=== PATIENT | female | born 1955 | race Caucasian/White ===

== ENCOUNTER 2016-06-16 13:42 | Emergency (ER) | payer OTHER ==
[~2016-06-16] VITALS: Ht 165.1 cm; Wt 63.5 kg
[2016-06-16 13:43] VITALS: BP 201/96; PULSE 94; RESP 17; TEMP 98.7; O2SAT 98
[2016-06-16] MEDS ORDERED: SODIUM CHLOR 0.9% 1000 ML INJ 1,000 ML IV SCH (14:36)
[2016-06-16] MEDS ORDERED: PROB1TAB PO (14:44)
[2016-06-16] MEDS ORDERED: SYMB160A INH (14:44)
[2016-06-16] MEDS ORDERED: LOSA50TA2 PO (14:44)
[2016-06-16] MEDS ORDERED: LIBRAX PO (14:44)
[2016-06-16] MEDS ORDERED: NORC5TAB PO (14:44)
[2016-06-16] MEDS ORDERED: ZANT150T2 PO (14:44)
[2016-06-16] MEDS ORDERED: TRAZ100T4 PO (14:44)
[2016-06-16] MEDS ORDERED: MONT10TA2 PO (14:44)
[2016-06-16] MEDS ORDERED: ZYRT10TA PO (14:44)
[2016-06-16] MEDS ORDERED: CYCL1TAB29 PO (14:44)
[2016-06-16] MEDS ORDERED: ONDANSETRON HCL 4 MG/2 ML VIAL IVP ONE (14:45)
[2016-06-16] MEDS ORDERED: SODIUM CHLORIDE 0.9% FLUSH 10 ML FLUSH IV FLUSH PRN (14:45)
--- NOTE | 2016-06-16 14:53 | PD ---
HPI Chief Complaint: GI Complaint Time Seen by Provider: 13:55 Travel History International Travel<30 days: No Contact w/Intl Traveler<30days: No Traveled to known affect area: No History of Present Illness HPI 7-year-old female presents emergency department for evaluation of nausea and vomiting of clear liquid. Patient states that she thinks she had some pancakes a few days ago which had milk in them and she has a problem with milk ever since she had an injury to her ankle after walking her dog. She states ever since then she's had some problems with milk. 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 She denies any abdominal pain chest pain shortness of breath fevers dysuria vaginal bleeding vaginal discharge diarrhea. She thinks that she is dehydrated. PFSH Past Medical History Diminished Hearing: No Hiatal Hernia: Yes Hypertension: Yes Tetanus Vaccination: Unknown Influenza Vaccination: No ?: Not Menopausal: Yes : 3 Tubal Ligation: Yes Past Surgical History Gynecologic Surgery: Yes (hysterectomy, tubal ligation ) Hysterectomy: Yes Social History Alcohol Use: Yes (rarely) Tobacco Use: No Substance Use: No Allergies-Medications (Allergen,Severity, Reaction): Coded Allergies: Bactrim (Verified Allergy, Severe, RASH, 06/16/16) Sulfa (Verified Allergy, Severe, RASH, 06/16/16) Reported Meds & Prescriptions Reported Meds & Active Scripts Active Phenergan Supp (Promethazine HCl) 25 Mg Supp 25 Mg RECTAL Q6H PRN Reported Symbicort Inh (Budesonide/Formoterol Fumarate) 160-4.5 Mcg/Act Aero 2 Puff INH BID [place] (Hydrocodone-Acetaminophen) 5-325 mg Tab 1 Tab PO Q6H PRN Zyrtec Allergy (Cetirizine HCl) 10 Mg Tab 10 Mg PO DAILY Singulair (Montelukast Sodium) 10 Mg Tab 10 Mg PO HS Trazodone (Trazodone HCl) 100 Mg Tab 100 Mg PO HS Librax (Chlordiazepoxide/Clidinium) 5-2.5 Mg Cap 1 Cap PO BID Flexeril (Cyclobenzaprine HCl) 10 Mg Tab 10 Mg PO TID Zantac (Ranitidine HCl) 150 Mg Tab 150 Mg PO BID Probiotic (Probiotic Product) 1 Tab Tab 1 Tab PO DAILY Losartan-Hydrochlorothiazide 50-12.5 Mg Tab 1 Tab PO DAILY Review of Systems Except as stated in HPI: all other systems reviewed are Neg Physical Exam Narrative GENERAL: Well-developed well-nourished no apparent distress SKIN: Focused skin assessment warm/dry. HEAD: Atraumatic. Normocephalic. EYES: Pupils equal and round. No scleral icterus. No injection or drainage. ENT: No nasal bleeding or discharge. Mucous membranes pink and moist. NECK: Trachea midline. No JVD. CARDIOVASCULAR: Regular rate and rhythm. No murmur appreciated. RESPIRATORY: No accessory muscle use. Clear to auscultation. Breath sounds equal bilaterally. GASTROINTESTINAL: Abdomen soft, non-tender, nondistended. Hepatic and splenic margins not palpable. MUSCULOSKELETAL: No obvious deformities. No clubbing. No cyanosis. No edema. NEUROLOGICAL: Awake and alert. No obvious cranial nerve deficits. Motor grossly within normal limits. Normal speech. PSYCHIATRIC: Appropriate mood and affect; insight and judgment normal. Data Data Last Documented VS Vital Signs Date Time Temp Pulse Resp B/P Pulse Ox O2 Delivery O2 Flow Rate FiO2 06/16/16 18:45 100 06/16/16 18:39 74 18 126/63 06/16/16 16:50 Room Air 06/16/16 13:43 98.7 Orders Complete Blood Count With Diff (06/16/16 14:36) Comprehensive Metabolic Panel (06/16/16 14:36) Lipase (06/16/16 14:36) Urinalysis - C+S If Indicated (06/16/16 14:36) Iv Access Insert/Monitor (06/16/16 14:36) Ecg Monitoring (06/16/16 14:36) Oximetry (06/16/16 14:36) Ondansetron Inj (Zofran Inj) (06/16/16 14:45) Sodium Chlor 0.9% 1000 Ml Inj (Ns 1000 M (06/16/16 14:36) Sodium Chloride 0.9% Flush (Ns Flush) (06/16/16 14:45) Clonidine (Catapres) (06/16/16 16:00) Potassium Chlor 20 Meq Premix (Kcl 20 Me (06/16/16 16:30) Potassium Chloride (Kcl) (06/16/16 16:30) Lorazepam (Ativan) (06/16/16 16:45) Labs Laboratory Tests Test 06/16/16 06/16/16 14:55 15:45 White Blood Count 6.5 TH/MM3 Red Blood Count 4.61 MIL/MM3 Hemoglobin 14.0 GM/DL Hematocrit 41.2 % Mean Corpuscular Volume 89.4 FL Mean Corpuscular Hemoglobin 30.3 PG Mean Corpuscular Hemoglobin 33.9 % Concent Red Cell Distribution Width 13.8 % Platelet Count 200 TH/MM3 Mean Platelet Volume 8.4 FL Neutrophils (%) (Auto) 67.1 % Lymphocytes (%) (Auto) 24.8 % Monocytes (%) (Auto) 7.1 % Eosinophils (%) (Auto) 0.3 % Basophils (%) (Auto) 0.7 % Neutrophils # (Auto) 4.4 TH/MM3 Lymphocytes # (Auto) 1.6 TH/MM3 Monocytes # (Auto) 0.5 TH/MM3 Eosinophils # (Auto) 0.0 TH/MM3 Basophils # (Auto) 0.0 TH/MM3 CBC Comment DIFF FINAL Differential Comment Sodium Level 139 MEQ/L Potassium Level 2.8 MEQ/L Chloride Level 102 MEQ/L Carbon Dioxide Level 27.6 MEQ/L Anion Gap 9 MEQ/L Blood Urea Nitrogen 14 MG/DL Creatinine 0.84 MG/DL Estimat Glomerular Filtration 69 ML/MIN Rate Random Glucose 98 MG/DL Calcium Level 9.8 MG/DL Total Bilirubin 0.6 MG/DL Aspartate Amino Transf 31 U/L (AST/SGOT) Alanine Aminotransferase 27 U/L (ALT/SGPT) Alkaline Phosphatase 67 U/L Total Protein 8.1 GM/DL Albumin 4.4 GM/DL Lipase 132 U/L Urine Color LIGHT-YELLOW Urine Turbidity CLEAR Urine pH 8.0 Urine Specific [place] 1.012 Urine Protein NEG mg/dL Urine Glucose (UA) NEG mg/dL Urine Ketones 10 mg/dL Urine Occult Blood NEG Urine Nitrite NEG Urine Bilirubin NEG Urine Urobilinogen LESS THAN 2.0 MG/DL Urine Leukocyte Esterase NEG Urine RBC LESS THAN 1 /hpf Urine WBC LESS THAN 1 /hpf Urine Hyaline Casts 1 /lpf Urine Mucus FEW /lpf Microscopic Urinalysis Comment CULT NOT INDICATED MDM Medical Decision Making Medical Screen Exam Complete: Yes Emergency Medical Condition: Yes Differential Diagnosis Dehydration, nausea, vomiting, lactose intolerance, electro-light abnormality, acute abdomen highly unlikely. Narrative Course Patient was roomed in the emergency department, she has nausea and vomiting of clear emesis without any abdominal pain. Her abdominal exam is benign. Her labs are reassuring except for potassium at 2.8. She was receiving IV and by mouth replacement. She also asked something for her nerves. She was given Ativan 1 mg by mouth after her ride arrived to take her home. Discussed with her symptomatically management. She was given a prescription for Phenergan suppositories. There is no indication further workup at this time. Patient was grateful and stated she felt much better on her way out of the emergency department. Diagnosis Primary Impression: Nausea & vomiting Qualified Code: R11.2 - Nausea and vomiting, intractability of vomiting not specified, unspecified vomiting type Med/Other Pt SpecificInfo: Prescription(s) given Scripts Promethazine Supp (Phenergan Supp)25 Mg Supp25 Mg RECTAL Q6H PRN (NAUSEA OR VOMITING) #12 SUPP Ref 0 Prov:Juan J Olivo MD 06/16/16 Disposition: 01 DISCHARGE HOME Condition: Stable Juan J Olivo MD Jun 16, 2016 14:53
[2016-06-16 15:08] LABS: AUTOMATED NEUTROPHIL # 4.4 TH/MM3 (1.8-7.7); BASOPHIL % 0.7 % (0.0-2.0); EOSINOPHIL % 0.3 % (0.0-4.0); HEMATOCRIT 41.2 % (35.0-46.0); HEMO FLAGS DIFF FINAL; LYMPH % 24.8 % (9.0-44.0); LYMPHOCYTE # 1.6 TH/MM3 (1.0-4.8); MEAN CELL VOLUME 89.4 FL (80.0-100.0); MEAN CORPUSCULAR HEMOGLOBIN 30.3 PG (27.0-34.0); MEAN CORPUSCULAR HGB CONC 33.9 % (32.0-36.0); MONO % 7.1 % (0.0-8.0); NEUT % 67.1 % (16.0-70.0); PLATELET COUNT 200 TH/MM3 (150-450); RED BLOOD COUNT 4.61 MIL/MM3 (4.00-5.30); RED CELL DISTRIBUTION WIDTH 13.8 % (11.6-17.2); WHITE BLOOD COUNT 6.5 TH/MM3 (4.0-11.0)
[2016-06-16 15:53] LABS: ALKALINE PHOSPHATASE 67 U/L (45-117); ALT (GPT) 27 U/L (10-53); ANION GAP 9 MEQ/L (5-15); AST (GOT) 31 U/L (15-37); BICARBONATE 27.6 MEQ/L (21.0-32.0); BLOOD UREA NITROGEN 14 MG/DL (7-18); CHLORIDE 102 MEQ/L (98-107); GLOMERULAR FILTRATION RATE 69 ML/MIN (>89); SODIUM (NA) 139 MEQ/L (136-145); TOTAL BILIRUBIN ADULT 0.6 MG/DL (0.2-1.0)
[2016-06-16] MEDS ORDERED: cloNIDine HCL 0.1 MG TAB PO ONE (16:00)
[2016-06-16 16:06] LABS: POTASSIUM 2.8 MEQ/L (3.5-5.1)
[2016-06-16 16:15] VITALS: BP 193/88; PULSE 76; RESP 18; O2SAT 99
[2016-06-16 16:25] LABS: BLOOD, URINE NEG (NEG); COMMENT (UR) CULT NOT INDICATED; CULTURE IF INDICATED CULT NOT INDICATED; GLUCOSE,URINE NEG (NEG); HYALINE CAST, URINE 1 /lpf (RARE); KETONE, URINE 10 mg/dL (NEG); MUCUS URINE FEW /lpf (OCC); NITRITE,URINE NEG (NEG); URINE COLOR LIGHT-YELLOW (YELLW/STRAW)
[2016-06-16] MEDS ORDERED: POTASSIUM CHLOR 20 MEQ PREMIX 100 ML IV ONE (16:30)
[2016-06-16] MEDS ORDERED: POTASSIUM CHLORIDE 20 MEQ CONTROLLED RELEASE TAB PO ONE (16:30)
[2016-06-16] MEDS ORDERED: PROM1SUP7 RECTAL (16:33)
[2016-06-16] MEDS ORDERED: LORazepam 1 MG TAB PO ONE (16:45)
[2016-06-16 16:50] VITALS: BP 199/78; PULSE 71; RESP 18; O2SAT 100
[2016-06-16 18:39] VITALS: BP 126/63; PULSE 74; RESP 18; O2SAT 100
== END 2016-06-16 18:45 | disposition home or self-care (01) ==
LOC: NEPD 13:42
DX: R11.2 Nausea with vomiting, unspecified (principal); I10 Essential (primary) hypertension
CPT/HCPCS: 80053; 81001; 83690; 85025; 96361; 96374; 96375; 99284; J2405; J3480; J7030

== ENCOUNTER 2016-10-13 15:40 | Emergency (ER) | payer OTHER ==
[~2016-10-13 15:40] MED LIST: CYCL1TAB29 PO; LIBRAX PO; LOSA50TA2 PO; MONT10TA2 PO; NORC5TAB PO; PROB1TAB PO; PROM1SUP7 RECTAL; SYMB160A INH; TRAZ100T4 PO; ZANT150T2 PO; ZYRT10TA PO
[2016-10-13 15:45] VITALS: BP 121/71; PULSE 82; RESP 24; TEMP 98.4; O2SAT 100
--- NOTE | 2016-10-13 16:26 | PD ---
HPI Chief Complaint: Musculoskeletal Complaint Time Seen by Provider: 16:25 Travel History International Travel<30 days: No Contact w/Intl Traveler<30days: No Traveled to known affect area: No History of Present Illness HPI 61-year-old female presents to the emergency department with complaint of left knee pain after slipping while taking her trash out and over flexing her knee after falling on her butt. She has history of bilateral knee replacements and is concerned about the hardware in her knee. Denies paresthesias, loss of sensation, decreased range of motion, decreased strength of the affected extremity. Has been ambulatory on the affected extremity. Pain is to the medial aspect. Pain with full extension of the knee. Decreased pain with flexion of the knee. Took 800 mg ibuprofen for symptom management, just prior to arrival. Symptoms are mild in severity. Has no other medical complaints. Allergies to Bactrim. No other modifying factors or associated signs and symptoms. PFSH Past Medical History Cardiovascular Problems: Yes (HTN) Diminished Hearing: No Hiatal Hernia: Yes Hypertension: Yes Menopausal: Yes : 3 Tubal Ligation: Yes Past Surgical History Gynecologic Surgery: Yes (hysterectomy, tubal ligation ) Hysterectomy: Yes Social History Alcohol Use: Yes (rarely) Tobacco Use: No Substance Use: No Allergies-Medications (Allergen,Severity, Reaction): Coded Allergies: Sulfa (Sulfonamide Antibiotics) (Verified Allergy, Severe, RASH, 10/13/16) sulfamethoxazole (Verified Allergy, Severe, RASH, 10/13/16) trimethoprim (Verified Allergy, Severe, RASH, 10/13/16) Reported Meds & Prescriptions Reported Meds & Active Scripts Active Ibuprofen 800 Mg Tab 800 Mg PO Q8H PRN Phenergan Supp (Promethazine HCl) 25 Mg Supp 25 Mg RECTAL Q6H PRN Reported Symbicort Inh (Budesonide/Formoterol Fumarate) 160-4.5 Mcg/Act Aero 2 Puff INH BID [place] (Hydrocodone-Acetaminophen) 5-325 mg Tab 1 Tab PO Q6H PRN Zyrtec Allergy (Cetirizine HCl) 10 Mg Tab 10 Mg PO DAILY Singulair (Montelukast Sodium) 10 Mg Tab 10 Mg PO HS Trazodone (Trazodone HCl) 100 Mg Tab 100 Mg PO HS Librax (Chlordiazepoxide/Clidinium) 5-2.5 Mg Cap 1 Cap PO BID Flexeril (Cyclobenzaprine HCl) 10 Mg Tab 10 Mg PO TID Zantac (Ranitidine HCl) 150 Mg Tab 150 Mg PO BID Probiotic (Probiotic Product) 1 Tab Tab 1 Tab PO DAILY Losartan-Hydrochlorothiazide 50-12.5 Mg Tab 1 Tab PO DAILY Review of Systems Except as stated in HPI: all other systems reviewed are Neg Physical Exam Narrative GENERAL: Well-nourished, well-developed female patient, in no acute distress; afebrile, nontoxic-appearing SKIN: Warm and dry. HEAD: Atraumatic. Normocephalic. EYES: Pupils equal and round. No scleral icterus. No injection or drainage. ENT: Mucosa pink and moist. Airway patent. NECK: Trachea midline. CARDIOVASCULAR: Regular rate. RESPIRATORY: No accessory muscle use. GASTROINTESTINAL: Flat. MUSCULOSKELETAL: Left knee is nonedematous, nonerythematous and without ecchymosis; full range of motion of flexion and 90; pain with full extension; joint stable with negative drawer test; tenderness on palpation to the medial aspect; no obvious deformity. Left Lower extremity is supple and non-tense with 2+ pedal pulse and sensory intact and without erythema or edema. Ambulatory in room with a limp to the left lower extremity. NEUROLOGICAL: Awake and alert. Oriented 3. No obvious cranial nerve deficits. Motor grossly within normal limits. Normal speech. PSYCHIATRIC: Appropriate mood and affect; insight and judgment normal. Data Data Last Documented VS Vital Signs Date Time Temp Pulse Resp B/P (MAP) Pulse Ox O2 Delivery O2 Flow Rate FiO2 10/13/16 15:45 98.4 82 24 121/71 (88) 100 Room Air Orders Orders Knee, Complete (4vws) (10/13/16 16:18) Splint Or Brace Apply/Monitor (10/13/16 16:40) Crutches (10/13/16 16:40) MDM Medical Decision Making Medical Screen Exam Complete: Yes Emergency Medical Condition: Yes Medical Record Reviewed: Yes Differential Diagnosis Fall, Knee strain, meniscal tear, fracture Narrative Course 61 year-old female with left knee injury after mechanical fall. She fell backwards onto her butt with her left leg under her causing it to over flex. She has history of bilateral knee replacements and is concerned of the hardware. Patient took 800 mg ibuprofen prior to arrival. Left knee x-ray ordered. 1651: Left knee x-ray with no acute findings. Guillermo bandage and crutches provided for support. Ibuprofen prescribed for home. Instructed patient to follow up with orthopedics as needed. Instructed patient to follow up with primary care provider. Patient verbalizes understanding and agreement with treatment plan. Patient is medically cleared and stable for discharge. Discussed reasons to return to the emergency department. Patient agrees with treatment plan. The patients vital signs are stable and the patient is stable for outpatient follow-up and treatment. Patient discharged home, stable and in no acute distress. Diagnosis Primary Impression: Left knee injury Qualified Codes: S89.92XA - Unspecified injury of left lower leg, initial encounter Referrals: Primary Care Physician Patient Instructions: General Instructions, Knee Sprain (ED) Additional Instructions: Tylenol or ibuprofen as needed and as directed to reduce pain and inflammation Rest, ice, compress, and elevate extremity to decrease pain and inflammation Knee brace for support Crutches for support Avoid aggravating activity; increase activity as tolerated Follow-up with primary care provider Follow-up with orthopedics Return to the emergency department immediately with worsening symptoms Med/Other Pt SpecificInfo: Prescription(s) given Scripts Ibuprofen (Ibuprofen) 800 Mg Tab 800 MG PO Q8H Y for PAIN SCALE 1 TO 10, #30 TAB 0 Refills Prov: Sybil Gaston 10/13/16 Disposition: 01 DISCHARGE HOME Condition: Stable Sybil Gaston Oct 13, 2016 16:25
--- NOTE | 2016-10-13 16:47 | RADRPT ---
EXAM DATE/TIME: 10/13/2016 16:33 [facility] COMPARISON: No previous studies available for comparison. INDICATIONS : Left knee pain and swelling, fell MEDICAL HISTORY : Arthritis. SURGICAL HISTORY : Total knee replacement, left. Total knee replacement, right. ENCOUNTER: Initial ACUITY: 1 day PAIN SCORE: 4/10 LOCATION: Left Knee FINDINGS: There is no fracture or subluxation of the left knee. Total knee arthroplasty present appears intact and normally aligned. No evidence of hardware failure or loosening. Small suprapatellar joint effusio n present. CONCLUSION: Small nonspecific joint effusion. Otherwise normal radiographic appearance of the left knee/arthropla sty. No fracture or subluxation. aJred Murphy MD on October 13, 2016 at 16:45 Board Certified Radiologist. This report was verified electronically.
[2016-10-13] MEDS ORDERED: IBUP800T23 PO (16:49)
== END 2016-10-13 17:49 | disposition home or self-care (01) ==
LOC: NEPK 15:40
DX: S89.92XA Unspecified injury of left lower leg, initial encounter (principal); I10 Essential (primary) hypertension; Z96.653 Presence of artificial knee joint, bilateral; Z86.79 Personal history of other diseases of the circulatory system; Z87.39 Personal history of other diseases of the musculoskeletal system and connective tissue; W01.0XXA Fall on same level from slipping, tripping and stumbling without subsequent striking against object, initial encounter
CPT/HCPCS: 73564; 99283; E0113

== ENCOUNTER 2017-03-11 15:26 | Emergency (ER) | payer OTHER ==
[~2017-03-11] VITALS: Ht 166.4 cm; Wt 68.2 kg
[~2017-03-11 15:26] MED LIST changes: +CYCL10TA PO; -CYCL1TAB29 PO; +IBUP1TAB7 PO
[2017-03-11] MEDS ORDERED: IOHEXOL 350 MG/ML 10 ML VIAL (for RAD DIAG) IVCONTRAST ONE (15:27)
[2017-03-11 15:28] VITALS: BP 169/84; PULSE 84; RESP 17; TEMP 99.7; O2SAT 100
[2017-03-11] MEDS ORDERED: SODIUM CHLOR 0.9% 1000 ML INJ 1,000 ML IV SCH (16:37)
--- NOTE | 2017-03-11 16:37 | PD ---
HPI Chief Complaint: GI Complaint Time Seen by Provider: 16:28 Travel History International Travel<30 days: No Contact w/Intl Traveler<30days: No Traveled to known affect area: No History of Present Illness HPI 62-year-old female presents to the emergency Department with complaint of hypogastric abdominal pain, constipation 3 days and onset of vomiting this morning. Reports low-grade fever with MAXIMUM TEMPERATURE of 99.3. Denies hematemesis. Denies hematuria, urinary frequency. Reports nausea. Denies history of abdominal surgeries. Reports being treated for Escherichia coli in her stool in January. Took 2 Dulcolax on Friday with no relief of symptoms. Took Zofran this morning at 6 AM for nausea and vomiting. Rates pain 08/26. Says "it just hurts." Worse with palpation. No known relieving factors. Primary care provider is Dr. Michael. Allergies to Bactrim. History of hypertension, asthma, hypercholesterolemia. Has no other medical complaints. No other modifying factors or associated signs and symptoms. PFSH Past Medical History Cardiovascular Problems: Yes (HTN) Diminished Hearing: No Hiatal Hernia: Yes Hypertension: Yes Menopausal: Yes : 3 Tubal Ligation: Yes Past Surgical History Gynecologic Surgery: Yes (hysterectomy, tubal ligation ) Hysterectomy: Yes Social History Alcohol Use: Yes (rarely) Tobacco Use: No Substance Use: No Allergies-Medications (Allergen,Severity, Reaction): Coded Allergies: Sulfa (Sulfonamide Antibiotics) (Verified Allergy, Severe, RASH, 10/13/16) sulfamethoxazole (Verified Allergy, Severe, RASH, 10/13/16) trimethoprim (Verified Allergy, Severe, RASH, 10/13/16) Reported Meds & Prescriptions Reported Meds & Active Scripts Active Phenergan Supp (Promethazine HCl) 25 Mg Supp 25 Mg RECTAL Q6H PRN Ibuprofen 800 Mg Tab 800 Mg PO Q8H PRN Phenergan Supp (Promethazine HCl) 25 Mg Supp 25 Mg RECTAL Q6H PRN Reported Symbicort Inh (Budesonide/Formoterol Fumarate) 160-4.5 Mcg/Act Aero 2 Puff INH BID [place] (Hydrocodone-Acetaminophen) 5-325 mg Tab 1 Tab PO Q6H PRN Zyrtec Allergy (Cetirizine HCl) 10 Mg Tab 10 Mg PO DAILY Singulair (Montelukast Sodium) 10 Mg Tab 10 Mg PO HS Trazodone (Trazodone HCl) 100 Mg Tab 100 Mg PO HS Librax (Chlordiazepoxide/Clidinium) 5-2.5 Mg Cap 1 Cap PO BID Flexeril (Cyclobenzaprine HCl) 10 Mg Tab 10 Mg PO TID Zantac (Ranitidine HCl) 150 Mg Tab 150 Mg PO BID Probiotic (Probiotic Product) 1 Tab Tab 1 Tab PO DAILY Losartan-Hydrochlorothiazide 50-12.5 Mg Tab 1 Tab PO DAILY Review of Systems Except as stated in HPI: all other systems reviewed are Neg Physical Exam Narrative GENERAL: Well-nourished, well-developed female patient, in no acute distress; afebrile SKIN: Warm and dry. HEAD: Atraumatic. Normocephalic. EYES: Pupils equal and round. No scleral icterus. No injection or drainage. ENT: Mucosa pink and moist. Airway patent. NECK: Trachea midline. CARDIOVASCULAR: Regular rate and rhythm. No murmur appreciated. RESPIRATORY: No accessory muscle use. Clear to auscultation. Breath sounds equal bilaterally. GASTROINTESTINAL: Abdomen soft, tenderness on palpation to hypogastric region, nondistended. Hepatic and splenic margins not palpable. Bowel sounds are active 4 quadrants. Nonrigid. No rebound tenderness. No guarding. Bladder is nondistended. BACK: No CVA tenderness. MUSCULOSKELETAL: No obvious deformities. No clubbing. No cyanosis. No edema. NEUROLOGICAL: Awake and alert. Oriented 3. No obvious cranial nerve deficits. Motor grossly within normal limits. Normal speech. PSYCHIATRIC: Appropriate mood and affect; insight and judgment normal. Data Data Last Documented VS Vital Signs Date Time Temp Pulse Resp B/P (MAP) Pulse Ox O2 Delivery O2 Flow Rate FiO2 03/11/17 23:21 79 15 99 03/11/17 20:54 Room Air 03/11/17 15:28 99.7 Orders Orders Complete Blood Count With Diff (03/11/17 15:54) Comprehensive Metabolic Panel (03/11/17 15:54) Lipase (03/11/17 15:54) Prothrombin Time / Inr (Pt) (03/11/17 15:54) Act Partial Throm Time (Ptt) (03/11/17 15:54) Urinalysis - C+S If Indicated (03/11/17 15:54) Ct Abd/Pel W Iv Contrast(Rout) (03/11/17 16:37) Ondansetron Inj (Zofran Inj) (03/11/17 16:45) Sodium Chlor 0.9% 1000 Ml Inj (Ns 1000 M (03/11/17 16:37) Sodium Chloride 0.9% Flush (Ns Flush) (03/11/17 16:45) Ketorolac Inj (Toradol Inj) (03/11/17 16:45) Iohexol 350 Inj (Omnipaque 350 Inj) (03/11/17 15:27) Prochlorperazine Inj (Compazine Inj) (03/11/17 19:45) Diphenhydramine Inj (Benadryl Inj) (03/11/17 19:45) Sodium Chlor 0.9% 1000 Ml Inj (Ns 1000 M (03/11/17 19:45) Potassium Chlor 20 Meq Premix (Kcl 20 Me (03/11/17 20:15) Ed Discharge Order (03/11/17 21:07) Labs Laboratory Tests Test 03/11/17 16:30 03/11/17 19:20 White Blood Count 10.7 TH/MM3 Red Blood Count 4.09 MIL/MM3 Hemoglobin 12.7 GM/DL Hematocrit 37.2 % Mean Corpuscular Volume 90.9 FL Mean Corpuscular Hemoglobin 31.2 PG Mean Corpuscular Hemoglobin Concent 34.3 % Red Cell Distribution Width 13.0 % Platelet Count 175 TH/MM3 Mean Platelet Volume 9.1 FL Neutrophils (%) (Auto) 92.6 % Lymphocytes (%) (Auto) 4.6 % Monocytes (%) (Auto) 2.7 % Eosinophils (%) (Auto) 0.0 % Basophils (%) (Auto) 0.1 % Neutrophils # (Auto) 9.9 TH/MM3 Lymphocytes # (Auto) 0.5 TH/MM3 Monocytes # (Auto) 0.3 TH/MM3 Eosinophils # (Auto) 0.0 TH/MM3 Basophils # (Auto) 0.0 TH/MM3 CBC Comment DIFF FINAL Differential Comment Prothrombin Time 10.9 SEC Prothromb Time International Ratio 1.1 RATIO Activated Partial Thromboplast Time 26.5 SEC Blood Urea Nitrogen 21 MG/DL Creatinine 0.95 MG/DL Random Glucose 201 MG/DL Total Protein 7.9 GM/DL Albumin 4.0 GM/DL Calcium Level 9.2 MG/DL Alkaline Phosphatase 68 U/L Aspartate Amino Transf (AST/SGOT) 17 U/L Alanine Aminotransferase (ALT/SGPT) 21 U/L Total Bilirubin 0.5 MG/DL Sodium Level 141 MEQ/L Potassium Level 3.3 MEQ/L Chloride Level 103 MEQ/L Carbon Dioxide Level 28.6 MEQ/L Anion Gap 9 MEQ/L Estimat Glomerular Filtration Rate 60 ML/MIN Lipase 97 U/L Urine Color YELLOW Urine Turbidity CLEAR Urine pH 7.0 Urine Specific [place] GREATER THAN 1.050 Urine Protein 30 mg/dL Urine Glucose (UA) NEG mg/dL Urine Ketones 80 mg/dL Urine Occult Blood NEG Urine Nitrite NEG Urine Bilirubin NEG Urine Urobilinogen LESS THAN 2.0 MG/DL Urine Leukocyte Esterase NEG Urine Squamous Epithelial Cells 3 /hpf Urine Mucus FEW /lpf Microscopic Urinalysis Comment CULT NOT INDICATED MDM Medical Decision Making Medical Screen Exam Complete: Yes Emergency Medical Condition: Yes Medical Record Reviewed: Yes Differential Diagnosis Constipation, UTI, gastroenteritis, Diverticulitis, gastritis, colitis Narrative Course 62-year-old female with abdominal pain, constipation, vomiting, low-grade fever. CBC, CMP, lipase, coags, urinalysis ordered in triage. CT abdomen/ pelvis, Toradol, normal female bolus, Zofran ordered. 1900: Report give to SIMON Carter at change of shift. See her note for final patient disposition. Scripts Promethazine Supp (Phenergan Supp) 25 Mg Supp 25 MG RECTAL Q6H Y for NAUSEA OR VOMITING, #12 SUPP 0 Refills Prov: Lucila Travis 03/11/17 Sybil Gaston Mar 11, 2017 16:37
[2017-03-11] MEDS ORDERED: SODIUM CHLORIDE 0.9% FLUSH 10 ML FLUSH IV FLUSH PRN (16:45)
[2017-03-11] MEDS ORDERED: ONDANSETRON HCL 4 MG/2 ML VIAL IVP ONE (16:45)
[2017-03-11] MEDS ORDERED: KETOROLAC TROMETHAMINE 30 MG/ML (IVP) VIAL IVP ONE (16:45)
[2017-03-11 17:04] LABS: AUTOMATED NEUTROPHIL # 9.9 TH/MM3 (1.8-7.7); BASOPHIL % 0.1 % (0.0-2.0); HEMATOCRIT 37.2 % (35.0-46.0); HEMOGLOBIN 12.7 GM/DL (11.6-15.3); LYMPH % 4.6 % (9.0-44.0); LYMPHOCYTE # 0.5 TH/MM3 (1.0-4.8); MEAN CELL VOLUME 90.9 FL (80.0-100.0); MEAN CORPUSCULAR HEMOGLOBIN 31.2 PG (27.0-34.0); MEAN CORPUSCULAR HGB CONC 34.3 % (32.0-36.0); MEAN PLATELET VOLUME 9.1 FL (7.0-11.0); MONO % 2.7 % (0.0-8.0); MONOCYTE # 0.3 TH/MM3 (0-0.9); NEUT % 92.6 % (16.0-70.0); PLATELET COUNT 175 TH/MM3 (150-450); RED BLOOD COUNT 4.09 MIL/MM3 (4.00-5.30); WHITE BLOOD COUNT 10.7 TH/MM3 (4.0-11.0)
[2017-03-11 17:12] LABS: INTERNATIONAL NORMALIZED RATIO 1.1 RATIO; PROTHROMBIN TIME - PATIENT 10.9 SEC (9.8-11.6)
[2017-03-11 17:19] LABS: AST (GOT) 17 U/L (15-37); BICARBONATE 28.6 MEQ/L (21.0-32.0); BLOOD UREA NITROGEN 21 MG/DL (7-18); CALCIUM 9.2 MG/DL (8.5-10.1); CHLORIDE 103 MEQ/L (98-107); CREATININE 0.95 MG/DL (0.50-1.00); GLOMERULAR FILTRATION RATE 60 ML/MIN (>89); GLUCOSE,RANDOM 201 MG/DL (74-106); LIPASE 97 U/L (73-393); SODIUM (NA) 141 MEQ/L (136-145)
[2017-03-11 17:22] LABS: ALKALINE PHOSPHATASE 68 U/L (45-117); ALT (GPT) 21 U/L (10-53); TOTAL BILIRUBIN ADULT 0.5 MG/DL (0.2-1.0); TOTAL PROTEIN 7.9 GM/DL (6.4-8.2)
--- NOTE | 2017-03-11 19:09 | RADRPT ---
EXAM DATE/TIME: 03/11/2017 18:30 [facility] COMPARISON: No previous studies available for comparison. INDICATIONS : Vomiting constipation for three days IV CONTRAST: 70 cc Omnipaque 350 (iohexol) IV ORAL CONTRAST: No oral contrast ingested. RADIATION DOSE: 6.64 CTDIvol (mGy) MEDICAL HISTORY : Hypertension. Hernia, hiatal. SURGICAL HISTORY : Hysterectomy. Tubal ligation. ENCOUNTER: Initial ACUITY: 1 day PAIN SCALE: 7/10 LOCATION: Abdomen TECHNIQUE: Volumetric scanning of the abdomen and pelvis was performed. Using automated exposure control and ad justment of the mA and/or kV according to patient size, radiation dose was kept as low as reasonably achievable to obtain optimal diagnostic quality images. DICOM format image data is available electro nically for review and comparison. FINDINGS: There is no significant abnormality the lung bases. No acute findings in the liver, spleen, adrenals, kidneys or pancreas. Small left renal cyst. No calcified gallstones. There is colonic diverticulosis, especially sigmoid without evidence for diverticulitis. Appendix is normal. Mild scoliosis. CONCLUSION: 1. No acute findings. Colonic diverticulosis. No obstruction, free fluid or free air. Small hiatal he rnia. Pete Clark MD on March 11, 2017 at 19:03 Board Certified Radiologist. This report was verified electronically.
[2017-03-11 19:10] VITALS: BP 161/88; PULSE 82; RESP 18; O2SAT 98
[2017-03-11] MEDS ORDERED: diphenhydrAMINE HCL 50 MG/ML VIAL IV PUSH ONE (19:45)
[2017-03-11] MEDS ORDERED: PROCHLORPERAZINE INJ 10 MG/2 ML VIAL IV PUSH ONE (19:45)
[2017-03-11] MEDS ORDERED: SODIUM CHLOR 0.9% 1000 ML INJ 1,000 ML IV ONE (19:45)
[2017-03-11] MEDS ORDERED: POTASSIUM CHLOR 20 MEQ PREMIX 100 ML IV ONE (20:15)
[2017-03-11 20:32] LABS: BILIRUBIN, URINE NEG (NEG); BLOOD, URINE NEG (NEG); GLUCOSE,URINE NEG (NEG); KETONE, URINE 80 mg/dL (NEG); MUCUS URINE FEW /lpf (OCC); NITRITE,URINE NEG (NEG); SQUAMOUS EPITHELIAL CELL URINE 3 /hpf (0-5); URINE COLOR YELLOW (YELLW/STRAW); URINE LEUKOCYTE ESTERASE NEG (NEG)
[2017-03-11 20:54] VITALS: BP 124/57; PULSE 90; RESP 16; O2SAT 99
[2017-03-11] MEDS ORDERED: PROM1SUP7 RECTAL (21:06)
--- NOTE | 2017-03-11 21:07 | PD ---
Physical Exam Date Seen by Provider: Mar 11, 2017 Time Seen by Provider: 20:55 Narrative For full history and physical examination please see previous provider's note. Data Data Last Documented VS Vital Signs Date Time Temp Pulse Resp B/P (MAP) Pulse Ox O2 Delivery O2 Flow Rate FiO2 03/11/17 20:54 90 16 124/57 (79) 99 Room Air 03/11/17 15:28 99.7 Orders Orders Complete Blood Count With Diff (03/11/17 15:54) Comprehensive Metabolic Panel (03/11/17 15:54) Lipase (03/11/17 15:54) Prothrombin Time / Inr (Pt) (03/11/17 15:54) Act Partial Throm Time (Ptt) (03/11/17 15:54) Urinalysis - C+S If Indicated (03/11/17 15:54) Ct Abd/Pel W Iv Contrast(Rout) (03/11/17 16:37) Ondansetron Inj (Zofran Inj) (03/11/17 16:45) Sodium Chlor 0.9% 1000 Ml Inj (Ns 1000 M (03/11/17 16:37) Sodium Chloride 0.9% Flush (Ns Flush) (03/11/17 16:45) Ketorolac Inj (Toradol Inj) (03/11/17 16:45) Iohexol 350 Inj (Omnipaque 350 Inj) (03/11/17 15:27) Prochlorperazine Inj (Compazine Inj) (03/11/17 19:45) Diphenhydramine Inj (Benadryl Inj) (03/11/17 19:45) Sodium Chlor 0.9% 1000 Ml Inj (Ns 1000 M (03/11/17 19:45) Potassium Chlor 20 Meq Premix (Kcl 20 Me (03/11/17 20:15) Labs Laboratory Tests Test 03/11/17 16:30 03/11/17 19:20 White Blood Count 10.7 TH/MM3 Red Blood Count 4.09 MIL/MM3 Hemoglobin 12.7 GM/DL Hematocrit 37.2 % Mean Corpuscular Volume 90.9 FL Mean Corpuscular Hemoglobin 31.2 PG Mean Corpuscular Hemoglobin Concent 34.3 % Red Cell Distribution Width 13.0 % Platelet Count 175 TH/MM3 Mean Platelet Volume 9.1 FL Neutrophils (%) (Auto) 92.6 % Lymphocytes (%) (Auto) 4.6 % Monocytes (%) (Auto) 2.7 % Eosinophils (%) (Auto) 0.0 % Basophils (%) (Auto) 0.1 % Neutrophils # (Auto) 9.9 TH/MM3 Lymphocytes # (Auto) 0.5 TH/MM3 Monocytes # (Auto) 0.3 TH/MM3 Eosinophils # (Auto) 0.0 TH/MM3 Basophils # (Auto) 0.0 TH/MM3 CBC Comment DIFF FINAL Differential Comment Prothrombin Time 10.9 SEC Prothromb Time International Ratio 1.1 RATIO Activated Partial Thromboplast Time 26.5 SEC Blood Urea Nitrogen 21 MG/DL Creatinine 0.95 MG/DL Random Glucose 201 MG/DL Total Protein 7.9 GM/DL Albumin 4.0 GM/DL Calcium Level 9.2 MG/DL Alkaline Phosphatase 68 U/L Aspartate Amino Transf (AST/SGOT) 17 U/L Alanine Aminotransferase (ALT/SGPT) 21 U/L Total Bilirubin 0.5 MG/DL Sodium Level 141 MEQ/L Potassium Level 3.3 MEQ/L Chloride Level 103 MEQ/L Carbon Dioxide Level 28.6 MEQ/L Anion Gap 9 MEQ/L Estimat Glomerular Filtration Rate 60 ML/MIN Lipase 97 U/L Urine Color YELLOW Urine Turbidity CLEAR Urine pH 7.0 Urine Specific [place] GREATER THAN 1.050 Urine Protein 30 mg/dL Urine Glucose (UA) NEG mg/dL Urine Ketones 80 mg/dL Urine Occult Blood NEG Urine Nitrite NEG Urine Bilirubin NEG Urine Urobilinogen LESS THAN 2.0 MG/DL Urine Leukocyte Esterase NEG Urine Squamous Epithelial Cells 3 /hpf Urine Mucus FEW /lpf Microscopic Urinalysis Comment CULT NOT INDICATED [facility] Medical Record Reviewed: Yes Supervised Visit with TAMMY: No Interpretation(s) Last Impressions Abdomen/Pelvis CT 03/11/17 1197 Signed Impressions: Service Date/Time: Saturday, March 11, 2017 18:30 - CONCLUSION: 1. No acute findings. Colonic diverticulosis. No obstruction, free fluid or free air. Small hiatal hernia. Pete Clark MD Laboratory Tests Test 03/11/17 16:30 03/11/17 19:20 White Blood Count 10.7 TH/MM3 Red Blood Count 4.09 MIL/MM3 Hemoglobin 12.7 GM/DL Hematocrit 37.2 % Mean Corpuscular Volume 90.9 FL Mean Corpuscular Hemoglobin 31.2 PG Mean Corpuscular Hemoglobin Concent 34.3 % Red Cell Distribution Width 13.0 % Platelet Count 175 TH/MM3 Mean Platelet Volume 9.1 FL Neutrophils (%) (Auto) 92.6 % Lymphocytes (%) (Auto) 4.6 % Monocytes (%) (Auto) 2.7 % Eosinophils (%) (Auto) 0.0 % Basophils (%) (Auto) 0.1 % Neutrophils # (Auto) 9.9 TH/MM3 Lymphocytes # (Auto) 0.5 TH/MM3 Monocytes # (Auto) 0.3 TH/MM3 Eosinophils # (Auto) 0.0 TH/MM3 Basophils # (Auto) 0.0 TH/MM3 CBC Comment DIFF FINAL Differential Comment Prothrombin Time 10.9 SEC Prothromb Time International Ratio 1.1 RATIO Activated Partial Thromboplast Time 26.5 SEC Blood Urea Nitrogen 21 MG/DL Creatinine 0.95 MG/DL Random Glucose 201 MG/DL Total Protein 7.9 GM/DL Albumin 4.0 GM/DL Calcium Level 9.2 MG/DL Alkaline Phosphatase 68 U/L Aspartate Amino Transf (AST/SGOT) 17 U/L Alanine Aminotransferase (ALT/SGPT) 21 U/L Total Bilirubin 0.5 MG/DL Sodium Level 141 MEQ/L Potassium Level 3.3 MEQ/L Chloride Level 103 MEQ/L Carbon Dioxide Level 28.6 MEQ/L Anion Gap 9 MEQ/L Estimat Glomerular Filtration Rate 60 ML/MIN Lipase 97 U/L Urine Color YELLOW Urine Turbidity CLEAR Urine pH 7.0 Urine Specific [place] GREATER THAN 1.050 Urine Protein 30 mg/dL Urine Glucose (UA) NEG mg/dL Urine Ketones 80 mg/dL Urine Occult Blood NEG Urine Nitrite NEG Urine Bilirubin NEG Urine Urobilinogen LESS THAN 2.0 MG/DL Urine Leukocyte Esterase NEG Urine Squamous Epithelial Cells 3 /hpf Urine Mucus FEW /lpf Microscopic Urinalysis Comment CULT NOT INDICATED Vital Signs Date Time Temp Pulse Resp B/P (MAP) Pulse Ox O2 Delivery O2 Flow Rate FiO2 03/11/17 20:54 90 16 124/57 (79) 99 Room Air 03/11/17 19:10 82 18 161/88 (112) 98 Room Air 03/11/17 15:28 99.7 84 17 169/84 (112) 100 Room Air Differential Diagnosis Gastritis versus gastroenteritis versus obstruction versus metabolic abnormality versus other Narrative Course Patient is a 62-year-old female that presented to the emergency department for evaluation of abdominal pain nausea and vomiting. Please see previous provider' s note for full H&P. CBC reviewed, no acute findings identified Chemistry with potassium of 3.3, replacement ordered. UA is not consistent with urinary tract infection. CT scan abdomen and pelvis shows no acute findings. Colonic diverticulosis. No obstruction, free fluid or free air is noted. There is a small hiatal hernia. Patient was given IV fluids, she was given an additional dose of Compazine and Benadryl for nausea. She does report having a GI specialist as well as a primary doctor to follow-up with. Patient was reassured at this time that there were no acute findings. Patient will be discharged home, she is advised to follow-up with the vp strategic planning and primary doctor within the next 1-2 days. She was given strict return precautions. Patient verbalized understanding. Patient is stable for discharge. Diagnosis Primary Impression: Nausea & vomiting Qualified Codes: R11.2 - Nausea with vomiting, unspecified Additional Impression: Abdominal pain Qualified Codes: R10.33 - Periumbilical pain Referrals: It Account Manager 2 days Primary Care Physician 2 days Patient Instructions: Abdominal Pain (ED), Acute Nausea and Vomiting (DC), General Instructions Additional Instruction: Follow-up with her vp strategic planning Follow-up with your primary doctor Maintain a bland, easy to digest diet, increase as tolerated Take medications as directed Return to emergency department immediately for any new or worsening symptoms as discussed Med/Other Pt SpecificInfo: Prescription(s) given Scripts Promethazine Supp (Phenergan Supp) 25 Mg Supp 25 MG RECTAL Q6H Y for NAUSEA OR VOMITING, #12 SUPP 0 Refills Prov: Lucila Travis 03/11/17 Disposition: 01 DISCHARGE HOME Condition: Stable Lucila Travis Mar 11, 2017 21:07
[2017-03-13] MEDS ORDERED: TRAZ1TAB14 PO (15:22)
[2017-03-13] MEDS ORDERED: CETI10 PO (15:22)
[2017-03-13] MEDS ORDERED: CLON1 PO (15:22)
[2017-03-15] MEDS ORDERED: PANT20 PO (10:57)
[2017-03-15] MEDS ORDERED: SUCR1S PO (10:57)
[2017-03-15] MEDS ORDERED: REGL5TAB PO (10:59)
== END 2017-03-11 23:31 | disposition home or self-care (01) ==
LOC: NEPD 15:26
DX: R11.2 Nausea with vomiting, unspecified (principal); R10.33 Periumbilical pain; K59.00 Constipation, unspecified; I10 Essential (primary) hypertension; J45.909 Unspecified asthma, uncomplicated; E78.00 Pure hypercholesterolemia, unspecified
CPT/HCPCS: 74177; 80053; 81001; 83690; 85025; 85610; 85730; 96361; 96374; 96375; 99285; J0780; J1200; J1885; J2405; J3480; J7030; Q9967

== ENCOUNTER 2017-03-21 13:07 | Emergency (ER) | payer OTHER ==
[~2017-03-21] VITALS: Ht 165.1 cm; Wt 66.2 kg
[~2017-03-21 13:07] MED LIST changes: +CETI10 PO; -CYCL10TA PO; -IBUP1TAB7 PO; -NORC5TAB PO; +PANT20 PO; -PROB1TAB PO; -PROM1SUP7 RECTAL; +REGL5TAB PO; +SUCR1S PO; -SYMB160A INH; -TRAZ100T4 PO; +TRAZ1TAB14 PO; -ZYRT10TA PO
[2017-03-21 13:11] VITALS: BP 153/65; PULSE 107; RESP 18; TEMP 98.2; O2SAT 97
--- NOTE | 2017-03-21 13:59 | PD ---
HPI . Abdominal pain Chief Complaint: Abdominal Pain Time Seen by Provider: 13:25 Travel History International Travel<30 days: No Contact w/Intl Traveler<30days: No Traveled to known affect area: No History of Present Illness HPI Patient presents with a chief complaint of abdominal pain. Onset was over a week ago. She has been hospitalized in the interim. EGD showed an esophageal ulcer. She was discharged on Carafate, Pepcid and Protonix. She states that she was told to take MiraLAX for her constipation. She also reports taking milk of magnesia, prune juice and a fleets enema all without relief of her constipation. She denies vomiting but does state that she has a decreased appetite. She states that her symptoms are severe. PFSH Past Medical History Asthma: Yes Cardiovascular Problems: Yes (HTN) Diminished Hearing: No Gastrointestinal Disorders: Yes (CHRONIC NAUSEA VOMITING) Hiatal Hernia: Yes Hypertension: Yes Immunizations Current: Yes Influenza Vaccination: No ?: Not Menopausal: Yes : 3 Tubal Ligation: Yes Past Surgical History Gynecologic Surgery: Yes (hysterectomy, tubal ligation ) Hysterectomy: Yes Social History Alcohol Use: Yes (rarely) Tobacco Use: No Substance Use: Yes ([facility] ) Allergies-Medications (Allergen,Severity, Reaction): Coded Allergies: Sulfa (Sulfonamide Antibiotics) (Verified Allergy, Severe, RASH, 03/21/17) sulfamethoxazole (Verified Allergy, Severe, RASH, 03/21/17) trimethoprim (Verified Allergy, Severe, RASH, 03/21/17) Reported Meds & Prescriptions Reported Meds & Active Scripts Active Reglan (Metoclopramide HCl) 5 Mg Tab 5 Mg PO TIDAC MDD 15 30 Days Protonix (Pantoprazole Sodium) 20 Mg Tab 20 Mg PO DAILY MDD 20mg 30 Days Sucralfate Liq (Sucralfate) 1 Gram/10 Ml Renay 1 Gm PO ACHS MDD 2mg 10 Days Reported Cetirizine (Cetirizine HCl) 10 Mg Tab 10 Mg PO DAILY Trazodone (Trazodone HCl) 150 Mg Tablet 150 Mg PO HS Singulair (Montelukast Sodium) 10 Mg Tab 10 Mg PO HS Librax (Chlordiazepoxide/Clidinium) 5-2.5 Mg Cap 1 Cap PO BID Losartan-Hydrochlorothiazide 50-12.5 Mg Tab 1 Tab PO DAILY Review of Systems Except as stated in HPI: all other systems reviewed are Neg General / Constitutional: No: Fever, Chills Gastrointestinal: Positive: Abdominal Pain, Constipation, Loss of Appetite, No : Nausea, Vomiting, Diarrhea Genitourinary: No: Urgency, Frequency, Dysuria Physical Exam Narrative GENERAL: Awake and alert. SKIN: warm/dry. Normal color and turgor. HEAD: Normocephalic. Atraumatic. EYES: Pupils equal and round. No scleral icterus. No injection or drainage. ENT: No nasal bleeding or discharge. Mucous membranes pink and moist. NECK: Trachea midline. Full range of motion without pain.. CARDIOVASCULAR: Regular rate and rhythm. Heart sounds normal. RESPIRATORY: No accessory muscle use. Clear to auscultation. Breath sounds equal bilaterally. GASTROINTESTINAL: Abdomen soft. Diffusely tender but no guarding no rebound. Bowel sounds present. Nondistended. MUSCULOSKELETAL: No obvious deformities. NEUROLOGICAL: Awake and alert. No obvious cranial nerve deficits. Motor grossly within normal limits. Normal speech. PSYCHIATRIC: Appropriate mood and affect; insight and judgment normal. Data Data Last Documented VS Vital Signs Date Time Temp Pulse Resp B/P (MAP) Pulse Ox O2 Delivery O2 Flow Rate FiO2 03/21/17 13:11 98.2 107 18 153/65 (94) 97 Orders Orders Basic Metabolic Panel (Bmp) (03/21/17 13:54) Complete Blood Count With Diff (03/21/17 13:54) Abdomen, Flat & Upright (03/21/17 ) Iv Access Insert/Monitor (03/21/17 13:54) Sodium Chloride 0.9% Flush (Ns Flush) (03/21/17 14:00) Labs Laboratory Tests Test 03/21/17 14:12 White Blood Count 11.3 TH/MM3 Red Blood Count 4.67 MIL/MM3 Hemoglobin 14.2 GM/DL Hematocrit 42.3 % Mean Corpuscular Volume 90.5 FL Mean Corpuscular Hemoglobin 30.5 PG Mean Corpuscular Hemoglobin Concent 33.7 % Red Cell Distribution Width 12.3 % Platelet Count 235 TH/MM3 Mean Platelet Volume 8.4 FL Neutrophils (%) (Auto) 84.8 % Lymphocytes (%) (Auto) 7.2 % Monocytes (%) (Auto) 5.3 % Eosinophils (%) (Auto) 0.8 % Basophils (%) (Auto) 1.9 % Neutrophils # (Auto) 9.6 TH/MM3 Lymphocytes # (Auto) 0.8 TH/MM3 Monocytes # (Auto) 0.6 TH/MM3 Eosinophils # (Auto) 0.1 TH/MM3 Basophils # (Auto) 0.2 TH/MM3 CBC Comment DIFF FINAL Differential Comment Blood Urea Nitrogen 14 MG/DL Creatinine 0.86 MG/DL Random Glucose 155 MG/DL Calcium Level 9.3 MG/DL Sodium Level 137 MEQ/L Potassium Level 3.0 MEQ/L Chloride Level 99 MEQ/L Carbon Dioxide Level 33.5 MEQ/L Anion Gap 5 MEQ/L Estimat Glomerular Filtration Rate 67 ML/MIN MDM Medical Decision Making Medical Screen Exam Complete: Yes Emergency Medical Condition: Yes Medical Record Reviewed: Yes (please see HPI for pertinent review of records) Differential Diagnosis Differential diagnosis of abdominal pain includes but is not limited to gastritis, pancreatitis, hepatitis, gastroenteritis, constipation, urinary retention, peptic ulcer disease, diverticulitis or appendicitis Narrative Course Patient presents with the chief complaint of abdominal pain and constipation. I have ordered a flat and upright of the abdomen to confirm the diagnosis. I have also ordered a CBC and BMP. CBC & BMP Diagram 03/21/17 14:12 Calcium Level 9.3 Last Impressions Abdomen X-Ray 03/21/17 0000 Signed Impressions: Service Date/Time: Tuesday, March 21, 2017 13:59 - CONCLUSION: Normal bowel gas pattern. Oleg Decker Jr., MD The x-ray was independently reviewed by me. Diagnosis Primary Impression: Chronic abdominal pain Additional Impressions: Hypokalemia Constipation Qualified Codes: K59.00 - Constipation, unspecified Patient Instructions: Constipation (DC), General Instructions, Hypokalemia (DC) Additional Instructions: See your doctor next week to have potassium rechecked. Med/Other Pt SpecificInfo: Prescription(s) given Scripts Peg-Electrolytes (Golytely 236 gm) 4,000 Ml Soln 4000 ML PO ONCE for Bowel Cleanser, #1 CONTAINER 0 Refills Prov: Gemini Mcgee MD 03/21/17 Potassium Chloride ER (Potassium Chloride ER) 20 Meq Tab 20 MEQ PO BID for Electrolyte Replacement, #60 TAB 0 Refills Prov: Gemini Mcgee MD 03/21/17 Disposition: DISCHARGE HOME Condition: Stable Gemini Mcgee MD Mar 21, 2017 13:59
[2017-03-21] MEDS ORDERED: SODIUM CHLORIDE 0.9% FLUSH 10 ML FLUSH IV FLUSH PRN (14:00)
[2017-03-21 14:41] LABS: AUTOMATED NEUTROPHIL # 9.6 TH/MM3 (1.8-7.7); BASOPHIL # 0.2 TH/MM3 (0-0.2); BASOPHIL % 1.9 % (0.0-2.0); EOSINOPHIL # 0.1 TH/MM3 (0-0.4); EOSINOPHIL % 0.8 % (0.0-4.0); HEMATOCRIT 42.3 % (35.0-46.0); HEMOGLOBIN 14.2 GM/DL (11.6-15.3); LYMPH % 7.2 % (9.0-44.0); LYMPHOCYTE # 0.8 TH/MM3 (1.0-4.8); MEAN CELL VOLUME 90.5 FL (80.0-100.0); MEAN CORPUSCULAR HEMOGLOBIN 30.5 PG (27.0-34.0); MEAN CORPUSCULAR HGB CONC 33.7 % (32.0-36.0); MEAN PLATELET VOLUME 8.4 FL (7.0-11.0); MONO % 5.3 % (0.0-8.0); MONOCYTE # 0.6 TH/MM3 (0-0.9); NEUT % 84.8 % (16.0-70.0); PLATELET COUNT 235 TH/MM3 (150-450); RED BLOOD COUNT 4.67 MIL/MM3 (4.00-5.30); RED CELL DISTRIBUTION WIDTH 12.3 % (11.6-17.2); WHITE BLOOD COUNT 11.3 TH/MM3 (4.0-11.0)
--- NOTE | 2017-03-21 14:42 | RADRPT ---
EXAM DATE/TIME: 03/21/2017 13:59 [facility] COMPARISON: No previous studies available for comparison. INDICATIONS : Abdominal pain MEDICAL HISTORY : Hiatal hernia SURGICAL HISTORY : Hysterectomy. ENCOUNTER: Initial ACUITY: 1 week PAIN SCORE: 10/10 LOCATION: lower quadrant abdomen FINDINGS: Supine and upright views of the abdomen were performed. The abdominal bowel gas pattern is normal. No air fluid levels are seen. No abnormal masses, calcifications, or organomegaly is seen. The visu alized lower lungs are clear. No evidence of free intraperitoneal gas. Scoliotic and degenerative sp ine. CONCLUSION: Normal bowel gas pattern. Oleg Decker Jr., MD on March 21, 2017 at 14:39 Board Certified Radiologist. This report was verified electronically.
[2017-03-21 14:45] LABS: BICARBONATE 33.5 MEQ/L (21.0-32.0); CALCIUM 9.3 MG/DL (8.5-10.1)
[2017-03-21 14:49] LABS: CREATININE 0.86 MG/DL (0.50-1.00)
[2017-03-21] MEDS ORDERED: COLY4000S PO (15:13)
[2017-03-21] MEDS ORDERED: POTA-163 PO (15:13)
[2017-03-21 15:58] VITALS: BP 144/76
== END 2017-03-21 16:05 | disposition home or self-care (01) ==
LOC: PHED 13:07
DX: R10.9 Unspecified abdominal pain (principal); G89.29 Other chronic pain; E87.6 Hypokalemia; K59.00 Constipation, unspecified; K22.10 Ulcer of esophagus without bleeding; I10 Essential (primary) hypertension; J45.909 Unspecified asthma, uncomplicated; F12.90 Cannabis use, unspecified, uncomplicated
CPT/HCPCS: 74019; 80048; 85025; 99284

== ENCOUNTER 2017-03-23 17:36 | Inpatient (IN) | payer OTHER ==
[~2017-03-23] VITALS: Ht 166.4 cm; Wt 78.4 kg
[~2017-03-23 17:36] MED LIST changes: +COLY4000S PO; +POTA-163 PO; -ZANT150T2 PO
[2017-03-23 17:40] VITALS: BP 114/59; PULSE 124; RESP 18; TEMP 98.8; O2SAT 96
[2017-03-23] MEDS ORDERED: MORPHINE SULFATE 2 MG/ML INJ IV PUSH ONE (18:00)
[2017-03-23] MEDS ORDERED: SODIUM CHLOR 0.9% 1000 ML INJ 1,000 ML IV ONE (18:00)
[2017-03-23] MEDS ORDERED: ONDANSETRON HCL 4 MG/2 ML VIAL IV PUSH ONE (18:00)
[2017-03-23 18:31] LABS: AUTOMATED NEUTROPHIL # 10.3 TH/MM3 (1.8-7.7); BASOPHIL # 0.5 TH/MM3 (0-0.2); BASOPHIL % 4.4 % (0.0-2.0); EOSINOPHIL % 0.1 % (0.0-4.0); HEMATOCRIT 36.9 % (35.0-46.0); HEMOGLOBIN 12.3 GM/DL (11.6-15.3); LYMPH % 3.6 % (9.0-44.0); LYMPHOCYTE # 0.4 TH/MM3 (1.0-4.8); MEAN CELL VOLUME 89.4 FL (80.0-100.0); MEAN CORPUSCULAR HEMOGLOBIN 29.7 PG (27.0-34.0); MEAN CORPUSCULAR HGB CONC 33.3 % (32.0-36.0); MEAN PLATELET VOLUME 8.7 FL (7.0-11.0); MONO % 3.3 % (0.0-8.0); MONOCYTE # 0.4 TH/MM3 (0-0.9); NEUT % 88.6 % (16.0-70.0); PLATELET COUNT 256 TH/MM3 (150-450); RED BLOOD COUNT 4.13 MIL/MM3 (4.00-5.30); WHITE BLOOD COUNT 11.6 TH/MM3 (4.0-11.0)
--- NOTE | 2017-03-23 18:40 | PD ---
HPI Chief Complaint: GI Complaint Time Seen by Provider: 17:55 Travel History International Travel<30 days: No Contact w/Intl Traveler<30days: No Traveled to known affect area: No History of Present Illness HPI 62yo F with chronic abdominal pain here with c/o diffuse abdominal pain, nausea , vomiting and nonbloody diarrhea. Pt states she also has dysuria. Denies any fever, chest pain, sob, vaginal bleeding or discharge. Pt was just seen in ED for this pain. Pt was also recently admitted 03/13/17-03/15/17 for intractable pain. Pt was seen by GI and had EGD that showed esophageal ulcer. Last CT a/p 03/11/17 showed no acute abnormality. PFSH Past Medical History Asthma: Yes Cardiovascular Problems: Yes (HTN) Diminished Hearing: No Gastrointestinal Disorders: Yes (CHRONIC NAUSEA VOMITING) GERD: Yes Hiatal Hernia: Yes Hypertension: Yes Immunizations Current: Yes Ulcer: Yes Tetanus Vaccination: Unknown Influenza Vaccination: No ?: Not Menopausal: Yes : 3 Tubal Ligation: Yes Past Surgical History Gynecologic Surgery: Yes (hysterectomy, tubal ligation ) Hysterectomy: Yes Tonsillectomy: Yes Social History Alcohol Use: Yes (occas. wine, mix drinks) Tobacco Use: No Substance Use: Yes ( hx of use [facility] ) Allergies-Medications (Allergen,Severity, Reaction): Coded Allergies: Sulfa (Sulfonamide Antibiotics) (Verified Allergy, Severe, RASH, 03/23/17) sulfamethoxazole (Verified Allergy, Severe, RASH, 03/23/17) trimethoprim (Verified Allergy, Severe, RASH, 03/23/17) Reported Meds & Prescriptions Reported Meds & Active Scripts Active Potassium Chloride ER (Potassium Chloride) 20 Meq Tab 20 Meq PO BID Reglan (Metoclopramide HCl) 5 Mg Tab 5 Mg PO TIDAC MDD 15 30 Days Protonix (Pantoprazole Sodium) 20 Mg Tab 20 Mg PO DAILY MDD 20mg 30 Days Sucralfate Liq (Sucralfate) 1 Gram/10 Ml Renay 1 Gm PO ACHS MDD 2mg 10 Days Reported Clonazepam 1 Mg Tab 1 Mg PO DAILY Cetirizine (Cetirizine HCl) 10 Mg Tab 10 Mg PO DAILY Trazodone (Trazodone HCl) 150 Mg Tablet 150 Mg PO HS Singulair (Montelukast Sodium) 10 Mg Tab 10 Mg PO HS Losartan-Hydrochlorothiazide 50-12.5 Mg Tab 1 Tab PO DAILY Review of Systems Except as stated in HPI: all other systems reviewed are Neg Physical Exam Narrative GENERAL: 62yo F in mild distress. SKIN: Focused skin assessment warm/dry. HEAD: Atraumatic. Normocephalic. CARDIOVASCULAR: Regular rate and rhythm. No murmur appreciated. RESPIRATORY: No accessory muscle use. Clear to auscultation. Breath sounds equal bilaterally. GASTROINTESTINAL: Abdomen soft, +TTP suprapubic, +TTP LUQ. No rebound tenderness or guarding. MUSCULOSKELETAL: No obvious deformities. No clubbing. No cyanosis. No edema. NEUROLOGICAL: Awake and alert. No obvious cranial nerve deficits. Motor grossly within normal limits. Normal speech. PSYCHIATRIC: Appropriate mood and affect; insight and judgment normal. Data Data Last Documented VS Vital Signs Date Time Temp Pulse Resp B/P (MAP) Pulse Ox O2 Delivery O2 Flow Rate FiO2 03/23/17 19:01 107 18 124/64 (84) 97 Room Air 03/23/17 17:40 98.8 Orders Orders Complete Blood Count With Diff (03/23/17 18:00) Comprehensive Metabolic Panel (03/23/17 18:00) Lipase (03/23/17 18:00) Urinalysis - C+S If Indicated (03/23/17 18:00) Morphine Inj (Morphine Inj) (03/23/17 18:00) Ondansetron Inj (Zofran Inj) (03/23/17 18:00) Sodium Chlor 0.9% 1000 Ml Inj (Ns 1000 M (03/23/17 18:00) Pantoprazole Inj (Protonix Inj) (03/23/17 19:30) Sodium Chlor 0.9% 1000 Ml Inj (Ns 1000 M (03/23/17 19:21) Famotidine Inj (Pepcid Inj) (03/23/17 19:30) Al-Mag Hy-Si 40-40-4 Mg/Ml Liq (Mag-Al P (03/23/17 19:30) Ns + Kcl 20 Meq Inj (Ns + Kcl 20 Meq Inj (03/23/17 21:15) Potassium Chloride Eff (K-Lyte Cl Eff) (03/23/17 21:15) Admit Order (Ed Use Only) (03/23/17 21:21) Labs Laboratory Tests Test 03/23/17 18:20 03/23/17 20:20 White Blood Count 11.6 TH/MM3 Red Blood Count 4.13 MIL/MM3 Hemoglobin 12.3 GM/DL Hematocrit 36.9 % Mean Corpuscular Volume 89.4 FL Mean Corpuscular Hemoglobin 29.7 PG Mean Corpuscular Hemoglobin Concent 33.3 % Red Cell Distribution Width 12.0 % Platelet Count 256 TH/MM3 Mean Platelet Volume 8.7 FL Neutrophils (%) (Auto) 88.6 % Lymphocytes (%) (Auto) 3.6 % Monocytes (%) (Auto) 3.3 % Eosinophils (%) (Auto) 0.1 % Basophils (%) (Auto) 4.4 % Neutrophils # (Auto) 10.3 TH/MM3 Lymphocytes # (Auto) 0.4 TH/MM3 Monocytes # (Auto) 0.4 TH/MM3 Eosinophils # (Auto) 0.0 TH/MM3 Basophils # (Auto) 0.5 TH/MM3 CBC Comment AUTO DIFF Differential Total Cells Counted 100 Neutrophils % (Manual) 82 % Band Neutrophils % 12 % Lymphocytes % 4 % Monocytes % 2 % Neutrophils # (Manual) 10.9 TH/MM3 Differential Comment FINAL DIFF MANUAL Platelet Estimate NORMAL Platelet Morphology Comment NORMAL Red Cell Morphology Comment NORMAL Blood Urea Nitrogen 26 MG/DL Creatinine 1.50 MG/DL Random Glucose 133 MG/DL Total Protein 6.6 GM/DL Albumin 2.5 GM/DL Calcium Level 8.4 MG/DL Alkaline Phosphatase 98 U/L Aspartate Amino Transf (AST/SGOT) 21 U/L Alanine Aminotransferase (ALT/SGPT) 15 U/L Total Bilirubin 0.8 MG/DL Sodium Level 131 MEQ/L Potassium Level 2.4 MEQ/L Chloride Level 91 MEQ/L Carbon Dioxide Level 31.6 MEQ/L Anion Gap 8 MEQ/L Estimat Glomerular Filtration Rate 35 ML/MIN Lipase 53 U/L Urine Color YELLOW Urine Turbidity SLIGHT Urine pH 6.0 Urine Specific [place] 1.015 Urine Protein 100 mg/dL Urine Glucose (UA) NEG mg/dL Urine Ketones NEG mg/dL Urine Occult Blood MOD Urine Nitrite NEG Urine Bilirubin NEG Urine Leukocyte Esterase NEG Urine RBC 0-3 /hpf Urine Squamous Epithelial Cells 0-5 /hpf Urine Amorphous Sediment MOD Urine Bacteria OCC /hpf Urine Hyaline Casts 10-14 /lpf Urine Fine Granular Casts 6-9 /lpf Urine Mucus FEW /lpf Microscopic Urinalysis Comment CULT NOT INDICATED MDM Medical Decision Making Medical Screen Exam Complete: Yes Emergency Medical Condition: Yes Differential Diagnosis Cystitis vs. chronic abdominal pain vs. gastritis vs. PUD Narrative Course 62yo F here with abdominal pain, vomiting and diarrhea. Labs and UA still pending. Pt given morphine, zofran and IVF NS. Sign out to Dr. Watson to follow up and reevaluate. Diagnosis Primary Impression: Chronic abdominal pain Britney Fung DO Mar 23, 2017 18:40
[2017-03-23 19:00] LABS: BANDS 12 % (0-6); LYMPHOCYTES 4 % (9-44); MONOCYTES 2 % (0-8); NEUTROPHIL # MANUAL DIFF 10.9 TH/MM3 (1.8-7.7); POLYS (SEG NEUTROPHILS) 82 % (16-70)
[2017-03-23 19:01] VITALS: BP 124/64; PULSE 107; RESP 18; O2SAT 97
[2017-03-23] MEDS ORDERED: SODIUM CHLOR 0.9% 1000 ML INJ 1,000 ML IV SCH (19:21)
[2017-03-23] MEDS ORDERED: PANTOPRAZOLE SODIUM 40 MG VIAL IVP ONE (19:30)
[2017-03-23] MEDS ORDERED: FAMOTIDINE 20 MG/2 ML VIAL IV PUSH ONE (19:30)
[2017-03-23] MEDS ORDERED: ALUMINUM/MAGNESIUM/SIMETH 30 ML CUP PO ONE (19:30)
[2017-03-23 20:02] LABS: ALBUMIN 2.5 GM/DL (3.4-5.0); ALKALINE PHOSPHATASE 98 U/L (45-117); ALT (GPT) 15 U/L (10-53); AST (GOT) 21 U/L (15-37); BICARBONATE 31.6 MEQ/L (21.0-32.0); BLOOD UREA NITROGEN 26 MG/DL (7-18); CALCIUM 8.4 MG/DL (8.5-10.1); CHLORIDE 91 MEQ/L (98-107); GLOMERULAR FILTRATION RATE 35 ML/MIN (>89); GLUCOSE,RANDOM 133 MG/DL (74-106); SODIUM (NA) 131 MEQ/L (136-145); TOTAL BILIRUBIN ADULT 0.8 MG/DL (0.2-1.0); TOTAL PROTEIN 6.6 GM/DL (6.4-8.2)
[2017-03-23] MEDS ORDERED: NS + KCL 40 MEQ INJ 1,000 ML IV SCH (20:15)
[2017-03-23 20:35] LABS: BILIRUBIN, URINE NEG (NEG); BLOOD, URINE MOD (NEG); GLUCOSE,URINE NEG (NEG); KETONE, URINE NEG (NEG); NITRITE,URINE NEG (NEG); URINE LEUKOCYTE ESTERASE NEG (NEG)
[2017-03-23 20:45] LABS: MUCUS URINE FEW /lpf (OCC); URINE COLOR YELLOW (YELLW/STRAW)
[2017-03-23 20:46] LABS: SQUAMOUS EPITHELIAL CELL URINE 0-5 /hpf (0-5)
[2017-03-23 20:47] LABS: RBC, URINE 0-3 /hpf (0-3)
[2017-03-23 20:48] LABS: AMORPHOUS SEDIMENT, URINE MOD; BACTERIA, URINE OCC /hpf
--- NOTE | 2017-03-23 20:59 | PD ---
Physical Exam Time Seen by Provider: 20:[address] Fung left this patient with me to review the lab and make a disposition. Data Data Last Documented VS Vital Signs Date Time Temp Pulse Resp B/P (MAP) Pulse Ox O2 Delivery O2 Flow Rate FiO2 03/23/17 19:01 107 18 124/64 (84) 97 Room Air 03/23/17 17:40 98.8 Orders Orders Complete Blood Count With Diff (03/23/17 18:00) Comprehensive Metabolic Panel (03/23/17 18:00) Lipase (03/23/17 18:00) Urinalysis - C+S If Indicated (03/23/17 18:00) Morphine Inj (Morphine Inj) (03/23/17 18:00) Ondansetron Inj (Zofran Inj) (03/23/17 18:00) Sodium Chlor 0.9% 1000 Ml Inj (Ns 1000 M (03/23/17 18:00) Pantoprazole Inj (Protonix Inj) (03/23/17 19:30) Sodium Chlor 0.9% 1000 Ml Inj (Ns 1000 M (03/23/17 19:21) Famotidine Inj (Pepcid Inj) (03/23/17 19:30) Al-Mag Hy-Si 40-40-4 Mg/Ml Liq (Mag-Al P (03/23/17 19:30) Ns + Kcl 40 Meq Inj (Ns + Kcl 40 Meq Inj (03/23/17 20:15) Labs Laboratory Tests Test 03/23/17 18:20 03/23/17 20:20 White Blood Count 11.6 TH/MM3 Red Blood Count 4.13 MIL/MM3 Hemoglobin 12.3 GM/DL Hematocrit 36.9 % Mean Corpuscular Volume 89.4 FL Mean Corpuscular Hemoglobin 29.7 PG Mean Corpuscular Hemoglobin Concent 33.3 % Red Cell Distribution Width 12.0 % Platelet Count 256 TH/MM3 Mean Platelet Volume 8.7 FL Neutrophils (%) (Auto) 88.6 % Lymphocytes (%) (Auto) 3.6 % Monocytes (%) (Auto) 3.3 % Eosinophils (%) (Auto) 0.1 % Basophils (%) (Auto) 4.4 % Neutrophils # (Auto) 10.3 TH/MM3 Lymphocytes # (Auto) 0.4 TH/MM3 Monocytes # (Auto) 0.4 TH/MM3 Eosinophils # (Auto) 0.0 TH/MM3 Basophils # (Auto) 0.5 TH/MM3 CBC Comment AUTO DIFF Differential Total Cells Counted 100 Neutrophils % (Manual) 82 % Band Neutrophils % 12 % Lymphocytes % 4 % Monocytes % 2 % Neutrophils # (Manual) 10.9 TH/MM3 Differential Comment FINAL DIFF MANUAL Platelet Estimate NORMAL Platelet Morphology Comment NORMAL Red Cell Morphology Comment NORMAL Blood Urea Nitrogen 26 MG/DL Creatinine 1.50 MG/DL Random Glucose 133 MG/DL Total Protein 6.6 GM/DL Albumin 2.5 GM/DL Calcium Level 8.4 MG/DL Alkaline Phosphatase 98 U/L Aspartate Amino Transf (AST/SGOT) 21 U/L Alanine Aminotransferase (ALT/SGPT) 15 U/L Total Bilirubin 0.8 MG/DL Sodium Level 131 MEQ/L Potassium Level 2.4 MEQ/L Chloride Level 91 MEQ/L Carbon Dioxide Level 31.6 MEQ/L Anion Gap 8 MEQ/L Estimat Glomerular Filtration Rate 35 ML/MIN Lipase 53 U/L Urine Color YELLOW Urine Turbidity SLIGHT Urine pH 6.0 Urine Specific [place] 1.015 Urine Protein 100 mg/dL Urine Glucose (UA) NEG mg/dL Urine Ketones NEG mg/dL Urine Occult Blood MOD Urine Nitrite NEG Urine Bilirubin NEG Urine Leukocyte Esterase NEG Urine RBC 0-3 /hpf Urine Squamous Epithelial Cells 0-5 /hpf Urine Amorphous Sediment MOD Urine Bacteria OCC /hpf Urine Hyaline Casts 10-14 /lpf Urine Fine Granular Casts 6-9 /lpf Urine Mucus FEW /lpf Microscopic Urinalysis Comment CULT NOT INDICATED MDM Medical Record Reviewed: Yes Supervised Visit with TAMMY: No Interpretation(s) The CBC shows a white count of 11,600 with 87% neutrophils but is otherwise unremarkable. The complete metabolic profile shows a sodium of 131, potassium 2.4, BUN 26, creatinine 1.5 with GFR 35 and albumin 2.5. The lipase is normal. The urinalysis shows 100 protein, moderate occult blood with occasional bacteria and 10-14 Hylan cast but is otherwise unremarkable and culture is not indicated. Differential Diagnosis Dehydration, gastritis, recurrent abdominal pain etiology undetermined, drug seeking behavior, electrolyte disorder, renal insufficiency, noncompliance to medications Narrative Course The patient has dehydration on physical exam. She also has an elevated BUN. She does have a hypokalemia. She states she had constipation and she was given GoLYTELY. She was also given potassium pills which he could not take any of them, she just put them in her mouth and spit them out. She states she simply could not take the pills because they were "too big". Diagnosis Primary Impression: Chronic abdominal pain Austen Watson MD Mar 23, 2017 20:59
[2017-03-23] MEDS ORDERED: NS + KCL 20 MEQ INJ 1,000 ML IV SCH (21:15)
[2017-03-23] MEDS ORDERED: POTASSIUM CHLORIDE 25 MEQ EFFERVESCENT TAB PO ONE (21:15)
[2017-03-23] MEDS ORDERED: D5-1/2 NS + KCL 20 MEQ INJ 1,000 ML IV SCH (21:27)
[2017-03-23] MEDS ORDERED: ACETAMINOPHEN/HYDROcodone 325 MG/5 MG TAB PO PRN (21:30)
[2017-03-23] MEDS ORDERED: ACETAMINOPHEN 325 MG TAB PO PRN (21:30)
[2017-03-23] MEDS: NS + KCL 20 MEQ INJ 1,000 ML IV SCH (21:45)
[2017-03-23] MEDS ORDERED: METH750T PO (22:12)
[2017-03-23] MEDS ORDERED: CLON1TAB PO (22:12)
[2017-03-23] MEDS ORDERED: DICY20TA10 PO (22:12)
[2017-03-23] MEDS: POTASSIUM CHLOR 20 MEQ PREMIX 100 ML IV SCH (22:44)
[2017-03-23] MEDS: traZODone HCL 50 MG TAB PO SCH (23:02)
[2017-03-23 23:06] VITALS: BP 104/61; PULSE 109; RESP 16; O2SAT 98
[2017-03-24] VITALS: BP 101/57; PULSE 110; RESP 18; TEMP 98.2; O2SAT 99
[2017-03-24] MEDS ORDERED: ONDANSETRON HCL 4 MG/2 ML VIAL IV PUSH PRN
[2017-03-24] MEDS: TEMAZEPAM 15 MG CAP PO PRN ×2 (00:13→21:53)
[2017-03-24] MEDS: ACETAMINOPHEN/HYDROcodone 325 MG/10 MG TAB PO PRN ×4 (00:13→21:53)
[2017-03-24] MEDS: POTASSIUM CHLOR 20 MEQ PREMIX 100 ML IV SCH ×5 (00:14→19:11)
[2017-03-24] MEDS: NS + KCL 20 MEQ INJ 1,000 ML IV SCH ×3 (02:39→21:51)
[2017-03-24 06:14] LABS: AUTOMATED NEUTROPHIL # 8.7 TH/MM3 (1.8-7.7); BASOPHIL # 0.1 TH/MM3 (0-0.2); BASOPHIL % 0.7 % (0.0-2.0); EOSINOPHIL % 0.1 % (0.0-4.0); HEMATOCRIT 34.2 % (35.0-46.0); HEMOGLOBIN 11.6 GM/DL (11.6-15.3); LYMPH % 5.8 % (9.0-44.0); LYMPHOCYTE # 0.6 TH/MM3 (1.0-4.8); MEAN CELL VOLUME 89.5 FL (80.0-100.0); MEAN CORPUSCULAR HEMOGLOBIN 30.4 PG (27.0-34.0); MEAN PLATELET VOLUME 9.4 FL (7.0-11.0); MONO % 2.5 % (0.0-8.0); MONOCYTE # 0.2 TH/MM3 (0-0.9); NEUT % 90.9 % (16.0-70.0); PLATELET COUNT 198 TH/MM3 (150-450); RED BLOOD COUNT 3.82 MIL/MM3 (4.00-5.30); RED CELL DISTRIBUTION WIDTH 12.4 % (11.6-17.2); WHITE BLOOD COUNT 9.6 TH/MM3 (4.0-11.0)
[2017-03-24 06:38] LABS: BICARBONATE 26.6 MEQ/L (21.0-32.0); CALCIUM 8.3 MG/DL (8.5-10.1); CREATININE 1.1 MG/DL (0.50-1.00)
[2017-03-24 08:00] VITALS: BP 115/62; PULSE 106; RESP 18; TEMP 98.3; O2SAT 96
[2017-03-24] MEDS ORDERED: POTASSIUM CHLORIDE 20 MEQ CONTROLLED RELEASE TAB PO ONE (08:00)
[2017-03-24] MEDS ORDERED: chlordiazePOXIDE/CLIDINIUM 5 MG/2.5 MG CAP PO SCH (09:00)
[2017-03-24] MEDS: SUCRALFATE 1 GM/10 ML CUP PO SCH ×4 (09:06→21:55)
[2017-03-24] MEDS: CETIRIZINE HCL 10 MG TAB PO SCH (09:07)
[2017-03-24] MEDS: PANTOPRAZOLE SOD 40 MG DELAYED RELEASE TAB PO SCH (09:07)
[2017-03-24] MEDS: FAMOTIDINE 20 MG TAB PO SCH ×2 (09:07→21:55)
--- NOTE | 2017-03-24 10:11 | MB ---
cc: MARK WISE M.D. DATE OF CONSULTATION 03/24/2017 DATE OF 1955 REASON FOR CONSULTATION Abdominal pain. Thank you for the consultation. HISTORY OF PRESENT ILLNESS This is a 62-year-old lady who complained of abdominal pain on and off for the last few months. The patient stated that she had nausea and vomiting and some diarrhea. The patient was in the hospital ER a few days ago where she was complaining of constipation and she was given a gallon of GoLYTELY which made her have the diarrhea. The patient stated that she had significant abdominal pain in the lower abdomen and she was complaining of urine retention where she had a small amount of urine which was very smelly and very dark. The patient had an upper endoscopy a few weeks ago which showed an esophageal ulcer and she had a colonoscopy last year. She just had a catheter with a large amount of urine coming out and she started having relief from her pain. PAST MEDICAL HISTORY 1. Hypertension. 2. Asthma. 3. Chronic nausea and vomiting. 4. History of hiatal hernia. 5. Tubal ligation. 6. Hysterectomy. 7. Tonsillectomy. SOCIAL HISTORY Negative for tobacco. She used marijuana in the past. She drinks alcohol on and off. ALLERGIES 1. BACTRIM. 2. SULFA. MEDICATIONS Reviewed in the chart. REVIEW OF SYSTEMS All 12-point negative except as in the HPI. The patient is currently feeling better since the catheter was inserted. PHYSICAL EXAMINATION GENERAL: Alert, oriented, in no acute distress. VITAL SIGNS: Stable. HEENT: Pupils are reactive to light. NECK: Supple. CHEST: Clear to auscultation and percussion. CARDIAC: Regular rate and rhythm. No murmur or gallop. ABDOMEN: Soft. Mild diffuse tenderness mostly in the lower abdomen. Positive bowel sounds. Obese. EXTREMITIES: No edema, clubbing or cyanosis at this time. NEUROLOGIC: Neurologically intact. No focal abnormality but the patient is upset about her condition. PSYCHOLOGICAL: Psychologically appropriate. LABORATORY White count 9.6, hemoglobin 11.6, platelets 198. Liver function tests normal. Lipase 53. Creatinine was 1.5 yesterday, today 1.1; BUN 21. ASSESSMENT AND PLAN A 62-year-old lady with abdominal pain, known history of esophageal ulcer that has been treated, last colonoscopy about a year ago. She was having constipation and is having now loose bowels after she got the GoLYTELY from the ER. Most likely her symptom is related to bladder retention. Her symptom is improved since she had the treatment with the catheter. We will continue PPI. We will see how she is doing as far as the abdominal pain. She might need a urologist to evaluate why she had the retention. MD PATY Munroe/BRYAN /9:50 AM /10:00 AM
[2017-03-24 11:53] VITALS: BP 103/58; PULSE 118; RESP 18; TEMP 98.3; O2SAT 99
[2017-03-24] MEDS: clonazePAM 1 MG TAB PO SCH (14:10)
--- NOTE | 2017-03-24 15:32 | MH ---
cc: ROLY MAYER M.D. DATE OF ADMISSION: 03/23/2017 ADMISSION DIAGNOSIS Intractable abdominal pain, nausea, vomiting. HISTORY OF PRESENT ILLNESS Ms. Silva is a 62-year-old female with multiple admissions over the last month for nausea, vomiting and abdominal pain. She states that her problem started approximately a year ago while she was in [place]. At that time she tells me she was diagnosed with bacterial overgrowth and was treated twice with antibiotics with some improvement of her symptoms. She then retired and moved to [place] and was doing relatively well until she had an exacerbation after a trip to [place]. She says that she has seen the GI doctors and actually had an endoscopy which did show an ulcer and she was placed on Carafate and Protonix. However, she states that another issue that she has also had is rather significant constipation that has not improved. She initially was told to try MiraLax last week, however, this did not work. She finally came to the emergency room and was recommended that she try GoLYTELY. She did state that she started taking the GoLYTELY and actually since she has taken the GoLYTELY she has had consistent and persistent diarrhea that has not slowed down. She says that she still has her abdominal pain as well. It is primarily in the lower abdomen, even though she does say that she also has some midepigastric pain, but the pain that seems to distress her currently is the lower abdominal pain. She says her nausea and vomiting is rather significant and she has not been able to eat for the last several days. She is very thirsty and her mouth feels very dry. PAST MEDICAL HISTORY Past medical history is significant for: 1. Anxiety. 2. Asthma. 3. Hypertension. PAST SURGICAL HISTORY Surgical history includes: 1. Hysterectomy and tubal ligation. 2. Knee replacement. 3. She does say that she did have a colonoscopy last year when this was initially being evaluated. MEDICATION Medications when she came to the emergency room included: 1. Potassium chloride 20 mEq twice a day which she said that she was not able to take. 2. Reglan. 3. Protonix. 4. Carafate. 5. Trazodone. 6. Singulair. 7. Losartan/hydrochlorothiazide. ALLERGIES She is allergic to SULFA ANTIBIOTICS. HABITS She does not smoke cigarettes. She does occasionally smoke marijuana. She does not consume alcohol. SOCIAL HISTORY She is . She is semi-retired from the restaurant business and has located to [facility] last summer. REVIEW OF SYSTEMS She denies fevers, chills, cough, chest pain or palpitations. As stated she has the mid epigastric abdominal pain but more prominently the lower abdominal pain. She does state that she is having some issues with decreased urination as well, more difficulty urinating. No generalized weakness. She does feel that her anxiety is much worse. Apparently, her Librax was stopped and she was to be started on clonazepam. FAMILY HISTORY Father had bladder cancer and colon cancer. There is a family history of heart disease. PHYSICAL EXAMINATION VITAL SIGNS: Temperature is 98.3, pulse is 118, respirations 18, blood pressure is 103/58, pulse ox is 99%. GENERAL: This is a middle-aged female. She is very, very anxious when I talk to her and restless. HEENT: She is normocephalic, atraumatic. EOM is intact. She has a very dry oral mucosa. NECK: Her neck is supple. LUNGS: Lungs are clear. HEART: Her heart is tachycardic. ABDOMEN: Abdomen has diminished bowel sounds. She is tender in the left lower quadrant along the lower abdomen and suprapubic area, less tender in the mid epigastric area. EXTREMITIES: Show no clubbing, cyanosis or edema. She is moving all extremities well. LABORATORY DATA Lab work showed when she came in, a white count of 11.6, hemoglobin of 12.3, hematocrit as 36.9. Sodium was 131, potassium was 2.4, BUN was 26 with a creatinine 1.5, random glucose was 133. Albumin and lipase was 2.5 and 53. Her UA showed 100 protein, moderate occult blood, occasional bacteria. Culture is not being run. ASSESSMENT/PLAN 62-year-old female with history of chronic abdominal pain, presenting to the emergency room with persistent abdominal pain, nausea and vomiting and now diarrhea since taking the GoLYTELY on Friday. She is also very hypokalemic. At this time we have admitted her to replace her potassium. She apparently was discharged on potassium pills but she was unable to keep them down or take them. We replaced them IV. She is able to take the ___ potassium, will continue that. Maintain her on Protonix and Carafate. Actually her stool smelled fairly strong when I was in the room and I am actually going to run a C. Difficile. GI has already seen her and at this point they did feel that maybe part of her problem was some urinary retention that she had this morning. Will continue to hydrate her and see how her voiding pattern continues. I did discuss getting a CT scan on her again, but she would rather avoid that since she said she has recently had one. I will reassess her later on during the day and depending on how she does will readdress maybe a CT scan. For her hypertension, I am actually going to hold her antihypertensive as her blood pressure is running a little bit low and she is tachycardic. She looks like she is dehydrated, so we will continue to replace IV fluids. In terms of anxiety, she is very anxious. Resume her clonazepam. Further recommendations as the case develops. MD ISRAEL Nobles/JOSE ANTONIO /1:52 PM /2:06 PM
[2017-03-24 15:46] LABS: BICARBONATE 25.6 MEQ/L (21.0-32.0)
[2017-03-24 15:49] LABS: CREATININE 0.76 MG/DL (0.50-1.00)
[2017-03-24 16:00] VITALS: BP 106/65; PULSE 115; RESP 18; TEMP 100.5; O2SAT 97
[2017-03-24 20:00] VITALS: BP 128/72; PULSE 121; RESP 18; TEMP 101.5; O2SAT 97
[2017-03-24] MEDS: traZODone HCL 50 MG TAB PO SCH (21:54)
[2017-03-24] MEDS: MONTELUKAST SODIUM 10 MG TAB PO SCH (21:55)
[2017-03-25] VITALS: BP 106/62; PULSE 110; RESP 18; TEMP 99.2; O2SAT 95
[2017-03-25 06:39] LABS: AUTOMATED NEUTROPHIL # 9.4 TH/MM3 (1.8-7.7); BASOPHIL % 0.1 % (0.0-2.0); EOSINOPHIL % 0.3 % (0.0-4.0); HEMATOCRIT 30.5 % (35.0-46.0); HEMOGLOBIN 9.8 GM/DL (11.6-15.3); LYMPH % 2.8 % (9.0-44.0); LYMPHOCYTE # 0.3 TH/MM3 (1.0-4.8); MEAN CELL VOLUME 89.2 FL (80.0-100.0); MEAN CORPUSCULAR HEMOGLOBIN 28.5 PG (27.0-34.0); MEAN CORPUSCULAR HGB CONC 31.9 % (32.0-36.0); MEAN PLATELET VOLUME 8.4 FL (7.0-11.0); MONO % 4.5 % (0.0-8.0); MONOCYTE # 0.5 TH/MM3 (0-0.9); NEUT % 92.3 % (16.0-70.0); PLATELET COUNT 220 TH/MM3 (150-450); RED BLOOD COUNT 3.43 MIL/MM3 (4.00-5.30); RED CELL DISTRIBUTION WIDTH 12.9 % (11.6-17.2); WHITE BLOOD COUNT 10.2 TH/MM3 (4.0-11.0)
[2017-03-25] MEDS: ACETAMINOPHEN/HYDROcodone 325 MG/10 MG TAB PO PRN ×2 (06:42→12:22)
[2017-03-25] MEDS: NS + KCL 20 MEQ INJ 1,000 ML IV SCH ×2 (06:43→21:20)
[2017-03-25 06:58] LABS: CALCIUM 7.8 MG/DL (8.5-10.1)
[2017-03-25 06:59] LABS: BICARBONATE 27.4 MEQ/L (21.0-32.0)
[2017-03-25 07:02] LABS: CREATININE 0.68 MG/DL (0.50-1.00)
[2017-03-25 07:26] LABS: BANDS 12 % (0-6); LYMPHOCYTES 3 % (9-44); MONOCYTES 5 % (0-8); NEUTROPHIL # MANUAL DIFF 9.4 TH/MM3 (1.8-7.7); POLYS (SEG NEUTROPHILS) 80 % (16-70)
[2017-03-25 07:27] LABS: DOHLE BODIES PRESENT (NONE SEEN); ROULEAUX PRESENT (NORMAL); TOXIC GRANULATION 1+ (NORMAL)
[2017-03-25 08:00] VITALS: BP 110/66; PULSE 111; RESP 20; TEMP 99.4; O2SAT 96
[2017-03-25] MEDS: clonazePAM 1 MG TAB PO SCH (08:25)
[2017-03-25] MEDS: SUCRALFATE 1 GM/10 ML CUP PO SCH ×4 (08:25→21:00)
[2017-03-25] MEDS: PANTOPRAZOLE SOD 40 MG DELAYED RELEASE TAB PO SCH (08:26)
[2017-03-25] MEDS: CETIRIZINE HCL 10 MG TAB PO SCH (08:26)
[2017-03-25] MEDS: FAMOTIDINE 20 MG TAB PO SCH (08:26)
--- NOTE | 2017-03-25 11:28 | HHI.PR ---
Subjective Remarks Diarrhea improved small "squirts" now.Lower abdominal pain is less. Midepigastric pain when she sits up. Less anxious on clonazepam. Had been on multiple antidepressants in the past. Were stopped 2 years ago. Was doing well until last year when she started with stomach issues.Tolerated full liquid but thinks yogurt upset her stomach a little. Urinating well now w/o a problem. Objective Vitals Vital Signs Date Time Temp Pulse Resp B/P (MAP) Pulse Ox O2 Delivery O2 Flow Rate FiO2 03/25/17 08:00 99.4 111 20 110/66 (81) 96 03/25/17 00:00 99.2 110 18 106/62 (77) 95 03/24/17 20:00 101.5 121 18 128/72 (90) 97 03/24/17 16:00 100.5 115 18 106/65 (79) 97 03/24/17 11:53 98.3 118 18 103/58 (73) 99 Result Diagram: 03/25/17 0527 03/25/17 0527 Objective Remarks Sleeping, arousable cta no rales or ronchi heart slightly tachy abd slightly distended, good bowel sounds, decreased tenderness to palpation lower abdomen/suprapubic area and midepigastrium no c/c/e A/P Problem List: (1) Hypokalemia ICD Codes: E87.6 - Hypokalemia Status: Acute Plan: potassium improving with replacement, suspect due to diarrhea and diuretic (2) Hypertension ICD Codes: I10 - Essential (primary) hypertension Status: Chronic Plan: blood pressure controlled , cont to hold medications (3) Esophageal ulcer ICD Codes: K22.10 - Ulcer of esophagus without bleeding Status: Acute Plan: on protonix and carafate and pepcid h/h has dropped will hemmcoult stools check iron studies (4) Nausea & vomiting ICD Codes: R11.2 - Nausea with vomiting, unspecified Status: Acute Plan: no further nausea or vomiting , full liquid diet (5) Chronic abdominal pain ICD Codes: R10.9 - Unspecified abdominal pain; G89.29 - Other chronic pain Status: Chronic Plan: appears somewhat improved today but has had low grade temp last pm, after discussion with her have decided to order ct scan (6) Anxiety ICD Codes: F41.9 - Anxiety disorder, unspecified Plan: doing better today after resuming clonazepam, she will f/u with her pcp regarding use of other medications Problem Qualifiers (1) Hypertension: Qualified Codes: I10 - Essential (primary) hypertension Tracy Tanner MD Mar 25, 2017 11:28
[2017-03-25 12:00] VITALS: BP 162/73; PULSE 123; RESP 20; TEMP 97.8; O2SAT 96
[2017-03-25] MEDS ORDERED: GLYCOPYRROLATE 1 MG/5 ML SYRINGE IV PUSH ONE (12:00)
[2017-03-25] MEDS ORDERED: ESMOLOL HCL 100 MG/10 ML VIAL IV ONE (12:00)
[2017-03-25] MEDS ORDERED: PHENYLEPH/NS 1000 MCG/10 ML SYR IV ONE (12:00)
[2017-03-25] MEDS ORDERED: PHENYLEPHRINE HCL 10 MG/ML VIAL IV ONE (12:00)
[2017-03-25] MEDS ORDERED: DEXAMETHASONE SOD PHOS 4 MG/ML VIAL IV ONE (12:00)
[2017-03-25] MEDS ORDERED: LIDOCAINE HCL 1% PF 5 ML SYRINGE OTHER ONE (12:00)
[2017-03-25] MEDS ORDERED: LACTATED RINGER'S 1000 ML INJ 1,000 ML IV ONE (12:00)
[2017-03-25] MEDS ORDERED: ROCURONIUM INJ 50 MG/5 ML SYRINGE IV PUSH ONE (12:00)
[2017-03-25] MEDS ORDERED: NEOSTIGMINE 5 MG/5 ML SYRINGE IV PUSH ONE (12:00)
[2017-03-25] MEDS ORDERED: ONDANSETRON HCL 4 MG/2 ML VIAL IV ONE (12:00)
[2017-03-25] MEDS ORDERED: SUCCINYLCHOLINE CHLORIDE 200 MG/10 ML VIAL IV ONE (12:00)
[2017-03-25] MEDS ORDERED: NORMOSOL R INJ 1,000 ML IV ONE (12:00)
[2017-03-25] MEDS ORDERED: PROPOFOL 200 MG/20 ML AMP IV ONE (12:00)
[2017-03-25] MEDS ORDERED: CIPROFLOXACIN 400 MG PREMIX 200 ML IV SCH (12:00)
[2017-03-25] MEDS: POTASSIUM CHLORIDE 20 MEQ CONTROLLED RELEASE TAB PO SCH ×2 (12:17→21:00)
[2017-03-25] MEDS ORDERED: DIATRIZOATE MEGLUM/DIATRIZOATE SOD 9 ML CUP PO ONE (12:45)
[2017-03-25] MEDS ORDERED: metroNIDAZOLE 500 MG INJ 100 ML IV SCH ×2 (13:00→21:00)
[2017-03-25 13:40] LABS: % SATURATION IRON PROFILE 6.9 % (20-50); IRON (FE) 11 MCG/DL (50-170); TOTAL IRON BINDING CAPACITY 160 MCG/DL (250-450)
[2017-03-25] MEDS ORDERED: POTASSIUM CHLORIDE INJ 20 MEQ in SODIUM CHLOR 0.9% 1000 ML INJ 1,000 ML IV SCH (15:00)
[2017-03-25 15:08] LABS: BILIRUBIN, URINE NEG (NEG); BLOOD, URINE SMALL (NEG); GLUCOSE,URINE NEG (NEG); KETONE, URINE NEG (NEG); NITRITE,URINE NEG (NEG); PH, URINE 5.5 (5.0-8.5); URINE LEUKOCYTE ESTERASE NEG (NEG)
[2017-03-25 15:17] LABS: URINE COLOR YELLOW (YELLW/STRAW)
[2017-03-25 15:18] LABS: AMORPHOUS SEDIMENT, URINE FEW; MUCUS URINE MOD /lpf (OCC); RBC, URINE 0-3 /hpf (0-3); SQUAMOUS EPITHELIAL CELL URINE 0-5 /hpf (0-5); WBC, URINE 0-2 /hpf (0-5)
[2017-03-25 16:00] VITALS: BP 109/61; PULSE 115; RESP 20; TEMP 100.8; O2SAT 98
--- NOTE | 2017-03-25 16:15 | RADRPT ---
EXAM DATE/TIME: 03/25/2017 15:00 [facility] COMPARISON: ABDOMEN FLAT & UPRIGHT, March 21, 2017, 13:59. CT ABDOMEN & PELVIS W CONTRAST, March 11, 2017, 18:30. INDICATIONS : Abdominal distention. ORAL CONTRAST: Prescribed oral contrast ingested. RADIATION DOSE: 17.88 CTDIvol (mGy) MEDICAL HISTORY : Hypertension. Gastroesophageal reflux disease. Chronic obstructive pulmonary disease. Hiatal hernia. Ulcer. SURGICAL HISTORY : Hysterectomy. Total knee replacement, left. Total knee replacement, right. ENCOUNTER: Initial ACUITY: 3 days PAIN SCALE: 4/10 LOCATION: abdomen TECHNIQUE: Volumetric scanning of the abdomen and pelvis was performed. Using automated exposure control and ad justment of the mA and/or kV according to patient size, radiation dose was kept as low as reasonably achievable to obtain optimal diagnostic quality images. DICOM format image data is available electro nically for review and comparison. FINDINGS: There is evidence of extensive free intraperitoneal and retroperitoneal air. There is also air surrou nding the distal esophagus within the mediastinum. The findings are suggestive of perforated viscus u ntil proven otherwise. Possibilities include perforated diverticulitis seems most likely. Inflammator y changes and fluid surround the rectosigmoid colon which would likely represent the site of perforat ion. Air surrounding the distal esophagus raises the possibility of distal esophageal rupture althoug h this seems less likely with large amount of air within the abdomen and pelvis but should be ruled o ut if the patient has recent history of forceful vomiting. The findings were called immediately to e patient's nurse at 4:05 PM on 03/25/17. Degenerative changes and scoliosis of the thoracolumbar spine are noted. CONCLUSION: 1. Extensive free intraperitoneal and retroperitoneal air. There is also air surrounding the distal e sophagus within the mediastinum. The findings are suggestive of perforated viscus until proven otherw ise. Possibilities include perforated diverticulitis seems most likely. Inflammatory changes and flui d surround the rectosigmoid colon which would likely represent the site of perforation. Air surroundi ng the distal esophagus raises the possibility of distal esophageal rupture although this seems less likely with large amount of air within the abdomen and pelvis but should be ruled out if the patient has recent history of forceful vomiting. The findings were called immediately to the patient's nurse at 4: 2. 05 PM on 03/25/17. 3. Degenerative changes and scoliosis of the thoracolumbar spine are noted. Juan J Morgan MD on March 25, 2017 at 16:00 Board Certified Radiologist. This report was verified electronically.
[2017-03-25] MEDS: METRONIDAZOLE 500 MG/100 ML ISONTONIC SOLN IV SCH (17:00)
[2017-03-25] MEDS: MORPHINE SULFATE 2 MG/ML INJ IV PUSH PRN (17:37)
[2017-03-25 17:57] LABS: INTERNATIONAL NORMALIZED RATIO 1.2 RATIO; PROTHROMBIN TIME - PATIENT 12.4 SEC (9.8-11.6)
[2017-03-25] MEDS ORDERED: PIPERACIL-TAZO 4.5 GM PREMIX 100 ML IV SCH ×2 (18:00→20:00)
[2017-03-25] MEDS ORDERED: CIPROFLOXACIN/DEXT 400 MG/200 ML IV SCH (18:00)
[2017-03-25 18:13] LABS: BICARBONATE 27.1 MEQ/L (21.0-32.0); CALCIUM 8.3 MG/DL (8.5-10.1)
[2017-03-25 18:17] LABS: CREATININE 0.7 MG/DL (0.50-1.00)
[2017-03-25] MEDS ORDERED: ACETAMINOPHEN 1000 MG/100 ML 100 ML IV ONE (18:41)
--- NOTE | 2017-03-25 19:29 | HHI.GIFU ---
Subjective Remarks Patient was examined, she was laying in bed she stated that her abdomen is more distended she states that she feels little better, no MB Objective Vitals I&O Vital Signs Date Time Temp Pulse Resp B/P (MAP) Pulse Ox O2 Delivery O2 Flow Rate FiO2 03/25/17 16:00 100.8 115 20 109/61 (77) 98 03/25/17 12:00 97.8 123 20 162/73 (102) 96 03/25/17 08:00 99.4 111 20 110/66 (81) 96 03/25/17 00:00 99.2 110 18 106/62 (77) 95 03/24/17 20:00 101.5 121 18 128/72 (90) 97 I/O 03/24/17 03/24/17 03/24/17 03/25/17 03/25/17 03/25/17 07:00 15:00 23:00 07:00 15:00 23:00 Intake Total 1747.5 ml 200 ml 200 ml 1602 ml 960 ml 2620 ml Output Total 750 ml 200 ml Balance 1747.5 ml -550 ml 200 ml 1402 ml 960 ml 2620 ml Intake Oral 0 ml 960 ml 520 ml IV Total 1747.5 ml 200 ml 200 ml 1602 ml 2100 ml Output Urine Total 750 ml 200 ml Bladder Scan Volume Amount 687 ml # Voids 2 1 4 3 # Bowel Movements 4 1 6 Laboratory Laboratory Tests Test 03/25/17 05:27 03/25/17 14:30 03/25/17 17:25 03/25/17 17:50 White Blood Count 10.2 Red Blood Count 3.43 Hemoglobin 9.8 Hematocrit 30.5 Mean Corpuscular Volume 89.2 Mean Corpuscular Hemoglobin 28.5 Mean Corpuscular Hemoglobin Concent 31.9 Red Cell Distribution Width 12.9 Platelet Count 220 Mean Platelet Volume 8.4 Neutrophils (%) (Auto) 92.3 Lymphocytes (%) (Auto) 2.8 Monocytes (%) (Auto) 4.5 Eosinophils (%) (Auto) 0.3 Basophils (%) (Auto) 0.1 Neutrophils # (Auto) 9.4 Lymphocytes # (Auto) 0.3 Monocytes # (Auto) 0.5 Eosinophils # (Auto) 0.0 Basophils # (Auto) 0.0 CBC Comment AUTO DIFF Differential Total Cells Counted 100 Neutrophils % (Manual) 80 Band Neutrophils % 12 Lymphocytes % 3 Monocytes % 5 Neutrophils # (Manual) 9.4 Differential Comment FINAL DIFF MANUAL Toxic Granulation 1+ Dohle Bodies PRESENT Platelet Estimate NORMAL Platelet Morphology Comment NORMAL Rouleau PRESENT Blood Urea Nitrogen 9 7 Creatinine 0.68 0.70 Random Glucose 94 91 Calcium Level 7.8 8.3 Sodium Level 139 133 Potassium Level 3.3 3.3 Chloride Level 105 100 Carbon Dioxide Level 27.4 27.1 Anion Gap 7 6 Estimat Glomerular Filtration Rate 88 85 Iron Level 11 Total Iron Binding Capacity 160 Percent Iron Saturation 6.9 Urine Color YELLOW Urine Turbidity CLEAR Urine pH 5.[address] 1.012 Urine Protein TRACE Urine Glucose (UA) NEG Urine Ketones NEG Urine Occult Blood SMALL Urine Nitrite NEG Urine Bilirubin NEG Urine Leukocyte Esterase NEG Urine RBC 0-3 Urine WBC 0-2 Urine Squamous Epithelial Cells 0-5 Urine Amorphous Sediment FEW Urine Mucus MOD Microscopic Urinalysis Comment CULT NOT INDICATED Prothrombin Time 12.4 Prothromb Time International Ratio 1.2 Activated Partial Thromboplast Time 32.3 Physical Exam HEENT: Pupils round and reactive to light; normocephalic; atraumatic; no jaundice. Throat is clear. NECK: Neck is supple, no JVD, no lymphadenopathy. CHEST: Chest is clear to auscultation and percussion. CARDIAC: Regular rate and rhythm with no murmur gallop or rubs. ABDOMEN: Soft, Mildly distended, Mild diffuse tenderness; no hepatosplenomegaly ; bowel sounds are present but Reduced EXTREMITIES: No clubbing, cyanosis, or edema. SKIN: Normal; no rash; no jaundice. SACK REPAIRER: No focal deficits; alert and oriented times three. Assessment and Plan Plan Patient have some abdominal pain and mild distention, she also has low-grade temperature, white count and the upper normal she also dropped her hemoglobin I discussed the case with Dr. Franco Plan to do CT scan for evaluation all any intra-abdominal issues such as bleeding or diverticulitis Douglas Crisostomo MD Mar 25, 2017 19:29
[2017-03-25] MEDS ORDERED: MIDAZOLAM HCL 2 MG/2 ML VIAL ONE (19:40)
[2017-03-25] MEDS ORDERED: Post-op Orders (for Pharmacy) XX ONE (21:00)
[2017-03-25] MEDS: MONTELUKAST SODIUM 10 MG TAB PO SCH (21:00)
[2017-03-25] MEDS ORDERED: BENZOCAINE 6 MG/MENTHOL 10 MG LOZENGE BUCCAL PRN (21:00)
[2017-03-25] MEDS ORDERED: ACETAMINOPHEN/HYDROcodone 325 MG/5 MG TAB PO PRN ×2 (21:00)
[2017-03-25] MEDS ORDERED: NALOXONE HCL 0.4 MG/ML AMP IV PUSH PRN (21:00)
[2017-03-25] MEDS ORDERED: ENALAPRILAT 1.25 MG/ML VIAL IV PUSH PRN (21:00)
[2017-03-25] MEDS: traZODone HCL 50 MG TAB PO SCH (21:00)
[2017-03-25] MEDS ORDERED: POTASSIUM CHLOR 20 MEQ PREMIX 100 ML IV PRN (21:00)
[2017-03-25] MEDS ORDERED: POTASSIUM CHLOR 40 MEQ PREMIX 100 ML IV PRN (21:00)
[2017-03-25] MEDS: METOCLOPRAMIDE HCL 10 MG/2 ML VIAL IVS SCH (21:00)
[2017-03-25] MEDS ORDERED: ENALAPRILAT 2.5 MG/2 ML VIAL IV PUSH PRN (21:00)
[2017-03-25] MEDS ORDERED: D5-NS + KCL 20 MEQ INJ 1,000 ML IV SCH (21:00)
[2017-03-25] MEDS ORDERED: D5-NS + KCL 20 MEQ INJ 1,000 ML ONE (21:08)
[2017-03-25] MEDS ORDERED: DO NOT ADM ANY ANTICOAGULANT DRUGS PRN (21:30)
[2017-03-25 22:00] VITALS: BP 103/64; PULSE 102; PULSE 107; RESP 15; TEMP 97.3; O2SAT 98
[2017-03-25] MEDS: PCA - TOTAL MG MORPHINE DELIVERED PER SHIFT SCH (22:00)
[2017-03-25 23:35] VITALS: PULSE 103
[2017-03-26] VITALS (16 sets, daily range): BP systolic 96–103; BP diastolic 59–70; PULSE 85–104; RESP 16–18; TEMP 97–98; O2SAT 95–99
[2017-03-26] MEDS: METRONIDAZOLE 500 MG/100 ML ISONTONIC SOLN IV SCH ×3 (00:14→15:27)
[2017-03-26] MEDS: KETOROLAC TROMETHAMINE 30 MG/ML (IVP) VIAL IVP PRN ×2 (00:20→15:29)
[2017-03-26] MEDS: ONDANSETRON HCL 4 MG/2 ML VIAL IV PUSH PRN (00:40)
[2017-03-26] MEDS: NS + KCL 20 MEQ INJ 1,000 ML IV SCH ×2 (04:05→11:30)
[2017-03-26 04:53] LABS: HEMATOCRIT 28.9 % (35.0-46.0); MEAN CELL VOLUME 88.4 FL (80.0-100.0); MEAN CORPUSCULAR HEMOGLOBIN 30.6 PG (27.0-34.0); MEAN CORPUSCULAR HGB CONC 34.6 % (32.0-36.0); MEAN PLATELET VOLUME 8.3 FL (7.0-11.0); PLATELET COUNT 178 TH/MM3 (150-450); RED BLOOD COUNT 3.27 MIL/MM3 (4.00-5.30); RED CELL DISTRIBUTION WIDTH 13.7 % (11.6-17.2); WHITE BLOOD COUNT 5.1 TH/MM3 (4.0-11.0)
[2017-03-26 05:15] LABS: BICARBONATE 26.5 MEQ/L (21.0-32.0); CREATININE 0.7 MG/DL (0.50-1.00)
[2017-03-26 05:32] LABS: CALCIUM-PROTEIN CORRECTED 8.4 MG/DL (8.5-10.1); TOTAL PROTEIN 4.5 GM/DL (6.4-8.2)
[2017-03-26] MEDS: PCA - TOTAL MG MORPHINE DELIVERED PER SHIFT SCH ×3 (06:00→22:00)
[2017-03-26] MEDS: SUCRALFATE 1 GM/10 ML CUP PO SCH ×5 (07:18→20:03)
[2017-03-26 08:19] LABS: BANDS 27 % (0-6); LYMPHOCYTES 1 % (9-44); METAMYELOCYTES 2 % (0-1); MONOCYTES 1 % (0-8); POLYS (SEG NEUTROPHILS) 69 % (16-70)
[2017-03-26 08:20] LABS: DOHLE BODIES PRESENT (NONE SEEN); TOXIC VACUOLATION PRESENT (NONE SEEN)
[2017-03-26 08:21] LABS: OVALOCYTES 1+ (NORMAL)
[2017-03-26] MEDS: LOSARTAN 50 MG TAB PO SCH (09:00)
[2017-03-26] MEDS: POTASSIUM CHLORIDE 20 MEQ CONTROLLED RELEASE TAB PO SCH ×2 (09:00→20:01)
[2017-03-26] MEDS: METOCLOPRAMIDE HCL 10 MG/2 ML VIAL IVS SCH ×2 (09:00→20:01)
[2017-03-26] MEDS: PANTOPRAZOLE SOD 40 MG DELAYED RELEASE TAB PO SCH (09:00)
[2017-03-26] MEDS ORDERED: NON-FORMULARY DRUG (Losartan-Hydrochlorothiazide 1 TAB) PO SCH (09:00)
[2017-03-26] MEDS ORDERED: HYDROCHLOROTHIAZIDE 12.5 MG CAP PO SCH (09:00)
[2017-03-26] MEDS: PANTOPRAZOLE SODIUM 40 MG VIAL IVP SCH (09:08)
[2017-03-26] MEDS: clonazePAM 1 MG TAB PO SCH (09:10)
[2017-03-26] MEDS: CETIRIZINE HCL 10 MG TAB PO SCH (10:41)
--- NOTE | 2017-03-26 11:58 | HHI.PR ---
Subjective Remarks C/R Surg POD #1 afebrile, VSS UO good TIO serous Objective - Vital Signs Date Time Temp Pulse Resp B/P (MAP) Pulse Ox O2 Delivery O2 Flow Rate FiO2 03/26/17 08:00 98.0 100 16 99/70 (80) 95 03/25/17 22:15 Nasal Cannula 2 Result Diagram: 03/26/17 0434 03/26/17 0434 Objective Remarks PE alert Abd - soft, wound dry, stoma pink A/P Assessment and Plan Imp: stable post-op OOB decr IVF tx to floor Magen Cárdenas MD Mar 26, 2017 11:58
--- NOTE | 2017-03-26 14:18 | PD.WCN.NOT ---
Wound Consult Description: Consult for NEW OSTOMY TEACHING of new stoma per Dr Cárdenas Communicated with: Patient Recommendation: Begin hydrating slowly. Transfer to bedside chair for all meals and begin ambulating when ordered by physician. Assess stoma every 4 hours and PRN for red moist color and output. Empty pouch as needed. Additional Information: Patient seen on [facility] for ostomy assessment and teaching. Full note to follow Ostomy Type: Colostomy Surgeon: Magen Cárdenas MD Date of Surgery: Mar 25, 2017 Complete: Education materials (Left at bedside ) Educated patient on: Stoma function and color Wafer and pouches available through [employer] Output beginning 24-48 hours after surgery and beginning food/drink intake How often to empty the pouch How often to change the wafer Peristomal skin care [employer] kit to be sent with her verbal consent Additional information Stoma is located on the left side mid abdomen. Colostomy is red, moist, round, moderately protruding, lumen noted in center and not functioning at this time. Mucus is noted on stoma. 2 piece appliance is intact and noted without leaks with minimal sanguinous drainage noted in pouch that was not emptied at this time. Nehal Nguyen [facility] Mar 26, 2017 14:18
[2017-03-26] MEDS: MORPHINE SULFATE 2 MG/ML INJ IV PUSH PRN (15:29)
[2017-03-26] MEDS: MORPHINE SULFATE 30 MG/30 ML PCA IV SCH (15:36)
[2017-03-26] MEDS: MONTELUKAST SODIUM 10 MG TAB PO SCH (20:01)
[2017-03-26] MEDS: traZODone HCL 50 MG TAB PO SCH (20:01)
[2017-03-27] VITALS: BP 94/57; PULSE 90; RESP 14; TEMP 97; O2SAT 95
[2017-03-27] MEDS: METRONIDAZOLE 500 MG/100 ML ISONTONIC SOLN IV SCH ×3 (00:29→17:41)
[2017-03-27] MEDS: NS + KCL 20 MEQ INJ 1,000 ML IV SCH ×2 (00:30→14:53)
[2017-03-27] MEDS: TEMAZEPAM 15 MG CAP PO PRN ×2 (00:35→19:59)
[2017-03-27 04:00] VITALS: BP 122/79; PULSE 95; RESP 16; TEMP 98.5; O2SAT 94
[2017-03-27] MEDS: KETOROLAC TROMETHAMINE 30 MG/ML (IVP) VIAL IVP PRN ×3 (04:24→19:48)
[2017-03-27] MEDS: PCA - TOTAL MG MORPHINE DELIVERED PER SHIFT SCH ×3 (04:42→22:00)
[2017-03-27 05:52] LABS: BICARBONATE 24.5 MEQ/L (21.0-32.0); CALCIUM 7.4 MG/DL (8.5-10.1); CREATININE 0.62 MG/DL (0.50-1.00)
[2017-03-27 06:05] LABS: CALCIUM-PROTEIN CORRECTED 8.8 MG/DL (8.5-10.1); TOTAL PROTEIN 4.7 GM/DL (6.4-8.2)
--- NOTE | 2017-03-27 07:53 | HHI.PR ---
Subjective Remarks C/R Surg POD #2 afebrile, VSS UO good TOI serous Objective - Vital Signs Date Time Temp Pulse Resp B/P (MAP) Pulse Ox O2 Delivery O2 Flow Rate FiO2 03/27/17 04:42 16 03/27/17 04:00 98.5 95 122/79 (93) 94 03/25/17 22:15 Nasal Cannula 2 Result Diagram: 03/26/17 0434 03/27/17 0410 Objective Remarks PE alert Abd - soft, wound clean, stoma pink A/P Assessment and Plan Imp: OOB decr IVF tx to floor start PO Magen Cárdenas MD Mar 27, 2017 07:53
--- NOTE | 2017-03-27 07:58 | HHI.FF ---
Face to Face Verification Diagnosis: (1) Diverticulitis Physical Therapy Order: Evaluate and Treat, Improve ambulation, Strength and gait training Home Health Nursing Order: Medical education Signs/symptoms of disease process Wound care and dressing changes Instructions: stoma care I have seen patient Luda Silva on 03/27/17. My clinical findings support the need for the requested home health care services because: Deconditioned w/ increased weakness High risk of falls Infection w/ risk of complications I certify that my clinical findings support that this patient is homebound because: Post-op weakness Unsteady gait/balance Unable to use public transportation Magen Cárdenas MD Mar 27, 2017 07:58
[2017-03-27 08:32] VITALS: BP 113/72; PULSE 105; RESP 16; TEMP 97.8; O2SAT 96
[2017-03-27] MEDS: SUCRALFATE 1 GM/10 ML CUP PO SCH ×4 (08:41→19:50)
[2017-03-27] MEDS: LOSARTAN 50 MG TAB PO SCH (08:41)
[2017-03-27] MEDS: POTASSIUM CHLORIDE 20 MEQ CONTROLLED RELEASE TAB PO SCH ×2 (08:41→19:52)
[2017-03-27] MEDS: METOCLOPRAMIDE HCL 10 MG/2 ML VIAL IVS SCH ×2 (08:42→19:49)
[2017-03-27] MEDS: CETIRIZINE HCL 10 MG TAB PO SCH (08:42)
[2017-03-27] MEDS: PANTOPRAZOLE SODIUM 40 MG VIAL IVP SCH (08:42)
[2017-03-27] MEDS: clonazePAM 1 MG TAB PO SCH (08:42)
[2017-03-27] MEDS: PANTOPRAZOLE SOD 40 MG DELAYED RELEASE TAB PO SCH (08:42)
[2017-03-27] MEDS: FUROSEMIDE 20 MG/2 ML VIAL IV PUSH SCH ×2 (08:46→19:51)
--- NOTE | 2017-03-27 09:08 | MB ---
cc: SERENITY KURTZ M.D., CARMEN DATE OF CONSULTATION 03/25/2017 REASON FOR CONSULTATION Abdominal pain, pneumoperitoneum, probable diverticulitis. HISTORY OF PRESENT ILLNESS Ms. Silva is a 62-year-old female who had been admitted several times in the last month for abdominal pain, nausea and vomiting. She has had symptoms actually dating back almost a year at which time she was diagnosed with bacterial overgrowth and treated with antibiotics. The patient recently came to [place] and continued to have abdominal discomfort and nonspecific GI tract symptoms. She was seen on several occasions having an endoscopy which documented an ulcer of her stomach and she was placed on Carafate and Protonix. She has also complained of a significant amount of constipation and inability to move her bowel. She has been taking MiraLax on a p.r.n. basis to increased stool frequency. She has also noted increasing loose stool with the MiraLax despite cutting back on its dose. The patient was admitted recently for abdominal pain and was discharged home only to return with more lower abdominal pain and discomfort. She has been having nausea and some emesis with decreased oral intake for several days prior to admission. The patient was admitted to a hospital down in [place] and treated empirically with antibiotics and bowel rest. CT scan of the abdomen and pelvis done today shows pneumoperitoneum and areas of possible diverticulitis. PAST MEDICAL HISTORY 1. History of hypertension. 2. Hysterectomy 3. Tubal ligation 4. Status post knee replacement 5. Colonoscopy within the last year. 6. Recent EGD MEDICATIONS See admitting list. ALLERGIES SULFA SOCIAL HISTORY The patient denies present tobacco use. Does have rare alcohol intake. FAMILY HISTORY The patient's father had bladder cancer and possibly colon cancer and a history of heart disease. PERTINENT PHYSICAL This is a very pleasant female in moderate distress. HEENT: Remarkable for very dry, but pink membranes, nonicteric sclera. NECK: Neck was a little stiff without adenopathy. CHEST: Diminished in the bases, clear anteriorly. HEART: The heart had a tachycardia. ABDOMEN: Distended and tender throughout. No particular localization. Some rebound and guarding. No obvious masses. RECTAL: Exam was deferred. EXTREMITIES: Show no cyanosis or clubbing. Minimal 1+ pedal edema. LABORATORY STUDIES CT scan was reviewed showing pneumoperitoneum in the pelvis which tracts up into the left upper quadrant probably through the retroperitoneum. IMPRESSION A 62-year-old female with about a year's worth of a JALEEL track symptoms and progressive abdominal discomfort. Recently found to have pneumoperitoneum, probably from a ruptured diverticulitis. She has been on Carafate and Protonix for a recently diagnosed stomach ulcer. Discussed at great length with the patient and recommended we increase her fluids, start broad-spectrum antibiotics and take her to the operating room as soon as possible for exploratory laparotomy and probable segmental sigmoid resection and colostomy. The possibility of a perforated stomach ulcer was also discussed and if she does have a perforated ulcer, we would need to address that issue at the time of the surgical procedure. The risks, benefits and alternatives were discussed in great detail and the patient accepted the proposed surgery. MD AUSTIN Harris/KULDIP /8:16 AM /8:44 AM
[2017-03-27 12:55] VITALS: BP 110/68; PULSE 99; RESP 16; TEMP 100; O2SAT 96
--- NOTE | 2017-03-27 14:56 | PD.WCN.NOT ---
Wound Consult Description: Consult for NEW OSTOMY TEACHING of new stoma per Dr Cárdenas Communicated with: GILMA Nunn Patient Recommendation: Hydrate. Transfer to chair for meals and begin ambulating when ordered by physician. Assess stoma every 4 hours and PRN for output and flatus. Empty pouch as needed. Additional Information: Patient seen on [facility] for ostomy assessment and teaching. Ostomy Type: Colostomy Surgeon: Magen Cárdenas MD Date of Surgery: Mar 25, 2017 Complete: Starter kit (Consent obtained for kit to be sent to patient home), Education materials (Left at bedside ) Educated patient on: Ambulating Getting up to chair Breathing deeply and using IS Hydrating Assessing pouch for output of stool and flatus and empty as needed Entire appliance can be changed every 5-7 days and PRN for leaks (assess for burning or itching underneath wafer) Additional information Patient seen on [facility] for ostomy assessment and teaching. Patient was sleeping in her bed upon arrival to room. Patient was easily aroused and stated that she needed to eat something (1240 today). Lunch was ordered for patient who is now on full liquids. Ostomy was visualized on the left mid upper abdomen. Colostomy is red, moist, moderately protruding, round, with mucus noted on stoma, lumen in center. Stoma is not functioning at this time. There was minimal sanguinous drainage noted in pouch that was unchanged from yesterdays assessment. Nehal Nguyen [facility] Mar 27, 2017 14:56
[2017-03-27] MEDS: MORPHINE SULFATE 30 MG/30 ML PCA IV SCH (16:22)
[2017-03-27 16:30] VITALS: BP 100/62; PULSE 112; RESP 16; TEMP 98.3; O2SAT 96
[2017-03-27] MEDS: traZODone HCL 50 MG TAB PO SCH (19:50)
[2017-03-27] MEDS: MONTELUKAST SODIUM 10 MG TAB PO SCH (19:50)
[2017-03-27 20:00] VITALS: BP 104/60; PULSE 99; RESP 16; TEMP 98; O2SAT 95
[2017-03-28] VITALS (7 sets, daily range): BP systolic 100–131; BP diastolic 57–72; PULSE 89–112; RESP 16–20; TEMP 98–101.6; O2SAT 94–99
[2017-03-28] MEDS: METRONIDAZOLE 500 MG/100 ML ISONTONIC SOLN IV SCH ×4 (01:21→23:52)
[2017-03-28] MEDS: KETOROLAC TROMETHAMINE 30 MG/ML (IVP) VIAL IVP PRN ×3 (01:25→15:39)
[2017-03-28] MEDS: NS + KCL 20 MEQ INJ 1,000 ML IV SCH ×2 (04:54→20:58)
[2017-03-28] MEDS: PCA - TOTAL MG MORPHINE DELIVERED PER SHIFT SCH ×3 (05:11→20:58)
[2017-03-28] MEDS: PANTOPRAZOLE SODIUM 40 MG VIAL IVP SCH (09:00)
[2017-03-28] MEDS: POTASSIUM CHLORIDE 20 MEQ CONTROLLED RELEASE TAB PO SCH ×2 (09:37→20:57)
[2017-03-28] MEDS: PANTOPRAZOLE SOD 40 MG DELAYED RELEASE TAB PO SCH (09:37)
[2017-03-28] MEDS: FUROSEMIDE 20 MG/2 ML VIAL IV PUSH SCH ×2 (09:38→20:56)
[2017-03-28] MEDS: SUCRALFATE 1 GM/10 ML CUP PO SCH ×4 (09:38→20:56)
[2017-03-28] MEDS: LOSARTAN 50 MG TAB PO SCH (09:38)
[2017-03-28] MEDS: CETIRIZINE HCL 10 MG TAB PO SCH (09:38)
[2017-03-28] MEDS: clonazePAM 1 MG TAB PO SCH (09:38)
[2017-03-28] MEDS: METOCLOPRAMIDE HCL 10 MG/2 ML VIAL IVS SCH (09:40)
[2017-03-28] MEDS: ACETAMINOPHEN 325 MG TAB PO PRN (09:41)
--- NOTE | 2017-03-28 15:54 | PD.WCN.NOT ---
Wound Consult Description: Consult for NEW OSTOMY TEACHING of new stoma per Dr Cárdenas Communicated with: Patient Arline, RN SCOTT Darling Recommendation: Use IS Stay hydrated. Transfer to chair for meals and ambulate. Assess stoma every 4 hours and PRN for output and flatus. Empty pouch as needed. Additional Information: Patient seen on [facility] for ostomy assessment, teaching, and appliance change. Ostomy Type: Colostomy Surgeon: Magen Cárdenas MD Date of Surgery: Mar 25, 2017 Complete: Starter kit (Consent obtained for kit to be sent to patient home), Education materials (Left at bedside ), Rx (written for supplies size 2 1/4") Educated patient on: Changing appliance every 5-7 days and PRN for leaks Emptying pouch every 4 hours and PRN Ambulating and sitting up for meals Using IS and deep breathing exercises Stoma appearance and size 1 1/2" round (with dried blood noted from 8-10 o'clock ) Using size 2 3/4" appliance today and with one more appliance change until dried blood is able to be removed 2 piece wafer and low pressure adaptor in place for comfort with open ended pouch Additional information Patient seen on [facility] with SCOTT Darling at bedside. Wafer was removed from left side abdomen using adhesive removal wipes. Back side of wafer was visualized and noted to be breaking down evenly as expected as evidenced by the discoloration noted. Peristomal skin was noted with dried sanguinous exudate noted from 8-10 o'clock giving it an oval appearance, however the stoma is round , red, moist, moderately protruding, lumen noted in center and functioning with flatus and minimal light brown/greenish liquid effluent (~5-10ml) noted in pouch that was removed and disposed of by telegraphic typewriter repairer. Mucocutaneous junction is noted with circumferential sutures otherwise unremarkable. Peristomal skin was cleansed with a warm water moistened wash cloth. Dried sanguinous exudate was not friable when cleansing with washcloth. Dulce noted to midline incision are unremarkable and have approximated wound margins. Stoma measures 1 1/2" therefore a wafer size 2 3/4" was used with todays appliance change. Patient closed the pouch and telegraphic typewriter repairer attached it to the low pressure adaptor on the wafer to avoid discomfort. Patient was assisted to the side of the bed and pillows were placed behind her for protection against the side rail. Patient began burping and stoma was functioning with flatus immediately after sitting her up on the side of the bed with feet dangling. Her bedside table was placed in front of her and she began using her IS and eating a popsicle stating that she would like to get up and walk today. Patient is to be transferred today to another floor and will be seen Friday03/31/17. Nehal Nguyen [facility] Mar 28, 2017 15:54
[2017-03-28] MEDS: MORPHINE SULFATE 30 MG/30 ML PCA IV SCH (17:49)
--- NOTE | 2017-03-28 18:23 | HHI.PR ---
Subjective Remarks C/R Surg POD #3 Temp 101, now 98, VSS UO good TOI serous selina PO Objective - Vital Signs Date Time Temp Pulse Resp B/P (MAP) Pulse Ox O2 Delivery O2 Flow Rate FiO2 03/28/17 17:49 16 03/28/17 16:20 98.9 105 108/57 (74) 95 03/25/17 22:15 Nasal Cannula 2 Result Diagram: 03/26/17 0434 03/27/17 0410 Objective Remarks PE alert Abd - soft, wound clean, stoma pink A/P Assessment and Plan Imp: OOB decr IVF start PO, adv pulm toilet Magen Cárdenas MD Mar 28, 2017 18:23
[2017-03-28] MEDS ORDERED: RESP: ALBUTEROL 2.5 MG/IPRATROPIUM 0.5 MG NEB (PRN) NEB (18:30)
[2017-03-28] MEDS ORDERED: METOCLOPRAMIDE HCL 10 MG/2 ML VIAL IVS PRN (18:30)
[2017-03-28] MEDS: traZODone HCL 50 MG TAB PO SCH (20:56)
[2017-03-28] MEDS: MONTELUKAST SODIUM 10 MG TAB PO SCH (20:57)
[2017-03-28] MEDS: HEPARIN SODIUM - SQ 10,000 UNITS/ML VIAL SQ SCH (20:58)
[2017-03-28] MEDS: TEMAZEPAM 15 MG CAP PO PRN (21:12)
[2017-03-29] VITALS: BP 118/61; PULSE 109; RESP 17; TEMP 100; O2SAT 97
[2017-03-29] MEDS: ACETAMINOPHEN 325 MG TAB PO PRN (04:31)
[2017-03-29] MEDS: PCA - TOTAL MG MORPHINE DELIVERED PER SHIFT SCH (04:42)
[2017-03-29 04:54] VITALS: BP 120/58; PULSE 98; RESP 16; TEMP 100.9; O2SAT 96
[2017-03-29 08:00] VITALS: BP 132/69; PULSE 114; RESP 19; TEMP 97.4; O2SAT 94
[2017-03-29] MEDS: PANTOPRAZOLE SOD 40 MG DELAYED RELEASE TAB PO SCH (08:04)
[2017-03-29] MEDS: PANTOPRAZOLE SODIUM 40 MG VIAL IVP SCH (08:04)
[2017-03-29] MEDS: CETIRIZINE HCL 10 MG TAB PO SCH (08:04)
[2017-03-29] MEDS: SUCRALFATE 1 GM/10 ML CUP PO SCH ×4 (08:05→21:34)
[2017-03-29] MEDS: clonazePAM 1 MG TAB PO SCH (08:05)
[2017-03-29] MEDS: HEPARIN SODIUM - SQ 10,000 UNITS/ML VIAL SQ SCH ×2 (08:05→21:35)
[2017-03-29] MEDS: FUROSEMIDE 20 MG/2 ML VIAL IV PUSH SCH ×2 (08:05→21:34)
[2017-03-29] MEDS: LOSARTAN 50 MG TAB PO SCH (08:06)
[2017-03-29] MEDS: METRONIDAZOLE 500 MG/100 ML ISONTONIC SOLN IV SCH ×2 (08:06→16:25)
[2017-03-29] MEDS: POTASSIUM CHLORIDE 20 MEQ CONTROLLED RELEASE TAB PO SCH ×2 (08:06→21:00)
[2017-03-29 08:20] LABS: AUTOMATED NEUTROPHIL # 12.5 TH/MM3 (1.8-7.7); BASOPHIL % 0.3 % (0.0-2.0); EOSINOPHIL # 0.1 TH/MM3 (0-0.4); EOSINOPHIL % 0.7 % (0.0-4.0); HEMATOCRIT 24.7 % (35.0-46.0); HEMOGLOBIN 8.5 GM/DL (11.6-15.3); LYMPH % 6.1 % (9.0-44.0); LYMPHOCYTE # 0.9 TH/MM3 (1.0-4.8); MEAN CELL VOLUME 88.9 FL (80.0-100.0); MEAN CORPUSCULAR HEMOGLOBIN 30.4 PG (27.0-34.0); MEAN CORPUSCULAR HGB CONC 34.2 % (32.0-36.0); MEAN PLATELET VOLUME 7.7 FL (7.0-11.0); MONO % 4.7 % (0.0-8.0); MONOCYTE # 0.7 TH/MM3 (0-0.9); NEUT % 88.2 % (16.0-70.0); PLATELET COUNT 263 TH/MM3 (150-450); RED BLOOD COUNT 2.78 MIL/MM3 (4.00-5.30); RED CELL DISTRIBUTION WIDTH 14.4 % (11.6-17.2); WHITE BLOOD COUNT 14.2 TH/MM3 (4.0-11.0)
[2017-03-29 08:47] LABS: BICARBONATE 27.2 MEQ/L (21.0-32.0); CALCIUM 7.5 MG/DL (8.5-10.1); CREATININE 0.74 MG/DL (0.50-1.00)
[2017-03-29 10:12] LABS: BANDS 5 % (0-6); LYMPHOCYTES 6 % (9-44); MONOCYTES 4 % (0-8); MYELOCYTES 2 % (0-0); NEUTROPHIL # MANUAL DIFF 12.5 TH/MM3 (1.8-7.7); POLYS (SEG NEUTROPHILS) 81 % (16-70)
--- NOTE | 2017-03-29 10:51 | HHI.PR ---
Subjective Remarks C/R Surg POD #4 Temp 99, now 98, VSS UO good TOI serous selina PO stoma funct Objective - Vital Signs Date Time Temp Pulse Resp B/P (MAP) Pulse Ox O2 Delivery O2 Flow Rate FiO2 03/29/17 08:00 97.4 114 19 132/69 (90) 94 03/25/17 22:15 Nasal Cannula 2 Result Diagram: 03/29/17 0748 03/29/17 0748 Objective Remarks PE alert Abd - soft, wound clean, stoma pink A/P Assessment and Plan Imp: OOB decr IVF start PO, adv pulm toilet Magen Cárdenas MD Mar 29, 2017 10:51
[2017-03-29 11:43] VITALS: BP 137/73; PULSE 110; RESP 19; TEMP 98; O2SAT 96
[2017-03-29] MEDS: NS + KCL 20 MEQ INJ 1,000 ML IV SCH (13:30)
[2017-03-29 16:00] VITALS: BP 142/88; PULSE 118; RESP 19; TEMP 98.2; O2SAT 96
--- NOTE | 2017-03-29 17:10 | MP ---
cc: SERENITY KURTZ M.D. DATE OF SURGERY: 03/25/2017. PREOPERATIVE DIAGNOSIS: Pneumoperitoneum, probable diverticulitis POSTOPERATIVE DIAGNOSIS: Perforated diverticulitis. OPERATIVE PROCEDURE PERFORMED: Exploratory laparotomy with proctosigmoidectomy, Alvarado pouch and end colostomy. SURGEON: Serenity Kurtz MD. DESCRIPTION OF THE PROCEDURE IN DETAIL: The patient was placed in the supine position. After adequate general anesthesia, her legs were placed in the universal stirrups and supported appropriately. The abdomen and perineum were then prepped with Betadine solution and draped in the usual sterile fashion. The abdomen was opened through a midline incision. Upon entering the abdomen, there did not appear to be obvious pneumoperitoneum but there was a moderate amount of serous ascites. Small bowel was stuck down in the pelvis with inflammatory changes in the rectosigmoid consistent with diverticulitis. The cecum and terminal ileum was stuck down to the pelvis from a previous [employer] MANA[employer] surgery and these loops were tediously removed with sharp dissection. The sigmoid colon was then mobilized medially by dividing along the white line of Toldt. The left ureter was identified and carefully preserved. Dissection then proceeded down to the pelvis freeing up several loops of bowel which were frozen in the pelvis, entering a fairly large cavity full of stool in the anterior pelvis. This appeared to be the site of perforation. After mobilizing the left pelvic sidewall, the bowel was mobilized up into the wound. The right retroperitoneal space was opened and the bowel dissected off the presacral fascia. The pedicle for the superior hemorrhoidal vessels was identified and divided between Kellys obtaining hemostasis with Vicryl ties. Dissection then proceeded down opening up the presacral space with quite a bit of fibrinous exudate and thickening of the rectosigmoid down toward the rectum. A point little softer the mesorectum was divided and the bowel finally divided using a TA 60 stapler and a Berny clamp. Next, the bowel was mobilized off the left colon in preparation for colostomy. At a point above the inflammatory process, the mesorectum was divided taking the marginal artery between Kellys and obtaining hemostasis with Vicryl ties. The bowel was then finally divided using a TA 60 stapler and a Berny clamp. The abdomen was then irrigated copiously with normal saline. Adequate hemostasis was achieved at all sites. A Ezekiel-Carroll drain was placed down into the pelvis and brought up through a stab wound in the right lower quadrant and secured to the skin with a nylon suture. The circular stab wound was created in the left side of the abdomen and the end of the sigmoid colon brought out through the stab wound without tension and with good blood supply. The midline incision was closed anatomically in one layer using #1 PDS suture to reapproximate the midline fascia. The subcutaneous tissue was irrigated copiously and skin closed with a row of surgical clips. It should be noted that prior to closing the retroperitoneum on the left side, the abdomen was opened exposing a long tract of purulent fluid and granulation tissue which appeared to include extension of the inflammatory process up the left gutter toward the left upper quadrant. After adequate debridement, the tissue well appeared to be widely opened and adequately drained. Finally the JALEEL staple line was removed from the end of the sigmoid colon and the colostomy matured in the usual Mishel fashion by placing a row of interrupted chromic catgut sutures around the circumference. At completion, the stoma did appear to be viable and was patent through the fascial level. A sterile colostomy appliance was fitted over the new stoma. The patient tolerated the procedure quite well and was brought to the recovery room in stable condition. Sponge and needle counts were correct at the end of the procedure. MD AUSTIN Harris/FRANCIS /10:53 PM /4:59 PM
[2017-03-29 20:00] VITALS: BP 141/67; PULSE 116; RESP 20; TEMP 101.1; O2SAT 93
[2017-03-29] MEDS: traZODone HCL 50 MG TAB PO SCH (21:34)
[2017-03-29] MEDS: MONTELUKAST SODIUM 10 MG TAB PO SCH (21:35)
[2017-03-29] MEDS: TEMAZEPAM 15 MG CAP PO PRN (21:43)
[2017-03-29] MEDS: ONDANSETRON HCL 4 MG/2 ML VIAL IV PUSH PRN (21:43)
[2017-03-29] MEDS: ACETAMINOPHEN/HYDROcodone 325 MG/10 MG TAB PO PRN (21:44)
[2017-03-30] VITALS (11 sets, daily range): BP systolic 114–156; BP diastolic 59–89; PULSE 95–112; RESP 14–20; TEMP 97.6–100.1; O2SAT 93–98
[2017-03-30] MEDS: METRONIDAZOLE 500 MG/100 ML ISONTONIC SOLN IV SCH ×3 (00:34→16:09)
[2017-03-30] MEDS: ACETAMINOPHEN 325 MG TAB PO PRN ×2 (00:35→18:29)
[2017-03-30] MEDS: LEVOFLOXACIN 500 MG PREMIX INJ 100 ML IV SCH (01:00)
[2017-03-30] MEDS: NS + KCL 20 MEQ INJ 1,000 ML IV SCH (04:10)
[2017-03-30 06:12] LABS: BASOPHIL % 0.2 % (0.0-2.0); EOSINOPHIL # 0.1 TH/MM3 (0-0.4); HEMATOCRIT 24.3 % (35.0-46.0); HEMOGLOBIN 8.3 GM/DL (11.6-15.3); LYMPH % 8.1 % (9.0-44.0); LYMPHOCYTE # 0.8 TH/MM3 (1.0-4.8); MEAN CELL VOLUME 89.9 FL (80.0-100.0); MEAN CORPUSCULAR HEMOGLOBIN 30.9 PG (27.0-34.0); MEAN CORPUSCULAR HGB CONC 34.4 % (32.0-36.0); MEAN PLATELET VOLUME 7.7 FL (7.0-11.0); MONO % 4.7 % (0.0-8.0); MONOCYTE # 0.5 TH/MM3 (0-0.9); PLATELET COUNT 249 TH/MM3 (150-450); RED CELL DISTRIBUTION WIDTH 14.6 % (11.6-17.2); WHITE BLOOD COUNT 10.4 TH/MM3 (4.0-11.0)
[2017-03-30] MEDS: SUCRALFATE 1 GM/10 ML CUP PO SCH ×4 (08:00→20:14)
[2017-03-30 08:06] LABS: BANDS 23 % (0-6); LYMPHOCYTES 4 % (9-44); MONOCYTES 4 % (0-8); MYELOCYTES 1 % (0-0); NEUTROPHIL # MANUAL DIFF 9.4 TH/MM3 (1.8-7.7); POLYS (SEG NEUTROPHILS) 66 % (16-70)
[2017-03-30] MEDS: PANTOPRAZOLE SODIUM 40 MG VIAL IVP SCH (08:06)
[2017-03-30] MEDS: HEPARIN SODIUM - SQ 10,000 UNITS/ML VIAL SQ SCH ×2 (08:06→20:15)
[2017-03-30] MEDS: PANTOPRAZOLE SOD 40 MG DELAYED RELEASE TAB PO SCH (08:07)
[2017-03-30] MEDS: FUROSEMIDE 20 MG/2 ML VIAL IV PUSH SCH ×2 (08:07→20:18)
[2017-03-30] MEDS: CETIRIZINE HCL 10 MG TAB PO SCH (08:07)
[2017-03-30] MEDS: POTASSIUM CHLORIDE 20 MEQ CONTROLLED RELEASE TAB PO SCH ×2 (08:07→20:16)
[2017-03-30] MEDS: LOSARTAN 50 MG TAB PO SCH (08:07)
[2017-03-30] MEDS: clonazePAM 1 MG TAB PO SCH (08:07)
--- NOTE | 2017-03-30 09:41 | RADRPT ---
EXAM DATE/TIME: 03/30/2017 09:27 [facility] COMPARISON: CT ABDOMEN & PELVIS W/O CONTRAST, March 25, 2017, 15:00. INDICATIONS : Fever MEDICAL HISTORY : Hypertension. Gastroesophageal reflux disease. Chronic obstructive pulmonary disease. Hiatal hernia. Ulcer. SURGICAL HISTORY : Hysterectomy. Total knee replacement, left. Total knee replacement, right. ENCOUNTER: Initial ACUITY: 4 - 6 days PAIN SCORE: 0/10 LOCATION: chest FINDINGS: PA lateral views of the chest demonstrate a small to moderate sized left sided pleural effusion. Ther e is atelectasis/consolidation of the left lower lobe. The remainder of the lungs are clear. Heart si ze is normal. Pulmonary vasculature is normal. CONCLUSION: New left-sided pleural effusion with atelectasis/consolidation of the left lower lobe. These findings are increased from the prior exam.. Dhara Harry MD on March 30, 2017 at 9:35 Board Certified Radiologist. This report was verified electronically.
--- NOTE | 2017-03-30 10:12 | RADRPT ---
EXAM DATE/TIME: 03/30/2017 09:34 [facility] COMPARISON: CT ABDOMEN & PELVIS W/O CONTRAST, March 25, 2017, 15:00. INDICATIONS : Post operative fever. ORAL CONTRAST: Prescribed oral contrast ingested. RADIATION DOSE: 15.10 CTDIvol (mGy) MEDICAL HISTORY : Hernia, hiatal. SURGICAL HISTORY : Hysterectomy. Tubal ligation.laparotomy ENCOUNTER: Initial ACUITY: 1 day PAIN SCALE: 0/10 LOCATION: Bilateral abdomen TECHNIQUE: Volumetric scanning of the abdomen and pelvis was performed. Using automated exposure control and ad justment of the mA and/or kV according to patient size, radiation dose was kept as low as reasonably achievable to obtain optimal diagnostic quality images. DICOM format image data is available electro nically for review and comparison. FINDINGS: LOWER LUNGS: There is increasing left lower lobe atelectasis and pleural fluid small right-sided pleural fluid. Sm all pericardial effusion which is slightly increased as compared to the prior exam. LIVER: Homogeneous density without lesion. There is no dilation of the biliary tree. No calcified gallston es. SPLEEN: Normal size without lesion. PANCREAS: Within normal limits. KIDNEYS: Normal in size and shape. There is no mass, stone, or hydronephrosis. ADRENAL GLANDS: Within normal limits. VASCULAR: There is no aortic aneurysm. BOWEL/MESENTERY: The patient is status post resection of an area of sigmoid diverticulitis. There is oral contrast miguel ntified within the cecum, transverse and proximal descending colon extending out to the ostomy site. There is a loop of abnormally thickened small bowel identified in the left upper quadrant. There is a ir tracking within the mesentery along the left upper quadrant and adjacent to the esophagus. Air als o seen within the left pararenal space. These findings were present on the prior exam and this may re present residual air from prior bowel perforation. ABDOMINAL WALL: Ostomy involving the left abdominal wall. Diffuse anasarca is present within the soft tissues. RETROPERITONEUM: There is a drain identified within the retroperitoneum with a small fluid collection identified both medial and lateral to the rectum. This fluid collection is slightly decreased in size as compared to the prior exam. BLADDER: No wall thickening or mass. REPRODUCTIVE: Surgically absent. INGUINAL: There is no lymphadenopathy or hernia. MUSCULOSKELETAL: Degenerative changes. CONCLUSION: Status post colostomy with residual small fluid collections identified within the perirectal space. A drain is present within this region. There is persistent air tracking along the mesentery of the lef t abdomen and left upper quadrant which may be residual from the prior area secondary to bowel perfor ation. There is a single segment of concerning small bowel loop within the left upper quadrant which appears to demonstrate wall thickening. Enlarging left-sided pleural effusion and mildly enlarged per icardial effusion which are likely reactive.. Dhara Harry MD on March 30, 2017 at 9:58 Board Certified Radiologist. This report was verified electronically.
--- NOTE | 2017-03-30 10:17 | HHI.PR ---
Subjective Remarks C/R Surg POD #4 Temp 101, now 98, VSS UO good TOI serous selina PO stoma funct Objective - Vital Signs Date Time Temp Pulse Resp B/P (MAP) Pulse Ox O2 Delivery O2 Flow Rate FiO2 03/30/17 08:00 98.7 106 18 156/77 (103) 97 Result Diagram: 03/30/17 0440 03/29/17 0748 Objective Remarks PE alert Abd - soft, wound clean, stoma pink A/P Assessment and Plan Imp: OOB decr IVF start PO, adv pulm toilet CT still shows air in LUQ - no drainable collection - change ab's Magen Cárdenas MD Mar 30, 2017 10:17
[2017-03-30] MEDS ORDERED: SODIUM CHLOR 0.9% 250 ML INJ 250 ML IV ONE (10:30)
[2017-03-30] MEDS: CEFEPIME INJ 1,000 MG in SODIUM CHLORIDE 0.9% INJ 100 ML IV SCH ×2 (11:00→17:29)
[2017-03-30] MEDS: traZODone HCL 50 MG TAB PO SCH (20:15)
[2017-03-30] MEDS: MONTELUKAST SODIUM 10 MG TAB PO SCH (20:15)
[2017-03-30] MEDS: ACETAMINOPHEN/HYDROcodone 325 MG/10 MG TAB PO PRN (20:17)
[2017-03-30] MEDS: TEMAZEPAM 15 MG CAP PO PRN (20:17)
[2017-03-31] VITALS: BP 125/72; PULSE 97; RESP 18; TEMP 98.5; O2SAT 96
[2017-03-31] MEDS: METRONIDAZOLE 500 MG/100 ML ISONTONIC SOLN IV SCH ×3 (00:28→17:50)
[2017-03-31] MEDS: NS + KCL 20 MEQ INJ 1,000 ML IV SCH ×2 (00:28→16:20)
[2017-03-31] MEDS: LEVOFLOXACIN 500 MG PREMIX INJ 100 ML IV SCH (00:29)
[2017-03-31] MEDS: CEFEPIME INJ 1,000 MG in SODIUM CHLORIDE 0.9% INJ 100 ML IV SCH ×3 (01:45→18:45)
[2017-03-31] MEDS: ACETAMINOPHEN/HYDROcodone 325 MG/10 MG TAB PO PRN ×3 (05:18→17:50)
[2017-03-31 08:00] VITALS: BP 140/78; PULSE 80; RESP 17; TEMP 97.6; O2SAT 97
[2017-03-31] MEDS: PANTOPRAZOLE SODIUM 40 MG VIAL IVP SCH (09:00)
[2017-03-31] MEDS: SUCRALFATE 1 GM/10 ML CUP PO SCH ×4 (09:21→20:48)
[2017-03-31] MEDS: FUROSEMIDE 20 MG/2 ML VIAL IV PUSH SCH ×2 (09:22→20:47)
[2017-03-31] MEDS: HEPARIN SODIUM - SQ 10,000 UNITS/ML VIAL SQ SCH ×2 (09:24→20:47)
[2017-03-31] MEDS: POTASSIUM CHLORIDE 20 MEQ CONTROLLED RELEASE TAB PO SCH ×2 (09:24→20:48)
[2017-03-31] MEDS: PANTOPRAZOLE SOD 40 MG DELAYED RELEASE TAB PO SCH (09:24)
[2017-03-31] MEDS: CETIRIZINE HCL 10 MG TAB PO SCH (09:24)
[2017-03-31] MEDS: LOSARTAN 50 MG TAB PO SCH (09:24)
[2017-03-31] MEDS: clonazePAM 1 MG TAB PO SCH (09:25)
[2017-03-31 12:00] VITALS: BP 154/77; PULSE 96; RESP 19; TEMP 98.6; O2SAT 98
--- NOTE | 2017-03-31 13:29 | PD.WCN.NOT ---
Wound Consult Description: Consult for NEW OSTOMY TEACHING of new stoma per Dr Cárdenas Communicated with: ROSALINO Lee, RN Patient Recommendation: Use IS. Stay hydrated. Transfer to chair for meals and ambulate. Assess stoma every 4 hours and PRN for output and flatus. Empty pouch as needed. Change wafer every 5 days and PRN before leaks occur. Additional Information: Patient seen on [address] [place] [address] for ostomy assessment and teaching. Ostomy Type: Colostomy Surgeon: Magen Cárdenas MD Date of Surgery: Mar 25, 2017 Complete: Starter kit (Consent obtained for kit to be sent to patient home), Education materials (Left at bedside ), Rx (written for supplies size 2 1/4") Educated patient on: The need to walk daily and get up in the chair for meals and to use the IS. Assessing stoma for red/pink color and output. Changing the appliance tomorrow or as needed and before discharge. Additional information Patient was sleeping upon entering room for ostomy assessment. Patient states that she received a blood transfusion yesterday and that she feels weak, cold, and tired with quite a few blankets noted on top of her. Patient states that she emptied her pouch this morning with the RN. Ostomy appliance is noted to the left side abdomen and is intact without leaks. Pouch is 1/4 full of soft brown effluent and air that was released at the top of the pouch by opening appliance, gently pressing on pouch, and closing the appliance at the flange. Stoma is red, moderately protruding, moist, round, functioning with soft brown effluent. Ice cup obtained for patient to pour her clear soda into as requested. Patient states that her appetite is fair. It was recommended that she try to eat to help her gain some strength. Nehal Nguyen [facility] Mar 31, 2017 13:29
[2017-03-31 13:31] LABS: AUTOMATED NEUTROPHIL # 8.4 TH/MM3 (1.8-7.7); BASOPHIL % 0.2 % (0.0-2.0); EOSINOPHIL % 0.5 % (0.0-4.0); HEMATOCRIT 27.9 % (35.0-46.0); HEMOGLOBIN 9.7 GM/DL (11.6-15.3); LYMPH % 5.3 % (9.0-44.0); LYMPHOCYTE # 0.5 TH/MM3 (1.0-4.8); MEAN CELL VOLUME 88.1 FL (80.0-100.0); MEAN CORPUSCULAR HEMOGLOBIN 30.5 PG (27.0-34.0); MEAN CORPUSCULAR HGB CONC 34.7 % (32.0-36.0); MEAN PLATELET VOLUME 7.8 FL (7.0-11.0); MONOCYTE # 0.5 TH/MM3 (0-0.9); PLATELET COUNT 243 TH/MM3 (150-450); RED BLOOD COUNT 3.17 MIL/MM3 (4.00-5.30); WHITE BLOOD COUNT 9.5 TH/MM3 (4.0-11.0)
[2017-03-31 16:00] VITALS: BP 140/81; PULSE 94; RESP 20; TEMP 98.1; O2SAT 96
[2017-03-31 20:00] VITALS: BP 120/73; PULSE 104; RESP 17; TEMP 99.1; O2SAT 97
[2017-03-31] MEDS: traZODone HCL 50 MG TAB PO SCH (20:48)
[2017-03-31] MEDS: MONTELUKAST SODIUM 10 MG TAB PO SCH (20:48)
[2017-03-31] MEDS: TEMAZEPAM 15 MG CAP PO PRN (20:52)
--- NOTE | 2017-03-31 22:59 | HHI.PR ---
Subjective Remarks C/R Surg POD #5 Temp down, now 98, VSS UO good TOI serous selina PO stoma funct Objective - Vital Signs Date Time Temp Pulse Resp B/P (MAP) Pulse Ox O2 Delivery O2 Flow Rate FiO2 03/31/17 16:00 98.1 94 20 140/81 (100) 96 Result Diagram: 03/31/17 1257 03/29/17 0748 Objective Remarks PE alert Abd - soft, wound clean, stoma pink, TOI min A/P Assessment and Plan Imp: OOB start PO, adv pulm toilet CT still shows air in LUQ - change ab's Magen Cárdenas MD Mar 31, 2017 22:59
[2017-04-01] VITALS: BP 141/78; PULSE 107; RESP 17; TEMP 98.9; O2SAT 97
[2017-04-01] MEDS: NS + KCL 20 MEQ INJ 1,000 ML IV SCH (01:57)
[2017-04-01] MEDS: ONDANSETRON HCL 4 MG/2 ML VIAL IV PUSH PRN ×2 (01:57→22:04)
[2017-04-01] MEDS: ACETAMINOPHEN/HYDROcodone 325 MG/10 MG TAB PO PRN ×4 (01:57→21:27)
[2017-04-01] MEDS: METRONIDAZOLE 500 MG/100 ML ISONTONIC SOLN IV SCH ×3 (01:58→16:46)
[2017-04-01] MEDS: CEFEPIME INJ 1,000 MG in SODIUM CHLORIDE 0.9% INJ 100 ML IV SCH ×3 (03:23→18:21)
[2017-04-01 08:00] VITALS: BP 137/76; PULSE 99; RESP 15; TEMP 98.5; O2SAT 95
[2017-04-01] MEDS: SUCRALFATE 1 GM/10 ML CUP PO SCH ×4 (08:19→21:00)
[2017-04-01] MEDS: PANTOPRAZOLE SODIUM 40 MG VIAL IVP SCH (08:20)
[2017-04-01] MEDS: HEPARIN SODIUM - SQ 10,000 UNITS/ML VIAL SQ SCH ×2 (08:20→21:26)
[2017-04-01] MEDS: FUROSEMIDE 20 MG/2 ML VIAL IV PUSH SCH ×2 (08:20→21:26)
[2017-04-01] MEDS: clonazePAM 1 MG TAB PO SCH (09:05)
[2017-04-01] MEDS: POTASSIUM CHLORIDE 20 MEQ CONTROLLED RELEASE TAB PO SCH ×2 (09:05→21:21)
[2017-04-01] MEDS: LOSARTAN 50 MG TAB PO SCH (09:05)
[2017-04-01] MEDS: PANTOPRAZOLE SOD 40 MG DELAYED RELEASE TAB PO SCH (09:05)
[2017-04-01] MEDS: CETIRIZINE HCL 10 MG TAB PO SCH (09:05)
[2017-04-01 12:00] VITALS: BP 139/85; PULSE 95; RESP 17; TEMP 97.9; O2SAT 97
[2017-04-01 16:00] VITALS: BP 138/76; PULSE 92; RESP 17; TEMP 98; O2SAT 96
[2017-04-01 20:00] VITALS: BP 122/68; PULSE 102; RESP 16; TEMP 98.8; O2SAT 95
[2017-04-01] MEDS: traZODone HCL 50 MG TAB PO SCH (21:21)
[2017-04-01] MEDS: MONTELUKAST SODIUM 10 MG TAB PO SCH (21:21)
[2017-04-01] MEDS: TEMAZEPAM 15 MG CAP PO PRN (21:35)
[2017-04-02] VITALS: BP 129/79; PULSE 101; RESP 16; TEMP 98.7; O2SAT 97
[2017-04-02] MEDS: METRONIDAZOLE 500 MG/100 ML ISONTONIC SOLN IV SCH ×2 (01:38→07:51)
[2017-04-02] MEDS: CEFEPIME INJ 1,000 MG in SODIUM CHLORIDE 0.9% INJ 100 ML IV SCH ×2 (03:38→10:23)
[2017-04-02] MEDS: ACETAMINOPHEN/HYDROcodone 325 MG/10 MG TAB PO PRN ×3 (03:41→12:15)
[2017-04-02] MEDS: POTASSIUM CHLORIDE 20 MEQ CONTROLLED RELEASE TAB PO SCH (07:46)
[2017-04-02] MEDS: SUCRALFATE 1 GM/10 ML CUP PO SCH ×2 (07:46→10:23)
[2017-04-02] MEDS: clonazePAM 1 MG TAB PO SCH (07:47)
[2017-04-02] MEDS: FUROSEMIDE 20 MG/2 ML VIAL IV PUSH SCH (07:47)
[2017-04-02] MEDS: PANTOPRAZOLE SOD 40 MG DELAYED RELEASE TAB PO SCH (07:47)
[2017-04-02] MEDS: CETIRIZINE HCL 10 MG TAB PO SCH (07:48)
[2017-04-02] MEDS: HEPARIN SODIUM - SQ 10,000 UNITS/ML VIAL SQ SCH (07:48)
[2017-04-02] MEDS: LOSARTAN 50 MG TAB PO SCH (07:48)
[2017-04-02] MEDS: ONDANSETRON HCL 4 MG/2 ML VIAL IV PUSH PRN (07:59)
[2017-04-02 08:00] VITALS: BP 154/81; PULSE 93; RESP 17; TEMP 98.7; O2SAT 95
[2017-04-02] MEDS: PANTOPRAZOLE SODIUM 40 MG VIAL IVP SCH (08:00)
[2017-04-02] MEDS ORDERED: LEVA500T33 PO (10:37)
[2017-04-02] MEDS ORDERED: PERC5TAB12 PO (10:38)
[2017-04-02] MEDS ORDERED: METR250 PO (10:38)
[2017-04-02] MEDS ORDERED: NS + KCL 20 MEQ INJ 1,000 ML IV SCH (11:30)
--- NOTE | 2017-04-03 07:21 | PD.WCN.NOT ---
Wound Consult Description: Consult for NEW OSTOMY TEACHING of new stoma per Dr Cárdenas Communicated with: Patient Patient friend who was giving her a ride home on 04/02/17 Recommendation: Assess stoma every 4 hours and PRN for output and flatus. Empty pouch as needed. Change wafer every 5 days and PRN before leaks occur. Additional Information: *Late entry* Patient seen in her room on 04/02/17 getting ready to go home. Patient friend at bedside was shown how to empty pouch and "burp" pouch. Patient is going home with 4 appliances and HHC visits as well as a [employer] kit that was delivered on 04/02/17. Patient seems overwhelmed and states that she cannot believe that the ambulance/hospital lost all of her meds that were supposed to be locked up. Patient states that she arrived to [facility] where she surrendered them to the nurses who counted them and placed them in lock up. When she was transferred from [place] to [place] they were taken out of lock up and given to paramedics and that was the last time she saw them. Patient is very anxious and states that she is upset but what can she do. Patient was accompanied by screenplay writer and transport from her room on [address] via wheelchair to downstairs where her friend met us with her vehicle where she was assisted into a [facility] safely. Ostomy Type: Colostomy Surgeon: Magen Cárdenas MD Date of Surgery: Mar 25, 2017 Complete: Starter kit (Consent obtained for kit to be sent to patient home), Education materials (Left at bedside ), Rx (written for supplies size 2 1/4"), Other (4 supplies given to patient to go home with at discharge) Educated patient on: Emptying pouch often to avoid spontaneous lifting and leaking Taking her time to complete the entire appliance change Chewing food well Assessing the color of stoma Measuring stoma for correct appliance size Skin care Nehal Nguyen [facility] Apr 03, 2017 07:21
== END 2017-04-02 14:37 | disposition home health service (06) | DRG 330 ==
LOC: PHED 17:36 → PHEDA 21:28 → PH3B 23:48 → OBSVTOIN 03-25 17:50 → HPAC 03-25 18:29 → HCPC 03-25 22:24 → HCIN 03-26 11:55 → N07A 03-28 16:05
PROVIDERS: ADMIT Legal Medicine; ATTEND Colon & Rectal Surgery
PROC: 0DBP0ZZ Excision of Rectum, Open Approach (ICD-10-PCS; 2017-03-25)
PROC: 0D1N0Z4 Bypass Sigmoid Colon to Cutaneous, Open Approach (ICD-10-PCS; 2017-03-25)
PROC: 0DBN0ZZ Excision of Sigmoid Colon, Open Approach (ICD-10-PCS; principal; 2017-03-25 18:57)
PROC: 30233N1 Transfusion of Nonautologous Red Blood Cells into Peripheral Vein, Percutaneous Approach (ICD-10-PCS; 2017-03-30)
DX: K57.20 Diverticulitis of large intestine with perforation and abscess without bleeding (principal); K22.10 Ulcer of esophagus without bleeding; K66.8 Other specified disorders of peritoneum; I10 Essential (primary) hypertension; J45.909 Unspecified asthma, uncomplicated; F41.9 Anxiety disorder, unspecified; E87.6 Hypokalemia; G89.29 Other chronic pain; R33.9 Retention of urine, unspecified; R50.9 Fever, unspecified; E86.0 Dehydration; Z88.2 Allergy status to sulfonamides
CPT/HCPCS: 36430; 71046; 74176; 76937; 80048; 80053; 81001; 83540; 83550; 83690; 83735; 84155; 85007; 85025; 85027; 85610; 85730; 86850; 86900; 86901; 86920; 87493; 88307; 94150; 96361; 96365; 96366; 96374; 96375; C9113; G0378; J0131; J0330; J0690; J0692; J1100; J1644; J1885; J1940; J1956; J2250; J2270; J2370; J2405; J2543; J2710; J2765; J3010; J3480; J7030; J7050; J7120; P9016; Q9963

== ENCOUNTER 2017-04-09 22:18 | Emergency (ER) | payer OTHER ==
[~2017-04-09] VITALS: Ht 165.1 cm; Wt 65.0 kg
[~2017-04-09 22:18] MED LIST changes: +CLON1TAB PO; -COLY4000S PO; +LEVA500T33 PO; -LIBRAX PO; +METR250 PO; +PERC5TAB12 PO
[2017-04-09 22:21] VITALS: BP 108/56; PULSE 119; RESP 20; TEMP 98.5; O2SAT 98
[2017-04-10 01:15] LABS: AUTOMATED NEUTROPHIL # 5.6 TH/MM3 (1.8-7.7); BASOPHIL # 0.1 TH/MM3 (0-0.2); BASOPHIL % 0.8 % (0.0-2.0); EOSINOPHIL # 0.1 TH/MM3 (0-0.4); HEMATOCRIT 29.8 % (35.0-46.0); HEMOGLOBIN 9.9 GM/DL (11.6-15.3); LYMPH % 17.7 % (9.0-44.0); LYMPHOCYTE # 1.4 TH/MM3 (1.0-4.8); MEAN CELL VOLUME 87.5 FL (80.0-100.0); MEAN CORPUSCULAR HEMOGLOBIN 29.2 PG (27.0-34.0); MEAN CORPUSCULAR HGB CONC 33.4 % (32.0-36.0); MEAN PLATELET VOLUME 6.9 FL (7.0-11.0); MONOCYTE # 0.7 TH/MM3 (0-0.9); NEUT % 71.5 % (16.0-70.0); PLATELET COUNT 424 TH/MM3 (150-450); RED BLOOD COUNT 3.41 MIL/MM3 (4.00-5.30); RED CELL DISTRIBUTION WIDTH 14.5 % (11.6-17.2); WHITE BLOOD COUNT 7.8 TH/MM3 (4.0-11.0)
[2017-04-10 01:29] LABS: ALBUMIN 1.9 GM/DL (3.4-5.0); ALKALINE PHOSPHATASE 76 U/L (45-117); ALT (GPT) 11 U/L (10-53); AST (GOT) 29 U/L (15-37); BICARBONATE 29.6 MEQ/L (21.0-32.0); BLOOD UREA NITROGEN 11 MG/DL (7-18); CALCIUM 8.2 MG/DL (8.5-10.1); CHLORIDE 101 MEQ/L (98-107); CREATININE 0.58 MG/DL (0.50-1.00); GLOMERULAR FILTRATION RATE 106 ML/MIN (>89); GLUCOSE,RANDOM 122 MG/DL (74-106); SODIUM (NA) 137 MEQ/L (136-145); TOTAL BILIRUBIN ADULT 0.2 MG/DL (0.2-1.0); TOTAL PROTEIN 6.5 GM/DL (6.4-8.2)
--- NOTE | 2017-04-10 01:43 | RADRPT ---
EXAM DATE/TIME: 04/10/2017 01:24 [facility] COMPARISON: No previous studies available for comparison. INDICATIONS : Post op abdominal surgery with concern of stoma turning colors. MEDICAL HISTORY : Hypertension. Gastroesophageal reflux disease. Diverticulitis. COPD SURGICAL HISTORY : Colon resection. Colostomy. Hysterectomy. Bilateral knee arthroplasty ENCOUNTER: Initial ACUITY: 2 weeks PAIN SCORE: 0/10 LOCATION: Bilateral Abdomen FINDINGS: A single erect view of the abdomen demonstrates the lower lungs to be clear. No evidence of free int raperitoneal gas. The visualized bowel loops are unremarkable. There is an ostomy projected over the left lower quadrant. There is a mild scoliosis involving the thoracic and lumbar spine with diffuse degenerative disc change. CONCLUSION: Unremarkable bowel gas pattern with ostomy noted in the left lower quadrant. Rusty Diego MD on April 10, 2017 at 1:40 Board Certified Radiologist. This report was verified electronically.
--- NOTE | 2017-04-10 01:57 | PD ---
HPI Chief Complaint: GI Complaint Time Seen by Provider: 00:01 Travel History International Travel<30 days: No Contact w/Intl Traveler<30days: No Traveled to known affect area: No History of Present Illness HPI Patient is a 62-year-old female who 2 weeks ago had a colectomy partial colectomy for a perforated diverticulitis that led to peritonitis she was in the hospital for a week of antibiotics after the surgery by Dr. Sanchez and then she went home on by mouth antibiotics. Now she today she has had a discoloration to the stoma of her colostomy from 12 to 9:00 on the stoma there is a dark discoloration. She reports that may be a to reaction to the glue that the nurse visiting put too much on and it was very difficult to get all was possibly pulled part of a flesh of her stoma off. There is no decrease in the amount of bowel contents stool in the bag and she is reporting no pain no distention patient is in the ER without pain. PFSH Past Medical History Arthritis: Yes Asthma: Yes Anxiety: Yes Depression: No Cancer: No Cardiovascular Problems: Yes (HTN) High Cholesterol: Yes COPD: Yes Diminished Hearing: No Endocrine: No Gastrointestinal Disorders: Yes (CHRONIC NAUSEA VOMITING) GERD: Yes Genitourinary: Yes Hiatal Hernia: Yes Hypertension: Yes Immune Disorder: No Implanted Vascular Access Dvce: Yes Musculoskeletal: Yes Neurologic: No Psychiatric: Yes Reproductive: No Respiratory: Yes Immunizations Current: Yes Ulcer: Yes Tetanus Vaccination: < 5 Years Influenza Vaccination: No Menopausal: Yes : 3 Tubal Ligation: Yes Past Surgical History Abdominal Surgery: Yes (PERFORATION) Arteriovenous Shunt: No Cardiac Surgery: No Endocrine Surgery: No Eye Surgery: No Genitourinary Surgery: No Gynecologic Surgery: Yes (hysterectomy, tubal ligation ) Hysterectomy: Yes Insulin Pump: No Joint Replacement: Yes (BILAT. KNEE REPLACEMENTS.) Thoracic Surgery: No Tonsillectomy: Yes Other Surgery: Yes Social History Alcohol Use: Yes (occas. wine, mix drinks) Tobacco Use: No Substance Use: Yes ( hx of use [facility] ) Allergies-Medications (Allergen,Severity, Reaction): Coded Allergies: Sulfa (Sulfonamide Antibiotics) (Verified Allergy, Severe, RASH, 04/09/17) sulfamethoxazole (Verified Allergy, Severe, RASH, 04/09/17) trimethoprim (Verified Allergy, Severe, RASH, 04/09/17) Reported Meds & Prescriptions Reported Meds & Active Scripts Active Potassium Chloride ER (Potassium Chloride) 20 Meq Tab 20 Meq PO BID Reglan (Metoclopramide HCl) 5 Mg Tab 5 Mg PO TIDAC MDD 15 30 Days Protonix (Pantoprazole Sodium) 20 Mg Tab 20 Mg PO DAILY MDD 20mg 30 Days Sucralfate Liq (Sucralfate) 1 Gram/10 Ml Renay 1 Gm PO ACHS MDD 2mg 10 Days Reported Percocet (Oxycodone-Acetaminophen) 5-325 mg Tab 1-2 Tab PO Q6H PRN Clonazepam 1 Mg Tab 1 Mg PO DAILY Cetirizine (Cetirizine HCl) 10 Mg Tab 10 Mg PO DAILY Trazodone (Trazodone HCl) 150 Mg Tablet 150 Mg PO HS Singulair (Montelukast Sodium) 10 Mg Tab 10 Mg PO HS Losartan-Hydrochlorothiazide 50-12.5 Mg Tab 1 Tab PO DAILY Review of Systems Except as stated in HPI: all other systems reviewed are Neg (stoma discoloration) Gastrointestinal: Positive: Other (DISCOLORATION OF HER COLON STOMA OF COLOSTOMY) Physical Exam Narrative GENERAL: No apparent distress SKIN: Warm and dry. HEAD: Atraumatic. Normocephalic. EYES: Pupils equal and round. No scleral icterus. No injection or drainage. ENT: No nasal bleeding or discharge. Mucous membranes pink and moist. NECK: Trachea midline. No JVD. CARDIOVASCULAR: Regular rate and rhythm. RESPIRATORY: No accessory muscle use. Clear to auscultation. Breath sounds equal bilaterally. GASTROINTESTINAL: Abdomen patient has a stoma in her colon just left of the periumbilical area fresh incision healing and there is soft's form stool in her ostomy bag there is a discoloration blackish colored to the stoma on the right aspect from from 8:00 to 11:00 on the stoma edges. The rest of the stoma is very pink and normal: Appearance there is no smell of purulence and there is no significant pain Hepatic and splenic margins not palpable. MUSCULOSKELETAL: Extremities without clubbing, cyanosis, or edema. No obvious deformities. NEUROLOGICAL: Awake and alert. No obvious cranial nerve deficits. Motor grossly within normal limits. Five out of 5 muscle strength in the arms and legs. Normal speech. PSYCHIATRIC: Appropriate mood and affect; insight and judgment normal. Data Data Last Documented VS Vital Signs Date Time Temp Pulse Resp B/P (MAP) Pulse Ox O2 Delivery O2 Flow Rate FiO2 04/10/17 09:36 04/10/17 07:51 104 18 95 Room Air 04/09/17 22:21 98.5 Orders Orders Lactic Acid (04/10/17 00:49) Complete Blood Count With Diff (04/10/17 00:49) Comprehensive Metabolic Panel (04/10/17 00:49) Abdomen, Upright Only (04/10/17 ) Ed Discharge Order (04/10/17 09:08) Labs Laboratory Tests Test 04/10/17 00:57 04/10/17 00:58 White Blood Count 7.8 TH/MM3 Red Blood Count 3.41 MIL/MM3 Hemoglobin 9.9 GM/DL Hematocrit 29.8 % Mean Corpuscular Volume 87.5 FL Mean Corpuscular Hemoglobin 29.2 PG Mean Corpuscular Hemoglobin Concent 33.4 % Red Cell Distribution Width 14.5 % Platelet Count 424 TH/MM3 Mean Platelet Volume 6.9 FL Neutrophils (%) (Auto) 71.5 % Lymphocytes (%) (Auto) 17.7 % Monocytes (%) (Auto) 9.0 % Eosinophils (%) (Auto) 1.0 % Basophils (%) (Auto) 0.8 % Neutrophils # (Auto) 5.6 TH/MM3 Lymphocytes # (Auto) 1.4 TH/MM3 Monocytes # (Auto) 0.7 TH/MM3 Eosinophils # (Auto) 0.1 TH/MM3 Basophils # (Auto) 0.1 TH/MM3 CBC Comment DIFF FINAL Differential Comment Blood Urea Nitrogen 11 MG/DL Creatinine 0.58 MG/DL Random Glucose 122 MG/DL Total Protein 6.5 GM/DL Albumin 1.9 GM/DL Calcium Level 8.2 MG/DL Alkaline Phosphatase 76 U/L Aspartate Amino Transf (AST/SGOT) 29 U/L Alanine Aminotransferase (ALT/SGPT) 11 U/L Total Bilirubin 0.2 MG/DL Sodium Level 137 MEQ/L Potassium Level 3.7 MEQ/L Chloride Level 101 MEQ/L Carbon Dioxide Level 29.6 MEQ/L Anion Gap 6 MEQ/L Estimat Glomerular Filtration Rate 106 ML/MIN Lactic Acid Level 0.8 mmol/L MDM Medical Decision Making Medical Screen Exam Complete: Yes Emergency Medical Condition: Yes Differential Diagnosis Differential diagnosis includes ischemic: to bowel vs infacrt vs reaction to topical glue Narrative Course I spoke to Dr sanchez and He is going to come bedside to evaluate the blackened area of pts fresh Stoma , I spoke with him at 6 AM , pt sleeping comfortably all night no signs of distress no abdo pain and no fever no vomit. Awaiting colorectal consult Diagnosis Primary Impression: Colostomy care Additional Impressions: Colostomy, evaluate Complication of colostomy Disposition: 01 DISCHARGE HOME Condition: Good Keith Georges MD Apr 10, 2017 01:57
[2017-04-10 06:00] VITALS: BP 109/65; PULSE 108; RESP 20; O2SAT 96
[2017-04-10 07:51] VITALS: BP 110/76; PULSE 104; RESP 18; O2SAT 95
--- NOTE | 2017-04-10 08:55 | PD ---
Physical Exam Date Seen by Provider: Apr 10, 2017 Time Seen by Provider: 08:53 Narrative 62-year-old female came to the emergency room to get her stoma checked which was done by Dr. Cárdenas after partial colectomy. She was seen by the previous ER physician. The sign out was to follow-up on Dr. Aldrich adviskatarina once he comes to see the patient. Patient is waiting to see Dr. Cárdenas. Dr. Cárdenas was here and has examined the patient and let me know that the stoma looks good as per him. Patient could be discharged home. Please refer to his dictation as well. Data Data Last Documented VS Vital Signs Date Time Temp Pulse Resp B/P (MAP) Pulse Ox O2 Delivery O2 Flow Rate FiO2 04/10/17 07:51 104 18 110/76 (87) 95 Room Air 04/09/17 22:21 98.5 Orders Orders Lactic Acid (04/10/17 00:49) Complete Blood Count With Diff (04/10/17 00:49) Comprehensive Metabolic Panel (04/10/17 00:49) Abdomen, Upright Only (04/10/17 ) Labs Laboratory Tests Test 04/10/17 00:57 04/10/17 00:58 White Blood Count 7.8 TH/MM3 Red Blood Count 3.41 MIL/MM3 Hemoglobin 9.9 GM/DL Hematocrit 29.8 % Mean Corpuscular Volume 87.5 FL Mean Corpuscular Hemoglobin 29.2 PG Mean Corpuscular Hemoglobin Concent 33.4 % Red Cell Distribution Width 14.5 % Platelet Count 424 TH/MM3 Mean Platelet Volume 6.9 FL Neutrophils (%) (Auto) 71.5 % Lymphocytes (%) (Auto) 17.7 % Monocytes (%) (Auto) 9.0 % Eosinophils (%) (Auto) 1.0 % Basophils (%) (Auto) 0.8 % Neutrophils # (Auto) 5.6 TH/MM3 Lymphocytes # (Auto) 1.4 TH/MM3 Monocytes # (Auto) 0.7 TH/MM3 Eosinophils # (Auto) 0.1 TH/MM3 Basophils # (Auto) 0.1 TH/MM3 CBC Comment DIFF FINAL Differential Comment Blood Urea Nitrogen 11 MG/DL Creatinine 0.58 MG/DL Random Glucose 122 MG/DL Total Protein 6.5 GM/DL Albumin 1.9 GM/DL Calcium Level 8.2 MG/DL Alkaline Phosphatase 76 U/L Aspartate Amino Transf (AST/SGOT) 29 U/L Alanine Aminotransferase (ALT/SGPT) 11 U/L Total Bilirubin 0.2 MG/DL Sodium Level 137 MEQ/L Potassium Level 3.7 MEQ/L Chloride Level 101 MEQ/L Carbon Dioxide Level 29.6 MEQ/L Anion Gap 6 MEQ/L Estimat Glomerular Filtration Rate 106 ML/MIN Lactic Acid Level 0.8 mmol/L MDM Supervised Visit with TAMMY: No Physician Communication Physician Communication Dr. Cárdenas Diagnosis Primary Impression: Colostomy complication, unspecified Referrals: Magen Cárdenas MD Additional Instruction: Please follow-up with Dr. Cárdenas as per the appointment and instructions by him. Return to the ER if condition worsens or any other new concerns. Disposition: 01 DISCHARGE HOME Condition: Stable Sheela Bey MD Apr 10, 2017 08:55
== END 2017-04-10 09:37 | disposition home or self-care (01) ==
LOC: NEPE 22:18
DX: T85.9XXA Unspecified complication of internal prosthetic device, implant and graft, initial encounter (principal); Z93.3 Colostomy status; F41.9 Anxiety disorder, unspecified; I10 Essential (primary) hypertension; E78.00 Pure hypercholesterolemia, unspecified; J44.9 Chronic obstructive pulmonary disease, unspecified; K21.9 Gastro-esophageal reflux disease without esophagitis
CPT/HCPCS: 74018; 80053; 83605; 85025; 99284

== ENCOUNTER 2017-05-18 23:11 | Inpatient (IN) | payer OTHER ==
[~2017-05-18] VITALS: Ht 165.1 cm; Wt 60.2 kg
[~2017-05-18 23:11] MED LIST changes: -LEVA500T33 PO; -METR250 PO
[2017-05-18] MEDS ORDERED: IOHEXOL 350 MG/ML 10 ML VIAL (for RAD DIAG) IVCONTRAST ONE (23:12)
[2017-05-18 23:43] VITALS: BP 118/74; PULSE 134; RESP 20; TEMP 99.7; O2SAT 97
[2017-05-19] VITALS (24 sets, daily range): BP systolic 76–122; BP diastolic 52–89; PULSE 67–133; RESP 18–22; TEMP 98.6–103.3; O2SAT 88–100
[2017-05-19 00:43] LABS: AUTOMATED NEUTROPHIL # 20.9 TH/MM3 (1.8-7.7); BASOPHIL # 0.1 TH/MM3 (0-0.2); BASOPHIL % 0.3 % (0.0-2.0); HEMATOCRIT 28.4 % (35.0-46.0); HEMOGLOBIN 9.5 GM/DL (11.6-15.3); LYMPH % 3.9 % (9.0-44.0); LYMPHOCYTE # 0.9 TH/MM3 (1.0-4.8); MEAN CELL VOLUME 81.3 FL (80.0-100.0); MEAN CORPUSCULAR HEMOGLOBIN 27.1 PG (27.0-34.0); MEAN CORPUSCULAR HGB CONC 33.4 % (32.0-36.0); MEAN PLATELET VOLUME 6.7 FL (7.0-11.0); MONOCYTE # 1.1 TH/MM3 (0-0.9); NEUT % 90.8 % (16.0-70.0); PLATELET COUNT 477 TH/MM3 (150-450); RED BLOOD COUNT 3.49 MIL/MM3 (4.00-5.30); RED CELL DISTRIBUTION WIDTH 15.1 % (11.6-17.2)
[2017-05-19 01:06] LABS: INTERNATIONAL NORMALIZED RATIO 1.3 RATIO; PROTHROMBIN TIME - PATIENT 13.4 SEC (9.8-11.6)
[2017-05-19 01:10] LABS: ALBUMIN 2.4 GM/DL (3.4-5.0); ALT (GPT) 19 U/L (10-53); AST (GOT) 16 U/L (15-37); BICARBONATE 25.9 MEQ/L (21.0-32.0); BLOOD UREA NITROGEN 9 MG/DL (7-18); CALCIUM 9.2 MG/DL (8.5-10.1); CHLORIDE 94 MEQ/L (98-107); CREATININE 0.96 MG/DL (0.50-1.00); GLOMERULAR FILTRATION RATE 59 ML/MIN (>89); GLUCOSE,RANDOM 163 MG/DL (74-106); MAGNESIUM 1.6 MG/DL (1.5-2.5); SODIUM (NA) 131 MEQ/L (136-145)
--- NOTE | 2017-05-19 01:12 | PD ---
HPI Chief Complaint: Cold / Flu Symptoms Time Seen by Provider: 00:05 Travel History International Travel<30 days: No Contact w/Intl Traveler<30days: No Traveled to known affect area: No History of Present Illness HPI The patient is a 62 year old female who presents to the [facility] emergency department with a history of cough and congestion that began 2 days ago. She reports that it has been associated with decreased appetite and nausea. She reports that she has not taken her medications for the last 2 days because of it. The patient reports that cough has been blood-tinged. She reports that she has had posttussive emesis 3 times since onset. She reports that she has had a fever with a T-max of 99.9. She reports that prior to having the bloody tinged mucus, her mucus was yellow to brown in color. The patient reports that her recent history is significant for having a partial colectomy with colostomy placement due to perforated intestine. She denies having any blood in her stool. She denies having any prior history of respiratory problems, however she reports that she has been on pro-air and Symbicort. She denies any prior history of smoking. She denies having any chest pain or chest pressure. She reports that she has shortness of breath related to the frequent coughing. On review of systems otherwise, the patient denies having any neck pain, abdominal pain, urinary symptoms, or neurologic symptoms. [facility] Past Medical History Narrative Medical The patient's past medical history is significant for arthritis, asthma, hyperlipidemia, hypertension, chronic nausea vomiting, diverticulitis. Arthritis: Yes Asthma: Yes Anxiety: Yes Depression: No Cancer: No Cardiovascular Problems: Yes (HTN) High Cholesterol: Yes COPD: Yes Diminished Hearing: No Endocrine: No Gastrointestinal Disorders: Yes (CHRONIC NAUSEA VOMITING) GERD: Yes Genitourinary: Yes Hiatal Hernia: Yes Hypertension: Yes Immune Disorder: No Implanted Vascular Access Dvce: Yes Musculoskeletal: Yes Neurologic: No Psychiatric: Yes Reproductive: No Respiratory: Yes Immunizations Current: Yes Ulcer: Yes Tetanus Vaccination: Unknown Influenza Vaccination: No Menopausal: Yes : 3 Tubal Ligation: Yes Past Surgical History Narrative Surgical The patient's past surgical history is significant for colon resection with colostomy placement in 03/2017, tonsillectomy, bilateral knee replacements, hysterectomy, BTL. Abdominal Surgery: Yes (PERFORATION) Arteriovenous Shunt: No Cardiac Surgery: No Endocrine Surgery: No Eye Surgery: No Genitourinary Surgery: No Gynecologic Surgery: Yes (hysterectomy, tubal ligation ) Hysterectomy: Yes Insulin Pump: No Joint Replacement: Yes (BILAT. KNEE REPLACEMENTS.) Thoracic Surgery: No Tonsillectomy: Yes Other Surgery: Yes Social History Alcohol Use: Yes (occas. wine, mix drinks) Tobacco Use: No Substance Use: Yes ( hx of use [facility] ) Allergies-Medications (Allergen,Severity, Reaction): Coded Allergies: Sulfa (Sulfonamide Antibiotics) (Verified Allergy, Severe, RASH, 05/18/17) sulfamethoxazole (Verified Allergy, Severe, RASH, 05/18/17) trimethoprim (Verified Allergy, Severe, RASH, 05/18/17) Reported Meds & Prescriptions Reported Meds & Active Scripts Active Potassium Chloride ER (Potassium Chloride) 20 Meq Tab 20 Meq PO BID Reglan (Metoclopramide HCl) 5 Mg Tab 5 Mg PO TIDAC MDD 15 30 Days Protonix (Pantoprazole Sodium) 20 Mg Tab 20 Mg PO DAILY MDD 20mg 30 Days Sucralfate Liq (Sucralfate) 1 Gram/10 Ml Renay 1 Gm PO ACHS MDD 2mg 10 Days Reported Percocet (Oxycodone-Acetaminophen) 5-325 mg Tab 1-2 Tab PO Q6H PRN Clonazepam 1 Mg Tab 1 Mg PO DAILY Cetirizine (Cetirizine HCl) 10 Mg Tab 10 Mg PO DAILY Trazodone (Trazodone HCl) 150 Mg Tablet 150 Mg PO HS Singulair (Montelukast Sodium) 10 Mg Tab 10 Mg PO HS Losartan-Hydrochlorothiazide 50-12.5 Mg Tab 1 Tab PO DAILY Review of Systems Except as stated in HPI: all other systems reviewed are Neg General / Constitutional: No: Fever Eyes: No: Visual changes HENT: Positive: Congestion, No: Headaches Cardiovascular: Positive: Dyspnea on exertion, No: Chest Pain or Discomfort Respiratory: Positive: Cough, Shortness of Breath Gastrointestinal: Positive: Nausea, Vomiting, Loss of Appetite, No: Abdominal Pain Genitourinary: No: Dysuria Musculoskeletal: No: Pain Skin: No Rash Neurologic: Positive: Weakness (Generalized weakness), No: Focal Abnormalities , Change in Mentation, Slurred Speech, Sensory Disturbance Psychiatric: No: Depression Endocrine: No: Polydipsia Hematologic/Lymphatic: No: Easy Bruising Physical Exam Narrative General: The patient is a well-developed well-nourished female who is uncomfortable appearing on arrival, frequently coughing. Head and Neck exam: Head is normocephalic atraumatic. Eyes: EOMI, pupils are equal round and reactive to light. Nose: Midline septum with pink mucous membranes Mouth: Dentition unremarkable. Moist mucus membranes. Posterior oropharynx is not erythematous. No tonsillar hypertrophy. Uvula midline. Airway patent. Neck: No palpable lymphadenopathy. No nuchal rigidity. No thyromegaly. Cardiovascular: Sinus tachycardia in the 130 without murmurs, gallops, or rubs. No pulse deficit to the extremities on simultaneous auscultation and palpation of her radial artery. Lungs: The patient had decreased breath sounds in the left lower lung base, no rhonchi , no crackles. No accessory muscle use noted. No wheezing. Abdomen: Soft, without tenderness to palpation in all 4 quadrants of the abdomen. No guarding, rebound, or rigidity. Normal bowel sounds are audible. No tenderness on palpation of McBurney's point. The patient has a colostomy bag in place that appears to be in good repair with brown stool noted in it. Extremities: No clubbing, cyanosis, or edema. 2+ pulses in all 4 extremities. No calf tenderness on palpation. Back: No spinous process tenderness to palpation. No costovertebral angle tenderness to palpation. Neurologic Exam: Grossly nonfocal. Skin Exam: No rash noted. Intact skin that is warm and dry. Data Data Last Documented VS Vital Signs Date Time Temp Pulse Resp B/P (MAP) Pulse Ox O2 Delivery O2 Flow Rate FiO2 05/19/17 00:26 133 19 116/89 (98) 97 Room Air 05/18/17 23:43 99.7 Orders Orders Electrocardiogram (05/19/17 00:05) Complete Blood Count With Diff (05/19/17 00:05) Comprehensive Metabolic Panel (05/19/17 00:05) Creatine Kinase (Cpk) (05/19/17 00:05) Ckmb (Isoenzyme) Profile (05/19/17 00:05) Troponin I (05/19/17 00:05) B-Type Natriuretic Peptide (05/19/17 00:05) Prothrombin Time / Inr (Pt) (05/19/17 00:05) Act Partial Throm Time (Ptt) (05/19/17 00:05) Magnesium (Mg) (05/19/17 00:05) Influenzae A/B Antigen (05/19/17 00:05) Chest, Single Ap (05/19/17 00:05) Iv Access Insert/Monitor (05/19/17 00:05) Ecg Monitoring (05/19/17 00:05) Oximetry (05/19/17 00:05) Type And Screen (05/19/17 00:05) Ct Thorax/ Chest W Iv Contrast (05/19/17 01:46) Iohexol 350 Inj (Omnipaque 350 Inj) (05/18/17 23:12) Ceftriaxone Inj (Rocephin Inj) (05/19/17 03:00) Azithromycin Inj (Zithromax Inj) (05/19/17 03:00) Vancomycin Inj (Vancomycin Inj) (05/19/17 03:00) Blood Culture (05/19/17 03:03) Lactic Acid Sepsis Protocol (05/19/17 03:03) Sodium Chlor 0.9% 1000 Ml Inj (Ns 1000 M (05/19/17 03:15) Heparin Inj (Heparin Inj) (05/19/17 03:15) Heparin-D5w 25,000 U/250 Ml (Heparin-D5w (05/19/17 03:15) Act Partial Throm Time (Ptt) (05/19/17 03:03) Prothrombin Time / Inr (Pt) (05/19/17 03:03) Cbc No Diff, Includes Plts (05/19/17 03:03) Cbc No Diff, Includes Plts (05/22/17 06:00) Act Partial Throm Time (Ptt) (05/19/17 10:03) Occult Blood (Hemoccult) Stool (05/19/17 03:03) Admit Order (Ed Use Only) (05/19/17 03:40) Ondansetron Inj (Zofran Inj) (05/19/17 03:45) Labs Laboratory Tests Test 05/19/17 00:35 05/19/17 03:03 05/19/17 03:25 White Blood Count 23.0 TH/MM3 18.3 TH/MM3 Red Blood Count 3.49 MIL/MM3 3.09 MIL/MM3 Hemoglobin 9.5 GM/DL 8.3 GM/DL Hematocrit 28.4 % 24.9 % Mean Corpuscular Volume 81.3 FL 80.5 FL Mean Corpuscular Hemoglobin 27.1 PG 26.8 PG Mean Corpuscular Hemoglobin Concent 33.4 % 33.3 % Red Cell Distribution Width 15.1 % 15.1 % Platelet Count 477 TH/MM3 397 TH/MM3 Mean Platelet Volume 6.7 FL 6.8 FL Neutrophils (%) (Auto) 90.8 % Lymphocytes (%) (Auto) 3.9 % Monocytes (%) (Auto) 5.0 % Eosinophils (%) (Auto) 0.0 % Basophils (%) (Auto) 0.3 % Neutrophils # (Auto) 20.9 TH/MM3 Lymphocytes # (Auto) 0.9 TH/MM3 Monocytes # (Auto) 1.1 TH/MM3 Eosinophils # (Auto) 0.0 TH/MM3 Basophils # (Auto) 0.1 TH/MM3 CBC Comment DIFF FINAL Differential Comment Prothrombin Time 13.4 SEC Prothromb Time International Ratio 1.3 RATIO Activated Partial Thromboplast Time 35.1 SEC Blood Urea Nitrogen 9 MG/DL Creatinine 0.96 MG/DL Random Glucose 163 MG/DL Total Protein 8.4 GM/DL Albumin 2.4 GM/DL Calcium Level 9.2 MG/DL Magnesium Level 1.6 MG/DL Alkaline Phosphatase 107 U/L Aspartate Amino Transf (AST/SGOT) 16 U/L Alanine Aminotransferase (ALT/SGPT) 19 U/L Total Bilirubin 0.7 MG/DL Sodium Level 131 MEQ/L Potassium Level 4.1 MEQ/L Chloride Level 94 MEQ/L Carbon Dioxide Level 25.9 MEQ/L Anion Gap 11 MEQ/L Estimat Glomerular Filtration Rate 59 ML/MIN Total Creatine Kinase 25 U/L Troponin I LESS THAN 0.02 NG/ML B-Type Natriuretic Peptide 45 PG/ML MDM Medical Decision Making Medical Screen Exam Complete: Yes Emergency Medical Condition: Yes Medical Record Reviewed: Yes Interpretation(s) Last Impressions Chest CT 05/19/17 0146 Signed Impressions: Service Date/Time: Friday, May 19, 2017 02:13 - CONCLUSION: Pulmonary embolism. Posterior left lung base empyema and adjacent cavitary pneumonia. Incompletely seen inflammatory changes and air in the left retroperitoneum. Jared Mosqueda MD Chest X-Ray 05/19/17 0005 Signed Impressions: Service Date/Time: Friday, May 19, 2017 01:05 - CONCLUSION: Abnormal chest appearance Jared Mosqueda MD Differential Diagnosis Bronchitis, versus pneumonia, versus pulmonary embolism, versus lung mass, versus congestive heart failure Narrative Course During the course of the patient's emergency department visit, the patient's history, examination, and differential diagnosis were reviewed with the patient. The patient was placed on a hall monitor with oximetry and frequent blood pressure monitoring. The patient had IV access obtained and blood work sent for analysis. The patient had an EKG done on arrival that shows a sinus tachycardia rate of 130, QRS duration is 84 ms, QTC [address] segment elevation. The patient was initially provided Rocephin 1 g IV, Zithromax 500 IV, vancomycin 1 g IV after a cavitary pneumonia was noted. Blood cultures 2 were sent, lactic acid was sent for analysis. The patient was started on 1 L IV fluid bolus. The patient's laboratory studies were reviewed and remarkable for a white count of 23, hemoglobin 9.5, platelets 477 with 90.8 neutrophils, CMP is remarkable for sodium of 131, chloride 94, glucose 163, CPK 25, troponin I less than 0.02, albumin 2.4, BNP 45, lactic acid 1.6. PT 13.4, PTT 35.1 Radiology studies were reviewed and remarkable for chest x-ray shows an abnormal chest appearance recommended further evaluation with CT scan of the chest. CT scan of the chest reveals a pulmonary embolism, posterior left lung base empyema and adjacent cavitary pneumonia. Incompletely seen inflammatory change and air in the left retroperitoneum. The patient was started on heparin per PE protocol. The patient's results were discussed with the patient, including the plan of care. I explained that further testing and/ or monitoring is indicated based on the patient's history, examination, and/ or laboratory findings. Therefore, I recommended admission for additional evaluation. The patient expressed understanding and was agreeable with this plan. The patient was admitted to the hospital in guarded condition and sent to a bed under the care of the [facility]. Physician Communication Physician Communication The patient's case including history, pertinent physical examination findings, and laboratory studies were discussed with Dr. Flores. It was agreed that the patient would be admitted to the [facility] service. Diagnosis Primary Impression: Cavitary pneumonia Additional Impression: Pulmonary embolism Qualified Codes: I26.99 - Other pulmonary embolism without acute cor pulmonale Admitting Information Admitting Physician Requests: Admit Dasia Jade MD May 19, 2017 01:12
[2017-05-19 01:15] LABS: ALKALINE PHOSPHATASE 107 U/L (45-117); TOTAL BILIRUBIN ADULT 0.7 MG/DL (0.2-1.0); TOTAL PROTEIN 8.4 GM/DL (6.4-8.2); TROPONIN I LESS THAN 0.02 NG/ML (0.02-0.05)
--- NOTE | 2017-05-19 01:24 | RADRPT ---
EXAM DATE/TIME: 05/19/2017 01:05 [facility] COMPARISON: CT ABDOMEN & PELVIS W/O CONTRAST, March 30, 2017, 9:34. INDICATIONS : Hemoptysis. MEDICAL HISTORY : Hypertension. Gastroesophageal reflux disease. Diverticulitis. COPD SURGICAL HISTORY : Colon resection. Colostomy. Hysterectomy. Bilateral knee arthroplasty ENCOUNTER: Initial ACUITY: 1 day PAIN SCORE: 0/10 LOCATION: Bilateral chest FINDINGS: There is a rounded retrocardiac double density which may be mass or infiltrate. Further evaluation CT chest suggested. Right lung is grossly clear. CONCLUSION: Abnormal chest appearance Jared Mosqueda MD on May 19, 2017 at 1:19 Board Certified Radiologist. This report was verified electronically.
--- NOTE | 2017-05-19 02:37 | RADRPT ---
EXAM DATE/TIME: 05/19/2017 02:13 [place] COMPARISON: CT ABDOMEN & PELVIS W/O CONTRAST, March 25, 2017, 15:00. CT ABDOMEN & PELVIS W CONTRAST, March 11, 2017, 18:30. CT ABDOMEN & PELVIS W/O CONTRAST, March 30, 2017, 9:34. INDICATIONS : Abnormal chest x-ray. IV CONTRAST: 70 cc Omnipaque 350 (iohexol) IV RADIATION DOSE: 5.18 CTDIvol (mGy) MEDICAL HISTORY : Chronic obstructive pulmonary disease. Hypertension. Gastroesophageal reflux disease.Hiatal hernia. SURGICAL HISTORY : Hysterectomy. ENCOUNTER: Initial ACUITY: 1 day PAIN SCALE: 0/10 LOCATION: chest TECHNIQUE: Volumetric scanning of the chest was performed. Using automated exposure control and adjustment of t he mA and/or kV according to patient size, radiation dose was kept as low as reasonably achievable to obtain optimal diagnostic quality images. DICOM format image data is available electronically for review and comparison. Follow-up recommendations for detected pulmonary nodules are based at a minimum on nodule size and pa tient risk factors according to Fleischner Society Guidelines. FINDINGS: LUNGS: There is a partially cavitary pleural-parenchymal process at the posterior left lung base which appea rs to reflect empyema and adjacent infiltrate/cavitary pneumonia. The remainder of the left lung is c lear. Right lung is clear. PLEURA: Mild posterior pleural thickening on the left in addition to the above described finding. MEDIASTINUM: Fairly extensive pulmonary embolism present within left lung main and segmental vessels. Small perica rdial effusion AXILLAE: Within normal limits. No lymphadenopathy. SKELETAL: Within normal limits for patient age. MISCELLANEOUS: Incompletely seen indurated changes in the left retroperitoneum and air are present adjacent to the p ancreatic body and left adrenal gland.. CONCLUSION: Pulmonary embolism. Posterior left lung base empyema and adjacent cavitary pneumonia. Incompletely seen inflammatory changes and air in the left retroperitoneum. Jared Mosqueda MD on May 19, 2017 at 2:26 Board Certified Radiologist. This report was verified electronically.
[2017-05-19] MEDS ORDERED: VANCOMYCIN INJ 1,000 MG in SODIUM CHLOR 0.9% 250 ML INJ 250 ML IV ONE ×2 (03:00→15:00)
[2017-05-19] MEDS ORDERED: cefTRIAXone INJ 1,000 MG in SODIUM CHLORIDE 0.9% INJ 100 ML IV ONE (03:00)
[2017-05-19] MEDS ORDERED: AZITHROMYCIN INJ 500 MG in SODIUM CHLOR 0.9% 250 ML INJ 250 ML IV ONE (03:00)
[2017-05-19] MEDS ORDERED: HEPARIN SODIUM - IV 10,000 UNITS/10 ML VIAL IV ONE (03:15)
[2017-05-19] MEDS ORDERED: SODIUM CHLOR 0.9% 1000 ML INJ 1,000 ML IV ONE (03:15)
[2017-05-19] MEDS ORDERED: ONDANSETRON HCL 4 MG/2 ML VIAL ONE (03:43)
[2017-05-19] MEDS ORDERED: SODIUM CHLORIDE 0.9% FLUSH 10 ML FLUSH IV FLUSH PRN (03:45)
[2017-05-19] MEDS ORDERED: ENALAPRILAT 1.25 MG/ML VIAL IV PRN (03:45)
[2017-05-19] MEDS ORDERED: ONDANSETRON HCL 4 MG/2 ML VIAL IV PUSH ONE (03:45)
[2017-05-19] MEDS ORDERED: Vancomycin Consult Pharmacy 1 EA OTHER SCH ×2 (03:45→11:45)
[2017-05-19] MEDS ORDERED: RESP: ALBUTEROL 2.5 MG/IPRATROPIUM 0.5 MG NEB (PRN) INH (03:45)
[2017-05-19] MEDS ORDERED: cloNIDine HCL 0.2 MG TAB PO PRN (03:45)
[2017-05-19 03:51] LABS: HEMATOCRIT 24.9 % (35.0-46.0); HEMOGLOBIN 8.3 GM/DL (11.6-15.3); MEAN CELL VOLUME 80.5 FL (80.0-100.0); MEAN CORPUSCULAR HEMOGLOBIN 26.8 PG (27.0-34.0); MEAN CORPUSCULAR HGB CONC 33.3 % (32.0-36.0); MEAN PLATELET VOLUME 6.8 FL (7.0-11.0); PLATELET COUNT 397 TH/MM3 (150-450); RED BLOOD COUNT 3.09 MIL/MM3 (4.00-5.30); RED CELL DISTRIBUTION WIDTH 15.1 % (11.6-17.2); WHITE BLOOD COUNT 18.3 TH/MM3 (4.0-11.0)
[2017-05-19 03:59] LABS: INTERNATIONAL NORMALIZED RATIO 1.4 RATIO
[2017-05-19] MEDS ORDERED: LORazepam 2 MG/ML VIAL IV PUSH PRN ×4 (04:00)
[2017-05-19] MEDS ORDERED: LORazepam 1 MG TAB PO PRN (04:00)
[2017-05-19] MEDS ORDERED: NS + KCL 20 MEQ INJ 1,000 ML IV SCH (04:00)
[2017-05-19] MEDS ORDERED: FLUMAZENIL 0.5 MG/5 ML VIAL IV PUSH PRN (04:00)
[2017-05-19] MEDS ORDERED: LORazepam 2 MG TAB PO PRN (04:00)
[2017-05-19] MEDS: RESP: ALBUTEROL 2.5 MG/IPRATROPIUM 0.5 MG NEB (SCH) INH ×5 (04:02→21:28)
[2017-05-19] MEDS: HEPARIN-D5W 25,000 U/250 ML 250 ML IV PRN (04:02)
[2017-05-19] MEDS: ACETAMINOPHEN 325 MG TAB PO PRN ×2 (04:38→18:20)
[2017-05-19] MEDS ORDERED: guaiFENesin/CODEINE SYRUP 200 MG/20 MG/10 ML CUP PO PRN (05:00)
[2017-05-19] MEDS: PIPERACIL-TAZO 3.375 GM PREMIX 50 ML IV SCH ×4 (05:17→22:34)
[2017-05-19] MEDS ORDERED: VANCOMYCIN 500 MG/NS 100 ML IV ONE ×2 (06:00)
--- NOTE | 2017-05-19 07:53 | HHI.HP ---
HPI Service [facility] Hospitalists Primary Care Physician Michelle Michael MD Admission Diagnosis PE, Cavitary Pneumonia Chief Complaint: cough/sob Travel History International Travel<30 Days: No Contact w/Intl Traveler <30 Da: No Traveled to Known Affected Are: No History of Present Illness Pt is 62 yo female who underwent partial colectomy/ostomy in March 25 due to diverticulitis/perforation. Pt presents to ED last night after coughing and sob x 2 days. Says she coughs so much that had some emesis. describes some "dark" blood in her mucous after cough...no bright red blood. seen in ED and after CT chest found to have left cavitary pna and likely empyema..in addition to extensive pulmonary embolism on the left. Pt now on zosyn and heparin. Feels slightly better. Review of Systems Other cough Past Family Social History Past Medical History htn anxiety esophageal ulcer. 03/06 on egd perforated diverticulitis/partial colectomy/ostomy 04/06 bilateral TKA's complete hysterectomy chronic anemia since 04/06 around time of partial colectomy. Reported Medications Potassium Chloride ER (Potassium Chloride) 20 Meq Tab 20 Meq PO BID Reglan (Metoclopramide HCl) 5 Mg Tab 5 Mg PO TIDAC MDD 15 30 Days Protonix (Pantoprazole Sodium) 20 Mg Tab 20 Mg PO DAILY MDD 20mg 30 Days Sucralfate Liq (Sucralfate) 1 Gram/10 Ml Renay 1 Gm PO ACHS MDD 2mg 10 Days Percocet (Oxycodone-Acetaminophen) 5-325 mg Tab 1-2 Tab PO Q6H PRN Clonazepam 1 Mg Tab 1 Mg PO DAILY Cetirizine (Cetirizine HCl) 10 Mg Tab 10 Mg PO DAILY Trazodone (Trazodone HCl) 150 Mg Tablet 150 Mg PO HS Singulair (Montelukast Sodium) 10 Mg Tab 10 Mg PO HS Losartan-Hydrochlorothiazide 50-12.5 Mg Tab 1 Tab PO DAILY Allergies: Coded Allergies: Sulfa (Sulfonamide Antibiotics) (Verified Allergy, Severe, RASH, 05/18/17) sulfamethoxazole (Verified Allergy, Severe, RASH, 05/18/17) trimethoprim (Verified Allergy, Severe, RASH, 05/18/17) Family History father. bladder/colon ca Social History occ etoh/tob Physical Exam Vital Signs lying in bed looks miserable heart reg lung good air entry betsy abd s/nt. ostomy ext no edema Vital Signs Date Time Temp Pulse Resp B/P (MAP) Pulse Ox O2 Delivery O2 Flow Rate FiO2 05/19/17 06:24 100.0 106 22 80/52 (61) 94 05/19/17 06:17 05/19/17 04:16 103.3 124 19 122/78 (93) 100 Room Air 05/19/17 04:05 100 05/19/17 00:26 133 19 116/89 (98) 97 Room Air 05/19/17 00:24 135 15 98 Room Air 05/18/17 23:43 99.7 134 20 118/74 (89) 97 Laboratory Laboratory Tests Test 05/19/17 00:35 05/19/17 03:25 White Blood Count 23.0 18.3 Red Blood Count 3.49 3.09 Hemoglobin 9.5 8.3 Hematocrit 28.4 24.9 Mean Corpuscular Volume 81.3 80.5 Mean Corpuscular Hemoglobin 27.1 26.8 Mean Corpuscular Hemoglobin Concent 33.4 33.3 Red Cell Distribution Width 15.1 15.1 Platelet Count 477 397 Mean Platelet Volume 6.7 6.8 Neutrophils (%) (Auto) 90.8 Lymphocytes (%) (Auto) 3.9 Monocytes (%) (Auto) 5.0 Eosinophils (%) (Auto) 0.0 Basophils (%) (Auto) 0.3 Neutrophils # (Auto) 20.9 Lymphocytes # (Auto) 0.9 Monocytes # (Auto) 1.1 Eosinophils # (Auto) 0.0 Basophils # (Auto) 0.1 CBC Comment DIFF FINAL Differential Comment Prothrombin Time 13.4 14.0 Prothromb Time International Ratio 1.3 1.4 Activated Partial Thromboplast Time 35.1 35.0 Blood Urea Nitrogen 9 Creatinine 0.96 Random Glucose 163 Total Protein 8.4 Albumin 2.4 Calcium Level 9.2 Magnesium Level 1.6 Alkaline Phosphatase 107 Aspartate Amino Transf (AST/SGOT) 16 Alanine Aminotransferase (ALT/SGPT) 19 Total Bilirubin 0.7 Sodium Level 131 Potassium Level 4.1 Chloride Level 94 Carbon Dioxide Level 25.9 Anion Gap 11 Estimat Glomerular Filtration Rate 59 Total Creatine Kinase 25 Troponin I LESS THAN 0.02 B-Type Natriuretic Peptide 45 Lactic Acid Level 1.6 Date/Time Source Procedure Growth Status 05/19/17 03:25 Blood Peripheral Aerobic Blood Culture Pending Received 05/19/17 03:25 Blood Peripheral Anaerobic Blood Culture Pending Received 05/19/17 00:35 Nasal Aspirate Influenza Types A,B Antigen (GARCÍA) - Final NEGATIVE FOR FLU A AND B ANTIGEN.... Complete Result Diagram: 05/19/17 0325 05/19/17 0035 Caprini VTE Risk Assessment Caprini VTE Risk Assessment: Mod/High Risk (score >= 2) Caprini Risk Assessment Model Point Value = 1 Point Value = 2 Point Value = 3 Point Value = 5 Age 41-60 Minor surgery BMI > 25 kg/m2 Swollen legs Varicose veins or History of unexplained or recurrent spontaneous Oral contraceptives or hormone replacement Sepsis (< 1 month) Serious lung disease, including pneumonia (< 1 month) Abnormal pulmonary function Acute myocardial infarction Congestive heart failure (< 1 month) History of inflammatory bowel disease Medical patient at bed rest Age 61-74 Arthroscopic surgery Major open surgery (> 45 min) Laparoscopic surgery (> 45 min) Malignancy Confined to bed (> 72 hours) Immobilizing plaster cast Central venous access Age >= 75 History of VTE Family history of VTE Factor V Leiden Prothrombin [id number] Lupus anticoagulant Anticardiolipin antibodies Elevated serum homocysteine Heparin-induced thrombocytopenia Other congenital or acquired thrombophilia Stroke (< 1 month) Elective arthroplasty Hip, pelvis, or leg fracture Acute spinal cord injury (< 1 month) Prophylaxis Regimen Total Risk Factor Score Risk Level Prophylaxis Regimen 0-1 Low Early ambulation 2 Moderate Order ONE of the following: *Sequential Compression Device (SCD) *Heparin 5000 units SQ BID 3-4 Higher Order ONE of the following medications: *Heparin 5000 units SQ TID *Enoxaparin/Lovenox 40 mg SQ daily (WT < 150 kg, CrCl > 30 mL/min) *Enoxaparin/Lovenox 30 mg SQ daily (WT < 150 kg, CrCl > 10-29 mL/min) *Enoxaparin/Lovenox 30 mg SQ BID (WT < 150 kg, CrCl > 30 mL/min) AND/OR *Sequential Compression Device (SCD) 5 or more Highest Order ONE of the following medications: *Heparin 5000 units SQ TID (Preferred with Epidurals) *Enoxaparin/Lovenox 40 mg SQ daily (WT < 150 kg, CrCl > 30 mL/min) *Enoxaparin/Lovenox 30 mg SQ daily (WT < 150 kg, CrCl > 10-29 mL/min) *Enoxaparin/Lovenox 30 mg SQ BID (WT < 150 kg, CrCl > 30 mL/min) AND *Sequential Compression Device (SCD) Assessment and Plan Problem List: (1) Cavitary pneumonia ICD Codes: J18.9 - Pneumonia, unspecified organism; J98.4 - Other disorders of lung Status: Acute Plan: admitted in . Had perforated diverticulitis underwent proctosigmoid resection on 03/25. stool filled cavity noted. ostomy. 03/25 CT abd/pelvis..1. Extensive free intraperitoneal and retroperitoneal air. There is also air surrounding the distal esophagus within the mediastinum. The findings are suggestive of perforated viscus until proven otherwise. Possibilities include perforated diverticulitis seems most likely. Inflammatory changes and fluid surround the rectosigmoid colon which would likely represent the site of perforation. Air surrounding the distal esophagus raises the possibility of distal esophageal rupture although this seems less likely with large amount of air within the abdomen and pelvis but should be ruled out if the patient has recent history of forceful vomiting. 03/30 CT a/p Status post colostomy with residual small fluid collections identified within the perirectal space. A drain is present within this region. There is persistent air tracking along the mesentery of the left abdomen and left upper quadrant which may be residual from the prior area secondary to bowel perforation. There is a single segment of concerning small bowel loop within the left upper quadrant which appears to demonstrate wall thickening. Enlarging left-sided pleural effusion and mildly enlarged pericardial effusion which are likely reactive.. 05/18 CT chest : Incompletely seen indurated changes in the left retroperitoneum and air are present adjacent to the pancreatic body and left adrenal gland.. Pulmonary embolism. Posterior left lung base empyema and adjacent cavitary pneumonia. Incompletely seen inflammatory changes and air in the left retroperitoneum Pt with left cavitary pneumonia/possible empyema and left pulmonary embolism.... ?related to intra abdomen process. cont heparin gtt cont abx with zosyn . f/u blood cx pulmonary consulted to assess for possible thoracentesis..?CT or CTS consultation consult Inf disease. continue ivf. monitor low bp. ADDENDUM: spoke with dr Bo. concern for fistulous tract coming into left chest from retroperitoneal inflammatory process. We agreed to consult CRS Dr Cárdenas and CTS to assess and we can decide on ?left chest tube tomorrow I will move her to ICU for monitoring as she has some lower bp with tachy and concerns of sepsis CONCLUSION: 1. Inflammatory stranding in the retroperitoneum appears to originate in the deep pelvis adjacent to the ring of juan antonio at the previously surgerized rectosigmoid junction and tracks cephalad into the left pararenal space, posterior to the left paracolic gutter and just posterior to the gastric cardia. 2. I believe the inflammatory changes in the retroperitoneum are now contiguous with the left pleural space and the patient has now developed a small empyema with an associated cavitary pneumonic process. 3. Stable small pericardial effusion. 4. Findings a colonic surgery the right surgical juan antonio at the rectosigmoid junction. Colostomy in the left periumbilical distribution. (2) Pulmonary embolism ICD Codes: I26.99 - Other pulmonary embolism without acute cor pulmonale Status: Acute (3) Colostomy status ICD Codes: Z93.3 - Colostomy status Status: Chronic Physician Certification 2 Midnight Certification Type: Admission for Inpatient Services Order for Inpatient Services 5The services are ordered in accordance with Medicare regulations or non- Medicare payer requirements, as applicable. In the case of services not specified as inpatient-only, they are appropriately provided as inpatient services in accordance with the 2-midnight benchmark. Estimated LOS (days): 5 5 days is the estimated time the patient will need to remain in the hospital, assuming treatment plan goals are met and no additional complications. Post-Hospital Plan: Home Problem Qualifiers (1) Pulmonary embolism: Qualified Codes: I26.99 - Other pulmonary embolism without acute cor pulmonale Jonathan Redding MD May 19, 2017 07:53
[2017-05-19] MEDS ORDERED: TUBERCULIN, PPD 5 UNITS/0.1 ML SYRINGE I-DERMAL ONE (08:00)
[2017-05-19] MEDS ORDERED: CANDIDA ALBICANS 0.1 ML SYRINGE I-DERMAL ONE (08:00)
--- NOTE | 2017-05-19 08:24 | EKG ---
Date Performed: 05/19/2017 Time Performed: 01:38:44 PTAGE: 62 years EKG: SINUS TACHYCARDIA MODERATE ST DEPRESSION ABNORMAL ECG PREVIOUS TRACING : 03/14/2017 00.09 Compared to previous tracing, rate faster, ST changes now present DOCTOR: Josselyn Jennings Interpretating Date/Time 05/19/2017 08:22:48
[2017-05-19] MEDS ORDERED: DIATRIZOATE MEGLUM/DIATRIZOATE SOD 9 ML CUP PO ONE (09:00)
[2017-05-19] MEDS: ONDANSETRON HCL 4 MG/2 ML VIAL IV PUSH PRN ×2 (10:16→20:26)
[2017-05-19] MEDS: clonazePAM 1 MG TAB PO SCH (10:16)
[2017-05-19] MEDS: CETIRIZINE HCL 10 MG TAB PO SCH (10:16)
[2017-05-19] MEDS: SODIUM CHLORIDE 0.9% FLUSH 10 ML FLUSH IV FLUSH SCH ×2 (10:17→20:26)
--- NOTE | 2017-05-19 11:05 | PD.ID.CON ---
History of Present Illness Service ID Consult Requested By Reason for Consult Evaluation and Mment of Cavitatory pneumonia. Primary Care Physician Michelle Michael MD Diagnoses: History of Present Illness is a 62 y/o CF with PMHx of Diverticulitis and perforated colon who is s.p diverting colostomy by in Mar 2017. Patient reports that since she was discharged she really has not felt a 100%. She continues to have generalized weakness. She denies any pneumonia like symptoms on discharge. She reports approx 2-3 days [employer] she started having cough with expectoration, shortness of breath, and last night she had a temp of 103 F. Due to this reason she presented to the hospital. She denies any flu like symptoms or exposure to persons with TB. With this background she was admitted to the hospital. She underwent a CT chest and was found to a PE and cavitary pneumonia. She is started on empiric antibiotics. Flu antigen is negative. Blood cultures and sputum cultures are pending at present time. ID consulted for evaluation and Mment of Cavitary pneumonia. Review of Systems ROS Limitations: Poor Historian Past Family Social History Allergies: Coded Allergies: Sulfa (Sulfonamide Antibiotics) (Verified Allergy, Severe, RASH, 05/18/17) sulfamethoxazole (Verified Allergy, Severe, RASH, 05/18/17) trimethoprim (Verified Allergy, Severe, RASH, 05/18/17) Past Medical History Anxiety Asthma Recurrent abdominal pain Hiatal hernia Hypertension Questionable irritable bowel syndrome Past Surgical History EGD and colonoscopy done February 2016 revealed mild gastritis Hysterectomy Tubal ligation Bilateral knee replacement Reported Medications Reported Meds & Active Scripts Active Potassium Chloride ER (Potassium Chloride) 20 Meq Tab 20 Meq PO BID Reglan (Metoclopramide HCl) 5 Mg Tab 5 Mg PO TIDAC MDD 15 30 Days Protonix (Pantoprazole Sodium) 20 Mg Tab 20 Mg PO DAILY MDD 20mg 30 Days Sucralfate Liq (Sucralfate) 1 Gram/10 Ml Renay 1 Gm PO ACHS MDD 2mg 10 Days Reported Percocet (Oxycodone-Acetaminophen) 5-325 mg Tab 1-2 Tab PO Q6H PRN Clonazepam 1 Mg Tab 1 Mg PO DAILY Cetirizine (Cetirizine HCl) 10 Mg Tab 10 Mg PO DAILY Trazodone (Trazodone HCl) 150 Mg Tablet 150 Mg PO HS Singulair (Montelukast Sodium) 10 Mg Tab 10 Mg PO HS Losartan-Hydrochlorothiazide 50-12.5 Mg Tab 1 Tab PO DAILY Active Ordered Medications Current Medications Medications (Trade) Dose Ordered Sig/Alyssa Route Start Time Stop Time Status Last Admin Heparin Sodium/ Dextrose 250 ml @ 10 mls/hr TITRATE PRN IV 05/19/17 03:15 05/19/17 04:02 (NS Flush) 2 ml UNSCH PRN IV FLUSH 05/19/17 03:45 (NS Flush) 2 ml BID IV FLUSH 05/19/17 09:00 05/19/17 10:17 Pharmacy Profile Note 0 ml @ 0 mls/hr UNSCH OTHER 05/19/17 03:45 (Skin Test Result) 1 Q24H OTHER 05/20/17 08:00 05/23/17 07:59 (Tylenol) 650 mg Q4H PRN PO 05/19/17 03:45 05/19/17 04:38 (Zofran Inj) 4 mg Q6H PRN IV PUSH 05/19/17 03:45 05/19/17 10:16 (Duoneb Neb) 1 ampule Q6HR NEB INH 05/19/17 04:00 05/19/17 04:02 (Duoneb Neb) 1 ampule Q4HR NEB PRN INH 05/19/17 03:45 (Robitussin Ac 200-20 Mg/10 ml Liq) 10 ml Q4H PRN PO 05/19/17 05:00 Piperacillin Sod/ Tazobactam Sod 50 ml @ 100 mls/hr Q6H IV 05/19/17 05:00 05/19/17 05:17 (Catapres) 0.2 mg Q6H PRN PO 05/19/17 03:45 (Vasotec Inj) 1.25 mg Q6H PRN IV 05/19/17 03:45 Potassium Chloride/Sodium Chloride 1,000 ml @ 85 mls/hr [id number] IV 05/19/17 04:00 05/19/17 04:38 (Romazicon Inj) 0.2 mg Q1M PRN IV PUSH 05/19/17 04:00 (Ativan Inj) 1 mg Q4H PRN IV PUSH 05/19/17 08:30 (ZyrTEC) 10 mg DAILY PO 05/19/17 09:00 05/19/17 10:16 (KlonoPIN) 1 mg DAILY PO 05/19/17 09:00 05/19/17 10:16 (Singulair) 10 mg HS PO 05/19/17 21:00 Vancomycin HCl 1000 mg/Sodium Chloride 250 ml @ 250 mls/hr Q24H IV 05/20/17 16:00 Miscellaneous Information SPECIFIC LAB TO BE NATALI... ONCE ONCE .XX 05/22/17 15:45 05/22/17 15:46 Family History Father at age 62 of colon cancer. Reportedly had bladder cancer prior. Mother had some form of heart disease and hypertension Mother was "borderline diabetic". Social History Patient is a . She lives in a [employer] apartment near some friends locally. Spent most of her life in [place] working in the [employer] business. Denies tobacco use. Occasionally smokes marijuana but not on a regular basis. Denies regular alcohol use. Denies illicit drug use. Has 3 adult children but none live in this area. Lives alone in an apartment. 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 Physical Exam Vital Signs Vital Signs Date Time Temp Pulse Resp B/P (MAP) Pulse Ox O2 Delivery O2 Flow Rate FiO2 05/19/17 09:20 94 Nasal Cannula 2.00 05/19/17 09:19 88 05/19/17 07:00 99.2 67 18 96/64 (75) 96 05/19/17 06:24 100.0 106 22 80/52 (61) 94 05/19/17 06:17 05/19/17 04:16 103.3 124 19 122/78 (93) 100 Room Air 05/19/17 04:05 100 05/19/17 00:26 133 19 116/89 (98) 97 Room Air 05/19/17 00:24 135 15 98 Room Air 05/18/17 23:43 99.7 134 20 118/74 (89) 97 Physical Exam GENERAL: Thin built, fairly well-developed patient, in no apparent distress. SKIN: No rashes, ecchymoses or lesions. Cool and dry. HEAD: Atraumatic. Normocephalic. No temporal or scalp tenderness. EYES: Pupils equal round and reactive. Extraocular motions intact. No scleral icterus. No injection or drainage. ENT: Nose without bleeding, purulent drainage or septal hematoma. Throat without erythema, tonsillar hypertrophy or exudate. Uvula midline. Airway patent. NECK: Trachea midline. Supple, nontender, no meningeal signs. CARDIOVASCULAR: HS audible. RESPIRATORY: Left basilar crackles. Decreased AE left base > right. GASTROINTESTINAL: Abdomen soft, non-tender, nondistended. Colostomy bag with no e/o infection. Surgical site ok/ MUSCULOSKELETAL: Extremities without clubbing, cyanosis, or edema. NEUROLOGICAL: Awake and alert. Non focal exam Psych cooperative IV line sites with no e.o infection. Laboratory Laboratory Tests Test 05/19/17 00:35 05/19/17 03:25 White Blood Count 23.0 18.3 Red Blood Count 3.49 3.09 Hemoglobin 9.5 8.3 Hematocrit 28.4 24.9 Mean Corpuscular Volume 81.3 80.5 Mean Corpuscular Hemoglobin 27.1 26.8 Mean Corpuscular Hemoglobin Concent 33.4 33.3 Red Cell Distribution Width 15.1 15.1 Platelet Count 477 397 Mean Platelet Volume 6.7 6.8 Neutrophils (%) (Auto) 90.8 Lymphocytes (%) (Auto) 3.9 Monocytes (%) (Auto) 5.0 Eosinophils (%) (Auto) 0.0 Basophils (%) (Auto) 0.3 Neutrophils # (Auto) 20.9 Lymphocytes # (Auto) 0.9 Monocytes # (Auto) 1.1 Eosinophils # (Auto) 0.0 Basophils # (Auto) 0.1 CBC Comment DIFF FINAL Differential Comment Prothrombin Time 13.4 14.0 Prothromb Time International Ratio 1.3 1.4 Activated Partial Thromboplast Time 35.1 35.0 Blood Urea Nitrogen 9 Creatinine 0.96 Random Glucose 163 Total Protein 8.4 Albumin 2.4 Calcium Level 9.2 Magnesium Level 1.6 Alkaline Phosphatase 107 Aspartate Amino Transf (AST/SGOT) 16 Alanine Aminotransferase (ALT/SGPT) 19 Total Bilirubin 0.7 Sodium Level 131 Potassium Level 4.1 Chloride Level 94 Carbon Dioxide Level 25.9 Anion Gap 11 Estimat Glomerular Filtration Rate 59 Total Creatine Kinase 25 Troponin I LESS THAN 0.02 B-Type Natriuretic Peptide 45 Lactic Acid Level 1.6 Date/Time Source Procedure Growth Status 05/19/17 03:25 Blood Peripheral Aerobic Blood Culture Pending Received 05/19/17 03:25 Blood Peripheral Anaerobic Blood Culture Pending Received 05/19/17 09:44 Sputum Expectorated Sputum Gram Stain Pending Received 05/19/17 09:44 Sputum Expectorated Sputum Sputum Culture Pending Received Result Diagram: 05/19/17 0325 05/19/17 0035 Imaging Last Impressions Chest CT 05/19/17 0146 Signed Impressions: Service Date/Time: Friday, May 19, 2017 02:13 - CONCLUSION: Pulmonary embolism. Posterior left lung base empyema and adjacent cavitary pneumonia. Incompletely seen inflammatory changes and air in the left retroperitoneum. Jared Mosqueda MD Chest X-Ray 05/19/17 0005 Signed Impressions: Service Date/Time: Friday, May 19, 2017 01:05 - CONCLUSION: Abnormal chest appearance Jared Mosqueda MD Assessment and Plan Assessment and Plan Possible Sepsis present on admission (fever, leucocytosis, source: pneumonia) Pneumonia: CAP vs flu vs possible HCAP Possible the Empyema and intra abd process are related. ? thru a diaphragmatic defect. PE. Diverting colostomy Recent history of diverticulitis with perforation Recs Continue Zosyn IV Start vanco pharmacy consult (target 15-20) for possible post flu MRSA pneumonia. Start Azithro oral. Addendum at 8 pm add Tamiflu. Check Resp panel for Influenza PCR. Follow cultures Follow clinically. depending on cultures will likely need CTS consult Dw briefly. Julisa Tejeda MD May 19, 2017 11:05
--- NOTE | 2017-05-19 16:49 | RADRPT ---
EXAM DATE/TIME: 05/19/2017 15:21 [place] COMPARISON: CHEST SINGLE AP, May 19, 2017, 1:05. CT ABDOMEN & PELVIS W/O CONTRAST, March 30, 2017, 9:34. INDICATIONS : Evaluate for inflammatory process ORAL CONTRAST: Prescribed oral contrast ingested. RADIATION DOSE: 6.64 CTDIvol (mGy) MEDICAL HISTORY : Hypertension. Chronic obstructive pulmonary disease. Hernia, hiatal. SURGICAL HISTORY : Hysterectomy. ENCOUNTER: Initial ACUITY: 1 day PAIN SCALE: 0/10 LOCATION: Abdomen TECHNIQUE: Volumetric scanning of the abdomen and pelvis was performed. Using automated exposure control and ad justment of the mA and/or kV according to patient size, radiation dose was kept as low as reasonably achievable to obtain optimal diagnostic quality images. DICOM format image data is available electro nically for review and comparison. FINDINGS: LOWER LUNGS: Airspace process in the left base with possible associated loculated effusion/empyema. Small pericard ial effusion. LIVER: Homogeneous density without lesion. There is no dilation of the biliary tree. No calcified gallston es. SPLEEN: Normal size without lesion. PANCREAS: Within normal limits. KIDNEYS: Normal in size and shape. There is no mass, stone, or hydronephrosis. ADRENAL GLANDS: Within normal limits. VASCULAR: There is no aortic aneurysm. BOWEL/MESENTERY: Diverting colostomy in the left periumbilical distribution. Meno at the rectosigmoid junction darci acteristic of a previous partial colectomy. Inflammatory changes track out of the pelvis and obliquel y in the retroperitoneal space toward the anterior pararenal space of the left upper abdominal quadra nt. Inflammatory changes also tracks posterior to the gastric cardia, posterior to the left paracolic gutter and may actually be contiguous with the complex collection at the left lung base. Previously seen inflammatory changes in the posterior pararenal space show interval improvement, however. ABDOMINAL WALL: Within normal limits. RETROPERITONEUM: Inflammatory stranding and air in the left retroperitoneum as detailed above. BLADDER: No wall thickening or mass. REPRODUCTIVE: Patient appears to be status post hysterectomy. INGUINAL: There is no lymphadenopathy or hernia. MUSCULOSKELETAL: Within normal limits for patient age. Dextroscoliosis of the lumbar spine with associated degenerativ e changes. CONCLUSION: 1. Inflammatory stranding in the retroperitoneum appears to originate in the deep pelvis adjacent to the ring of juan antonio at the previously surgerized rectosigmoid junction and tracks cephalad into the l eft pararenal space, posterior to the left paracolic gutter and just posterior to the gastric cardia. 2. I believe the inflammatory changes in the retroperitoneum are now contiguous with the left pleural space and the patient has now developed a small empyema with an associated cavitary pneumonic proces s. 3. Stable small pericardial effusion. 4. Findings a colonic surgery the right surgical juan antonio at the rectosigmoid junction. Colostomy in t he left periumbilical distribution. Glen Bo MD on May 19, 2017 at 16:28 Board Certified Radiologist. This report was verified electronically.
[2017-05-19] MEDS: SODIUM CHLOR 0.9% 1000 ML INJ 1,000 ML IV SCH (18:00)
--- NOTE | 2017-05-19 18:19 | MB ---
cc: Misti Chappell MD DATE: 05/19/2017 REASON FOR CONSULTATION: Lung abscess. HISTORY OF PRESENT ILLNESS: Ms. Silva is a 62-year-old female who has history of perforated diverticulum for which she had surgery and a diverting colostomy in 03/2017. The patient is admitted with a severe cough and evidence of a cavitary lesion of the left lower lung. She did undergo a CT angiogram with evidence of pulmonary embolism, as well as a cavitary lesion of the left lower lung with air under the diaphragm. The patient does have a fever and chills. No hemoptysis; however, she states that she coughs up brownish material. The patient is presently on anticoagulant therapy as well as antibiotic therapy for infection. PAST MEDICAL HISTORY: Bronchial asthma, surgery as outlined above, hiatal hernia, hypertension, question irritable bowel syndrome, status post bowel resection and a diverting colostomy for diverticular disease. MEDICATIONS: Include potassium, Reglan, Protonix, anticoagulant therapy. At home she uses Clonazepam, cetirizine, trazodone, singulair, losartan, hydrochlorothiazide. ALLERGIES: SULFA DRUGS. FAMILY HISTORY: Noncontributory. REVIEW OF SYSTEMS: A 12-point review of systems as per HPI and past history, otherwise negative. PHYSICAL EXAMINATION: GENERAL: The patient is alert. VITAL SIGNS: Temperature 99, pulse 100, respirations 20, blood pressure 120/70, O2 saturation 97% on room air. HEENT: Unremarkable. Eyes without icterus. NECK: Without adenopathy or thyroid enlargement. CHEST: Decreased breath sounds left base with few scattered rhonchi. CARDIAC: PMI distant. S1, S2 audible. No murmur, no rub. ABDOMEN: Obese, lax, colostomy bag in place. EXTREMITIES: No clubbing, cyanosis or edema. LABORATORY DATA: White count 18,000. Admission white count was 23,000. Hemoglobin 8.3. Hematocrit 24. Platelets 397,000. Sodium 131, potassium 4.1, BUN 9, creatinine 0.9. IMAGING STUDIES: A CT scan of the chest as outlined above. IMPRESSION: 1. Acute pulmonary embolism. 2. Cavitary mass, left lower lung; question surrounding empyema. 3. Intraperitoneal air and fluid collection; question infection. PLAN: The patient has been started on anticoagulant therapy. Oxygen therapy is not required at this point. We will give oxygen as needed. Bronchodilator therapy to be continued. Infectious disease is seeing the patient and antibiotic therapy has been instituted. I believe surgical consultation would be appropriate as well to assess the source of the air under the diaphragm and the possibility of intra-abdominal infection. We will follow the patient's course along with you and depending on progress, proceed further. I do thank you for asking me to partake in Ms. Silva's care. Misti Chappell MD [facility] , 05:40 PM , 06:18 PM
[2017-05-19] MEDS: LORazepam 2 MG/ML VIAL IV PUSH PRN (20:26)
[2017-05-19] MEDS: MONTELUKAST SODIUM 10 MG TAB PO SCH (20:26)
[2017-05-19] MEDS ORDERED: CHLORHEXIDINE GLUCONATE 2 % 1 PACK (2 CLOTHS)(extra cloths) TOPICAL PRN (20:30)
[2017-05-19] MEDS: OSELTAMIVIR PHOSPHATE 75 MG CAP PO SCH (20:31)
[2017-05-19] MEDS: traZODone HCL 50 MG TAB PO PRN (20:52)
[2017-05-20] VITALS (20 sets, daily range): BP systolic 88–118; BP diastolic 52–72; PULSE 88–180; RESP 16–29; TEMP 97.8–99.9; O2SAT 94–100
[2017-05-20] MEDS: HEPARIN-D5W 25,000 U/250 ML 250 ML IV PRN (03:00)
[2017-05-20] MEDS: RESP: ALBUTEROL 2.5 MG/IPRATROPIUM 0.5 MG NEB (SCH) INH ×4 (03:27→21:48)
[2017-05-20] MEDS: SODIUM CHLOR 0.9% 1000 ML INJ 1,000 ML IV SCH (04:00)
[2017-05-20] MEDS: CHLORHEXIDINE GLUCONATE 2 % 1 PACK (2 CLOTHS)(taper/protocol) TOPICAL SCH (04:00)
[2017-05-20] MEDS: ONDANSETRON HCL 4 MG/2 ML VIAL IV PUSH PRN ×2 (04:54→20:49)
[2017-05-20] MEDS: LORazepam 2 MG/ML VIAL IV PUSH PRN ×2 (04:55→20:50)
[2017-05-20] MEDS: PIPERACIL-TAZO 3.375 GM PREMIX 50 ML IV SCH ×4 (04:55→23:00)
[2017-05-20 05:23] LABS: BICARBONATE 21.8 MEQ/L (21.0-32.0); CALCIUM 8.2 MG/DL (8.5-10.1); CREATININE 0.62 MG/DL (0.50-1.00)
[2017-05-20] MEDS ORDERED: POTASSIUM CHLORIDE 20 MEQ CONTROLLED RELEASE TAB PO ONE (08:00)
[2017-05-20] MEDS ORDERED: SKIN TEST RESULT OTHER SCH (08:00)
[2017-05-20 08:05] LABS: AUTOMATED NEUTROPHIL # 11.3 TH/MM3 (1.8-7.7); BASOPHIL % 0.2 % (0.0-2.0); LYMPH % 6.2 % (9.0-44.0); LYMPHOCYTE # 0.8 TH/MM3 (1.0-4.8); MEAN CELL VOLUME 81.6 FL (80.0-100.0); MEAN CORPUSCULAR HEMOGLOBIN 27.2 PG (27.0-34.0); MEAN CORPUSCULAR HGB CONC 33.3 % (32.0-36.0); MEAN PLATELET VOLUME 6.8 FL (7.0-11.0); MONO % 3.2 % (0.0-8.0); MONOCYTE # 0.4 TH/MM3 (0-0.9); NEUT % 90.4 % (16.0-70.0); PLATELET COUNT 298 TH/MM3 (150-450); RED BLOOD COUNT 2.54 MIL/MM3 (4.00-5.30); WHITE BLOOD COUNT 12.5 TH/MM3 (4.0-11.0)
[2017-05-20 08:08] LABS: HEMATOCRIT 20.7 % (35.0-46.0); HEMOGLOBIN 6.9 GM/DL (11.6-15.3)
--- NOTE | 2017-05-20 08:32 | HHI.PR ---
Subjective Remarks less coughing. no new complaints no abdomen pain. no rectal bleeding overnight. Objective Vitals heart reg lung course bs betsy abd s/nt/bs ext no edema Vital Signs Date Time Temp Pulse Resp B/P (MAP) Pulse Ox O2 Delivery O2 Flow Rate FiO2 05/20/17 07:00 95 Nasal Cannula 2.00 05/20/17 06:04 97 Nasal Cannula 2.00 05/20/17 06:00 109 05/20/17 04:00 97.8 113 22 118/57 (77) 100 05/20/17 04:00 113 05/20/17 02:00 106 05/20/17 00:00 98.0 88 24 88/52 (64) 98 05/20/17 00:00 88 05/19/17 22:00 101 05/19/17 21:28 93 Nasal Cannula 2.00 05/19/17 21:17 98 05/19/17 18:30 126 05/19/17 18:00 132 05/19/17 17:30 128 05/19/17 17:00 114 05/19/17 16:00 118 05/19/17 15:30 101.7 118 20 111/68 (82) 97 05/19/17 15:00 106 05/19/17 14:00 108 05/19/17 13:00 112 05/19/17 12:00 98.6 113 20 89/76 (80) 97 05/19/17 11:00 114 05/19/17 10:00 118 05/19/17 09:20 94 Nasal Cannula 2.00 05/19/17 09:19 88 05/19/17 09:00 102 Result Diagram: 05/20/17 0753 05/20/17 0430 A/P Problem List: (1) Cavitary pneumonia ICD Codes: J18.9 - Pneumonia, unspecified organism; J98.4 - Other disorders of lung Status: Acute Plan: admitted in . Had perforated diverticulitis underwent proctosigmoid resection on 03/25. stool filled cavity noted. ostomy. 03/25 CT abd/pelvis..1. Extensive free intraperitoneal and retroperitoneal air. There is also air surrounding the distal esophagus within the mediastinum. The findings are suggestive of perforated viscus until proven otherwise. Possibilities include perforated diverticulitis seems most likely. Inflammatory changes and fluid surround the rectosigmoid colon which would likely represent the site of perforation. Air surrounding the distal esophagus raises the possibility of distal esophageal rupture although this seems less likely with large amount of air within the abdomen and pelvis but should be ruled out if the patient has recent history of forceful vomiting. 03/30 CT a/p Status post colostomy with residual small fluid collections identified within the perirectal space. A drain is present within this region. There is persistent air tracking along the mesentery of the left abdomen and left upper quadrant which may be residual from the prior area secondary to bowel perforation. There is a single segment of concerning small bowel loop within the left upper quadrant which appears to demonstrate wall thickening. Enlarging left-sided pleural effusion and mildly enlarged pericardial effusion which are likely reactive.. 05/18 CT chest : Incompletely seen indurated changes in the left retroperitoneum and air are present adjacent to the pancreatic body and left adrenal gland.. Pulmonary embolism. Posterior left lung base empyema and adjacent cavitary pneumonia. Incompletely seen inflammatory changes and air in the left retroperitoneum 05/19 CT abdomen/pelvis: 1. Inflammatory stranding in the retroperitoneum appears to originate in the deep pelvis adjacent to the ring of juan antonio at the previously surgerized rectosigmoid junction and tracks cephalad into the left pararenal space, posterior to the left paracolic gutter and just posterior to the gastric cardia. 2. I believe the inflammatory changes in the retroperitoneum are now contiguous with the left pleural space and the patient has now developed a small empyema with an associated cavitary pneumonic process. 3. Stable small pericardial effusion. 4. Findings a colonic surgery the right surgical juan antonio at the rectosigmoid junction. Colostomy in the left periumbilical distribution. IMP: -Left cavitary pneumonia/empyema. concern for fistula connection tracking up from inflammatory stranding in the retroperitoneum which appears to originate in the deep pelvis adjacent to the ring of juan antonio at the previously surgerized rectosigmoid junction. Patient appeared septic on arrival. 2. left pulmonary embolism 3. acute and chronic anemia 4. hypokalemia cont heparin gtt and monitor for signs of bleeding will give 2 units of blood today cont ivf cont abx with zosyn/vanco..ID following . f/u blood cx discussed with Dr Bo and he will consider left chest tube today...spoke with Dr Cárdenas who agrees with tube drainage approach. CTS also consulted for opinion. Pt being monitored in ICU as she is critically ill and has potential for acute deterioration (2) Pulmonary embolism ICD Codes: I26.99 - Other pulmonary embolism without acute cor pulmonale Status: Acute (3) Anemia ICD Codes: D64.9 - Anemia, unspecified Status: Acute (4) Anxiety ICD Codes: F41.9 - Anxiety disorder, unspecified Status: Chronic (5) Hypokalemia ICD Codes: E87.6 - Hypokalemia Status: Acute (6) Colostomy status ICD Codes: Z93.3 - Colostomy status Status: Chronic Problem Qualifiers (1) Pulmonary embolism: Qualified Codes: I26.99 - Other pulmonary embolism without acute cor pulmonale Jonathan Redding MD May 20, 2017 08:32
[2017-05-20] MEDS: PANTOPRAZOLE SOD 40 MG DELAYED RELEASE TAB PO SCH (08:42)
[2017-05-20] MEDS: AZITHROMYCIN 250 MG TAB PO SCH (08:42)
[2017-05-20] MEDS: clonazePAM 1 MG TAB PO SCH (08:42)
[2017-05-20] MEDS: CETIRIZINE HCL 10 MG TAB PO SCH (08:42)
[2017-05-20] MEDS: SODIUM CHLORIDE 0.9% FLUSH 10 ML FLUSH IV FLUSH SCH ×2 (08:43→20:50)
[2017-05-20] MEDS: OSELTAMIVIR PHOSPHATE 75 MG CAP PO SCH ×2 (08:43→20:50)
--- NOTE | 2017-05-20 08:47 | MB ---
cc: Magen Cárdenas MD DATE: 05/19/2017 REASON FOR CONSULTATION: Fever, left upper quadrant abscess, possible pneumonia. HISTORY OF PRESENT ILLNESS: Ms. Silva is a 62-year-old female, status post perforated diverticulitis back in March. At that time, she did have a significant amount of retroperitoneal air extending up into the left upper quadrant. At the time of surgery, the retroperitoneum was unroofed and the diverticular segment removed, giving her colostomy and Alvarado pouch. The patient did fairly well, having some fevers postoperatively treated with broad spectrum antibiotics. She has been recovering fairly well for the last 6 weeks, presenting to the emergency room last night with increasing cough and shortness of breath for about 2 days. She has been having some dark emesis, possibly blood and quite a bit of mucus. She also reports a fever up to 103, but no shaking, chills or rigors. The patient was seen in the emergency room and was found to have a complex fluid collection in the left upper quadrant, possibly under and above the diaphragm, involving the left lower lobe. She was also found to have pulmonary embolism. The patient was started on IV heparin and broad spectrum antibiotics and does feel slightly more comfortable today. Please see admitting history and physical for more complete past medical and surgical history. PERTINENT PHYSICAL EXAMINATION: GENERAL: A very pleasant female in no acute distress. HEENT: Remarkable for slightly pale, dry membranes. Nonicteric sclerae. NECK: Supple, without gross adenopathy. CHEST: Diminished in the bases, crackles in the left base. CARDIOVASCULAR: Heart had slight tachycardia. ABDOMEN: Really flat and soft. Incision has healed well. Colostomy was pink and producing soft stool. No tympany or tenderness. No rebound or guarding. No masses noted. EXTREMITIES: Show no cyanosis or clubbing and 1+ pedal edema. LABORATORY STUDIES: White count was down to 18.3, hemoglobin fell to 8.3. Electrolytes pretty normal, with an albumin of 2.4, BUN of 9, creatinine of 0.9, normal liver function tests. Lactic acid of 1.6. IMAGING: CAT scan was reviewed, showing a complex mass in the left upper quadrant with some fluid, air. Residual air in the retroperitoneum actually looks improved over previous studies. ASSESSMENT AND PLAN: Complex left upper quadrant mass and/or abscess. Reviewed with radiology pulmonary embolism, however, she has been treated with intravenous heparin. The patient appears comfortable. Respiratory treatments have been ordered. Suggested interventional radiology can drain this fluid collection, would be the easiest and most simple way to proceed at least initially to decrease her fever and possibly get some resolution of the infectious process. It does not appear to have any connection to an enteric lumen for implying a true fistulous origin. If percutaneous drainage is not possible, then we would have to think about more extensive laparotomy or thoracotomy to potentially drain the process. Magen Cárdenas MD [facility] , 11:20 PM , 12:41 AM
--- NOTE | 2017-05-20 09:00 | HHI.PR ---
Subjective Remarks ALERT SITTING IN BED NO DISTRESS SURGERY NOTE APPRETIATED Objective Vital Signs Date Time Temp Pulse Resp B/P (MAP) Pulse Ox O2 Delivery O2 Flow Rate FiO2 05/20/17 07:00 95 Nasal Cannula 2.00 05/20/17 06:04 97 Nasal Cannula 2.00 05/20/17 06:00 109 05/20/17 04:00 97.8 113 22 118/57 (77) 100 05/20/17 04:00 113 05/20/17 02:00 106 05/20/17 00:00 98.0 88 24 88/52 (64) 98 05/20/17 00:00 88 05/19/17 22:00 101 05/19/17 21:28 93 Nasal Cannula 2.00 05/19/17 21:17 98 05/19/17 18:30 126 05/19/17 18:00 132 05/19/17 17:30 128 05/19/17 17:00 114 05/19/17 16:00 118 05/19/17 15:30 101.7 118 20 111/68 (82) 97 05/19/17 15:00 106 05/19/17 14:00 108 05/19/17 13:00 112 05/19/17 12:00 98.6 113 20 89/76 (80) 97 05/19/17 11:00 114 05/19/17 10:00 118 05/19/17 09:20 94 Nasal Cannula 2.00 05/19/17 09:19 88 05/19/17 09:00 102 I/O 05/19/17 05/19/17 05/19/17 05/20/17 05/20/17 05/20/17 07:00 15:00 23:00 07:00 15:00 23:00 Intake Total 2221 ml 1900 ml Output Total 1100 ml 150 ml Balance 1121 ml 1750 ml Intake Oral 960 ml 800 ml IV Total 1261 ml 1100 ml Output Urine Total 1100 ml Stool Total 150 ml # Voids 3 # Bowel Movements 2 Result Diagram: 05/20/17 0753 05/20/17 0430 Medications and IVs GENERAL: SKIN: Warm and dry. HEAD: Atraumatic. Normocephalic. EYES: Pupils equal and round. No scleral icterus. No injection or drainage. ENT: No nasal bleeding or discharge. Mucous membranes pink and moist. NECK: Trachea midline. No JVD. CARDIOVASCULAR: Regular rate and rhythm. RESPIRATORY: No accessory muscle use. RHOONCHI LEFT BASE GASTROINTESTINAL: Abdomen soft, non-tender, nondistended. Hepatic and splenic margins not palpable. MUSCULOSKELETAL: Extremities without clubbing, cyanosis, or edema. No obvious deformities. NEUROLOGICAL: Awake and alert. No obvious cranial nerve deficits. Motor grossly within normal limits. Five out of 5 muscle strength in the arms and legs. Normal speech. PSYCHIATRIC: Appropriate mood and affect; insight and judgment normal. Assessment and Plan Assessment and Plan PE PNA ? EMPYEMA PLAN ANTICOAGULATION ANTIBIOTIC THERAPY IR TO DRAIN FLUID Misti Chappell MD May 20, 2017 09:00
--- NOTE | 2017-05-20 10:42 | HHI.IDPN ---
Subjective Subjective Remarks is a 62 y/o CF with PMHx of Diverticulitis and perforated colon who is s.p diverting colostomy by in Mar 2017. Patient reports that since she was discharged she really has not felt a 100%. She continues to have generalized weakness. She denies any pneumonia like symptoms on discharge. She reports approx 2-3 days [employer] she started having cough with expectoration, shortness of breath, and last night she had a temp of 103 F. Due to this reason she presented to the hospital. She denies any flu like symptoms or exposure to persons with TB. With this background she was admitted to the hospital. She underwent a CT chest and was found to a PE and cavitary pneumonia. She is started on empiric antibiotics. Flu antigen is negative. Blood cultures and sputum cultures are pending at present time. ID consulted for evaluation and Mment of Cavitary pneumonia. Overnight events reviewed Fevers 101 F overnight. No rash No diarrhea Less cough Low H/H recd 1 PRBC Transferred to C. PE and empyema on CT. CTS consulted IR guided CT chest tube planned per RN. CRS also consulted. Antibiotics Zosyn IV Vanco IV Tamiflu oral. Azithro oral. Lines Line sites with no e.o infection Past Medical History Past Medical History Anxiety Asthma Recurrent abdominal pain Hiatal hernia Hypertension Questionable irritable bowel syndrome Past Surgical History EGD and colonoscopy done February 2016 revealed mild gastritis Hysterectomy Tubal ligation Bilateral knee replacement Allergies: Coded Allergies: Sulfa (Sulfonamide Antibiotics) (Verified Allergy, Severe, RASH, 05/18/17) sulfamethoxazole (Verified Allergy, Severe, RASH, 05/18/17) trimethoprim (Verified Allergy, Severe, RASH, 05/18/17) Objective . Vital Signs Date Time Temp Pulse Resp B/P (MAP) Pulse Ox O2 Delivery O2 Flow Rate FiO2 05/20/17 10:15 99.6 113 27 110/61 96 05/20/17 10:00 114 05/20/17 09:47 99.5 113 16 108/66 94 05/20/17 09:33 94 21 05/20/17 08:00 99.7 114 29 108/66 (80) 95 05/20/17 08:00 114 05/20/17 07:00 95 Nasal Cannula 2.00 05/20/17 06:04 97 Nasal Cannula 2.00 4/3/18 06:00 109 05/20/17 04:00 97.8 113 22 118/57 (77) 100 05/20/17 04:00 113 05/20/17 02:00 106 05/20/17 00:00 98.0 88 24 88/52 (64) 98 05/20/17 00:00 88 05/19/17 22:00 101 05/19/17 21:28 93 Nasal Cannula 2.00 05/19/17 21:17 98 05/19/17 18:30 126 05/19/17 18:00 132 05/19/17 17:30 128 05/19/17 17:00 114 05/19/17 16:00 118 05/19/17 15:30 101.7 118 20 111/68 (82) 97 05/19/17 15:00 106 05/19/17 14:00 108 05/19/17 13:00 112 05/19/17 12:00 98.6 113 20 89/76 (80) 97 05/19/17 11:00 114 05/20/17 05/20/17 05/21/17 15:00 23:00 07:00 Intake Total 250 ml Balance 250 ml Blood Product IV Normal Saline Flush 250 ml . Laboratory Tests Test 05/19/17 00:35 05/19/17 03:25 05/20/17 07:53 White Blood Count 23.0 TH/MM3 18.3 TH/MM3 12.5 TH/MM3 Red Blood Count 3.49 MIL/MM3 3.09 MIL/MM3 2.54 MIL/MM3 Hemoglobin 9.5 GM/DL 8.3 GM/DL 6.9 GM/DL Hematocrit 28.4 % 24.9 % 20.7 % Mean Corpuscular Volume 81.3 FL 80.5 FL 81.6 FL Mean Corpuscular Hemoglobin 27.1 PG 26.8 PG 27.2 PG Mean Corpuscular Hemoglobin Concent 33.4 % 33.3 % 33.3 % Red Cell Distribution Width 15.1 % 15.1 % 15.0 % Platelet Count 477 TH/MM3 397 TH/MM3 298 TH/MM3 Mean Platelet Volume 6.7 FL 6.8 FL 6.8 FL Neutrophils (%) (Auto) 90.8 % 90.4 % Lymphocytes (%) (Auto) 3.9 % 6.2 % Monocytes (%) (Auto) 5.0 % 3.2 % Eosinophils (%) (Auto) 0.0 % 0.0 % Basophils (%) (Auto) 0.3 % 0.2 % Neutrophils # (Auto) 20.9 TH/MM3 11.3 TH/MM3 Lymphocytes # (Auto) 0.9 TH/MM3 0.8 TH/MM3 Monocytes # (Auto) 1.1 TH/MM3 0.4 TH/MM3 Eosinophils # (Auto) 0.0 TH/MM3 0.0 TH/MM3 Basophils # (Auto) 0.1 TH/MM3 0.0 TH/MM3 CBC Comment DIFF FINAL DIFF FINAL Differential Comment Laboratory Tests Test 05/19/17 00:35 05/19/17 03:25 05/20/17 04:30 Blood Urea Nitrogen 9 MG/DL 5 MG/DL Creatinine 0.96 MG/DL 0.62 MG/DL Random Glucose 163 MG/DL 105 MG/DL Total Protein 8.4 GM/DL Albumin 2.4 GM/DL Calcium Level 9.2 MG/DL 8.2 MG/DL Magnesium Level 1.6 MG/DL Alkaline Phosphatase 107 U/L Aspartate Amino Transf (AST/SGOT) 16 U/L Alanine Aminotransferase (ALT/SGPT) 19 U/L Total Bilirubin 0.7 MG/DL Sodium Level 131 MEQ/L 137 MEQ/L Potassium Level 4.1 MEQ/L 3.3 MEQ/L Chloride Level 94 MEQ/L 106 MEQ/L Carbon Dioxide Level 25.9 MEQ/L 21.8 MEQ/L Anion Gap 11 MEQ/L 9 MEQ/L Estimat Glomerular Filtration Rate 59 ML/MIN 98 ML/MIN Total Creatine Kinase 25 U/L Troponin I LESS THAN 0.02 NG/ML B-Type Natriuretic Peptide 45 PG/ML Lactic Acid Level 1.6 mmol/L Microbiology Date/Time Source Procedure Growth Status 05/19/17 03:25 Blood Peripheral Aerobic Blood Culture Pending Received 05/19/17 03:25 Blood Peripheral Anaerobic Blood Culture Pending Received 05/19/17 03:20 Blood Peripheral Aerobic Blood Culture Pending Received 05/19/17 03:20 Blood Peripheral Anaerobic Blood Culture Pending Received 05/19/17 09:44 Sputum Expectorated Sputum Gram Stain - Final Resulted 05/19/17 09:44 Sputum Expectorated Sputum Sputum Culture Pending Resulted 05/19/17 00:35 Nasal Aspirate Influenza Types A,B Antigen (GARCÍA) - Final NEGATIVE FOR FLU A AND B ANTIGEN.... Complete Imaging Last Impressions Chest CT 05/19/17 0146 Signed Impressions: Service Date/Time: Friday, May 19, 2017 02:13 - CONCLUSION: Pulmonary embolism. Posterior left lung base empyema and adjacent cavitary pneumonia. Incompletely seen inflammatory changes and air in the left retroperitoneum. Jared Mosqueda MD Chest X-Ray 05/19/17 0005 Signed Impressions: Service Date/Time: Friday, May 19, 2017 01:05 - CONCLUSION: Abnormal chest appearance Jared Mosqueda MD Abdomen/Pelvis CT 05/19/17 0000 Signed Impressions: Service Date/Time: Friday, May 19, 2017 15:21 - CONCLUSION: 1. Inflammatory stranding in the retroperitoneum appears to originate in the deep pelvis adjacent to the ring of juan antonio at the previously surgerized rectosigmoid junction and tracks cephalad into the left pararenal space, posterior to the left paracolic gutter and just posterior to the gastric cardia. 2. I believe the inflammatory changes in the retroperitoneum are now contiguous with the left pleural space and the patient has now developed a small empyema with an associated cavitary pneumonic process. 3. Stable small pericardial effusion. 4. Findings a colonic surgery the right surgical juan antonio at the rectosigmoid junction. Colostomy in the left periumbilical distribution. Glen Bo MD Physical Exam GENERAL: Thin built, fairly well-developed patient, in no apparent distress. SKIN: No rashes, ecchymoses or lesions. Cool and dry. HEAD: Atraumatic. Normocephalic. No temporal or scalp tenderness. EYES: Pupils equal round and reactive. Extraocular motions intact. No scleral icterus. No injection or drainage. ENT: Nose without bleeding, purulent drainage or septal hematoma. Throat without erythema, tonsillar hypertrophy or exudate. Uvula midline. Airway patent. NECK: Trachea midline. Supple, nontender, no meningeal signs. CARDIOVASCULAR: HS audible. RESPIRATORY: Left basilar crackles. Decreased AE left base > right. GASTROINTESTINAL: Abdomen soft, non-tender, nondistended. Colostomy bag with no e/o infection. Surgical site ok/ MUSCULOSKELETAL: Extremities without clubbing, cyanosis, or edema. NEUROLOGICAL: Awake and alert. Non focal exam Psych cooperative IV line sites with no e.o infection. Assessment & Plan Remarks Possible Sepsis present on admission (fever, leucocytosis, source: pneumonia) Pneumonia: CAP vs flu vs possible HCAP Possible the Empyema and intra abd process are related. ? thru a diaphragmatic defect. PE. Diverting colostomy Recent history of diverticulitis with perforation Recs Continue Zosyn IV Continue IV Vanco pharmacy consult (target 15-20) for possible post flu MRSA pneumonia. Continue Azithro oral. Continue Tamiflu. samira RN to obtain Resp panel for Influenza PCR. Pleural fluid studies and cultures entered by . RN to notify IR. Follow cultures Follow clinically. samira RN Samira Patient Julisa Tejeda MD May 20, 2017 10:42
[2017-05-20] MEDS: VANCOMYCIN 1,000 MG/NS 250 ML IV SCH ×2 (11:50)
[2017-05-20] MEDS ORDERED: MIDAZOLAM HCL 5 MG/5 ML VIAL ONE (14:37)
[2017-05-20] MEDS ORDERED: fentaNYL CITRATE 250 MCG/5 ML AMP ONE (14:37)
--- NOTE | 2017-05-20 16:44 | PD.RAD ---
Post CT Procedure Prog Note Pre Procedure Diagnosis: (1) Cavitary pneumonia (2) Pulmonary embolism Post Procedure Diagnosis: (1) Empyema Procedure Date: May 20, 2017 Supervising Radiologist: Khurram Campuzano Anesthesia: Conscious Sedation Plan of Activity Patient to Unit: ROPU Patient Condition: Good See PACS Report for procedural detail/treatment Khurram Campuzano MD May 20, 2017 16:44
--- NOTE | 2017-05-20 16:46 | MB ---
cc: Dhara Gonzalez DATE: 05/20/2017 HISTORY OF PRESENT ILLNESS: A 62-year-old female with history of diverticulitis, perforated colon, status post diverting colostomy by Dr. Cárdenas in 03/2017 continued to have general weakness. She reported having a cough with some fever and shortness of breath about 2-3 days prior to admission. She was admitted and had a CT chest, which showed positive for pulmonary emboli, posterior left lung base empyema, and adjacent cavitary pneumonia. They also did an abdominal and pelvic CT, which showed some inflammatory stranding and air in the left retroperitoneum. The patient states that her colostomy has been functioning well. We were consulted to secondary to possible empyema; however, she is currently scheduled to go to interventional radiology for thoracentesis and/or placement of a pigtail catheter for drainage. Fluid studies will be sent at that time. PAST MEDICAL HISTORY: Anxiety, asthma, recurrent abdominal pain, hiatal hernia, hypertension, and diverticulitis. PAST SURGICAL HISTORY: Include EGD, colonoscopy, hysterectomy, tubal ligation, and bilateral knee replacement. She also had a diverting colostomy in 03/2017. ALLERGIES: SULFA AND TRIMETHOPRIM. HOME MEDICATIONS: 1. Zyrtec 2. Losartan. 3. Percocet. 4. Clonazepam. 5. Trazodone. 6. Potassium. 7. Singulair. 8. Carafate. 9. Protonix. 10. Reglan. FAMILY HISTORY: Father at 62 of colon cancer, had cancer prior to that. Mother had some form of heart disease and hypertension. SOCIAL HISTORY: The patient is a . Lives in an apartment. No tobacco. Occasional marijuana. Rare alcohol. Has 3 children. Lives alone in an apartment. 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 REVIEW OF SYSTEMS: As above in the HPI, other 12 systems unremarkable. PHYSICAL EXAMINATION: VITAL SIGNS: Blood pressure 110/60, heart rate of 105, temperature max 99.2. GENERAL: This is a well-developed female, thin, in no apparent distress. HEENT: Head is normocephalic, atraumatic. Pupils equal and reactive. Oral mucosa pink, moist. NECK: Supple. No JVD. HEART: Sounds S1, S2; slightly tachycardic. LUNGS: She has got some crackles in the left bases, more diminished in the left versus the right. No audible wheezing at present. ABDOMEN: Soft, nontender. She has a colostomy bag and the stoma is pink, draining liquid brownish drainage. EXTREMITIES: No cyanosis, clubbing, or edema. LABORATORY DATA: Shows hemoglobin 6.9 and 20. She is currently receiving packed RBCs. White cell count of 12, down from 23,000. Platelet count of 298. Sodium 137, potassium 3.3, BUN of 5, creatinine 0.62, lactic acid 1.6. INR 1.4. MRSA nondetected. Microbiology: Sputum shows gram-negative rods. Blood cultures: No growth in 24 hours. Negative influenza A and B. Stool Hemoccult pending. RADIOLOGICAL EXAMS: As above. ASSESSMENT AND PLAN: Again, this is a 62-year-old female with recent diverticulitis, requiring a diverting colostomy by Dr. Cárdenas in 03/2017, admitted with sepsis on admission, community-acquired versus possible healthcare-acquired pneumonia, questionable empyema and related to intra-abdominal process via the diaphragm affect and recent colostomy. Antibiotics as per Infectious Disease. She is to undergo drainage of the pleural fluid and cultures and studies pending at this time. No surgical intervention unless warranted. We will await the cultures and studies. SIMON Navarro MD JRT/WALI , 04:22 PM , 04:44 PM
--- NOTE | 2017-05-20 17:05 | RADRPT ---
EXAM DATE/TIME: 05/20/2017 16:14 [facility] COMPARISON: No previous studies available for comparison. INDICATIONS : 62-year-old female with history of suspected dissecting perforated diverticulitis to the left subdiap hragmatic region with interval development of cavitary pneumonia and small subpulmonic empyema. CT gu ided drainage of the empyema has been requested. SEDATION TIME: 20 minutes MEDICATION(S): 1.) 1.5 mg midazolam (Versed) IV 2.) 75 mcg fentanyl (Sublimaze) IV DEVICE(S): 1.) 10 Fr Skater FLUID: Total volume of 30 cc of cloudy, yellow fluid was removed. Fluid was sent for laboratory ordered studies. MEDICAL HISTORY : Hypertension. Chronic obstructive pulmonary disease. Hernia, hiatal. SURGICAL HISTORY : Hysterectomy. ENCOUNTER: Initial ACUITY: 1 day PAIN SCORE: 3/10 LOCATION: Left chest PROCEDURE: 1.) Conscious sedation with continuous EKG and oximetry monitoring. 2.) EKG and oximetry remained stable throughout the procedure. PROCEDURE : 1. CT guided chest tube placement. 2. Conscious sedation with continuous EKG and oximetry monitoring. The risks, benefits and alternatives to the procedure were explained and verbal and written consent w as obtained. Using automated exposure control and adjustment of the mA and/or kV according to patient size, radiation dose was kept as low as reasonably achievable to obtain optimal diagnostic quality i mages. The site was prepped in sterile fashion. Full sterile technique was used, including cap, ma sk, sterile gloves and gown and a large sterile sheet. Hand hygiene and 2% chlorhexidine and/or beta dine/alcohol prep was utilized per protocol for cutaneous antisepsis. The skin and subcutaneous tiss ues were infiltrated with local anesthetic solution. DICOM format image data is available electronic ally for review and comparison. Using CT guidance the prescribed site was localized. Drainage was performed using the prescribed cat heter The patient tolerated the procedure well and there were no complications. Conscious sedation was per formed with the prescribed dosages and duration as above in the presence of an independent trained ra diology nurse to assist in the monitoring of the patient. EKG and oximetry remained stable throughou t the procedure. The patient tolerated the procedure well and there were no complications. The patient was sent to pos t anesthesia recovery in stable condition. CONCLUSION: 1. Uncomplicated CT-guided placement of 10 Luxembourgish drainage catheter into small left-sided subpulmonic empyema. Approximately 30 cc of purulent fluid was removed immediately following catheter placement and large sample submitted for laboratory analysis per request. Khurram Campuzano MD on May 20, 2017 at 17:01 Board Certified Radiologist. This report was verified electronically.
[2017-05-20 19:36] LABS: GLUCOSE,PLEURAL FLUID 4 MG/DL
[2017-05-20 19:46] LABS: TOTAL PROTEIN,PLEURAL FLUID 4.3 GM/DL
[2017-05-20] MEDS: ACETAMINOPHEN/HYDROcodone 325 MG/7.5 MG TAB PO PRN (20:50)
[2017-05-20] MEDS: traZODone HCL 50 MG TAB PO PRN (20:50)
[2017-05-20] MEDS: MONTELUKAST SODIUM 10 MG TAB PO SCH (20:50)
--- NOTE | 2017-05-20 21:22 | HHI.PR ---
Subjective Remarks C/R Surg temp down, VSS abscess drained selina PO Objective - Vital Signs Date Time Temp Pulse Resp B/P (MAP) Pulse Ox O2 Delivery O2 Flow Rate FiO2 05/20/17 20:24 95 Nasal Cannula 2.00 05/20/17 18:00 109 05/20/17 18:00 25 104/64 (77) 05/20/17 16:58 99.5 05/20/17 09:33 21 Result Diagram: 05/20/17 0753 05/20/17 0430 Objective Remarks PE alert Abd - soft, flat, drain serous A/P Assessment and Plan Imp: tx PRBC OOB check cultures Magen Cárdenas MD May 20, 2017 21:22
[2017-05-20 21:59] LABS: PLEURAL FLUID LYMPHS 0 %; PLEURAL FLUID POLYS (SEGS) 100 %; PLEURAL FLUID RBC 74844 /MM3 (0-0); PLEURAL FLUID WBC 74785 /MM3 (0-10)
[2017-05-21] VITALS (50 sets, daily range): BP systolic 84–128; BP diastolic 51–86; PULSE 76–123; RESP 15–53; TEMP 98.7–99; O2SAT 91–100
[2017-05-21] MEDS: VANCOMYCIN 1,000 MG/NS 250 ML IV SCH ×6 (01:00→23:55)
[2017-05-21] MEDS: SODIUM CHLOR 0.9% 1000 ML INJ 1,000 ML IV SCH (01:41)
[2017-05-21] MEDS: CHLORHEXIDINE GLUCONATE 2 % 1 PACK (2 CLOTHS)(taper/protocol) TOPICAL SCH (04:00)
[2017-05-21] MEDS: RESP: ALBUTEROL 2.5 MG/IPRATROPIUM 0.5 MG NEB (SCH) INH ×4 (04:05→21:45)
[2017-05-21] MEDS: PIPERACIL-TAZO 3.375 GM PREMIX 50 ML IV SCH ×4 (05:00→22:13)
[2017-05-21] MEDS: HEPARIN-D5W 25,000 U/250 ML 250 ML IV PRN (05:28)
--- NOTE | 2017-05-21 05:49 | RADRPT ---
EXAM DATE/TIME: 05/21/2017 02:57 [facility] COMPARISON: CT ASSISTED ABSCESS DRAIN, May 20, 2017, 16:14. CHEST SINGLE AP, May 19, 2017, 1:05. INDICATIONS : Short of breath. MEDICAL HISTORY : Hypertension. Gastroesophageal reflux disease. Diverticulitis. COPD SURGICAL HISTORY : Colon resection. Colostomy. Hysterectomy. Bilateral knee arthroplasty ENCOUNTER: Subsequent ACUITY: 3 days PAIN SCORE: 0/10 LOCATION: Bilateral chest FINDINGS: Pigtail thoracostomy tube overlies the left lung base. Left lung base infiltrate persists. Cardiac co ntours are stable accounting for differences in technique and projection. CONCLUSION: Pigtail thoracostomy tube in place. No pneumothorax Jared Mosqueda MD on May 21, 2017 at 5:45 Board Certified Radiologist. This report was verified electronically.
[2017-05-21 05:55] LABS: HEMATOCRIT 25.4 % (35.0-46.0); HEMOGLOBIN 8.6 GM/DL (11.6-15.3)
[2017-05-21] MEDS: PANTOPRAZOLE SOD 40 MG DELAYED RELEASE TAB PO SCH (07:41)
[2017-05-21] MEDS: AZITHROMYCIN 250 MG TAB PO SCH (07:41)
[2017-05-21] MEDS: ACETAMINOPHEN/HYDROcodone 325 MG/7.5 MG TAB PO PRN ×3 (07:41→22:16)
[2017-05-21] MEDS: clonazePAM 1 MG TAB PO SCH (07:41)
[2017-05-21] MEDS: OSELTAMIVIR PHOSPHATE 75 MG CAP PO SCH (07:42)
[2017-05-21] MEDS: CETIRIZINE HCL 10 MG TAB PO SCH (07:43)
--- NOTE | 2017-05-21 08:27 | HHI.PR ---
Subjective Remarks breathing better after chest tube. no bleeding overnight. Objective Vitals heart reg lung clear anteriorly left chest tube abd s/nt/bs ext no edema Vital Signs Date Time Temp Pulse Resp B/P (MAP) Pulse Ox O2 Delivery O2 Flow Rate FiO2 05/21/17 08:08 99 Nasal Cannula 2.00 05/21/17 06:00 89 05/21/17 04:00 79 05/21/17 04:00 98.8 79 20 84/56 (65) 98 05/21/17 03:52 97 Nasal Cannula 2.00 05/21/17 02:00 76 05/21/17 00:36 98 Nasal Cannula 2.00 05/21/17 00:00 98.7 91 19 95/57 (70) 94 05/21/17 00:00 91 05/20/17 22:00 100 05/20/17 20:24 95 Nasal Cannula 2.00 05/20/17 20:00 98.8 108 22 109/70 (83) 98 05/20/17 20:00 108 05/20/17 19:00 97 Nasal Cannula 2.00 05/20/17 18:00 109 05/20/17 18:00 109 25 104/64 (77) 94 05/20/17 17:28 180 17 104/64 (77) 96 05/20/17 16:58 99.5 102 23 101/65 (77) 98 05/20/17 16:43 99.9 106 25 113/72 (86) 100 05/20/17 12:51 99.2 102 18 95/55 96 05/20/17 12:35 99.1 105 24 95/55 96 05/20/17 12:00 99.6 109 26 95/55 (68) 96 05/20/17 12:00 109 05/20/17 10:15 99.6 113 27 110/61 96 05/20/17 10:00 114 05/20/17 09:47 99.5 113 16 108/66 94 05/20/17 09:33 94 21 Result Diagram: 05/21/17 0500 05/20/17 0430 A/P Problem List: (1) Cavitary pneumonia ICD Codes: J18.9 - Pneumonia, unspecified organism; J98.4 - Other disorders of lung Status: Acute Plan: admitted in . Had perforated diverticulitis underwent proctosigmoid resection on 03/25. stool filled cavity noted. ostomy. 03/25 CT abd/pelvis..1. Extensive free intraperitoneal and retroperitoneal air. There is also air surrounding the distal esophagus within the mediastinum. The findings are suggestive of perforated viscus until proven otherwise. Possibilities include perforated diverticulitis seems most likely. Inflammatory changes and fluid surround the rectosigmoid colon which would likely represent the site of perforation. Air surrounding the distal esophagus raises the possibility of distal esophageal rupture although this seems less likely with large amount of air within the abdomen and pelvis but should be ruled out if the patient has recent history of forceful vomiting. 03/30 CT a/p Status post colostomy with residual small fluid collections identified within the perirectal space. A drain is present within this region. There is persistent air tracking along the mesentery of the left abdomen and left upper quadrant which may be residual from the prior area secondary to bowel perforation. There is a single segment of concerning small bowel loop within the left upper quadrant which appears to demonstrate wall thickening. Enlarging left-sided pleural effusion and mildly enlarged pericardial effusion which are likely reactive.. 05/18 CT chest : Incompletely seen indurated changes in the left retroperitoneum and air are present adjacent to the pancreatic body and left adrenal gland.. Pulmonary embolism. Posterior left lung base empyema and adjacent cavitary pneumonia. Incompletely seen inflammatory changes and air in the left retroperitoneum 05/19 CT abdomen/pelvis: 1. Inflammatory stranding in the retroperitoneum appears to originate in the deep pelvis adjacent to the ring of juan antonio at the previously surgerized rectosigmoid junction and tracks cephalad into the left pararenal space, posterior to the left paracolic gutter and just posterior to the gastric cardia. 2. I believe the inflammatory changes in the retroperitoneum are now contiguous with the left pleural space and the patient has now developed a small empyema with an associated cavitary pneumonic process. 3. Stable small pericardial effusion. 4. Findings a colonic surgery the right surgical juan antonio at the rectosigmoid junction. Colostomy in the left periumbilical distribution. IMP: -Left cavitary pneumonia/empyema. concern for fistula connection tracking up from inflammatory stranding in the retroperitoneum which appears to originate in the deep pelvis adjacent to the ring of juan antonio at the previously surgerized rectosigmoid junction. Patient appeared septic on arrival. ....05/20: Uncomplicated CT-guided placement of 10 Maltese drainage catheter into small left-sided subpulmonic empyema. Approximately 30 cc of purulent fluid was removed immediately following catheter placement and large sample submitted for laboratory analysis ....4/2 sputum culture e.coli 2. left pulmonary embolism 3. acute and chronic anemia. heme positive stool. no active bleeding noted s/p 2 units blood 05/20 4. hypokalemia cont heparin gtt and monitor for signs of bleeding prbc as needed cont ivf repeat bmp pending. cont abx with zosyn/vanco/azithro/tamiflu per ID..ID following . f/u blood cx Pt being monitored in ICU as she is critically ill and has potential for acute deterioration PT consult (2) Pulmonary embolism ICD Codes: I26.99 - Other pulmonary embolism without acute cor pulmonale Status: Acute (3) Anemia ICD Codes: D64.9 - Anemia, unspecified Status: Acute (4) Anxiety ICD Codes: F41.9 - Anxiety disorder, unspecified Status: Chronic (5) Hypokalemia ICD Codes: E87.6 - Hypokalemia Status: Acute (6) Colostomy status ICD Codes: Z93.3 - Colostomy status Status: Chronic Problem Qualifiers (1) Pulmonary embolism: Qualified Codes: I26.99 - Other pulmonary embolism without acute cor pulmonale Jonathan Redding MD May 21, 2017 08:27
[2017-05-21] MEDS: SODIUM CHLORIDE 0.9% FLUSH 10 ML FLUSH IV FLUSH SCH ×2 (09:00→21:27)
[2017-05-21] MEDS: LORazepam 2 MG/ML VIAL IV PUSH PRN ×3 (09:47→22:13)
--- NOTE | 2017-05-21 11:14 | HHI.IDPN ---
Subjective Subjective Remarks is a 62 y/o CF with PMHx of Diverticulitis and perforated colon who is s.p diverting colostomy by in Mar 2017. Patient reports that since she was discharged she really has not felt a 100%. She continues to have generalized weakness. She denies any pneumonia like symptoms on discharge. She reports approx 2-3 days [employer] she started having cough with expectoration, shortness of breath, and last night she had a temp of 103 F. Due to this reason she presented to the hospital. She denies any flu like symptoms or exposure to persons with TB. With this background she was admitted to the hospital. She underwent a CT chest and was found to a PE and cavitary pneumonia. She is started on empiric antibiotics. Flu antigen is negative. Blood cultures and sputum cultures are pending at present time. ID consulted for evaluation and Mment of Cavitary pneumonia. Overnight events reviewed Low grade fevers. No rash No diarrhea Less cough PE and empyema on CT. CTS following. CRS following. Antibiotics Zosyn IV Vanco IV Tamiflu oral. Azithro oral. Lines Line sites with no e.o infection Past Medical History Past Medical History Anxiety Asthma Recurrent abdominal pain Hiatal hernia Hypertension Questionable irritable bowel syndrome Past Surgical History EGD and colonoscopy done February 2016 revealed mild gastritis Hysterectomy Tubal ligation Bilateral knee replacement Allergies: Coded Allergies: Sulfa (Sulfonamide Antibiotics) (Verified Allergy, Severe, RASH, 05/18/17) sulfamethoxazole (Verified Allergy, Severe, RASH, 05/18/17) trimethoprim (Verified Allergy, Severe, RASH, 05/18/17) Objective . Vital Signs Date Time Temp Pulse Resp B/P (MAP) Pulse Ox O2 Delivery O2 Flow Rate FiO2 05/21/17 08:08 99 Nasal Cannula 2.00 05/21/17 08:00 98.8 78 20 122/86 (98) 98 05/21/17 08:00 108 05/21/17 07:00 97 Nasal Cannula 2.00 05/21/17 06:00 89 05/21/17 04:00 79 05/21/17 04:00 98.8 79 20 84/56 (65) 98 05/21/17 03:52 97 Nasal Cannula 2.00 05/21/17 02:00 76 05/21/17 00:36 98 Nasal Cannula 2.00 05/21/17 00:00 98.7 91 19 95/57 (70) 94 05/21/17 00:00 91 05/20/17 22:00 100 05/20/17 20:24 95 Nasal Cannula 2.00 05/20/17 20:00 98.8 108 22 109/70 (83) 98 05/20/17 20:00 108 05/20/17 19:00 97 Nasal Cannula 2.00 05/20/17 18:00 109 05/20/17 18:00 109 25 104/64 (77) 94 05/20/17 17:28 180 17 104/64 (77) 96 05/20/17 16:58 99.5 102 23 101/65 (77) 98 05/20/17 16:43 99.9 106 25 113/72 (86) 100 05/20/17 12:51 99.2 102 18 95/55 96 05/20/17 12:35 99.1 105 24 95/55 96 05/20/17 12:00 99.6 109 26 95/55 (68) 96 05/20/17 12:00 109 . Laboratory Tests Test 05/20/17 07:53 05/21/17 05:00 White Blood Count 12.5 TH/MM3 Red Blood Count 2.54 MIL/MM3 Hemoglobin 6.9 GM/DL 8.6 GM/DL Hematocrit 20.7 % 25.4 % Mean Corpuscular Volume 81.6 FL Mean Corpuscular Hemoglobin 27.2 PG Mean Corpuscular Hemoglobin Concent 33.3 % Red Cell Distribution Width 15.0 % Platelet Count 298 TH/MM3 Mean Platelet Volume 6.8 FL Neutrophils (%) (Auto) 90.4 % Lymphocytes (%) (Auto) 6.2 % Monocytes (%) (Auto) 3.2 % Eosinophils (%) (Auto) 0.0 % Basophils (%) (Auto) 0.2 % Neutrophils # (Auto) 11.3 TH/MM3 Lymphocytes # (Auto) 0.8 TH/MM3 Monocytes # (Auto) 0.4 TH/MM3 Eosinophils # (Auto) 0.0 TH/MM3 Basophils # (Auto) 0.0 TH/MM3 CBC Comment DIFF FINAL Differential Comment Laboratory Tests Test 05/20/17 04:30 05/21/17 10:20 Blood Urea Nitrogen 5 MG/DL Creatinine 0.62 MG/DL Random Glucose 105 MG/DL Calcium Level 8.2 MG/DL Sodium Level 137 MEQ/L Potassium Level 3.3 MEQ/L Chloride Level 106 MEQ/L Carbon Dioxide Level 21.8 MEQ/L Anion Gap 9 MEQ/L Estimat Glomerular Filtration Rate 98 ML/MIN Microbiology Date/Time Source Procedure Growth Status 05/19/17 03:25 Blood Peripheral Aerobic Blood Culture - Preliminary NO GROWTH IN 2 DAYS Resulted 05/19/17 03:25 Blood Peripheral Anaerobic Blood Culture - Preliminary NO GROWTH IN 2 DAYS Resulted 05/19/17 03:20 Blood Peripheral Aerobic Blood Culture - Preliminary NO GROWTH IN 2 DAYS Resulted 05/19/17 03:20 Blood Peripheral Anaerobic Blood Culture - Preliminary NO GROWTH IN 2 DAYS Resulted 05/20/17 16:50 Fluid Pleural Fluid Fungal Smear - Final NO FUNGAL ELEMENTS SEEN. Resulted 05/20/17 16:50 Fluid Pleural Fluid Fungal Culture Pending Resulted 05/20/17 16:50 Fluid Pleural Fluid Acid Fast Stain Pending Received 05/20/17 16:50 Fluid Pleural Fluid Mycobacterial Culture Pending Received 05/20/17 16:50 Fluid Pleural Fluid Gram Stain - Final Resulted 05/20/17 16:50 Fluid Pleural Fluid Body Fluid Culture Pending Resulted 05/20/17 11:14 Stool Stool Stool Occult Blood (GARCÍA) - Final HEMOCCULT POSITIVE Complete 05/19/17 09:44 Sputum Expectorated Sputum Gram Stain - Final Complete 05/19/17 09:44 Sputum Culture - Final Escherichia Coli Complete 05/19/17 00:35 Nasal Aspirate Influenza Types A,B Antigen (GARCÍA) - Final NEGATIVE FOR FLU A AND B ANTIGEN.... Complete Imaging Last Impressions Chest CT 05/19/17 0146 Signed Impressions: Service Date/Time: Friday, May 19, 2017 02:13 - CONCLUSION: Pulmonary embolism. Posterior left lung base empyema and adjacent cavitary pneumonia. Incompletely seen inflammatory changes and air in the left retroperitoneum. Jared Mosqueda MD Chest X-Ray 05/19/17 0005 Signed Impressions: Service Date/Time: Friday, May 19, 2017 01:05 - CONCLUSION: Abnormal chest appearance Jared Mosqueda MD Abdomen/Pelvis CT 05/19/17 0000 Signed Impressions: Service Date/Time: Friday, May 19, 2017 15:21 - CONCLUSION: 1. Inflammatory stranding in the retroperitoneum appears to originate in the deep pelvis adjacent to the ring of juan antonio at the previously surgerized rectosigmoid junction and tracks cephalad into the left pararenal space, posterior to the left paracolic gutter and just posterior to the gastric cardia. 2. I believe the inflammatory changes in the retroperitoneum are now contiguous with the left pleural space and the patient has now developed a small empyema with an associated cavitary pneumonic process. 3. Stable small pericardial effusion. 4. Findings a colonic surgery the right surgical juan antonio at the rectosigmoid junction. Colostomy in the left periumbilical distribution. Glen Bo MD Physical Exam GENERAL: Thin built, fairly well-developed patient, in no apparent distress. SKIN: No rashes, ecchymoses or lesions. Cool and dry. HEAD: Atraumatic. Normocephalic. No temporal or scalp tenderness. EYES: Pupils equal round and reactive. Extraocular motions intact. No scleral icterus. No injection or drainage. ENT: Nose without bleeding, purulent drainage or septal hematoma. Throat without erythema, tonsillar hypertrophy or exudate. Uvula midline. Airway patent. NECK: Trachea midline. Supple, nontender, no meningeal signs. CARDIOVASCULAR: HS audible. RESPIRATORY: Left basilar crackles. Decreased AE left base > right. Left side CT in place with serous to yellow brown discharge. GASTROINTESTINAL: Abdomen soft, non-tender, nondistended. Colostomy bag with no e/o infection. Surgical site ok/ MUSCULOSKELETAL: Extremities without clubbing, cyanosis, or edema. NEUROLOGICAL: Awake and alert. Non focal exam Psych cooperative IV line sites with no e.o infection. Assessment & Plan Remarks Possible Sepsis present on admission (fever, leucocytosis, source: pneumonia) Pneumonia: E.coli LUQ and retroperitoneal Peritonitis per imaging per samira Tellez Radiology Possible the Empyema and intra abd process are related. ? thru a diaphragmatic defect. E.coli Peritonitis as well as GPR ID pending. PE. Diverting colostomy Recent history of diverticulitis with perforation Recs Continue Zosyn IV Continue IV Vanco pharmacy consult (target 15-20) DC Azithro DC Tamiflu. Follow cultures Follow clinically. samira hogan CTS and . Left Message for to see if any Fluoroscopic studies to determine phrenic nerve palsy or size of diaphragmatic defect to help us quantify the extent of defect and problem. Given her PE she is currently deemed not good candidate for anaesthesia per other MDs. Patient made aware at present the plan is to treat medically based on cultures, determine the size and extent of diaphragmatic defect to help formulate a source control plan. Addendum 5:55 pm: Dw earlier today. He does not think based on imaging any major diaphgramatic defect or phrenic nerve palsy. Does however say there is ongoing inflammation in the LUQ concerning for peritonitis. Julisa Tejeda MD May 21, 2017 11:14
[2017-05-21 11:15] LABS: BICARBONATE 24.3 MEQ/L (21.0-32.0); CREATININE 0.72 MG/DL (0.50-1.00)
--- NOTE | 2017-05-21 12:47 | PD.CAR.PN ---
CVT Progress Note Subjective/Hospital Course: s/p percutaneous drainage of subpulmonic collection. The fluid appears to be adequately drained. No surgical intervention needed at this time. Objective: Vital Signs Date Time Temp Pulse Resp B/P (MAP) Pulse Ox O2 Delivery O2 Flow Rate FiO2 05/21/17 12:00 103 05/21/17 10:00 108 05/21/17 08:08 99 Nasal Cannula 2.00 05/21/17 08:00 98.8 78 20 122/86 (98) 98 05/21/17 08:00 108 05/21/17 07:00 97 Nasal Cannula 2.00 05/21/17 06:00 89 05/21/17 04:00 79 05/21/17 04:00 98.8 79 20 84/56 (65) 98 05/21/17 03:52 97 Nasal Cannula 2.00 05/21/17 02:00 76 05/21/17 00:36 98 Nasal Cannula 2.00 05/21/17 00:00 98.7 91 19 95/57 (70) 94 05/21/17 00:00 91 05/20/17 22:00 100 05/20/17 20:24 95 Nasal Cannula 2.00 05/20/17 20:00 98.8 108 22 109/70 (83) 98 05/20/17 20:00 108 05/20/17 19:00 97 Nasal Cannula 2.00 05/20/17 18:00 109 05/20/17 18:00 109 25 104/64 (77) 94 05/20/17 17:28 180 17 104/64 (77) 96 05/20/17 16:58 99.5 102 23 101/65 (77) 98 05/20/17 16:43 99.9 106 25 113/72 (86) 100 05/20/17 12:51 99.2 102 18 95/55 96 Labs: Laboratory Tests Test 05/21/17 03:12 05/21/17 05:00 05/21/17 10:20 Activated Partial Thromboplast Time 46.4 SEC (24.3-30.1) 39.0 SEC (24.3-30.1) Hemoglobin 8.6 GM/DL (11.6-15.3) Hematocrit 25.4 % (35.0-46.0) Blood Urea Nitrogen 5 MG/DL (7-18) Creatinine 0.72 MG/DL (0.50-1.00) Random Glucose 151 MG/DL (74-106) Calcium Level 8.0 MG/DL (8.5-10.1) Sodium Level 140 MEQ/L (136-145) Potassium Level 2.6 MEQ/L (3.5-5.1) Chloride Level 107 MEQ/L (98-107) Carbon Dioxide Level 24.3 MEQ/L (21.0-32.0) Anion Gap 9 MEQ/L (5-15) Estimat Glomerular Filtration Rate 82 ML/MIN (>89) Result Diagram: 05/21/17 0500 05/21/17 1020 Chuck Ballesteros MD May 21, 2017 12:47
[2017-05-21] MEDS: POTASSIUM CHLORIDE 20 MEQ CONTROLLED RELEASE TAB PO SCH ×3 (13:30→21:27)
[2017-05-21] MEDS: ONDANSETRON HCL 4 MG/2 ML VIAL IV PUSH PRN ×2 (16:24→22:13)
[2017-05-21] MEDS: MONTELUKAST SODIUM 10 MG TAB PO SCH (21:27)
[2017-05-21] MEDS: traZODone HCL 50 MG TAB PO PRN (22:16)
--- NOTE | 2017-05-21 22:29 | HHI.PR ---
Subjective Remarks C/R Surg temp down, VSS abscess drained - little output selina PO, better appetite Objective - Vital Signs Date Time Temp Pulse Resp B/P (MAP) Pulse Ox O2 Delivery O2 Flow Rate FiO2 05/21/17 22:00 116 05/21/17 21:47 99 05/21/17 20:26 Nasal Cannula 2.00 05/21/17 20:00 98.7 22 111/66 (81) 05/20/17 09:33 21 Result Diagram: 05/21/17 0500 05/21/17 1020 Objective Remarks PE alert Abd - soft, flat, stoma functioning A/P Assessment and Plan Imp: OOB check cultures - E. coli cont PT Magen Cárdenas MD May 21, 2017 22:29
[2017-05-22] VITALS (14 sets, daily range): BP systolic 89–113; BP diastolic 55–85; PULSE 97–110; RESP 14–26; TEMP 98.4–98.9; O2SAT 90–98
[2017-05-22] MEDS: CHLORHEXIDINE GLUCONATE 2 % 1 PACK (2 CLOTHS)(taper/protocol) TOPICAL SCH (00:49)
[2017-05-22] MEDS: HEPARIN-D5W 25,000 U/250 ML 250 ML IV PRN ×2 (01:38→21:44)
[2017-05-22] MEDS: RESP: ALBUTEROL 2.5 MG/IPRATROPIUM 0.5 MG NEB (SCH) INH ×4 (03:30→20:08)
[2017-05-22 04:56] LABS: HEMATOCRIT 27.3 % (35.0-46.0); HEMOGLOBIN 9.2 GM/DL (11.6-15.3); MEAN CELL VOLUME 83.5 FL (80.0-100.0); MEAN CORPUSCULAR HEMOGLOBIN 28.2 PG (27.0-34.0); MEAN CORPUSCULAR HGB CONC 33.8 % (32.0-36.0); MEAN PLATELET VOLUME 7.1 FL (7.0-11.0); PLATELET COUNT 331 TH/MM3 (150-450); RED BLOOD COUNT 3.27 MIL/MM3 (4.00-5.30); RED CELL DISTRIBUTION WIDTH 15.3 % (11.6-17.2); WHITE BLOOD COUNT 9.5 TH/MM3 (4.0-11.0)
[2017-05-22 05:21] LABS: BICARBONATE 26.4 MEQ/L (21.0-32.0); CALCIUM 8.4 MG/DL (8.5-10.1); CREATININE 0.53 MG/DL (0.50-1.00)
[2017-05-22] MEDS: PIPERACIL-TAZO 3.375 GM PREMIX 50 ML IV SCH ×4 (06:15→21:19)
[2017-05-22] MEDS: ACETAMINOPHEN/HYDROcodone 325 MG/7.5 MG TAB PO PRN ×2 (06:19→15:47)
[2017-05-22] MEDS: CETIRIZINE HCL 10 MG TAB PO SCH (08:10)
[2017-05-22] MEDS: clonazePAM 1 MG TAB PO SCH (08:10)
[2017-05-22] MEDS: SODIUM CHLORIDE 0.9% FLUSH 10 ML FLUSH IV FLUSH SCH ×2 (08:10→21:18)
[2017-05-22] MEDS: PANTOPRAZOLE SOD 40 MG DELAYED RELEASE TAB PO SCH (08:10)
[2017-05-22] MEDS: LORazepam 2 MG/ML VIAL IV PUSH PRN ×2 (08:25→21:18)
--- NOTE | 2017-05-22 10:01 | HHI.PR ---
Subjective Remarks doing better. Objective Vitals heart reg lung left chest tube abd s/nt ext no edema Vital Signs Date Time Temp Pulse Resp B/P (MAP) Pulse Ox O2 Delivery O2 Flow Rate FiO2 05/22/17 08:21 96 21 05/22/17 08:00 98.8 106 26 99/63 (75) 95 05/22/17 08:00 106 05/22/17 07:00 96 05/22/17 06:00 108 05/22/17 04:00 105 05/22/17 04:00 98.9 105 25 89/55 (66) 90 05/22/17 03:31 95 05/22/17 02:00 97 05/22/17 00:39 97 Nasal Cannula 2.00 05/22/17 00:00 98.8 99 21 90/55 (67) 90 05/22/17 00:00 99 05/21/17 22:00 116 05/21/17 21:47 99 05/21/17 20:26 98 Nasal Cannula 2.00 05/21/17 20:00 101 05/21/17 20:00 98.7 101 22 111/66 (81) 98 05/21/17 19:00 98 Nasal Cannula 2.00 05/21/17 18:01 108 05/21/17 17:58 108 05/21/17 17:45 102 26 05/21/17 17:30 101 26 05/21/17 17:15 104 28 05/21/17 17:00 107 30 90/52 (65) 05/21/17 16:45 111 25 05/21/17 16:30 110 21 05/21/17 16:15 112 23 05/21/17 16:00 118 23 105/65 (78) 05/21/17 16:00 108 05/21/17 16:00 99.0 109 20 105/65 (78) 98 05/21/17 15:45 113 25 98 05/21/17 15:30 112 15 98 05/21/17 15:15 107 18 100 05/21/17 15:00 107 20 117/70 (86) 96 05/21/17 14:45 104 16 97 05/21/17 14:30 104 20 97 05/21/17 14:15 104 31 96 05/21/17 14:00 108 05/21/17 14:00 104 17 123/63 (83) 100 05/21/17 13:45 101 21 99 05/21/17 13:37 100 16 106/69 (81) 100 05/21/17 13:30 99 17 99 05/21/17 13:15 102 30 96 05/21/17 13:00 100 21 103/61 (75) 97 05/21/17 12:45 100 53 97 05/21/17 12:00 103 05/21/17 12:00 108 05/21/17 12:00 98.8 78 20 128/86 (100) 98 05/21/17 11:45 102 37 96 05/21/17 11:30 105 23 98 05/21/17 11:15 98 22 96 05/21/17 11:10 95 18 92/51 (65) 96 05/21/17 11:00 98 22 87/51 (63) 93 05/21/17 10:45 99 25 91 05/21/17 10:30 100 24 93 05/21/17 10:15 102 20 93 05/21/17 10:00 108 31 96/59 (71) 92 05/21/17 10:00 108 05/22/17 05/22/17 05/23/17 15:00 23:00 07:00 Intake Total 50 ml Balance 50 ml IV Total 50 ml Result Diagram: 05/22/17 0430 05/22/17 0430 A/P Problem List: (1) Cavitary pneumonia ICD Codes: J18.9 - Pneumonia, unspecified organism; J98.4 - Other disorders of lung Status: Acute Plan: admitted in . Had perforated diverticulitis underwent proctosigmoid resection on 03/25. stool filled cavity noted. ostomy. 03/25 CT abd/pelvis..1. Extensive free intraperitoneal and retroperitoneal air. There is also air surrounding the distal esophagus within the mediastinum. The findings are suggestive of perforated viscus until proven otherwise. Possibilities include perforated diverticulitis seems most likely. Inflammatory changes and fluid surround the rectosigmoid colon which would likely represent the site of perforation. Air surrounding the distal esophagus raises the possibility of distal esophageal rupture although this seems less likely with large amount of air within the abdomen and pelvis but should be ruled out if the patient has recent history of forceful vomiting. 03/30 CT a/p Status post colostomy with residual small fluid collections identified within the perirectal space. A drain is present within this region. There is persistent air tracking along the mesentery of the left abdomen and left upper quadrant which may be residual from the prior area secondary to bowel perforation. There is a single segment of concerning small bowel loop within the left upper quadrant which appears to demonstrate wall thickening. Enlarging left-sided pleural effusion and mildly enlarged pericardial effusion which are likely reactive.. 4/ CT chest : Incompletely seen indurated changes in the left retroperitoneum and air are present adjacent to the pancreatic body and left adrenal gland.. Pulmonary embolism. Posterior left lung base empyema and adjacent cavitary pneumonia. Incompletely seen inflammatory changes and air in the left retroperitoneum 05/19 CT abdomen/pelvis: 1. Inflammatory stranding in the retroperitoneum appears to originate in the deep pelvis adjacent to the ring of juan antonio at the previously surgerized rectosigmoid junction and tracks cephalad into the left pararenal space, posterior to the left paracolic gutter and just posterior to the gastric cardia. 2. I believe the inflammatory changes in the retroperitoneum are now contiguous with the left pleural space and the patient has now developed a small empyema with an associated cavitary pneumonic process. 3. Stable small pericardial effusion. 4. Findings a colonic surgery the right surgical juan antonio at the rectosigmoid junction. Colostomy in the left periumbilical distribution. IMP: -Left cavitary pneumonia/empyema. concern for fistula connection tracking up from inflammatory stranding in the retroperitoneum which appears to originate in the deep pelvis adjacent to the ring of juan antonio at the previously surgerized rectosigmoid junction. Patient appeared septic on arrival. ..../: Uncomplicated CT-guided placement of 10 Chinese drainage catheter into small left-sided subpulmonic empyema. Approximately 30 cc of purulent fluid was removed immediately following catheter placement and large sample submitted for laboratory analysis ....4/2 sputum culture e.coli.. 4/3 cultures from chest tube pleural space ecoli /yeast 2. left pulmonary embolism 3. acute and chronic anemia. heme positive stool. no active bleeding noted s/p 2 units blood 05/20 4. hypokalemia cont heparin gtt and monitor for signs of bleeding prbc as needed cont abx with zosyn/vanco ID..ID following . f/u blood cx Pt being monitored in ICU as she is critically ill and has potential for acute deterioration PT consult (2) Pulmonary embolism ICD Codes: I26.99 - Other pulmonary embolism without acute cor pulmonale Status: Acute (3) Anemia ICD Codes: D64.9 - Anemia, unspecified Status: Acute (4) Anxiety ICD Codes: F41.9 - Anxiety disorder, unspecified Status: Chronic (5) Hypokalemia ICD Codes: E87.6 - Hypokalemia Status: Acute (6) Colostomy status ICD Codes: Z93.3 - Colostomy status Status: Chronic Problem Qualifiers (1) Pulmonary embolism: Qualified Codes: I26.99 - Other pulmonary embolism without acute cor pulmonale Jonathan Redding MD May 22, 2017 10:01
[2017-05-22] MEDS ORDERED: PHARMACY ORDERED LAB ONE (11:45)
--- NOTE | 2017-05-22 12:16 | HHI.IDPN ---
Subjective Subjective Remarks is a 62 y/o CF with PMHx of Diverticulitis and perforated colon who is s.p diverting colostomy by in Mar 2017. Patient reports that since she was discharged she really has not felt a 100%. She continues to have generalized weakness. She denies any pneumonia like symptoms on discharge. She reports approx 2-3 days [employer] she started having cough with expectoration, shortness of breath, and last night she had a temp of 103 F. Due to this reason she presented to the hospital. She denies any flu like symptoms or exposure to persons with TB. With this background she was admitted to the hospital. She underwent a CT chest and was found to a PE and cavitary pneumonia. She is started on empiric antibiotics. Flu antigen is negative. Blood cultures and sputum cultures are pending at present time. ID consulted for evaluation and Mment of Cavitary pneumonia. Overnight events reviewed Being transferred to floor. No fevers. No rash No diarrhea Less cough PE and empyema on CT. CTS following. CRS following. Antibiotics Zosyn IV Vanco IV Lines Line sites with no e.o infection Past Medical History Past Medical History Anxiety Asthma Recurrent abdominal pain Hiatal hernia Hypertension Questionable irritable bowel syndrome Past Surgical History EGD and colonoscopy done February 2016 revealed mild gastritis Hysterectomy Tubal ligation Bilateral knee replacement Allergies: Coded Allergies: Sulfa (Sulfonamide Antibiotics) (Verified Allergy, Severe, RASH, 05/18/17) sulfamethoxazole (Verified Allergy, Severe, RASH, 05/18/17) trimethoprim (Verified Allergy, Severe, RASH, 05/18/17) Objective . Vital Signs Date Time Temp Pulse Resp B/P (MAP) Pulse Ox O2 Delivery O2 Flow Rate FiO2 05/22/17 08:21 96 21 05/22/17 08:00 98.8 106 26 99/63 (75) 95 05/22/17 08:00 106 05/22/17 07:00 96 05/22/17 06:00 108 05/22/17 04:00 105 05/22/17 04:00 98.9 105 25 89/55 (66) 90 05/22/17 03:31 95 05/22/17 02:00 97 05/22/17 00:39 97 Nasal Cannula 2.00 05/22/17 00:00 98.8 99 21 90/55 (67) 90 05/22/17 00:00 99 05/21/17 22:00 116 05/21/17 21:47 99 05/21/17 20:26 98 Nasal Cannula 2.00 05/21/17 20:00 101 05/21/17 20:00 98.7 101 22 111/66 (81) 98 05/21/17 19:00 98 Nasal Cannula 2.00 05/21/17 18:01 108 05/21/17 17:58 108 05/21/17 17:45 102 26 05/21/17 17:30 101 26 05/21/17 17:15 104 28 05/21/17 17:00 107 30 90/52 (65) 05/21/17 16:45 111 25 05/21/17 16:30 110 21 05/21/17 16:15 112 23 05/21/17 16:00 118 23 105/65 (78) 05/21/17 16:00 108 05/21/17 16:00 99.0 109 20 105/65 (78) 98 05/21/17 15:45 113 25 98 05/21/17 15:30 112 15 98 05/21/17 15:15 107 18 100 05/21/17 15:00 107 20 117/70 (86) 96 05/21/17 14:45 104 16 97 05/21/17 14:30 104 20 97 05/21/17 14:15 104 31 96 05/21/17 14:00 108 05/21/17 14:00 104 17 123/63 (83) 100 05/21/17 13:45 101 21 99 05/21/17 13:37 100 16 106/69 (81) 100 05/21/17 13:30 99 17 99 05/21/17 13:15 102 30 96 05/21/17 13:00 100 21 103/61 (75) 97 05/21/17 12:45 100 53 97 05/22/17 05/22/17 05/23/17 15:00 23:00 07:00 Intake Total 50 ml Balance 50 ml IV Total 50 ml . Laboratory Tests Test 05/21/17 05:00 05/22/17 04:30 Hemoglobin 8.6 GM/DL 9.2 GM/DL Hematocrit 25.4 % 27.3 % White Blood Count 9.5 TH/MM3 Red Blood Count 3.27 MIL/MM3 Mean Corpuscular Volume 83.5 FL Mean Corpuscular Hemoglobin 28.2 PG Mean Corpuscular Hemoglobin Concent 33.8 % Red Cell Distribution Width 15.3 % Platelet Count 331 TH/MM3 Mean Platelet Volume 7.1 FL Laboratory Tests Test 05/21/17 10:20 05/22/17 04:30 Blood Urea Nitrogen 5 MG/DL 4 MG/DL Creatinine 0.72 MG/DL 0.53 MG/DL Random Glucose 151 MG/DL 98 MG/DL Calcium Level 8.0 MG/DL 8.4 MG/DL Sodium Level 140 MEQ/L 140 MEQ/L Potassium Level 2.6 MEQ/L 3.6 MEQ/L Chloride Level 107 MEQ/L 107 MEQ/L Carbon Dioxide Level 24.3 MEQ/L 26.4 MEQ/L Anion Gap 9 MEQ/L 7 MEQ/L Estimat Glomerular Filtration Rate 82 ML/MIN 117 ML/MIN Microbiology Date/Time Source Procedure Growth Status 05/20/17 16:50 Fluid Pleural Fluid Fungal Smear - Final NO FUNGAL ELEMENTS SEEN. Resulted 05/20/17 16:50 Fluid Pleural Fluid Fungal Culture Pending Resulted 05/20/17 16:50 Fluid Pleural Fluid Acid Fast Stain - Final NO ACID FAST BACILLI SEEN Resulted 05/20/17 16:50 Fluid Pleural Fluid Mycobacterial Culture Pending Resulted 05/20/17 16:50 Fluid Pleural Fluid Gram Stain - Final Resulted 05/20/17 16:50 Body Fluid Culture - Preliminary Escherichia Coli Yeast-Id To Follow Resulted 05/20/17 11:14 Stool Stool Stool Occult Blood (GARCÍA) - Final HEMOCCULT POSITIVE Complete Imaging Last Impressions Chest CT 05/19/17 0146 Signed Impressions: Service Date/Time: Friday, May 19, 2017 02:13 - CONCLUSION: Pulmonary embolism. Posterior left lung base empyema and adjacent cavitary pneumonia. Incompletely seen inflammatory changes and air in the left retroperitoneum. Jared Mosqueda MD Chest X-Ray 05/19/17 0005 Signed Impressions: Service Date/Time: Friday, May 19, 2017 01:05 - CONCLUSION: Abnormal chest appearance Jared Mosqueda MD Abdomen/Pelvis CT 05/19/17 0000 Signed Impressions: Service Date/Time: Friday, May 19, 2017 15:21 - CONCLUSION: 1. Inflammatory stranding in the retroperitoneum appears to originate in the deep pelvis adjacent to the ring of juan antonio at the previously surgerized rectosigmoid junction and tracks cephalad into the left pararenal space, posterior to the left paracolic gutter and just posterior to the gastric cardia. 2. I believe the inflammatory changes in the retroperitoneum are now contiguous with the left pleural space and the patient has now developed a small empyema with an associated cavitary pneumonic process. 3. Stable small pericardial effusion. 4. Findings a colonic surgery the right surgical juan antonio at the rectosigmoid junction. Colostomy in the left periumbilical distribution. Glen Bo MD Physical Exam GENERAL: Thin built, fairly well-developed patient, in no apparent distress. SKIN: No rashes, ecchymoses or lesions. Cool and dry. HEAD: Atraumatic. Normocephalic. No temporal or scalp tenderness. EYES: Pupils equal round and reactive. Extraocular motions intact. No scleral icterus. No injection or drainage. ENT: Nose without bleeding, purulent drainage or septal hematoma. Throat without erythema, tonsillar hypertrophy or exudate. Uvula midline. Airway patent. NECK: Trachea midline. Supple, nontender, no meningeal signs. CARDIOVASCULAR: HS audible. RESPIRATORY: Left basilar crackles. Decreased AE left base > right. Left side CT in place with serous to yellow brown discharge. GASTROINTESTINAL: Abdomen soft, non-tender, nondistended. Colostomy bag with no e/o infection. Surgical site ok/ MUSCULOSKELETAL: Extremities without clubbing, cyanosis, or edema. NEUROLOGICAL: Awake and alert. Non focal exam Psych cooperative IV line sites with no e.o infection. Assessment & Plan Remarks Possible Sepsis present on admission (fever, leucocytosis, source: pneumonia) Pneumonia: E.coli LUQ and retroperitoneal Peritonitis per imaging per samira Tellez Radiology Possible the Empyema and intra abd process are related. ? thru a diaphragmatic defect. (E.coli and Yeast infection so far) E.coli Peritonitis as well as GPR ID pending. PE. Diverting colostomy Recent history of diverticulitis with perforation Recs Continue Zosyn IV Start Diflucan pending ID of yeast. DC IV Vanco pharmacy consult (target 15-20) Consider Incentive Spirometry Follow cultures Follow clinically. samira RN dw patient. Julisa Tejeda MD May 22, 2017 12:16
[2017-05-22] MEDS: FLUCONAZOLE 400 MG PREMIX BAG 400 ML IV SCH (15:47)
--- NOTE | 2017-05-22 16:58 | HHI.PR ---
Subjective Remarks ALERT SITTING IN BED NO DISTRESS Objective Vital Signs Date Time Temp Pulse Resp B/P (MAP) Pulse Ox O2 Delivery O2 Flow Rate FiO2 05/22/17 16:02 97 05/22/17 14:00 110 05/22/17 12:00 103 05/22/17 12:00 98.7 103 14 107/62 (77) 98 05/22/17 10:00 106 05/22/17 08:21 96 21 05/22/17 08:00 98.8 106 26 99/63 (75) 95 05/22/17 08:00 106 05/22/17 07:00 96 05/22/17 06:00 108 05/22/17 04:00 105 05/22/17 04:00 98.9 105 25 89/55 (66) 90 05/22/17 03:31 95 05/22/17 02:00 97 05/22/17 00:39 97 Nasal Cannula 2.00 05/22/17 00:00 98.8 99 21 90/55 (67) 90 05/22/17 00:00 99 05/21/17 22:00 116 05/21/17 21:47 99 05/21/17 20:26 98 Nasal Cannula 2.00 05/21/17 20:00 101 05/21/17 20:00 98.7 101 22 111/66 (81) 98 05/21/17 19:00 98 Nasal Cannula 2.00 05/21/17 18:01 108 05/21/17 17:58 108 05/21/17 17:45 102 26 05/21/17 17:30 101 26 05/21/17 17:15 104 28 05/21/17 17:00 107 30 90/52 (65) I/O 05/21/17 05/21/17 05/21/17 05/22/17 05/22/17 05/22/17 07:00 15:00 23:00 07:00 15:00 23:00 Intake Total 1460 ml 300 ml 1870 ml 467.7 ml 390 ml Output Total 20 ml 870 ml 820 ml 875 ml Balance 1440 ml 300 ml 1000 ml -352.3 ml -485 ml Intake Oral 860 ml 820 ml 240 ml IV Total 600 ml 300 ml 1050 ml 467.7 ml 150 ml Output Urine Total 850 ml 800 ml 400 ml Stool Total 450 ml Chest Tube Drainage Total 20 ml 20 ml 20 ml 25 ml # Voids 2 3 3 1 Result Diagram: 05/22/1742905/22/17429 Objective Remarks GENERAL: SKIN: Warm and dry. HEAD: Atraumatic. Normocephalic. EYES: Pupils equal and round. No scleral icterus. No injection or drainage. ENT: No nasal bleeding or discharge. Mucous membranes pink and moist. NECK: Trachea midline. No JVD. CARDIOVASCULAR: Regular rate and rhythm. RESPIRATORY: No accessory muscle use. Clear to auscultation. Breath sounds equal bilaterally. GASTROINTESTINAL: Abdomen soft, non-tender, nondistended. Hepatic and splenic margins not palpable. MUSCULOSKELETAL: Extremities without clubbing, cyanosis, or edema. No obvious deformities. NEUROLOGICAL: Awake and alert. No obvious cranial nerve deficits. Motor grossly within normal limits. Five out of 5 muscle strength in the arms and legs. Normal speech. PSYCHIATRIC: Appropriate mood and affect; insight and judgment normal. Assessment and Plan Assessment and Plan PE PNA ? EMPYEMA PLAN ANTICOAGULATION ANTIBIOTIC THERAPY Misti Chappell MD May 22, 2017 16:58
--- NOTE | 2017-05-22 17:47 | RADRPT ---
EXAM DATE/TIME: 05/22/2017 17:17 [facility] COMPARISON: CHEST EXPIRATION ONLY, May 21, 2017, 2:57. INDICATIONS : Shortness of breath. MEDICAL HISTORY : Hypertension. Gastroesophageal reflux disease. Diverticulitis. COPD SURGICAL HISTORY : Colon resection. Colostomy. Hysterectomy. Bilateral knee arthroplasty. Left side chest tube. ENCOUNTER: Subsequent ACUITY: 4 - 6 days PAIN SCORE: 0/10 LOCATION: Bilateral chest FINDINGS: The heart is normal in size. The right lung is clear. There is a small bore chest tube in place at the left lung base. There is no significant residual eff usion. There are mild atelectatic changes. No pneumothorax is seen. The bony structures are intact. There are postsurgical changes within the right clavicle. CONCLUSION: 1. Small bore chest tube at the left lung base. No significant residual effusion identified. No pneum othorax identified. Lee Salas MD on May 22, 2017 at 17:43 Board Certified Radiologist. This report was verified electronically.
[2017-05-22] MEDS: traZODone HCL 50 MG TAB PO PRN (21:19)
[2017-05-22] MEDS: MONTELUKAST SODIUM 10 MG TAB PO SCH (21:20)
--- NOTE | 2017-05-22 22:22 | HHI.PR ---
Subjective Remarks C/R Surg temp down, VSS abscess drained - little output selina PO, better appetite Objective - Vital Signs Date Time Temp Pulse Resp B/P (MAP) Pulse Ox O2 Delivery O2 Flow Rate FiO2 05/22/17 16:30 98.7 99 18 113/85 (94) 97 05/22/17 08:21 21 05/22/17 00:39 Nasal Cannula 2.00 Result Diagram: 05/22/17 0430 05/22/17 0430 Objective Remarks PE alert Abd - soft, flat, stoma functioning non-tender A/P Assessment and Plan Imp: OOB check cultures - E. coli cont PT tx to floor Magen Cárdenas MD May 22, 2017 22:22
[2017-05-23] VITALS (9 sets, daily range): BP systolic 105–128; BP diastolic 56–92; PULSE 86–119; RESP 16–20; TEMP 97.6–99.4; O2SAT 93–99
[2017-05-23] MEDS: RESP: ALBUTEROL 2.5 MG/IPRATROPIUM 0.5 MG NEB (SCH) INH (02:59)
[2017-05-23] MEDS: CHLORHEXIDINE GLUCONATE 2 % 1 PACK (2 CLOTHS)(taper/protocol) TOPICAL SCH (04:00)
[2017-05-23] MEDS: PIPERACIL-TAZO 3.375 GM PREMIX 50 ML IV SCH ×2 (04:30→10:47)
--- NOTE | 2017-05-23 08:52 | HHI.PR ---
Subjective Remarks ALERT SITTING IN BED NO DISTRESS Objective Vital Signs Date Time Temp Pulse Resp B/P (MAP) Pulse Ox O2 Delivery O2 Flow Rate FiO2 05/23/17 04:00 119 05/23/17 04:00 99.3 114 20 119/70 (86) 96 05/23/17 04:00 Room Air 05/23/17 00:00 110 05/23/17 00:00 98.4 104 18 108/59 (75) 93 05/22/17 20:00 104 05/22/17 20:00 Room Air 05/22/17 20:00 98.4 103 20 111/65 (80) 96 05/22/17 16:30 98.7 99 18 113/85 (94) 97 05/22/17 16:02 97 05/22/17 14:00 110 05/22/17 12:00 103 05/22/17 12:00 98.7 103 14 107/62 (77) 98 05/22/17 10:00 106 I/O 05/22/17 05/22/17 05/22/17 05/23/17 05/23/17 05/23/17 07:00 15:00 23:00 07:00 15:00 23:00 Intake Total 467.7 ml 390 ml 420 ml 290 ml Output Total 820 ml 875 ml 50 ml 1700 ml Balance -352.3 ml -485 ml 370 ml -1410 ml Intake Oral 240 ml 120 ml 240 ml IV Total 467.7 ml 150 ml 300 ml 50 ml Output Urine Total 800 ml 400 ml 50 ml 1700 ml Stool Total 450 ml Chest Tube Drainage Total 20 ml 25 ml 0 ml # Voids 3 1 # Bowel Movements 0 Result Diagram: 05/22/17 0430 05/22/17 0430 Objective Remarks GENERAL: SKIN: Warm and dry. HEAD: Atraumatic. Normocephalic. EYES: Pupils equal and round. No scleral icterus. No injection or drainage. ENT: No nasal bleeding or discharge. Mucous membranes pink and moist. NECK: Trachea midline. No JVD. CARDIOVASCULAR: Regular rate and rhythm. RESPIRATORY: No accessory muscle use. LEFT CHEST TUBE IN PLACE GASTROINTESTINAL: Abdomen soft, non-tender, nondistended. Hepatic and splenic margins not palpable. MUSCULOSKELETAL: Extremities without clubbing, cyanosis, or edema. No obvious deformities. NEUROLOGICAL: Awake and alert. No obvious cranial nerve deficits. Motor grossly within normal limits. Five out of 5 muscle strength in the arms and legs. Normal speech. PSYCHIATRIC: Appropriate mood and affect; insight and judgment normal. Assessment and Plan Assessment and Plan PE PNA ? EMPYEMA PLAN ANTICOAGULATION ANTIBIOTIC THERAPY LEFT CT DRAINAGE Misti Chappell MD May 23, 2017 08:52
[2017-05-23 09:00] LABS: BICARBONATE 28.4 MEQ/L (21.0-32.0); CALCIUM 8.2 MG/DL (8.5-10.1); CREATININE 0.52 MG/DL (0.50-1.00)
[2017-05-23] MEDS: SODIUM CHLORIDE 0.9% FLUSH 10 ML FLUSH IV FLUSH SCH ×2 (09:08→22:29)
[2017-05-23] MEDS: PANTOPRAZOLE SOD 40 MG DELAYED RELEASE TAB PO SCH (09:08)
[2017-05-23] MEDS: CETIRIZINE HCL 10 MG TAB PO SCH (09:08)
[2017-05-23] MEDS: clonazePAM 1 MG TAB PO SCH (09:08)
[2017-05-23] MEDS: ACETAMINOPHEN/HYDROcodone 325 MG/7.5 MG TAB PO PRN ×3 (09:08→22:27)
--- NOTE | 2017-05-23 09:42 | HHI.PR ---
Subjective Remarks pt feels stronger. wants to go home when ready and not snf Objective Vitals heart reg lung left chest tube. course left base bs abd s/nt ext no edema Vital Signs Date Time Temp Pulse Resp B/P (MAP) Pulse Ox O2 Delivery O2 Flow Rate FiO2 05/23/17 08:00 99.4 110 20 128/92 (104) 95 05/23/17 04:00 119 05/23/17 04:00 99.3 114 20 119/70 (86) 96 05/23/17 04:00 Room Air 05/23/17 00:00 110 05/23/17 00:00 98.4 104 18 108/59 (75) 93 05/22/17 20:00 104 05/22/17 20:00 Room Air 05/22/17 20:00 98.4 103 20 111/65 (80) 96 05/22/17 16:30 98.7 99 18 113/85 (94) 97 05/22/17 16:02 97 05/22/17 14:00 110 05/22/17 12:00 103 05/22/17 12:00 98.7 103 14 107/62 (77) 98 05/22/17 10:00 106 Result Diagram: 05/22/17 0430 05/23/17 0646 A/P Problem List: (1) Cavitary pneumonia ICD Codes: J18.9 - Pneumonia, unspecified organism; J98.4 - Other disorders of lung Status: Acute Plan: admitted in . Had perforated diverticulitis underwent proctosigmoid resection on 03/25. stool filled cavity noted. ostomy. 03/25 CT abd/pelvis..1. Extensive free intraperitoneal and retroperitoneal air. There is also air surrounding the distal esophagus within the mediastinum. The findings are suggestive of perforated viscus until proven otherwise. Possibilities include perforated diverticulitis seems most likely. Inflammatory changes and fluid surround the rectosigmoid colon which would likely represent the site of perforation. Air surrounding the distal esophagus raises the possibility of distal esophageal rupture although this seems less likely with large amount of air within the abdomen and pelvis but should be ruled out if the patient has recent history of forceful vomiting. 03/30 CT a/p Status post colostomy with residual small fluid collections identified within the perirectal space. A drain is present within this region. There is persistent air tracking along the mesentery of the left abdomen and left upper quadrant which may be residual from the prior area secondary to bowel perforation. There is a single segment of concerning small bowel loop within the left upper quadrant which appears to demonstrate wall thickening. Enlarging left-sided pleural effusion and mildly enlarged pericardial effusion which are likely reactive.. 4 CT chest : Incompletely seen indurated changes in the left retroperitoneum and air are present adjacent to the pancreatic body and left adrenal gland.. Pulmonary embolism. Posterior left lung base empyema and adjacent cavitary pneumonia. Incompletely seen inflammatory changes and air in the left retroperitoneum 05/19 CT abdomen/pelvis: 1. Inflammatory stranding in the retroperitoneum appears to originate in the deep pelvis adjacent to the ring of juan antonio at the previously surgerized rectosigmoid junction and tracks cephalad into the left pararenal space, posterior to the left paracolic gutter and just posterior to the gastric cardia. 2. I believe the inflammatory changes in the retroperitoneum are now contiguous with the left pleural space and the patient has now developed a small empyema with an associated cavitary pneumonic process. 3. Stable small pericardial effusion. 4. Findings a colonic surgery the right surgical juan antonio at the rectosigmoid junction. Colostomy in the left periumbilical distribution. IMP: -Left cavitary pneumonia/empyema. concern for fistula connection tracking up from inflammatory stranding in the retroperitoneum which appears to originate in the deep pelvis adjacent to the ring of juan antonio at the previously surgerized rectosigmoid junction. Patient appeared septic on arrival. ....05/20: Uncomplicated CT-guided placement of 10 Tamazight drainage catheter into small left-sided subpulmonic empyema. Approximately 30 cc of purulent fluid was removed immediately following catheter placement and large sample submitted for laboratory analysis ....4/2 sputum culture e.coli.. 4/3 cultures from chest tube pleural space ecoli /yeast 2. left pulmonary embolism 3. acute and chronic anemia. heme positive stool. no active bleeding noted s/p 2 units blood / 4. hypokalemia cont heparin gtt and monitor for signs of bleeding. plan to convert to oral anticoagulation before d/c prbc as needed cont abx with zosyn/diflucan ID..ID following . f/u blood cx f/u repeat ct a/p today. check with radiology to pull the chest tube. will plan for d/c home when medically stable. PT consult (2) Pulmonary embolism ICD Codes: I26.99 - Other pulmonary embolism without acute cor pulmonale Status: Acute (3) Anemia ICD Codes: D64.9 - Anemia, unspecified Status: Acute (4) Anxiety ICD Codes: F41.9 - Anxiety disorder, unspecified Status: Chronic (5) Hypokalemia ICD Codes: E87.6 - Hypokalemia Status: Acute (6) Colostomy status ICD Codes: Z93.3 - Colostomy status Status: Chronic Problem Qualifiers (1) Pulmonary embolism: Qualified Codes: I26.99 - Other pulmonary embolism without acute cor pulmonale Jonathan Redding MD May 23, 2017 09:42
[2017-05-23] MEDS: POTASSIUM CHLORIDE 20 MEQ CONTROLLED RELEASE TAB PO SCH ×2 (10:47→12:44)
[2017-05-23] MEDS ORDERED: RESP: ALBUTEROL 2.5 MG/IPRATROPIUM 0.5 MG NEB (PRN) NEB (12:00)
[2017-05-23] MEDS: LORazepam 2 MG/ML VIAL IV PUSH PRN (12:44)
--- NOTE | 2017-05-23 13:25 | RADRPT ---
EXAM DATE/TIME: 05/23/2017 12:45 [facility] COMPARISON: CHEST SINGLE AP, May 22, 2017, 17:17. INDICATIONS : Short of breath MEDICAL HISTORY : Hypertension. Chronic obstructive pulmonary disease. Gastroesophageal reflux disease. pneumothora x SURGICAL HISTORY : Colon resection. Hysterectomy. Colostomy. chest tube ENCOUNTER: Subsequent ACUITY: 4 - 6 days PAIN SCORE: 0/10 LOCATION: Bilateral chest FINDINGS: A few patchy areas of opacity in left midlung similar to prior. Small bore chest catheter lower left chest stable in position. No evidence of pneumothorax. The right lung is clear. The heart is norm al in size. CONCLUSION: 1. No evidence of pneumothorax. Left lower chest catheter in place. 2. Patchy left mid and lower lung infiltrates, stable. Oleg Rosenberg MD on May 23, 2017 at 13:22 Board Certified Radiologist. This report was verified electronically.
[2017-05-23] MEDS: FLUCONAZOLE 400 MG PREMIX BAG 400 ML IV SCH (14:30)
--- NOTE | 2017-05-23 15:23 | HHI.IDPN ---
Subjective Subjective Remarks Patient seen and examined with Dr. Tejeda is a 62 y/o CF with PMHx of Diverticulitis and perforated colon who is s.p diverting colostomy by in Mar 2017. Patient reports that since she was discharged she really has not felt a 100%. She continues to have generalized weakness. She denies any pneumonia like symptoms on discharge. She reports approx 2-3 days [employer] she started having cough with expectoration, shortness of breath, and last night she had a temp of 103 F. Due to this reason she presented to the hospital. She denies any flu like symptoms or exposure to persons with TB. With this background she was admitted to the hospital. She underwent a CT chest and was found to a PE and cavitary pneumonia. She is started on empiric antibiotics. Flu antigen is negative. Blood cultures and sputum cultures are pending at present time. ID consulted for evaluation and management of Cavitary pneumonia. Overnight events reviewed. Notes reviewed. Patient states she is doing okay. States she is waiting for the chest tube to be removed today. Reports occasional cough. No shortness of breath or dyspnea Denies any fevers, chills. Denies any diarrhea, nausea, vomiting. No rash No leukocytosis, latest WBC 9.5 05/19/[address] showed pulmonary embolism. Posterior left lung base empyema and adjacent cavitary pneumonia. 05/23/17 Chest x-ray no evidence of pneumothorax. Left lower chest catheter in place. Patchy left mid and lower lung infiltrates, stable CT surgery following. CR surgery following. Antibiotics Zosyn IV Diflucan Lines Line sites with no e.o infection Past Medical History Anxiety Asthma Recurrent abdominal pain Hiatal hernia Hypertension Questionable irritable bowel syndrome EGD and colonoscopy done February 2016 revealed mild gastritis Hysterectomy Tubal ligation Bilateral knee replacement (Froylan Alcala) Allergies: Coded Allergies: Sulfa (Sulfonamide Antibiotics) (Verified Allergy, Severe, RASH, 05/18/17) sulfamethoxazole (Verified Allergy, Severe, RASH, 05/18/17) trimethoprim (Verified Allergy, Severe, RASH, 05/18/17) Objective . Vital Signs Date Time Temp Pulse Resp B/P (MAP) Pulse Ox O2 Delivery O2 Flow Rate FiO2 05/23/17 14:12 95 05/23/17 12:00 98.0 98 18 106/64 (78) 95 05/23/17 08:00 Room Air 05/23/17 08:00 99.4 110 20 128/92 (104) 95 05/23/17 08:00 118 05/23/17 04:00 119 05/23/17 04:00 99.3 114 20 119/70 (86) 96 05/23/17 04:00 Room Air 05/23/17 00:00 110 05/23/17 00:00 98.4 104 18 108/59 (75) 93 05/22/17 20:00 104 05/22/17 20:00 Room Air 05/22/17 20:00 98.4 103 20 111/65 (80) 96 05/22/17 16:30 98.7 99 18 113/85 (94) 97 05/22/17 16:02 97 . Laboratory Tests Test 05/22/17 04:30 White Blood Count 9.5 TH/MM3 Red Blood Count 3.27 MIL/MM3 Hemoglobin 9.2 GM/DL Hematocrit 27.3 % Mean Corpuscular Volume 83.5 FL Mean Corpuscular Hemoglobin 28.2 PG Mean Corpuscular Hemoglobin Concent 33.8 % Red Cell Distribution Width 15.3 % Platelet Count 331 TH/MM3 Mean Platelet Volume 7.1 FL Laboratory Tests Test 05/22/17 04:30 05/23/17 06:46 Blood Urea Nitrogen 4 MG/DL 3 MG/DL Creatinine 0.53 MG/DL 0.52 MG/DL Random Glucose 98 MG/DL 98 MG/DL Calcium Level 8.4 MG/DL 8.2 MG/DL Sodium Level 140 MEQ/L 138 MEQ/L Potassium Level 3.6 MEQ/L 3.2 MEQ/L Chloride Level 107 MEQ/L 103 MEQ/L Carbon Dioxide Level 26.4 MEQ/L 28.4 MEQ/L Anion Gap 7 MEQ/L 7 MEQ/L Estimat Glomerular Filtration Rate 117 ML/MIN 120 ML/MIN Lipase 52 U/L Microbiology Date/Time Source Procedure Growth Status 05/20/17 16:50 Fluid Pleural Fluid Fungal Smear - Final NO FUNGAL ELEMENTS SEEN. Resulted 05/20/17 16:50 Fluid Pleural Fluid Fungal Culture Pending Resulted 05/20/17 16:50 Fluid Pleural Fluid Acid Fast Stain - Final NO ACID FAST BACILLI SEEN Resulted 05/20/17 16:50 Fluid Pleural Fluid Mycobacterial Culture Pending Resulted 05/20/17 16:50 Fluid Pleural Fluid Gram Stain - Final Complete 05/20/17 16:50 Body Fluid Culture - Final Escherichia Coli Lynda Albicans Complete Imaging Last Impressions Chest CT 05/19/17 0146 Signed Impressions: Service Date/Time: Friday, May 19, 2017 02:13 - CONCLUSION: Pulmonary embolism. Posterior left lung base empyema and adjacent cavitary pneumonia. Incompletely seen inflammatory changes and air in the left retroperitoneum. Jared Mosqueda MD Chest X-Ray 05/19/17 0005 Signed Impressions: Service Date/Time: Friday, May 19, 2017 01:05 - CONCLUSION: Abnormal chest appearance Jared Mosqueda MD Abdomen/Pelvis CT 05/19/17 0000 Signed Impressions: Service Date/Time: Friday, May 19, 2017 15:21 - CONCLUSION: 1. Inflammatory stranding in the retroperitoneum appears to originate in the deep pelvis adjacent to the ring of juan antonio at the previously surgerized rectosigmoid junction and tracks cephalad into the left pararenal space, posterior to the left paracolic gutter and just posterior to the gastric cardia. 2. I believe the inflammatory changes in the retroperitoneum are now contiguous with the left pleural space and the patient has now developed a small empyema with an associated cavitary pneumonic process. 3. Stable small pericardial effusion. 4. Findings a colonic surgery the right surgical juan antonio at the rectosigmoid junction. Colostomy in the left periumbilical distribution. Glen Bo MD Physical Exam GENERAL: Thin built, fairly well-developed patient, in no apparent distress. SKIN: No rashes, ecchymoses or lesions. Warm and dry. HEAD: Atraumatic. Normocephalic. EYES: Pupils equal round and reactive. Extraocular motions intact. No scleral icterus. No injection or drainage. ENT: Nose without bleeding. Throat without erythema. Uvula midline. Airway patent. No oral thrush noted. NECK: Trachea midline. Supple, nontender, no meningeal signs. CHEST: Left lateral flank chest tube pigtail incision in place, scant drain yellow cloudy drainage. CARDIOVASCULAR: HS audible. RESPIRATORY: Diminished bases left greater than the right. GASTROINTESTINAL: Abdomen soft, non-tender, nondistended. Colostomy in place, stoma active. MUSCULOSKELETAL: Extremities without clubbing, cyanosis, or edema. NEUROLOGICAL: Awake and alert. Non focal exam PSYCH: Cooperative. Flat affect. IV line sites with no e.o infection. (Froylan Alcala) Assessment & Plan Remarks Remarks: Possible Sepsis present on admission (fever, leucocytosis, source: pneumonia) Pneumonia: E.coli LUQ and retroperitoneal Peritonitis per imaging per Radiology E.coli Peritonitis as well as GPR ID pending. Possible the Empyema and intra abd process are related. ? thru a diaphragmatic defect. -05/20/17 pleural fluid E. coli, Lynda albicans -E. coli pansensitive, pending Lynda ID -Blood cultures no growth to date -Pleural fluid no acid-fast bacilli seen, no fungal elements seen final fungal smear pending fungal culture, pending mycobacterial culture PE - Diverting colostomy Recent history of diverticulitis with perforation Recommendations Off vancomycin On Zosyn IV On Diflucan pending ID of yeast. Continue incentive Spirometry Pending Left CT removal today, patient will have repeat CXR Colorectal surgery following, appreciate recommendation Repeat CT of the abdomen and pelvis, follow-up results Follow cultures Follow clinically. Further recommendations to follow (Froylan Alcala) Remarks The exam, history, and the medical decision-making described in the above note were completed with the assistance of the mid-level provider. I reviewed and agree with the findings presented. I attest that I had a [id number] encounter with the patient on the same day, and personally performed and documented my assessment and findings in the medical record. Tolerating oral antibiotics. Will be going home per Primary team DC Zosyn IV DC Diflucan IV change to oral. DC regimen if tolerates oral medications over the weekend: 1. Levaquin 750 mg po daily 2. Flagyl 500 mg po q 8hrs 3. Fluconazole 200 mg po daily If patient has intolerance to these medications an alternate regimen would have to be constructed. Recommend a 4 week course of above regimen. Patient will need follow up with CT surgery as outpt needs empyema decortication once resp parameters improve. d/w to have pt follow up with CT surgery and Infectious Disease Dr.Reba Rodriguez. Will sign off please call back if any change in clinical condition or questions (Julisa Tejeda MD) Froylan Alcala [facility] May 23, 2017 15:23 Julisa Tejeda MD May 23, 2017 16:35
--- NOTE | 2017-05-23 15:26 | RADRPT ---
EXAM DATE/TIME: 05/23/2017 00:00 [facility] COMPARISON: No previous studies available for comparison. INDICATIONS : Pleural Effusion-left DEVICE(S): 1.) Vaseline occlusive dressing PROCEDURE : Chest tube removal. Using aseptic technique the previously placed chest tube was easily removed in one piece and Vaseline gauze and sterile dressing was applied. Chest radiograph is to be obtained. CONCLUSION: Uncomplicated left chest tube removal. Oleg Decker Jr., MD on May 23, 2017 at 15:23 Board Certified Radiologist. This report was verified electronically.
[2017-05-23] MEDS ORDERED: DIATRIZOATE MEGLUM/DIATRIZOATE SOD 9 ML CUP PO ONE (15:30)
--- NOTE | 2017-05-23 15:55 | RADRPT ---
EXAM DATE/TIME: 05/23/2017 15:26 [facility] COMPARISON: CHEST SINGLE AP, May 23, 2017, 12:45. INDICATIONS : D/C chest tube. MEDICAL HISTORY : None. SURGICAL HISTORY : None. ENCOUNTER: Initial ACUITY: 1 day PAIN SCORE: 0/10 LOCATION: Bilateral chest FINDINGS: Interval removal of left chest drainage tube. No pneumothorax seen. There is persistent partially c onsolidative infiltrate in the left lower lung without loss of delineation of the left hemidiaphragm. The right lung is clear. The heart is normal in size. CONCLUSION: 1. No evidence of pneumothorax status post removal of left lower chest tube. 2. Persistent partially consolidated left lower lung infiltrate. Oleg Rosenberg MD on May 23, 2017 at 15:52 Board Certified Radiologist. This report was verified electronically.
[2017-05-23] MEDS: LEVOFLOXACIN 750 MG TAB PO SCH (17:17)
[2017-05-23] MEDS: HEPARIN-D5W 25,000 U/250 ML 250 ML IV PRN (17:29)
[2017-05-23] MEDS: ONDANSETRON HCL 4 MG/2 ML VIAL IV PUSH PRN (18:35)
[2017-05-23] MEDS: RESP: ALBUTEROL 2.5 MG/IPRATROPIUM 0.5 MG NEB (SCH) NEB (20:29)
--- NOTE | 2017-05-23 21:31 | RADRPT ---
EXAM DATE/TIME: 05/23/2017 21:01 [facility] COMPARISON: CT ASSISTED ABSCESS DRAIN, May 20, 2017, 16:14. CT ABDOMEN & PELVIS W/O CONTRAST, May 19, 2017, 15:21. INDICATIONS : Abdominal pain. Follow up drainage. ORAL CONTRAST: Prescribed oral contrast ingested. RADIATION DOSE: 6.93 CTDIvol (mGy) MEDICAL HISTORY : Cardiovascular disease. Hernia, hiatal. SURGICAL HISTORY : Hysterectomy. ENCOUNTER: Subsequent ACUITY: 4 - 6 days PAIN SCALE: 5/10 LOCATION: abdomen TECHNIQUE: Volumetric scanning of the abdomen and pelvis was performed. Using automated exposure control and ad justment of the mA and/or kV according to patient size, radiation dose was kept as low as reasonably achievable to obtain optimal diagnostic quality images. DICOM format image data is available electro nically for review and comparison. FINDINGS: Airspace disease persists in the left base, stable in the interval. This is suspicious for developin g empyema. Trace pleural effusion is evident Inflammatory changes in the abdomen have improved . Persistent air and fluid remain deep in the The retroperitoneum. Colostomy is seen in the left midabdomen No new suspicious inflammatory areas are identified Pelvic contents are unremarkable. CONCLUSION: Persistent consolidative changes left base suspicious for developing empyema with nec rotic lung. Trace pleural effusion is evident. Significant improvement in the inflammatory changes in the upper abdomen. Herbert Salas MD FACR on May 23, 2017 at 21:25 Board Certified Radiologist. This report was verified electronically.
[2017-05-23] MEDS: MONTELUKAST SODIUM 10 MG TAB PO SCH (22:28)
[2017-05-23] MEDS: metroNIDAZOLE 500 MG TAB PO SCH (22:29)
[2017-05-23] MEDS: traZODone HCL 50 MG TAB PO PRN (22:31)
[2017-05-24] VITALS (10 sets, daily range): BP systolic 98–120; BP diastolic 56–81; PULSE 88–118; RESP 19–20; TEMP 97.9–99.5; O2SAT 91–96
[2017-05-24] MEDS: CHLORHEXIDINE GLUCONATE 2 % 1 PACK (2 CLOTHS)(taper/protocol) TOPICAL SCH (03:33)
[2017-05-24] MEDS: LORazepam 2 MG/ML VIAL IV PUSH PRN (04:34)
[2017-05-24] MEDS: metroNIDAZOLE 500 MG TAB PO SCH ×3 (04:35→21:01)
[2017-05-24 06:06] LABS: AUTOMATED NEUTROPHIL # 5.8 TH/MM3 (1.8-7.7); BASOPHIL % 0.6 % (0.0-2.0); EOSINOPHIL # 0.1 TH/MM3 (0-0.4); EOSINOPHIL % 0.8 % (0.0-4.0); HEMATOCRIT 25.8 % (35.0-46.0); HEMOGLOBIN 8.6 GM/DL (11.6-15.3); LYMPH % 13.5 % (9.0-44.0); MEAN CELL VOLUME 83.7 FL (80.0-100.0); MEAN CORPUSCULAR HEMOGLOBIN 28.1 PG (27.0-34.0); MEAN CORPUSCULAR HGB CONC 33.5 % (32.0-36.0); MEAN PLATELET VOLUME 6.8 FL (7.0-11.0); MONO % 6.7 % (0.0-8.0); MONOCYTE # 0.5 TH/MM3 (0-0.9); NEUT % 78.4 % (16.0-70.0); PLATELET COUNT 299 TH/MM3 (150-450); RED BLOOD COUNT 3.08 MIL/MM3 (4.00-5.30); RED CELL DISTRIBUTION WIDTH 15.5 % (11.6-17.2); WHITE BLOOD COUNT 7.4 TH/MM3 (4.0-11.0)
[2017-05-24 06:29] LABS: BICARBONATE 27.8 MEQ/L (21.0-32.0); CALCIUM 8.4 MG/DL (8.5-10.1); CREATININE 0.53 MG/DL (0.50-1.00); MAGNESIUM 1.7 MG/DL (1.5-2.5)
[2017-05-24] MEDS: RESP: ALBUTEROL 2.5 MG/IPRATROPIUM 0.5 MG NEB (SCH) NEB ×3 (08:14→20:11)
[2017-05-24] MEDS: clonazePAM 1 MG TAB PO SCH (09:35)
[2017-05-24] MEDS: PANTOPRAZOLE SOD 40 MG DELAYED RELEASE TAB PO SCH (09:35)
[2017-05-24] MEDS: LEVOFLOXACIN 750 MG TAB PO SCH (09:35)
[2017-05-24] MEDS: CETIRIZINE HCL 10 MG TAB PO SCH (09:35)
[2017-05-24] MEDS: SODIUM CHLORIDE 0.9% FLUSH 10 ML FLUSH IV FLUSH SCH ×2 (09:35→21:03)
[2017-05-24] MEDS: FLUCONAZOLE 200 MG TAB PO SCH (09:35)
[2017-05-24] MEDS: ONDANSETRON HCL 4 MG/2 ML VIAL IV PUSH PRN ×2 (09:35→15:38)
[2017-05-24] MEDS ORDERED: APIXABAN 5 MG TABLET PO ONE ×2 (10:15→14:00)
--- NOTE | 2017-05-24 10:22 | HHI.PR ---
Subjective Remarks no new complaints Objective Vitals heart reg lung course bs left base abd s/nt ext no edema Vital Signs Date Time Temp Pulse Resp B/P (MAP) Pulse Ox O2 Delivery O2 Flow Rate FiO2 05/24/17 08:15 93 21 05/24/17 08:00 99.5 118 20 108/78 (88) 92 05/24/17 04:00 99.0 107 19 120/79 (93) 94 05/24/17 04:00 104 05/24/17 00:00 104 05/24/17 00:00 98.7 109 19 110/70 (83) 94 05/23/17 20:33 99 21 05/23/17 20:00 Room Air 05/23/17 20:00 103 05/23/17 20:00 97.6 104 20 116/86 (96) 97 05/23/17 17:00 86 05/23/17 16:00 98.3 89 16 105/56 (72) 97 05/23/17 14:12 95 05/23/17 12:00 98.0 98 18 106/64 (78) 95 05/23/17 12:00 97 Result Diagram: 05/24/17 0530 05/24/17 0530 A/P Problem List: (1) Cavitary pneumonia ICD Codes: J18.9 - Pneumonia, unspecified organism; J98.4 - Other disorders of lung Status: Acute Plan: admitted in February/March. Had perforated diverticulitis underwent proctosigmoid resection on 03/25. stool filled cavity noted. ostomy. 03/25 CT abd/pelvis..1. Extensive free intraperitoneal and retroperitoneal air. There is also air surrounding the distal esophagus within the mediastinum. The findings are suggestive of perforated viscus until proven otherwise. Possibilities include perforated diverticulitis seems most likely. Inflammatory changes and fluid surround the rectosigmoid colon which would likely represent the site of perforation. Air surrounding the distal esophagus raises the possibility of distal esophageal rupture although this seems less likely with large amount of air within the abdomen and pelvis but should be ruled out if the patient has recent history of forceful vomiting. 03/30 CT a/p Status post colostomy with residual small fluid collections identified within the perirectal space. A drain is present within this region. There is persistent air tracking along the mesentery of the left abdomen and left upper quadrant which may be residual from the prior area secondary to bowel perforation. There is a single segment of concerning small bowel loop within the left upper quadrant which appears to demonstrate wall thickening. Enlarging left-sided pleural effusion and mildly enlarged pericardial effusion which are likely reactive.. 4/ CT chest : Incompletely seen indurated changes in the left retroperitoneum and air are present adjacent to the pancreatic body and left adrenal gland.. Pulmonary embolism. Posterior left lung base empyema and adjacent cavitary pneumonia. Incompletely seen inflammatory changes and air in the left retroperitoneum 05/19 CT abdomen/pelvis: 1. Inflammatory stranding in the retroperitoneum appears to originate in the deep pelvis adjacent to the ring of juan antonio at the previously surgerized rectosigmoid junction and tracks cephalad into the left pararenal space, posterior to the left paracolic gutter and just posterior to the gastric cardia. 2. I believe the inflammatory changes in the retroperitoneum are now contiguous with the left pleural space and the patient has now developed a small empyema with an associated cavitary pneumonic process. 3. Stable small pericardial effusion. 4. Findings a colonic surgery the right surgical juan antonio at the rectosigmoid junction. Colostomy in the left periumbilical distribution. IMP: -Left cavitary pneumonia/empyema. concern for fistula connection tracking up from inflammatory stranding in the retroperitoneum which appears to originate in the deep pelvis adjacent to the ring of juan antonio at the previously surgerized rectosigmoid junction. Patient appeared septic on arrival. ....05/20: Uncomplicated CT-guided placement of 10 [place] drainage catheter into small left-sided subpulmonic empyema. Approximately 30 cc of purulent fluid was removed immediately following catheter placement and large sample submitted for laboratory analysis ....4/ sputum culture e.coli.. 4/ cultures from chest tube pleural space ecoli /yeast 2. left pulmonary embolism 3. acute and chronic anemia. heme positive stool. no active bleeding noted s/p 2 units blood 05/20 4. hypokalemia convert heparin to eliquis today and monitor for any sign bleeding. prbc as needed cont abx. discussed with ID. recommending total 4 weeks of levaquin/diflucan and 2 weeks of flagyl. Also they recommend ID f/u outpt and CTS f/u to consider decortication on the left. PT consulted Possible d/c home early next week. (2) Pulmonary embolism ICD Codes: I26.99 - Other pulmonary embolism without acute cor pulmonale Status: Acute (3) Anemia ICD Codes: D64.9 - Anemia, unspecified Status: Acute (4) Anxiety ICD Codes: F41.9 - Anxiety disorder, unspecified Status: Chronic (5) Hypokalemia ICD Codes: E87.6 - Hypokalemia Status: Acute (6) Colostomy status ICD Codes: Z93.3 - Colostomy status Status: Chronic Problem Qualifiers (1) Pulmonary embolism: Qualified Codes: I26.99 - Other pulmonary embolism without acute cor pulmonale Jonathan Redding MD May 24, 2017 10:22
--- NOTE | 2017-05-24 10:47 | HHI.PR ---
Subjective Remarks C/R Surg temp down, VSS Drain dc'd selina PO, better appetite Objective - Vital Signs Date Time Temp Pulse Resp B/P (MAP) Pulse Ox O2 Delivery O2 Flow Rate FiO2 05/24/17 08:15 93 21 05/24/17 08:00 99.5 118 20 108/78 (88) 05/23/17 20:00 Room Air 05/22/17 00:39 2.00 Result Diagram: 05/24/1730 05/24/17 0530 Objective Remarks PE alert Abd - soft, flat, stoma functioning non-tender A/P Assessment and Plan Imp: OOB cont PT DC plans coumadin Magen Cárdenas MD May 24, 2017 10:47
[2017-05-24] MEDS: ACETAMINOPHEN/HYDROcodone 325 MG/7.5 MG TAB PO PRN ×2 (14:14→21:02)
[2017-05-24] MEDS: traZODone HCL 50 MG TAB PO PRN (21:01)
[2017-05-24] MEDS: MONTELUKAST SODIUM 10 MG TAB PO SCH (21:01)
[2017-05-25] VITALS (9 sets, daily range): BP systolic 85–127; BP diastolic 59–87; PULSE 83–109; RESP 16–18; TEMP 98.3–99.9; O2SAT 93–97
[2017-05-25] MEDS: metroNIDAZOLE 500 MG TAB PO SCH ×3 (06:02→21:15)
[2017-05-25] MEDS: APIXABAN 5 MG TABLET PO SCH ×2 (06:02→18:09)
[2017-05-25 06:31] LABS: HEMATOCRIT 25.4 % (35.0-46.0); HEMOGLOBIN 8.5 GM/DL (11.6-15.3); MEAN CELL VOLUME 83.9 FL (80.0-100.0); MEAN CORPUSCULAR HEMOGLOBIN 28.1 PG (27.0-34.0); MEAN CORPUSCULAR HGB CONC 33.5 % (32.0-36.0); MEAN PLATELET VOLUME 6.8 FL (7.0-11.0); PLATELET COUNT 332 TH/MM3 (150-450); RED BLOOD COUNT 3.03 MIL/MM3 (4.00-5.30); RED CELL DISTRIBUTION WIDTH 15.8 % (11.6-17.2)
[2017-05-25] MEDS: RESP: ALBUTEROL 2.5 MG/IPRATROPIUM 0.5 MG NEB (SCH) NEB ×3 (08:10→20:28)
[2017-05-25] MEDS: FLUCONAZOLE 200 MG TAB PO SCH (09:07)
[2017-05-25] MEDS: clonazePAM 1 MG TAB PO SCH (09:07)
[2017-05-25] MEDS: ONDANSETRON HCL 4 MG/2 ML VIAL IV PUSH PRN ×2 (09:07→21:16)
[2017-05-25] MEDS: PANTOPRAZOLE SOD 40 MG DELAYED RELEASE TAB PO SCH (09:07)
[2017-05-25] MEDS: LEVOFLOXACIN 750 MG TAB PO SCH (09:07)
[2017-05-25] MEDS: CETIRIZINE HCL 10 MG TAB PO SCH (09:07)
[2017-05-25] MEDS: SODIUM CHLORIDE 0.9% FLUSH 10 ML FLUSH IV FLUSH SCH ×2 (09:08→21:16)
--- NOTE | 2017-05-25 09:40 | HHI.PR ---
Subjective Remarks was feeling great..now this morning more nauseated and upset stomach. Objective Vitals heart reg lung left base course bs abd s/nt/ostomy ext no edema Vital Signs Date Time Temp Pulse Resp B/P (MAP) Pulse Ox O2 Delivery O2 Flow Rate FiO2 05/25/17 08:10 95 05/25/17 08:00 99.1 100 16 127/87 (100) 94 05/25/17 06:36 99.3 101 18 109/67 (81) 93 05/25/17 04:00 99 05/25/17 00:00 83 05/24/17 23:41 98.5 91 20 101/64 (76) 94 05/24/17 20:22 98.3 97 20 98/56 (70) 96 05/24/17 20:13 95 21 05/24/17 20:00 Room Air 05/24/17 20:00 99 05/24/17 16:00 92 05/24/17 16:00 97.9 88 20 114/81 (92) 95 05/24/17 12:00 99.4 112 20 106/73 (84) 91 05/24/17 12:00 109 Result Diagram: 05/25/17 0546 05/24/17 0530 A/P Problem List: (1) Cavitary pneumonia ICD Codes: J18.9 - Pneumonia, unspecified organism; J98.4 - Other disorders of lung Status: Acute Plan: admitted in February/March. Had perforated diverticulitis underwent proctosigmoid resection on 03/25. stool filled cavity noted. ostomy. 03/25 CT abd/pelvis..1. Extensive free intraperitoneal and retroperitoneal air. There is also air surrounding the distal esophagus within the mediastinum. The findings are suggestive of perforated viscus until proven otherwise. Possibilities include perforated diverticulitis seems most likely. Inflammatory changes and fluid surround the rectosigmoid colon which would likely represent the site of perforation. Air surrounding the distal esophagus raises the possibility of distal esophageal rupture although this seems less likely with large amount of air within the abdomen and pelvis but should be ruled out if the patient has recent history of forceful vomiting. 03/30 CT a/p Status post colostomy with residual small fluid collections identified within the perirectal space. A drain is present within this region. There is persistent air tracking along the mesentery of the left abdomen and left upper quadrant which may be residual from the prior area secondary to bowel perforation. There is a single segment of concerning small bowel loop within the left upper quadrant which appears to demonstrate wall thickening. Enlarging left-sided pleural effusion and mildly enlarged pericardial effusion which are likely reactive.. 05/18 CT chest : Incompletely seen indurated changes in the left retroperitoneum and air are present adjacent to the pancreatic body and left adrenal gland.. Pulmonary embolism. Posterior left lung base empyema and adjacent cavitary pneumonia. Incompletely seen inflammatory changes and air in the left retroperitoneum 05/19 CT abdomen/pelvis: 1. Inflammatory stranding in the retroperitoneum appears to originate in the deep pelvis adjacent to the ring of juan antonio at the previously surgerized rectosigmoid junction and tracks cephalad into the left pararenal space, posterior to the left paracolic gutter and just posterior to the gastric cardia. 2. I believe the inflammatory changes in the retroperitoneum are now contiguous with the left pleural space and the patient has now developed a small empyema with an associated cavitary pneumonic process. 3. Stable small pericardial effusion. 4. Findings a colonic surgery the right surgical juan antonio at the rectosigmoid junction. Colostomy in the left periumbilical distribution. 05/[address] abdomen/pelvis: Airspace disease persists in the left base, stable in the interval. This is suspicious for developing empyema. Trace pleural effusion is evident Inflammatory changes in the abdomen have improved . Persistent air and fluid remain deep in the The retroperitoneum. Colostomy is seen in the left midabdomen No new suspicious inflammatory areas are identified CONCLUSION: Persistent consolidative changes left base suspicious for developing empyema with necrotic lung. Trace pleural effusion is evident. Significant improvement in the inflammatory changes in the upper abdomen. IMP: 1.-Left cavitary pneumonia/empyema. concern for fistula connection tracking up from inflammatory stranding in the retroperitoneum which appears to originate in the deep pelvis adjacent to the ring of juan antonio at the previously surgerized rectosigmoid junction. Patient appeared septic on arrival. ....05/20: Uncomplicated CT-guided placement of 10 [place] drainage catheter into small left-sided subpulmonic empyema. Approximately 30 cc of purulent fluid was removed immediately following catheter placement and large sample submitted for laboratory analysis . Drain removed on 05/23. ....4/2 sputum culture e.coli.. 4/3 cultures from chest tube pleural space ecoli /ben 2. left pulmonary embolism 3. acute and chronic anemia. heme positive stool. no active bleeding noted s/p 2 units blood 05/20 4. hypokalemia converted heparin to eliquis on 05/24. 10mg bid x 7 days then drop to 5mg bid .... monitor for any sign bleeding. prbc as needed cont abx. discussed with ID. recommending total 4 weeks of levaquin/diflucan and 2 weeks of flagyl. Also they recommend ID f/u outpt and CTS f/u to consider decortication on the left. (pt appears more nauseated/upset stomach....could be from the medications..observe) PT consulted Plan for d/c home early next week. (2) Pulmonary embolism ICD Codes: I26.99 - Other pulmonary embolism without acute cor pulmonale Status: Acute (3) Anemia ICD Codes: D64.9 - Anemia, unspecified Status: Acute (4) Anxiety ICD Codes: F41.9 - Anxiety disorder, unspecified Status: Chronic (5) Hypokalemia ICD Codes: E87.6 - Hypokalemia Status: Acute (6) Colostomy status ICD Codes: Z93.3 - Colostomy status Status: Chronic Problem Qualifiers (1) Pulmonary embolism: Qualified Codes: I26.99 - Other pulmonary embolism without acute cor pulmonale Jonathan Redding MD May 25, 2017 09:40
[2017-05-25] MEDS: ACETAMINOPHEN/HYDROcodone 325 MG/7.5 MG TAB PO PRN ×2 (10:04→21:16)
--- NOTE | 2017-05-25 11:52 | HHI.PR ---
Subjective Remarks C/R Surg temp down, VSS selina PO, nauseous after meds Objective - Vital Signs Date Time Temp Pulse Resp B/P (MAP) Pulse Ox O2 Delivery O2 Flow Rate FiO2 05/25/17 08:10 95 05/25/17 08:00 99.1 100 16 127/87 (100) 05/24/17 20:13 21 05/24/17 20:00 Room Air 05/22/17 00:39 2.00 Result Diagram: 05/25/17 0546 05/24/17 0530 Objective Remarks PE alert Abd - soft, flat, stoma functioning non-tender A/P Assessment and Plan Imp: OOB cont PT DC plans Magen Silva MD May 25, 2017 11:52
[2017-05-25] MEDS ORDERED: PILL SPLITTER OTHER PRN (12:00)
[2017-05-25] MEDS ORDERED: BENZONATATE 100 MG CAP PO PRN ×2 (12:30→13:15)
[2017-05-25] MEDS ORDERED: SODIUM CHLORID 0.9% 500 ML INJ 500 ML IV ONE (17:15)
[2017-05-25] MEDS: MONTELUKAST SODIUM 10 MG TAB PO SCH (21:15)
[2017-05-25] MEDS: traZODone HCL 50 MG TAB PO PRN (21:24)
[2017-05-26] VITALS (8 sets, daily range): BP systolic 105–120; BP diastolic 66–74; PULSE 80–105; RESP 17–19; TEMP 98.4–99; O2SAT 93–98
[2017-05-26] MEDS: metroNIDAZOLE 500 MG TAB PO SCH ×3 (06:02→21:38)
[2017-05-26] MEDS: APIXABAN 5 MG TABLET PO SCH ×2 (06:02→18:52)
[2017-05-26] MEDS: ONDANSETRON HCL 4 MG/2 ML VIAL IV PUSH PRN ×3 (06:36→21:39)
[2017-05-26] MEDS: RESP: ALBUTEROL 2.5 MG/IPRATROPIUM 0.5 MG NEB (SCH) NEB ×3 (08:06→20:16)
[2017-05-26] MEDS: FLUCONAZOLE 200 MG TAB PO SCH (08:46)
[2017-05-26] MEDS: CETIRIZINE HCL 10 MG TAB PO SCH (08:46)
[2017-05-26] MEDS: PANTOPRAZOLE SOD 40 MG DELAYED RELEASE TAB PO SCH (08:46)
[2017-05-26] MEDS: SODIUM CHLORIDE 0.9% FLUSH 10 ML FLUSH IV FLUSH SCH ×2 (08:46→21:39)
[2017-05-26] MEDS: clonazePAM 1 MG TAB PO SCH ×2 (08:46→21:38)
[2017-05-26] MEDS: LEVOFLOXACIN 750 MG TAB PO SCH (08:46)
[2017-05-26] MEDS: ACETAMINOPHEN/HYDROcodone 325 MG/7.5 MG TAB PO PRN (13:59)
--- NOTE | 2017-05-26 15:47 | HHI.PR ---
Subjective Remarks Pt tolerating PO intake. Pt denies n/v/d. Pt denies abdominal pain. Pt denies SOB. Pt started crying during my visit. Seems overwhelmed. Objective Vitals Vital Signs Date Time Temp Pulse Resp B/P (MAP) Pulse Ox O2 Delivery O2 Flow Rate FiO2 05/26/17 12:00 99.0 96 18 109/67 (81) 94 05/26/17 08:08 94 21 05/26/17 08:00 98.7 105 18 107/69 (82) 93 05/26/17 07:00 Room Air 05/26/17 04:00 Room Air 05/26/17 04:00 99.0 101 19 120/74 (89) 96 05/26/17 00:00 Room Air 05/26/17 00:00 98.8 80 17 118/67 (84) 95 05/25/17 20:29 94 21 05/25/17 20:00 Room Air 05/25/17 20:00 98.6 109 16 116/65 (82) 95 05/25/17 16:00 98.3 89 18 85/59 (68) 97 Result Diagram: 05/25/17 0546 05/24/17 0530 Imaging Last Impressions Chest X-Ray 05/23/17 1515 Signed Impressions: Service Date/Time: Tuesday, May 23, 2017 15:26 - CONCLUSION: 1. No evidence of pneumothorax status post removal of left lower chest tube. 2. Persistent partially consolidated left lower lung infiltrate. Oleg Rosenberg MD Tunnelled Chest Tube Removal 05/23/17 0000 Signed Impressions: Service Date/Time: Tuesday, May 23, 2017 00:00 - CONCLUSION: Uncomplicated left chest tube removal. Oleg Decker Jr., MD Abdomen/Pelvis CT 05/22/17 0000 Signed Impressions: Service Date/Time: Tuesday, May 23, 2017 21:01 - CONCLUSION: Persistent consolidative changes left base suspicious for developing empyema with necrotic lung. Trace pleural effusion is evident. Significant improvement in the inflammatory changes in the upper abdomen. Herbert Salas MD FACR Abscess Drainage CT 05/20/17 1524 Signed Impressions: Service Date/Time: Saturday, May 20, 2017 16:14 - CONCLUSION: 1. Uncomplicated CT-guided placement of 10 Irish drainage catheter into small left-sided subpulmonic empyema. Approximately 30 cc of purulent fluid was removed immediately following catheter placement and large sample submitted for laboratory analysis per request. Khurram Campuzano MD Chest CT 05/19/17 0146 Signed Impressions: Service Date/Time: Friday, May 19, 2017 02:13 - CONCLUSION: Pulmonary embolism. Posterior left lung base empyema and adjacent cavitary pneumonia. Incompletely seen inflammatory changes and air in the left retroperitoneum. Jared Mosqueda MD Objective Remarks GENERAL: This is a well-nourished, well-developed patient, in no apparent distress. CARDIOVASCULAR: Regular rate and rhythm without murmurs, gallops, or rubs. RESPIRATORY: Clear to auscultation. Breath sounds equal bilaterally. No wheezes , rales, or rhonchi. GASTROINTESTINAL: Abdomen soft, non-tender, nondistended. Normal active bowel sounds, brown stool in ostomy bag. MUSCULOSKELETAL: Extremities without clubbing, cyanosis, or edema. NEURO: Alert & Oriented x4 to person, place, time, situation. Moves all ext x4 A/P Problem List: (1) Cavitary pneumonia ICD Codes: J18.9 - Pneumonia, unspecified organism; J98.4 - Other disorders of lung Status: Acute Plan: - Pt previously admitted in . Had perforated diverticulitis - Pt underwent proctosigmoid resection on 03/25. stool filled cavity noted. ostomy. 03/25 CT abd/pelvis..1. Extensive free intraperitoneal and retroperitoneal air. There is also air surrounding the distal esophagus within the mediastinum. The findings are suggestive of perforated viscus until proven otherwise. Possibilities include perforated diverticulitis seems most likely. Inflammatory changes and fluid surround the rectosigmoid colon which would likely represent the site of perforation. Air surrounding the distal esophagus raises the possibility of distal esophageal rupture although this seems less likely with large amount of air within the abdomen and pelvis but should be ruled out if the patient has recent history of forceful vomiting. 03/30 CT a/p Status post colostomy with residual small fluid collections identified within the perirectal space. A drain is present within this region. There is persistent air tracking along the mesentery of the left abdomen and left upper quadrant which may be residual from the prior area secondary to bowel perforation. There is a single segment of concerning small bowel loop within the left upper quadrant which appears to demonstrate wall thickening. Enlarging left-sided pleural effusion and mildly enlarged pericardial effusion which are likely reactive.. 05/18 CT chest : Incompletely seen indurated changes in the left retroperitoneum and air are present adjacent to the pancreatic body and left adrenal gland.. Pulmonary embolism. Posterior left lung base empyema and adjacent cavitary pneumonia. Incompletely seen inflammatory changes and air in the left retroperitoneum 05/19 CT abdomen/pelvis: 1. Inflammatory stranding in the retroperitoneum appears to originate in the deep pelvis adjacent to the ring of juan antonio at the previously surgerized rectosigmoid junction and tracks cephalad into the left pararenal space, posterior to the left paracolic gutter and just posterior to the gastric cardia. 2. I believe the inflammatory changes in the retroperitoneum are now contiguous with the left pleural space and the patient has now developed a small empyema with an associated cavitary pneumonic process. 3. Stable small pericardial effusion. 4. Findings a colonic surgery the right surgical juan antonio at the rectosigmoid junction. Colostomy in the left periumbilical distribution. 05/[address] abdomen/pelvis: Airspace disease persists in the left base, stable in the interval. This is suspicious for developing empyema. Trace pleural effusion is evident Inflammatory changes in the abdomen have improved . Persistent air and fluid remain deep in the The retroperitoneum. Colostomy is seen in the left midabdomen No new suspicious inflammatory areas are identified CONCLUSION: Persistent consolidative changes left base suspicious for developing empyema with necrotic lung. Trace pleural effusion is evident. Significant improvement in the inflammatory changes in the upper abdomen. Left cavitary pneumonia/empyema - likely d/t fistula connection tracking up from inflammatory stranding in the retroperitoneum which appears to originate in the deep pelvis adjacent to the ring of juan antonio at the previously surgical rectosigmoid junction. - Patient appeared septic on arrival to [place] - on 05/20: Uncomplicated CT-guided placement of 10 Irish drainage catheter into small left-sided subpulmonic empyema. Approximately 30 cc of purulent fluid was removed immediately following catheter placement and large sample submitted for laboratory analysis . Drain removed on 05/23. - 05/19 sputum culture e.coli.. 05/20 cultures from chest tube pleural space ecoli/ ben - Antibiotic recommendations per Infectious Disease - levaquin and diflucan x 4 weed - flagyl x 2 weeks - outpt f/u with ID - outpt f/u with with CTS for likely decortication of the left hemithorax - PT - anticipate discharge to home 05/27/17 - D/t pt's multiple medical problems and limited social support, I would prefer discharge to SNF. - Pt NOT interested in SNF at this time. - DVT prophylaxis - supportive care. (2) Pulmonary embolism ICD Codes: I26.99 - Other pulmonary embolism without acute cor pulmonale Status: Acute Plan: - case complicated by left pulmonary embolism - heparin was converted to eliquis on 05/24/17 - Eliquis 10mg BID x 7d, then decreased to 5mg BID - monitor for any signs of bleeding (3) Anemia ICD Codes: D64.9 - Anemia, unspecified Status: Acute Plan: - see above - Pt was transfused 2 units PRBCs on 05/20/17 - Hg 6.9 (05/20), 8.6 (05/21), 8.5 (05/25) (4) Anxiety ICD Codes: F41.9 - Anxiety disorder, unspecified Status: Chronic Plan: - started lexapro (05/26) - increase klonopin to 1mg BID prn (5) Hypokalemia ICD Codes: E87.6 - Hypokalemia Status: Resolved Plan: - resolved - potassium repeated - K 3.7 (05/24) (6) Colostomy status ICD Codes: Z93.3 - Colostomy status Status: Chronic Plan: - Pt follows with [facility]. - see above. Problem Qualifiers (1) Pulmonary embolism: Qualified Codes: I26.99 - Other pulmonary embolism without acute cor pulmonale (2) Anemia: Qualified Codes: D64.9 - Anemia, unspecified Andrea Flores DO May 26, 2017 15:47
--- NOTE | 2017-05-26 16:34 | HHI.PR ---
Subjective Remarks ALERT SITTING IN BED NO DISTRESS Objective Vital Signs Date Time Temp Pulse Resp B/P (MAP) Pulse Ox O2 Delivery O2 Flow Rate FiO2 05/26/17 16:00 98.4 99 18 105/68 (80) 95 05/26/17 12:00 99.0 96 18 109/67 (81) 94 05/26/17 08:08 94 21 05/26/17 08:00 98.7 105 18 107/69 (82) 93 05/26/17 07:00 Room Air 05/26/17 04:00 Room Air 05/26/17 04:00 99.0 101 19 120/74 (89) 96 05/26/17 00:00 Room Air 05/26/17 00:00 98.8 80 17 118/67 (84) 95 05/25/17 20:29 94 21 05/25/17 20:00 Room Air 05/25/17 20:00 98.6 109 16 116/65 (82) 95 I/O 05/25/17 05/25/17 05/25/17 05/26/17 05/26/17 05/26/17 07:00 15:00 23:00 07:00 15:00 23:00 Intake Total 240 ml 1080 ml 700 ml Balance 240 ml 1080 ml 700 ml Intake Oral 240 ml 480 ml 700 ml IV Total 600 ml # Voids 2 6 4 # Bowel Movements 0 Result Diagram: 05/25/17 0546 05/24/17 0530 Objective Remarks GENERAL: SKIN: Warm and dry. HEAD: Atraumatic. Normocephalic. EYES: Pupils equal and round. No scleral icterus. No injection or drainage. ENT: No nasal bleeding or discharge. Mucous membranes pink and moist. NECK: Trachea midline. No JVD. CARDIOVASCULAR: Regular rate and rhythm. RESPIRATORY: No accessory muscle use. LEFT CHEST TUBE IN PLACE GASTROINTESTINAL: Abdomen soft, non-tender, nondistended. Hepatic and splenic margins not palpable. MUSCULOSKELETAL: Extremities without clubbing, cyanosis, or edema. No obvious deformities. NEUROLOGICAL: Awake and alert. No obvious cranial nerve deficits. Motor grossly within normal limits. Five out of 5 muscle strength in the arms and legs. Normal speech. PSYCHIATRIC: Appropriate mood and affect; insight and judgment normal. Assessment and Plan Assessment and Plan PE PNA ? EMPYEMA PLAN ANTICOAGULATION ANTIBIOTIC THERAPY Misti Chappell MD May 26, 2017 16:34
[2017-05-26] MEDS ORDERED: ESCITALOPRAM OXALATE 10 MG TAB PO SCH (21:00)
[2017-05-26] MEDS: traZODone HCL 50 MG TAB PO PRN (21:38)
[2017-05-26] MEDS: MONTELUKAST SODIUM 10 MG TAB PO SCH (21:38)
[2017-05-27 00:44] VITALS: BP 121/75; PULSE 100; RESP 16; TEMP 99.3; O2SAT 95
[2017-05-27 04:47] VITALS: BP 108/66; PULSE 95; RESP 17; TEMP 99.1; O2SAT 94
[2017-05-27] MEDS: metroNIDAZOLE 500 MG TAB PO SCH ×3 (06:11→18:10)
[2017-05-27] MEDS: APIXABAN 5 MG TABLET PO SCH ×2 (06:12→18:08)
[2017-05-27] MEDS: ONDANSETRON HCL 4 MG/2 ML VIAL IV PUSH PRN (06:12)
[2017-05-27] MEDS: SODIUM CHLORIDE 0.9% FLUSH 10 ML FLUSH IV FLUSH SCH (07:33)
[2017-05-27] MEDS: RESP: ALBUTEROL 2.5 MG/IPRATROPIUM 0.5 MG NEB (SCH) NEB ×2 (07:42→13:41)
[2017-05-27 07:44] VITALS: O2SAT 94
[2017-05-27 08:00] VITALS: BP 103/63; PULSE 94; RESP 20; TEMP 98.4; O2SAT 95
[2017-05-27] MEDS: clonazePAM 1 MG TAB PO SCH (08:10)
[2017-05-27] MEDS: CETIRIZINE HCL 10 MG TAB PO SCH (08:10)
[2017-05-27] MEDS: FLUCONAZOLE 200 MG TAB PO SCH (08:10)
[2017-05-27] MEDS: PANTOPRAZOLE SOD 40 MG DELAYED RELEASE TAB PO SCH (08:10)
[2017-05-27] MEDS: LEVOFLOXACIN 750 MG TAB PO SCH (08:10)
[2017-05-27 12:00] VITALS: BP 115/67; PULSE 89; RESP 20; TEMP 97.9; O2SAT 95
[2017-05-27 16:00] VITALS: BP 100/65; PULSE 104; RESP 20; TEMP 98.8; O2SAT 97
[2017-05-27] MEDS ORDERED: APIX5TAB PO (16:11)
[2017-05-27] MEDS ORDERED: ESCI10TA PO (16:11)
[2017-05-27] MEDS ORDERED: PANT40TA3 PO (16:11)
--- NOTE | 2017-05-27 16:46 | HHI.DS ---
Discharge Summary Admission Date May 19, 2017 at 03:42 Discharge Date: May 27, 2017 Admitting Diagnosis PE, Cavitary Pneumonia (1) Cavitary pneumonia Diagnosis: Principal ICD Codes: J18.9 - Pneumonia, unspecified organism; J98.4 - Other disorders of lung Status: Acute (2) Pulmonary embolism Diagnosis: Principal ICD Codes: I26.99 - Other pulmonary embolism without acute cor pulmonale Status: Acute (3) Anemia Diagnosis: Principal ICD Codes: D64.9 - Anemia, unspecified Status: Acute (4) Anxiety Diagnosis: Secondary ICD Codes: F41.9 - Anxiety disorder, unspecified Status: Chronic (5) Hypokalemia Diagnosis: Secondary ICD Codes: E87.6 - Hypokalemia Status: Resolved (6) Colostomy status Diagnosis: Secondary ICD Codes: Z93.3 - Colostomy status Status: Chronic Consultants Dr. Misti Chappell, Pulmonary Medicine Dr. Serenity Kurtz, CRS Dr. Mitchell Deleon, Infectious Disease Dr. Ale Cardenas, CTS o Brief History Pt is 62 yo female who underwent partial colectomy/ostomy in March 25 due to diverticulitis/perforation. Pt presents to ED last night after coughing and sob x 2 days. Says she coughs so much that had some emesis. describes some "dark" blood in her mucous after cough...no bright red blood. seen in ED and after CT chest found to have left cavitary pna and likely empyema..in addition to extensive pulmonary embolism on the left. Pt now on zosyn and heparin. Feels slightly better. CBC/BMP: 05/25/17 0546 05/24/17 0530 Significant Findings Laboratory Tests Test 05/25/17 05:46 Red Blood Count 3.03 MIL/MM3 (4.00-5.30) Hemoglobin 8.5 GM/DL (11.6-15.3) Hematocrit 25.4 % (35.0-46.0) Mean Platelet Volume 6.8 FL (7.0-11.0) Imaging Last Impressions Chest X-Ray 05/23/17 1515 Signed Impressions: Service Date/Time: Tuesday, May 23, 2017 15:26 - CONCLUSION: 1. No evidence of pneumothorax status post removal of left lower chest tube. 2. Persistent partially consolidated left lower lung infiltrate. Oleg Rosenberg MD Tunnelled Chest Tube Removal 05/23/17 0000 Signed Impressions: Service Date/Time: Tuesday, May 23, 2017 00:00 - CONCLUSION: Uncomplicated left chest tube removal. Oleg Decker Jr., MD Abdomen/Pelvis CT 05/22/17 0000 Signed Impressions: Service Date/Time: Tuesday, May 23, 2017 21:01 - CONCLUSION: Persistent consolidative changes left base suspicious for developing empyema with necrotic lung. Trace pleural effusion is evident. Significant improvement in the inflammatory changes in the upper abdomen. Herbert Salas MD FACR Abscess Drainage CT 05/20/17 1524 Signed Impressions: Service Date/Time: Saturday, May 20, 2017 16:14 - CONCLUSION: 1. Uncomplicated CT-guided placement of 10 Sami drainage catheter into small left-sided subpulmonic empyema. Approximately 30 cc of purulent fluid was removed immediately following catheter placement and large sample submitted for laboratory analysis per request. Khurram Campuzano MD Chest CT 05/19/17 0146 Signed Impressions: Service Date/Time: Friday, May 19, 2017 02:13 - CONCLUSION: Pulmonary embolism. Posterior left lung base empyema and adjacent cavitary pneumonia. Incompletely seen inflammatory changes and air in the left retroperitoneum. Jared Mosqueda MD PE at Discharge GENERAL: This is a well-nourished, well-developed patient, in no apparent distress. CARDIOVASCULAR: Regular rate and rhythm without murmurs, gallops, or rubs. RESPIRATORY: Clear to auscultation. Breath sounds equal bilaterally. No wheezes , rales, or rhonchi. GASTROINTESTINAL: Abdomen soft, non-tender, nondistended. Normal active bowel sounds, brown stool in ostomy bag. MUSCULOSKELETAL: Extremities without clubbing, cyanosis, or edema. NEURO: Alert & Oriented x4 to person, place, time, situation. Moves all ext x4 Hospital Course (1) Cavitary pneumonia ICD Codes: J18.9 - Pneumonia, unspecified organism; J98.4 - Other disorders of lung Status: Acute Plan: - Pt previously admitted in . Had perforated diverticulitis - Pt underwent proctosigmoid resection on 03/25. stool filled cavity noted. ostomy. 03/25 CT abd/pelvis..1. Extensive free intraperitoneal and retroperitoneal air. There is also air surrounding the distal esophagus within the mediastinum. The findings are suggestive of perforated viscus until proven otherwise. Possibilities include perforated diverticulitis seems most likely. Inflammatory changes and fluid surround the rectosigmoid colon which would likely represent the site of perforation. Air surrounding the distal esophagus raises the possibility of distal esophageal rupture although this seems less likely with large amount of air within the abdomen and pelvis but should be ruled out if the patient has recent history of forceful vomiting. 03/30 CT a/p Status post colostomy with residual small fluid collections identified within the perirectal space. A drain is present within this region. There is persistent air tracking along the mesentery of the left abdomen and left upper quadrant which may be residual from the prior area secondary to bowel perforation. There is a single segment of concerning small bowel loop within the left upper quadrant which appears to demonstrate wall thickening. Enlarging left-sided pleural effusion and mildly enlarged pericardial effusion which are likely reactive.. 05/18 CT chest : Incompletely seen indurated changes in the left retroperitoneum and air are present adjacent to the pancreatic body and left adrenal gland.. Pulmonary embolism. Posterior left lung base empyema and adjacent cavitary pneumonia. Incompletely seen inflammatory changes and air in the left retroperitoneum 05/19 CT abdomen/pelvis: 1. Inflammatory stranding in the retroperitoneum appears to originate in the deep pelvis adjacent to the ring of juan antonio at the previously surgerized rectosigmoid junction and tracks cephalad into the left pararenal space, posterior to the left paracolic gutter and just posterior to the gastric cardia. 2. I believe the inflammatory changes in the retroperitoneum are now contiguous with the left pleural space and the patient has now developed a small empyema with an associated cavitary pneumonic process. 3. Stable small pericardial effusion. 4. Findings a colonic surgery the right surgical juan antonio at the rectosigmoid junction. Colostomy in the left periumbilical distribution. 05/[address] abdomen/pelvis: Airspace disease persists in the left base, stable in the interval. This is suspicious for developing empyema. Trace pleural effusion is evident Inflammatory changes in the abdomen have improved . Persistent air and fluid remain deep in the The retroperitoneum. Colostomy is seen in the left midabdomen No new suspicious inflammatory areas are identified CONCLUSION: Persistent consolidative changes left base suspicious for developing empyema with necrotic lung. Trace pleural effusion is evident. Significant improvement in the inflammatory changes in the upper abdomen. Left cavitary pneumonia/empyema - likely d/t fistula connection tracking up from inflammatory stranding in the retroperitoneum which appears to originate in the deep pelvis adjacent to the ring of juan antonio at the previously surgical rectosigmoid junction. - Patient appeared septic on arrival to [place] - on 05/20: Uncomplicated CT-guided placement of 10 Sami drainage catheter into small left-sided subpulmonic empyema. Approximately 30 cc of purulent fluid was removed immediately following catheter placement and large sample submitted for laboratory analysis . Drain removed on 05/23. - 05/19 sputum culture e.coli.. 05/20 cultures from chest tube pleural space ecoli/ ben - Antibiotic recommendations per Infectious Disease - levaquin and diflucan x 4 weed - flagyl x 2 weeks - outpt f/u with ID - outpt f/u with with CTS for likely decortication of the left hemithorax - PT - anticipate discharge to home 05/27/17 - D/t pt's multiple medical problems and limited social support, I would prefer discharge to SNF. - Pt NOT interested in SNF at this time. - DVT prophylaxis - supportive care. (2) Pulmonary embolism ICD Codes: I26.99 - Other pulmonary embolism without acute cor pulmonale Status: Acute Plan: - case complicated by left pulmonary embolism - heparin was converted to eliquis on 05/24/17 - Eliquis 10mg BID x 7d, then decreased to 5mg BID - monitor for any signs of bleeding (3) Anemia ICD Codes: D64.9 - Anemia, unspecified Status: Acute Plan: - see above - Pt was transfused 2 units PRBCs on 05/20/17 - Hg 6.9 (/), 8.6 (/), 8.5 (05/25) (4) Anxiety ICD Codes: F41.9 - Anxiety disorder, unspecified Status: Chronic Plan: - started lexapro (05/26) - increase klonopin to 1mg BID prn (5) Hypokalemia ICD Codes: E87.6 - Hypokalemia Status: Resolved Plan: - resolved - potassium repeated - K 3.7 (05/24) (6) Colostomy status ICD Codes: Z93.3 - Colostomy status Status: Chronic Plan: - Pt follows with CRS, Dr. Kurtz. - see above. Pt Condition on Discharge: Stable Discharge Disposition: Disch w/ Home Health Serv Discharge Instructions Activities you can perform: Weight Bearing as Jorge Activities to Avoid: Strenuous Activity Follow up Referrals: Appointment for Follow Up - 1 Week with Serenity Kurtz MD Appointment for Follow Up @ [facility] Appointment for Follow Up @ INFECTIOUS DISEASE Infectious Disease - [address] Jessenia Rodriguez PCP Follow-up - [address] Michelle Michael PCP Follow-up @ DR. MICHELLE MICHAEL [facility] with [facility] Vascular Surgery - [address] Ale Cardenas Vascular Surgery @ DR. ALE CARDENAS New Medications: Albuterol Neb (Albuterol Neb) 2.5 Mg/3 Ml Neb 2.5 MG NEB Q4HR NEB PRN for SHORTNESS OF BREATH, #60 NEBULE 0 Refills Ipratropium Neb (Ipratropium Neb) 0.5 Mg/2.5 Ml Amp 0.5 MG NEB Q4HR NEB PRN for SHORTNESS OF BREATH, #180 NEBULE 0 Refills Apixaban (Eliquis) 5 Mg Tab 10 MG PO Q12H for PE, #70 TAB Pt is to take 10mg twice daily through 05/31/17 and then decrease down to 5mg twice daily on 06/01/17 Escitalopram (Escitalopram) 10 Mg Tab 10 MG PO HS for depression, #31 TAB Fluconazole (Diflucan) 200 Mg Tab 200 MG PO DAILY for empyema for 27 Days, #27 TAB Levofloxacin (Levaquin) 750 Mg Tablet 750 MG PO DAILY for empyema for 26 Days, #26 TAB Metronidazole (Flagyl) 500 Mg Tab 250 MG PO Q8HR for empyema for 12 Days, #36 TAB Pantoprazole (Pantoprazole) 40 Mg Tab 40 MG PO DAILY for gerd, #30 TAB Changed Medications: Oxycodone-Acetaminophen (Percocet) 5-325 mg Tab 1 TAB PO Q6H PRN for PAIN, #10 TAB 0 Refills (Changed from: 1-2 TAB; 30) Continued Medications: Cetirizine (Cetirizine) 10 Mg Tab 10 MG PO DAILY for Allergies, TAB 0 Refills Clonazepam (Clonazepam) 1 Mg Tab 1 MG PO DAILY, #15 TAB 0 Refills (This prescription has been renewed) Montelukast (Singulair) 10 Mg Tab 10 MG PO HS, #30 TAB 0 Refills Trazodone (Trazodone) 150 Mg Tablet 150 MG PO HS for Control Depression, #30 TAB 0 Refills Discontinued Medications: Losartan-Hydrochlorothiazide (Losartan-Hydrochlorothiazide) 50-12.5 Mg Tab 1 TAB PO DAILY for Blood Pressure Management, #30 TAB 0 Refills Metoclopramide (Reglan) 5 Mg Tab 5 MG PO TIDAC for abdominal pain MDD 15 for 30 Days, #30 TAB 0 Refills Pantoprazole (Protonix) 20 Mg Tab 20 MG PO DAILY for ulcer MDD 20mg for 30 Days, #30 TAB Potassium Chloride ER (Potassium Chloride ER) 20 Meq Tab 20 MEQ PO BID for Electrolyte Replacement, #60 TAB 0 Refills Sucralfate Liq (Sucralfate Liq) 1 Gram/10 Ml Renay 1 GM PO ACHS for abdominal pain MDD 2mg for 10 Days, #20 BOTTLE 0 Refills Andrea Flores DO May 27, 2017 16:46
[2017-05-27] MEDS ORDERED: DIFL200T PO (16:50)
[2017-05-27] MEDS ORDERED: METR-1 PO (16:50)
[2017-05-27] MEDS ORDERED: ALBU0.08 NEB (16:50)
[2017-05-27] MEDS ORDERED: IPRA0.02 NEB (16:50)
[2017-05-27] MEDS ORDERED: LEVA750T9 PO (16:50)
--- NOTE | 2017-05-27 16:55 | HHI.FF ---
Face to Face Verification Diagnosis: (1) Pulmonary embolism (2) Empyema (3) Hypokalemia (4) Anemia (5) Complication of colostomy (6) Hypertension Physical Therapy Order: Evaluate and Treat, Improve ambulation, Strength and gait training Home Health Nursing Order: Medical education Signs/symptoms of disease process Nursing assessment with vital signs I have seen patient Luda Silva on 05/27/17. My clinical findings support the need for the requested home health care services because: Deconditioned w/ increased weakness Infection w/ risk of complications I certify that my clinical findings support that this patient is homebound because: Unsteady gait/balance Tiffanie Sampson May 27, 2017 16:55 Andrea Flores DO May 28, 2017 11:57
[2017-05-27] MEDS ORDERED: PERC5TAB12 PO (16:56)
[2017-05-27] MEDS ORDERED: CLON1TAB PO (16:56)
--- NOTE | 2017-05-27 17:00 | HHI.DCPOC ---
Discharge Care Plan Diagnosis: (1) Complication of colostomy (2) Hypertension (3) Empyema (4) Hypokalemia (5) Anxiety (6) Colostomy status Goals to Promote Your Health * To prevent worsening of your condition and complications * To maintain your health at the optimal level Directions to Meet Your Goals Take your medications as prescribed Follow your dietary instruction Follow activity as directed Keep your appointments as scheduled Take your immunizations and boosters as scheduled If your symptoms worsen call your PCP, if no PCP go to Urgent Care Center or Emergency Room Smoking is Dangerous to Your Health. Avoid second hand smoke Call the 24-hour hour crisis hotline for domestic abuse at Andrea Flores DO May 27, 2017 17:00
--- NOTE | 2017-05-27 18:21 | HHI.PR ---
Subjective Remarks ALERT SITTING IN BED NO DISTRESS Objective Vital Signs Date Time Temp Pulse Resp B/P (MAP) Pulse Ox O2 Delivery O2 Flow Rate FiO2 05/27/17 16:00 98.8 104 20 100/65 (77) 97 05/27/17 12:00 97.9 89 20 115/67 (83) 95 05/27/17 08:00 98.4 94 20 103/63 (76) 95 05/27/17 07:44 94 21 05/27/17 04:47 99.1 95 17 108/66 (80) 94 05/27/17 04:00 Room Air 05/27/17 00:44 99.3 100 16 121/75 (90) 95 05/27/17 00:00 Room Air 05/26/17 21:37 98.5 98 18 110/66 (81) 95 05/26/17 20:16 98 21 05/26/17 20:00 Room Air I/O 05/26/17 05/26/17 05/26/17 05/27/17 05/27/17 05/27/17 07:00 15:00 23:00 07:00 15:00 23:00 Intake Total 700 ml 960 ml Balance 700 ml 960 ml Intake Oral 700 ml 960 ml # Voids 4 4 # Bowel Movements 0 Result Diagram: 05/25/17 0546 05/24/17 0530 Objective Remarks GENERAL: SKIN: Warm and dry. HEAD: Atraumatic. Normocephalic. EYES: Pupils equal and round. No scleral icterus. No injection or drainage. ENT: No nasal bleeding or discharge. Mucous membranes pink and moist. NECK: Trachea midline. No JVD. CARDIOVASCULAR: Regular rate and rhythm. RESPIRATORY: No accessory muscle use. LEFT CHEST TUBE IN PLACE GASTROINTESTINAL: Abdomen soft, non-tender, nondistended. Hepatic and splenic margins not palpable. MUSCULOSKELETAL: Extremities without clubbing, cyanosis, or edema. No obvious deformities. NEUROLOGICAL: Awake and alert. No obvious cranial nerve deficits. Motor grossly within normal limits. Five out of 5 muscle strength in the arms and legs. Normal speech. PSYCHIATRIC: Appropriate mood and affect; insight and judgment normal. Assessment and Plan Assessment and Plan PE PNA ? EMPYEMA PLAN ANTICOAGULATION ANTIBIOTIC THERAPY CHECK CXRAY BEFORE D/C Misti Chappell MD May 27, 2017 18:21
== END 2017-05-27 18:30 | disposition home health service (06) | DRG 175 ==
LOC: NEPE 23:11 → NEDA 05-19 03:42 → HCIS 05-19 06:10 → HIMN 05-19 19:55 → N04A 05-22 15:12
PROVIDERS: ADMIT Hospitalist; ATTEND Hospitalist
PROC: 0W9B30Z Drainage of Left Pleural Cavity with Drainage Device, Percutaneous Approach (ICD-10-PCS; principal; 2017-05-20)
PROC: 30233N1 Transfusion of Nonautologous Red Blood Cells into Peripheral Vein, Percutaneous Approach (ICD-10-PCS; 2017-05-20)
DX: I26.99 Other pulmonary embolism without acute cor pulmonale (principal); J18.9 Pneumonia, unspecified organism; J98.4 Other disorders of lung; D64.9 Anemia, unspecified; K21.9 Gastro-esophageal reflux disease without esophagitis; F41.9 Anxiety disorder, unspecified; E87.6 Hypokalemia; R00.0 Tachycardia, unspecified; I10 Essential (primary) hypertension; R19.5 Other fecal abnormalities; B96.20 Unspecified Escherichia coli [E. coli] as the cause of diseases classified elsewhere; E78.5 Hyperlipidemia, unspecified; M19.90 Unspecified osteoarthritis, unspecified site; F12.90 Cannabis use, unspecified, uncomplicated; Z96.653 Presence of artificial knee joint, bilateral; Z93.3 Colostomy status; Z87.19 Personal history of other diseases of the digestive system; Z79.01 Long term (current) use of anticoagulants
CPT/HCPCS: 36430; 71045; 71260; 74176; 75989; 76937; 80048; 80053; 82150; 82272; 82550; 82945; 83605; 83615; 83690; 83735; 83880; 84157; 84315; 84484; 85014; 85018; 85025; 85027; 85610; 85730; 86850; 86900; 86901; 86920; 87015; 87040; 87070; 87077; 87102; 87116; 87186; 87205; 87206; 87641; 87804; 88112; 88305; 89051; 93005; 94640; 94664; 96374; 96375; 99152; 99153; C1729; C1769; J0456; J0696; J1450; J1644; J2060; J2250; J2405; J2543; J3010; J3370; J3480; J7030; J7040; J7050; P9016; Q9963; Q9967

== ENCOUNTER 2017-09-09 12:10 | Inpatient (IN) ==
[~2017-09-09 12:10] MED LIST changes: -CETI10 PO; -CLON1TAB PO; +Ketorolac Inj 30 MG/ML (IVP) Vial IV.PUSH ONE; -LOSA50TA2 PO; +Lidocaine PF 1% Inj 5 ML Syringe INFILTRATN ONE; -MONT10TA2 PO; +Normosol-R pH 7.4 Inj 2,000 ML IV.CONT ONE; -PANT20 PO; -PERC5TAB12 PO; -POTA-163 PO; +Phenylephrine/NS 1000 MCG/10ML Syringe IV.PUSH ONE; -REGL5TAB PO; -SUCR1S PO; -TRAZ1TAB14 PO
[2017-09-09] MEDS ORDERED: HYDROmorphone PF Inj 2 MG/ML Vial ONE ×2 (12:53→22:39)
[2017-09-09] MEDS ORDERED: Sugammadex Inj 200 MG/2 ML Vial IV.PUSH ONE (12:53)
--- NOTE | 2017-09-09 13:20 | P.HPUP ---
The Pre-Admit History and Physical Examination regarding the above named patient was reviewed (including, but not limited to, vital signs, heart, lungs, co-morbid conditions), and upon re-examination it is noted that: the patient's condition has not significantly changed since the last examination.
[2017-09-09] MEDS ORDERED: Ketamine Inj 50 MG/5 ML Syringe IV.PUSH ONE (13:30)
--- NOTE | 2017-09-09 14:46 | P.OP ---
- Preoperative Diagnosis (1) Diverticulitis - Postoperative Diagnosis (1) Diverticulitis Date of procedure: 09/09/17 Anesthesia: GETA Surgeon: Sunil Dejesus DO Estimated blood loss (mL): 0 Operation and Findings: 62-year-old female with history of diverticulitis elected to undergo exploratory laparotomy with colectomy by Dr. Cárdenas. Request made for bilateral ureteral catheter placement. Patient was placed in the dorsal lithotomy position, prepped and draped in usual sterile fashion, received preprocedure antibiotics and general endotracheal tube anesthesia was administered. 22 Nigerian cystoscope was inserted the bladder marcano cystoscopy did not reveal any abnormalities. The left ureteral orifice was identified and a 5 Nigerian opening catheter was inserted into the left ureteral orifice without difficulty. This was then repeated on the right side. 16 Nigerian Matta was then inserted and the catheters were secured to the Matta. She tolerated the procedure well.
[2017-09-09] MEDS ORDERED: Acetaminophen 325 MG Tablet PO PRN (17:01)
[2017-09-09] MEDS ORDERED: Potassium Chlor 20 mEq Premix 20 MEQ/100 ML PIGGYBACK IV.SIG PRN (17:01)
[2017-09-09] MEDS ORDERED: Potassium Chlor 40 mEq Premix 40 MEQ/100 ML PIGGYBACK IV.SIG PRN (17:01)
[2017-09-09] MEDS ORDERED: fentaNYL Citrate Inj 100 MCG/2 ML Ampul ONE (17:08)
[2017-09-09] MEDS: KCL 20 mEq/D5W/NaCl 0.9% Inj 1,000 ML IV.CONT SCH (17:15)
[2017-09-09] MEDS ORDERED: *Meperidine Inj 25 MG/ML Vial PERIprocedural Use ONLY ONE (17:21)
[2017-09-09] MEDS ORDERED: *morphine SULFATE 4 MG/ML PERIprocedure ONLY ONE ×3 (18:32→20:20)
[2017-09-09] MEDS: Methocarbamol 500 MG Tablet PO SCH (22:29)
[2017-09-09] MEDS: Escitalopram 10 MG Tablet PO SCH (22:29)
[2017-09-09] MEDS: traZODone 50 MG Tablet PO SCH (22:29)
[2017-09-09] MEDS: Ketorolac Inj 30 MG/ML (IVP) Vial IV.PUSH PRN (23:36)
[2017-09-10] MEDS: KCL 20 mEq/D5W/NaCl 0.9% Inj 1,000 ML IV.CONT SCH ×4 (01:37→21:03)
[2017-09-10 05:04] LABS: Baso % (Auto) 0.1 % (0.0-2.0); Calcium 7.8 mg/dL (8.5-10.1); Carbon Dioxide 27.4 meq/L (21.0-32.0); Hematocrit 33.6 % (35.0-46.0); Hemoglobin 11.5 gm/dL (11.6-15.3); Lymph # (Auto) 0.5 th/mm3 (1.0-4.8); Mean Corpuscular HGB Conc 34.3 % (32.0-36.0); Mean Corpuscular Volume 87.5 fL (80.0-100.0); Mean Platelet Volume 8.5 fL (7.0-11.0); Mono # (Auto) 0.7 th/mm3 (0.0-0.9); Mono % (Auto) 8.7 % (0.0-8.0); Neut # (Auto) 6.8 th/mm3 (1.8-7.7); Neut % (Auto) 85.2 % (16.0-70.0); Platelet Count 174 th/mm3 (150-450); Potassium 4.5 meq/L (3.5-5.1); Red Blood Count 3.84 mil/mm3 (4.00-5.30); Red Cell Distribution Width 13.2 % (11.6-17.2); White Blood Count 7.9 th/mm3 (4.0-11.0)
[2017-09-10] MEDS: Ketorolac Inj 30 MG/ML (IVP) Vial IV.PUSH PRN (05:08)
[2017-09-10] MEDS: Pantoprazole Inj 40 MG Vial IV.PUSH SCH (08:22)
[2017-09-10] MEDS: clonazePAM 1 MG Tablet PO SCH (08:22)
[2017-09-10] MEDS: Methocarbamol 500 MG Tablet PO SCH ×2 (08:23→21:01)
[2017-09-10] MEDS ORDERED: Morphine Inj 4 MG/ML Vial IV.PUSH PRN (10:11)
[2017-09-10] MEDS: Morphine Inj 30 MG/30 ML PCA.VIAL PCA PRN ×3 (10:39→23:06)
--- NOTE | 2017-09-10 11:53 | P.PNCS ---
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
[2017-09-10] MEDS: Montelukast 10 MG Tablet PO SCH ×2 (12:42→17:53)
[2017-09-10] MEDS: Dextrose 5%/NaCl 0.9% Inj 1,000 ML IV.SIG SCH ×3 (12:42→14:01)
[2017-09-10] MEDS ORDERED: Heparin - SQ 10,000 UNITS/ML Vial SQ SCH (21:00)
[2017-09-10] MEDS: traZODone 50 MG Tablet PO SCH (21:01)
[2017-09-10] MEDS: Heparin - SQ 10,000 UNITS/ML Vial SQ SCH (21:02)
[2017-09-10] MEDS: Escitalopram 10 MG Tablet PO SCH (21:02)
[2017-09-11] MEDS: Aluminum/Magnesium/Simethacone Susp 30 ML UDC PO PRN ×2 (00:35→16:01)
[2017-09-11 04:28] LABS: Baso % (Auto) 0.2 % (0.0-2.0); Eos % (Auto) 0.7 % (0.0-4.0); Hemoglobin 10.9 gm/dL (11.6-15.3); Mean Corpuscular Volume 88.4 fL (80.0-100.0); Mean Platelet Volume 8.5 fL (7.0-11.0); Mono # (Auto) 0.5 th/mm3 (0.0-0.9); Mono % (Auto) 7.3 % (0.0-8.0); Neut # (Auto) 5.4 th/mm3 (1.8-7.7); Neut % (Auto) 77.8 % (16.0-70.0); Platelet Count 158 th/mm3 (150-450); Red Blood Count 3.62 mil/mm3 (4.00-5.30); Red Cell Distribution Width 13.7 % (11.6-17.2)
[2017-09-11 05:00] LABS: Calcium 8.1 mg/dL (8.5-10.1); Carbon Dioxide 27.3 meq/L (21.0-32.0); Potassium 4.5 meq/L (3.5-5.1)
--- NOTE | 2017-09-11 05:59 | MP ---
cc: Magen Cárdenas MD DATE OF OPERATION: 09/09/2017 PREOPERATIVE DIAGNOSIS: History of perforated diverticulitis. POSTOPERATIVE DIAGNOSIS: History of perforated diverticulitis. PROCEDURES: Exploratory laparotomy with lysis of adhesions, segmental colon resection, low pelvic anastomosis, closure of colostomy, and omental flap. SURGEON: Magen Cárdenas MD SLOT FLOOR ATTENDANT: Ronnie Tenorio. PROCEDURE: The patient was placed in the supine position. After adequate general anesthesia, her legs were placed in the universal stirrups and supported appropriately. The abdomen and perineum were then prepped with Betadine solution and draped in the usual sterile fashion. With Dr. Tenorio's assistance, the abdomen was opened through the previous midline incision encountering the hernia in the midline in the upper part of the abdomen. Hernia sac was opened and the abdomen further explored, taking down the adhesions to the parietal peritoneum. Very few adhesions in the upper abdomen were noted and the bowel was run from ligament of Treitz down toward ileocecal valve. Several loops were stuck down in the pelvis as well as the cecum. These required some tedious dissection to free them up. Two enterotomies were repaired with seromuscular Vicryl sutures. After full mobilization, the cecum was mobilized up and the rectal pouch was identified. Quite a bit of inflammatory changes at the apex of the pouch. A plane was developed posteriorly taking the bowel off the presacral fascia down to the pelvic floor. Bowel was mobilized laterally further identifying the rectal pouch anteriorly. A plane was developed the anterior rectal wall from the vaginal wall. After adequate mobilization, the distal end of the pouch was not really suitable for anastomosis and the mesorectum was divided in the mid to upper rectum getting more pliable bowel and after further cleansing, the bowel was divided distally with a TA-60 stapling device. Next, the colostomy was taken down from its abdominal wall attachments and returned back into the abdomen. This freed up the left gutter, taking the attachments to the retroperitoneum partially mobilizing the splenic flexure. They did appear to be adequate bowel to reach the rectal pouch without full mobilization of the flexure. The bowel was sized to reach the rectal pouch without tension and with good blood supply dividing the marginal artery at the appropriate point and dividing the bowel distally between a pursestring suture device and a Berny clamp. The end of the bowel was sized to accept an EEA stapling anvil and this was secured with a pursestring suture. Dr. Tenorio then inserted the EEA stapling instrument transanally under direct vision was brought up to the end of the rectal pouch and the trocar advanced. The stapler was reassembled. The bowel aligned properly. The stapled closed and fired. Upon withdrawal, 2 complete donuts of tissue was seen. Gentle insufflation did confirm an airtight anastomosis. The abdomen was then irrigated copiously with normal saline. Adequate hemostasis achieved at all sites. Ezekiel-Carroll drain placed down into the presacral space and brought out through a stab wound in the right lower quadrant, secured to the skin with a nylon suture. Next, attention was turned to the abdominal wall closure. Colostomy site was closed in 2 layers using running #1 PDS sutures to reapproximate the respective fascial layers. The attenuated fascia and sac were excised from the midline and the subcutaneous planes developed on both sides to enable closure of the remaining midline fascia. This was done with a running #1 PDS suture without tension. The subcutaneous tissue was irrigated copiously and the skin closed with a row of surgical juan antonio as was the colostomy site. Wound area washed with normal saline and dried. Sterile dressing of Telfa and gauze applied. The patient tolerated the procedure quite well and was brought to the recovery room in stable condition. Sponge and needle counts were correct at the end of the procedure. MD EDUARDA Navarrete/briseyda/kd , 10:53 PM , 11:04 PM
[2017-09-11] MEDS: KCL 20 mEq/D5W/NaCl 0.9% Inj 1,000 ML IV.CONT SCH (06:32)
[2017-09-11] MEDS: Potassium Chloride Inj 10 MEQ in Sodium Chloride 0.45 % Inj 1,000 ML IV.CONT SCH ×2 (08:43→23:00)
[2017-09-11] MEDS: clonazePAM 1 MG Tablet PO SCH (08:43)
[2017-09-11] MEDS: Methocarbamol 500 MG Tablet PO SCH ×2 (08:43→21:08)
[2017-09-11] MEDS: Pantoprazole Inj 40 MG Vial IV.PUSH SCH (08:43)
[2017-09-11] MEDS: Heparin - SQ 10,000 UNITS/ML Vial SQ SCH ×2 (08:44→21:09)
[2017-09-11] MEDS: Montelukast 10 MG Tablet PO SCH (17:11)
[2017-09-11] MEDS: Morphine Inj 30 MG/30 ML PCA.VIAL PCA PRN (17:11)
[2017-09-11] MEDS: traZODone 50 MG Tablet PO SCH (21:08)
[2017-09-11] MEDS: Escitalopram 10 MG Tablet PO SCH (21:09)
--- NOTE | 2017-09-11 23:04 | P.PNCS ---
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
[2017-09-12] MEDS: Methocarbamol 500 MG Tablet PO SCH ×2 (09:35→20:28)
[2017-09-12] MEDS: clonazePAM 1 MG Tablet PO SCH (09:36)
[2017-09-12] MEDS: Heparin - SQ 10,000 UNITS/ML Vial SQ SCH ×2 (09:36→20:38)
[2017-09-12] MEDS: Pantoprazole Inj 40 MG Vial IV.PUSH SCH (09:36)
[2017-09-12] MEDS: Potassium Chloride Inj 10 MEQ in Sodium Chloride 0.45 % Inj 1,000 ML IV.CONT SCH (15:23)
[2017-09-12] MEDS: Montelukast 10 MG Tablet PO SCH (18:07)
[2017-09-12] MEDS: traZODone 50 MG Tablet PO SCH (20:28)
[2017-09-12] MEDS: Escitalopram 10 MG Tablet PO SCH (20:30)
--- NOTE | 2017-09-12 23:15 | P.PNCS ---
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
[2017-09-13] MEDS: Potassium Chloride Inj 10 MEQ in Sodium Chloride 0.45 % Inj 1,000 ML IV.CONT SCH ×2 (04:51→13:41)
[2017-09-13] MEDS: clonazePAM 1 MG Tablet PO SCH (08:45)
[2017-09-13] MEDS: Heparin - SQ 10,000 UNITS/ML Vial SQ SCH ×2 (08:45→21:23)
[2017-09-13] MEDS: Methocarbamol 500 MG Tablet PO SCH ×2 (08:45→21:22)
[2017-09-13] MEDS: Pantoprazole Inj 40 MG Vial IV.PUSH SCH (10:28)
--- NOTE | 2017-09-13 11:14 | P.PNCS ---
Subjective Interval history: C/ R Surg POD # 4 afebrile, VSS UO good +stool Objective Result Diagrams: 09/11/17 03:22 09/11/17 03:30 Objective Remarks: PE alert Abd - soft,wound dry Assessment and Plan - Plan Imp: OOB decr IVF local care to wound adv diet DC plans
[2017-09-13] MEDS: Montelukast 10 MG Tablet PO SCH (17:42)
[2017-09-13] MEDS: traZODone 50 MG Tablet PO SCH (21:22)
[2017-09-13] MEDS: Escitalopram 10 MG Tablet PO SCH (21:22)
[2017-09-14] MEDS: Potassium Chloride Inj 10 MEQ in Sodium Chloride 0.45 % Inj 1,000 ML IV.CONT SCH (04:02)
[2017-09-14] MEDS: clonazePAM 1 MG Tablet PO SCH (09:32)
[2017-09-14] MEDS: Methocarbamol 500 MG Tablet PO SCH ×2 (09:33→21:00)
--- NOTE | 2017-09-14 11:40 | P.PNCS ---
Subjective Interval history: C/R Surg POD afebrile, VSS selina PO liq stool Objective Result Diagrams: 09/11/17 03:22 09/11/17 03:30 Objective Remarks: PE alert Abd - soft, flat, wound dry Assessment and Plan - Plan Imp: OOB local care to wound adv diet DC plans RTO 1 week
[2017-09-14] MEDS: Sod Chloride 0.9% Inj 1,000 ML IV.SIG SCH (20:07)
[2017-09-14] MEDS: Pantoprazole Inj 40 MG Vial IV.PUSH SCH (20:22)
[2017-09-14] MEDS: Montelukast 10 MG Tablet PO SCH (20:23)
[2017-09-14] MEDS: traZODone 50 MG Tablet PO SCH (21:00)
[2017-09-14] MEDS: Escitalopram 10 MG Tablet PO SCH (21:00)
[2017-09-15] MEDS: Aluminum/Magnesium/Simethacone Susp 30 ML UDC PO PRN ×4 (04:00→20:46)
[2017-09-15] MEDS: Sod Chloride 0.9% Inj 1,000 ML IV.SIG SCH ×3 (04:02→20:53)
[2017-09-15] MEDS: Methocarbamol 500 MG Tablet PO SCH ×2 (08:17→20:47)
[2017-09-15] MEDS: Pantoprazole Inj 40 MG Vial IV.PUSH SCH (08:18)
[2017-09-15] MEDS: clonazePAM 1 MG Tablet PO SCH (08:20)
[2017-09-15] MEDS: Montelukast 10 MG Tablet PO SCH (17:00)
[2017-09-15] MEDS: Escitalopram 10 MG Tablet PO SCH (20:47)
[2017-09-15] MEDS: traZODone 50 MG Tablet PO SCH (20:47)
[2017-09-16] MEDS: Sod Chloride 0.9% Inj 1,000 ML IV.SIG SCH ×2 (03:46→13:11)
[2017-09-16] MEDS: Aluminum/Magnesium/Simethacone Susp 30 ML UDC PO PRN (06:45)
[2017-09-16] MEDS: clonazePAM 1 MG Tablet PO SCH (08:54)
[2017-09-16] MEDS: Pantoprazole Inj 40 MG Vial IV.PUSH SCH (08:54)
[2017-09-16] MEDS: Methocarbamol 500 MG Tablet PO SCH (08:54)
--- NOTE | 2017-09-16 21:40 | P.PNCS ---
Subjective Interval history: C/R Surg POD afebrile, VSS UO good less nausea Objective Result Diagrams: 09/11/17 03:22 09/11/17 03:30 Objective Remarks: PE alert Abd = soft, flat, wound dry, min tympany Assessment and Plan - Plan Imp: OOB local care to wound adv diet DC plans RTO 1 week
--- NOTE | 2017-10-23 05:44 | MD ---
cc: Magen Cárdenas MD, Jamila D MD DATE OF DISCHARGE: 09/16/2017 ADMITTING DIAGNOSIS: History of diverticulitis, status post Alvarado resection. PROCEDURES: 1. On 09/09/2017, cystoscopy and placement of ureteral stents. 2. On 09/09/2017, exploratory laparotomy with lysis of adhesions, segmental colon resection, low pelvic anastomosis, closure of colostomy. DISCHARGE DIAGNOSIS: History of diverticulitis, attention to colostomy. HISTORY OF PRESENT ILLNESS: Ms. Silva is a 62-year-old female who was admitted previously for a perforated diverticulitis. She underwent a Alvarado procedure with sigmoid resection and colostomy and Alvarado pouch. Postoperatively, she developed an abscess in the left upper quadrant, which required CT-guided drainage and long-term antibiotics for pulmonary phlegmon. The patient also developed a pulmonary embolism and has been on anticoagulation ever since. She has taken a fairly long time to regain her strength, but has finally gotten back to full activity. Her recent colonoscopy confirmed her remaining colon to be suitable for reanastomosis and her rectal pouch was pretty unremarkable. The patient presents at this time for definitive closure of the colostomy. Please see the history and physical for complete past medical and surgical history. PERTINENT PHYSICAL: GENERAL: Very pleasant older female in no acute distress. ABDOMEN: Soft and benign. Incision is well healed. Colostomy was pink and patent through the fascia level. No real tympany or distention. RECTAL: Anal inspection revealed benign canal. Digital exam revealed fair tone with no masses or tenderness and no irregular mucosa. HOSPITAL COURSE: After admission, the patient was taken to the operating room on the 09/09/2017, at which point, she underwent cystoscopy and placement of ureteral stents end-to-side and then performed an exploratory laparotomy with extensive lysis of adhesions, segmental colon resection, and low anterior resection with closure of her colostomy. She did have rather dense adhesions in the pelvis stuck to the Alvarado pouch apex. She tolerated the procedure quite well. Postoperatively, she was initially stabilized in the progressive care unit. Her GI tract function returned somewhat slowly and her diet was advanced accordingly. She did require some physical therapy for postoperative weakness and respiratory treatment for atelectasis. Her IV fluids were tapered and she was able to ambulate and have good bowel movements. She was doing well enough to be considered for discharge home on 09/16/2017. Final pathology report did reveal a segment of colon with granulation tissue and scarring, but no evidence of any malignancy or acute mucosal colitis. DISCHARGE INSTRUCTIONS: The patient was discharged eating a regular diet. She was encouraged to ambulate daily, avoiding any heavy lifting or straining. All preop medications were to be resumed. The patient was given pain medication for her postop pain relief. She will be seen in the office in 1 week's time for routine followup. Any problems prior to the scheduled office visit, she was encouraged to call for more urgent attention. Magen Cárdenas MD [facility]/sv , 10:25 PM , 10:35 PM
== END 2017-09-16 14:55 | disposition home or self-care (01) ==
LOC: HSDI 12:10 → HCPC 23:47 → UNDODISIN 09-10 10:45 → N07 09-11 18:10
PROVIDERS: ADMIT Colon & Rectal Surgery; ATTEND Colon & Rectal Surgery
DX: F32.9 Major depressive disorder, single episode, unspecified; Z86.718 Personal history of other venous thrombosis and embolism; I10 Essential (primary) hypertension; K66.0 Peritoneal adhesions (postprocedural) (postinfection); K43.9 Ventral hernia without obstruction or gangrene; Z79.01 Long term (current) use of anticoagulants; F41.9 Anxiety disorder, unspecified; J45.909 Unspecified asthma, uncomplicated; Z96.653 Presence of artificial knee joint, bilateral; Z43.3 Encounter for attention to colostomy

== ENCOUNTER 2017-09-21 20:37 | Inpatient (IN) ==
[2017-09-21] MEDS ORDERED: Morphine Inj 4 MG/ML Vial IV.PUSH ONE (21:28)
[2017-09-21] MEDS ORDERED: Sod Chloride 0.9% Inj 1,000 ML IV.SIG ONE (21:28)
--- NOTE | 2017-09-21 21:35 | ED ---
HPI General Chief complaint: Nausea/Vomiting/Diarrhea Stated complaint: vomitting/post op Time Seen by Provider: 09/21/17 21:15 Source: patient Mode of arrival: ambulatory Limitations: no limitations History of Present Illness HPI Narrative: Patient is a 62-year-old female, past medical history significant for hypertension and diverticulitis status post colostomy with recent reversal approximately 2 weeks ago. Who presents with complaint of nausea and nonbilious, nonbloody emesis for the last 14 hours today. She states she has not been able to tolerate any p.o. intake despite taking her promethazine at home. She is additionally having crampy, intermittent in, diffuse abdominal pain associated with the vomiting. She reports no diarrhea and is continuing to have some bowel movements. No fever nor chills. No chest pain or shortness of breath. She does describe decreased urine output. MD complaint: nausea, vomiting and abdominal pain Onset (ago): hour(s) Description of Vomiting: food contents and watery Description of Diarrhea: none Associated Abdominal Pain: Yes Location of pain: diffuse Radiation: does not radiate Severity: mild Quality: cramping Pain Consistency: intermittent Relieving factors: none Context: recent surgery/procedure Associated symptoms: loss of appetite Related Data Home Medications Medication Instructions Recorded Confirmed apixaban [Eliquis] 10 mg PO BID 09/02/17 09/09/17 biotin 2,000 mcg PO DAILY 09/02/17 09/09/17 cetirizine 10 mg PO DAILY 09/02/17 09/09/17 clonazepam 1 mg PO DAILY 09/02/17 09/09/17 escitalopram oxalate 10 mg PO HS 09/02/17 09/09/17 ibuprofen 800 mg PO BID PRN 09/02/17 09/09/17 ipratropium-albuterol 3 ml INHALATION Q8H PRN 09/02/17 09/09/17 lactobacillus comb no.10 30,000 mmu cells PO DAILY 09/02/17 09/09/17 [Probiotic] methocarbamol 750 mg PO BID 09/02/17 09/09/17 montelukast [Singulair] 10 mg PO QPM 09/02/17 09/09/17 ranitidine HCl [Zantac 75] 75 mg PO BID PRN 09/02/17 09/09/17 trazodone 150 mg PO HS 09/02/17 09/09/17 Previous Rx's Medication Instructions Recorded acetaminophen 650 mg PO Q4H PRN tab 09/14/17 promethazine 25 mg PO Q6H PRN tab 09/14/17 Allergies Allergy/AdvReac Type Severity Reaction Status Date / Time Sulfa (Sulfonamide Allergy Severe RASH Verified 09/21/17 21:00 Antibiotics) sulfamethoxazole Allergy Severe RASH Verified 09/21/17 21:00 trimethoprim Allergy Severe RASH Verified 09/21/17 21:00 Review of Systems Except as stated in HPI: all other systems reviewed are negative Constitutional Reports fatigue, Denies fever(s) and Reports poor appetite Eyes Denies blurry vision ENT Denies nasal congestion Cardiovascular Denies chest pain Respiratory Denies dyspnea Gastrointestinal Reports abdominal pain, Denies melena, Denies coffee ground emesis, Denies diarrhea, Reports nausea and Reports vomiting Genitourinary Denies dysuria Musculoskeletal Denies back pain Integumentary/Breasts Denies rash Neurologic Denies headache(s) Psychiatric Denies confusion [facility] Medical History Medical History Abdominal hernia (Acute) Arthritis (Acute) Asthma (Acute) Back pain (Acute) Chronic nausea (Acute) Colostomy in place (Acute) GERD (gastroesophageal reflux disease) (Acute) Hiatal hernia (Acute) Hx of hysterectomy (Acute) Hx of pleural empyema (Acute) Hx of pulmonary embolus (Acute) Hypertension (Acute) Presence of orthopedic joint implant (Acute) Wears glasses (Acute) Surgical History Surgical History History of abdominal surgery (Acute) Hx of tubal ligation (Acute) S/P total knee arthroplasty (Acute) Social History Social History Substance History: No History of Abuse Second Hand Smoke Exposure: No Smoking Status: Never smoker How Often Do You Have a Drink Containing Alcohol: Never Immunization History Tetanus Immunization: Unsure Hx Influenza Vaccine This Season: No Exam Narrative Exam Narrative: GENERAL: Well-appearing female in no acute distress SKIN: Focused skin assessment warm/dry. No rashes. HEAD: Atraumatic. Normocephalic. EYES: Pupils equal and round. No scleral icterus. No injection or drainage. ENT: No nasal bleeding or discharge. Mucous membranes pink and dry. NECK: Trachea midline. No JVD. CARDIOVASCULAR: Regular rate and rhythm. No murmur appreciated. Intact and equal peripheral pulses RESPIRATORY: No accessory muscle use. Clear to auscultation. Breath sounds equal bilaterally. GASTROINTESTINAL: Abdomen soft, appropriately tender over the surgical region in the center of the abdomen. Dulce are holding the incision intact without any drainage, erythema, warmth. Nondistended. Hepatic and splenic margins not palpable. MUSCULOSKELETAL: No obvious deformities. No clubbing. No cyanosis. No edema. NEUROLOGICAL: Awake and alert. No obvious cranial nerve deficits. Motor grossly within normal limits. Normal speech. PSYCHIATRIC: Appropriate mood and affect; insight and judgment normal. Course Hospital Course: Patient was placed on a monitor and IV was established. She was given Zofran, morphine, IV fluids for rehydration. Labs and CT were then ordered. Initial Documented Vital Signs Temperature 98.5 F 09/21/17 21:00 Pulse Rate 100 H 09/21/17 21:00 Respiratory Rate 23 09/21/17 21:00 Blood Pressure 191/110 H 09/21/17 21:00 Pulse Oximetry 97 09/21/17 21:00 Last Documented Vital Signs Temperature 98.5 F 09/21/17 21:00 Pulse Rate 86 09/21/17 23:52 Respiratory Rate 16 09/21/17 23:52 Blood Pressure 170/80 H 09/21/17 23:52 Pulse Oximetry 98 09/21/17 23:52 Medical Decision Making MDM Narrative Medical decision making narrative: Patient is a 62-year-old female who presents with complaint of vomiting throughout the day today after she had a colostomy takedown. She is hemodynamically stable on arrival but appears dehydrated. She was given pain medicine, antiemetic, fluids after which she felt better. Labs were unremarkable. CT showed fluid collections within the abdominal wall but not within the abdominal cavity. I spoke to Dr. Arroyo, colorectal surgeon on-call for Dr. Cárdenas, who recommended admission to the colorectal service under Dr. Cárdenas for likely postop ileus. Patient was made aware and all questions were answered. Differential Diagnosis Differential Diagnosis: Differential diagnosis includes but is not limited to small bowel obstruction, retained foreign body, postop ileus, metabolic disturbance. Medical Records Medical records reviewed: Yes I reviewed the patient's medical records. Lab Data Lab results reviewed: Yes I reviewed the patient's lab results. Lab results narrative: Labs are unremarkable. Result diagrams: 09/21/17 21:40 09/21/17 21:40 Lab Results 09/21/17 09/21/17 Range/Units 21:40 21:40 WBC 8.7 (4.0-11.0) th/mm3 RBC 4.44 (4.00-5.30) mil/mm3 Hgb 13.0 (11.6-15.3) gm/dL Hct 38.7 (35.0-46.0) % MCV 87.0 (80.0-100.0) fL MCH 29.3 (27.0-34.0) pg MCHC 33.7 (32.0-36.0) % RDW 13.7 (11.6-17.2) % Plt Count 426 D (150-450) th/mm3 MPV 8.0 (7.0-11.0) fL Neut % (Auto) 84.2 H (16.0-70.0) % Lymph % (Auto) 11.5 (9.0-44.0) % Larue % (Auto) 3.3 (0.0-8.0) % Eos % (Auto) 0.2 (0.0-4.0) % Baso % (Auto) 0.8 (0.0-2.0) % Neut # (Auto) 7.3 (1.8-7.7) th/mm3 Lymph # (Auto) 1.0 (1.0-4.8) th/mm3 Larue # (Auto) 0.3 (0.0-0.9) th/mm3 Eos # (Auto) 0.0 (0.0-0.4) th/mm3 Baso # (Auto) 0.1 (0.0-0.2) th/mm3 WBC Differential . Differential Comment Auto diff final Sodium 142 (136-145) meq/L Potassium 3.9 (3.5-5.1) meq/L Chloride 106 (98-107) meq/L Carbon Dioxide 28.0 (21.0-32.0) meq/L Anion Gap 8 (5-15) meq/L BUN 13 (7-18) mg/dL Creatinine 0.76 (0.50-1.00) mg/dL Estimated GFR 77 L (>89) mL/min Random Glucose 141 H (74-106) mg/dL Calcium 9.0 (8.5-10.1) mg/dL Total Bilirubin 0.3 (0.2-1.0) mg/dL Direct Bilirubin Less than 0.1 (0.0-0.2) mg/dL Indirect Bilirubin 0.2 (0.0-0.8) mg/dL AST 17 (15-37) U/L ALT 15 (10-53) U/L Alkaline Phosphatase 71 (45-117) U/L Total Protein 7.7 (6.4-8.2) g/dL Albumin 3.5 (3.4-5.0) g/dL Lipase 111 (73-393) U/L Imaging Data Attestation: I personally reviewed and interpreted this imaging study as follows : My impression: No intra-abdominal fluid collection. no small bowel obstruction Radiologist's impression: Abdomen/Pelvis CT 09/21/17 21:28 CONCLUSION: 1. Evidence of recent midline laparotomy as well as left periumbilical ostomy takedown. Multiple nonspecific fluid collections within the abdominal cavity as above. Small bubbles of gas are seen in the ventral fluid collection above the umbilicus. 2. No fluid collection within the abdominal cavity. No bowel obstruction. Discharge Plan Discharge Disposition Patient Disposition: 30 Still Patient Discharge Condition Condition: Stable Discharge Details Diagnosis: Acute dehydration, Ileus following gastrointestinal surgery Physicians Team ED Provider: Shawnee Baker Primary Care Provider: Michelle Michael Attending Provider: Magen Cárdenas Status ED Status: Admitted Patient
[2017-09-21 21:47] LABS: Baso # (Auto) 0.1 th/mm3 (0.0-0.2); Baso % (Auto) 0.8 % (0.0-2.0); Eos % (Auto) 0.2 % (0.0-4.0); Hematocrit 38.7 % (35.0-46.0); Lymph % (Auto) 11.5 % (9.0-44.0); Mean Corpuscular HGB Conc 33.7 % (32.0-36.0); Mean Corpuscular Hemoglobin 29.3 pg (27.0-34.0); Mono # (Auto) 0.3 th/mm3 (0.0-0.9); Mono % (Auto) 3.3 % (0.0-8.0); Neut # (Auto) 7.3 th/mm3 (1.8-7.7); Neut % (Auto) 84.2 % (16.0-70.0); Platelet Count 426 th/mm3 (150-450); Red Blood Count 4.44 mil/mm3 (4.00-5.30); Red Cell Distribution Width 13.7 % (11.6-17.2); White Blood Count 8.7 th/mm3 (4.0-11.0)
[2017-09-21 22:05] LABS: Alkaline Phosphatase 71 U/L (45-117); Total Protein 7.7 g/dL (6.4-8.2)
[2017-09-21 22:14] VITALS: O2SAT 98
[2017-09-21 22:17] LABS: Alanine Aminotransferase 15 U/L (10-53); Albumin 3.5 g/dL (3.4-5.0); Anion Gap 8 meq/L (5-15); Aspartate Aminotransferase 17 U/L (15-37); Blood Urea Nitrogen 13 mg/dL (7-18); Chloride 106 meq/L (98-107); Glomerular Filtration Rate 77 mL/min (>89); Glucose,Random 141 mg/dL (74-106); Lipase 111 U/L (73-393); Potassium 3.9 meq/L (3.5-5.1); Sodium 142 meq/L (136-145)
[2017-09-21] MEDS ORDERED: Famotidine PF Inj 20 MG/2 ML Vial IV.PUSH ONE (22:50)
--- NOTE | 2017-09-21 22:57 | CT ---
EXAM DATE: 09/21/2017 10:48 PM EDT AGE/SEX: 62 years / Female INDICATIONS: Abdomen pain. Post colon resection. CLINICAL DATA: This is the patient's initial encounter. Patient reports that signs and symptoms have been present for 1 day and indicates a pain score of 7/10. MEDICAL/SURGICAL HISTORY: Hypertension. Asthma. Gastroesophageal reflux disease. Pulmonary e mboli Diverticulitis Colon resection. Colostomy. Hysterectomy. ORAL CONTRAST: No oral contrast ingested. RADIATION DOSE: 7.79 CTDI (mGy) COMPARISON: [facility] [place], CT ABDOMEN & PELVIS W/O CONTRAST, 05/23/2017. . TECHNIQUE: Multiple contiguous axial images were obtained through the abdomen and pelvis following b olus infusion of 80 ml Omnipaque 350 (iohexol) nonionic water-soluble contrast as a single exam dos e. No oral contrast ingested. Using automated exposure control and adjustment of the mA and/or kV ac cording to patient size, radiation dose was kept as low as reasonably achievable to obtain optimal di agnostic quality images. DICOM format image data is available electronically for review and comparis on. FINDINGS: There is evidence of a recent midline laparotomy. A fluid collection is seen in the anterior abdomina l wall and also containing a small bubble of gas. The fluid measures approximately 3.1 x 5.8 x 10.5 c m above the umbilicus. A smaller fluid collection without a gas bubble is seen below the umbilicus, measures 2.4 x 4.2 x 7.1 cm. To the left of the umbilicus is a 1.4 x 3.4 x 2.6 cm fluid collection without gas. Anastomotic s taple line seen in the region of the rectosigmoid junction. No bowel obstruction demonstrated. No org anized or drainable fluid within the abdominal cavity. No acute solid organ abnormality. No lymphadenopathy. No masses are demonstrated. Trace atelectasis/scarring left base. Previously seen infiltrate has resolved. CONCLUSION: 1. Evidence of recent midline laparotomy as well as left periumbilical ostomy takedown. Multiple non specific fluid collections within the abdominal cavity as above. Small bubbles of gas are seen in the ventral fluid collection above the umbilicus. 2. No fluid collection within the abdominal cavity. No bowel obstruction. Electronically signed by: Jared Murphy MD 09/21/2017 10:55 PM EDT
[2017-09-21 23:59] LABS: Bilirubin,Urine Negative (Negative); Clarity,Urine Clear (Clear); Color,Urine Yellow (Yellw/Straw); Glucose,Urine (UA) Negative (Negative); Leukocyte Esterase,Urine Negative (Negative); Nitrite,Urine Negative (Negative); PH,Urine 8.5 (5.0-8.5); Urobilinogen,Urine 0.2 mg/dL (Less than 2)
[2017-09-22 00:11] LABS: RBC,Urine 0-3 /hpf (0-3); Squamous Epithelial Cell,Urine 0-5 /hpf (0-5); WBC,Urine 0-5 /hpf (0-5)
[2017-09-22 00:12] LABS: Amorphous Sediment,Urine Rare /hpf; Bacteria,Urine Rare /hpf; Mucus,Urine Occasional /lpf (Occasional)
[2017-09-22 00:13] LABS: Specific Gravity,Urine 1.035 (1.002-1.035)
[2017-09-22] MEDS: Dextrose 5%/Lactated Ringer's 1,000 ML IV.CONT SCH ×3 (00:36→15:42)
[2017-09-22] MEDS: Famotidine PF Inj 20 MG/2 ML Vial IV.PUSH SCH ×3 (01:58→20:52)
[2017-09-22] MEDS: Sod Chloride 0.9% Inj 1,000 ML IV.CONT SCH ×2 (09:02→17:08)
[2017-09-22] MEDS: Morphine Inj 4 MG/ML Vial IV.PUSH PRN ×3 (12:00→20:57)
--- NOTE | 2017-09-22 22:16 | P.PNCS ---
Subjective Colorectal Surgery Post Op Day #: 0 Interval history: afebrile, VSS UO good no additional N/V - selina PO Objective Result Diagrams: 09/21/17 21:40 09/21/17 21:40 Objective Remarks: PE alert Abd - soft, wound clean, slight seroma palp min tympany Assessment and Plan - Plan Imp: stable, no additional vomiting labs reviewed adv diet slowly cont IVF remove every other staple
[2017-09-23] MEDS: Dextrose 5%/Lactated Ringer's 1,000 ML IV.CONT SCH ×3 (03:00→15:45)
[2017-09-23] MEDS: Sod Chloride 0.9% Inj 1,000 ML IV.CONT SCH ×2 (06:28→17:07)
[2017-09-23] MEDS: Famotidine PF Inj 20 MG/2 ML Vial IV.PUSH SCH ×2 (08:59→20:22)
--- NOTE | 2017-09-23 21:10 | P.PNCS ---
Subjective Colorectal Surgery Post Op Day #: 0 Interval history: afebrile, VSS UO good No N/V +BM Objective Result Diagrams: 09/21/17 21:40 09/21/17 21:40 Objective Remarks: PE alert Abd - soft, wound clean, slight seroma palp min tympany, non-tender Assessment and Plan - Plan Imp: stable, no additional vomiting labs reviewed adv diet slowly cont IVF all juan antonio DC'd
[2017-09-24 06:55] LABS: Calcium 8.8 mg/dL (8.5-10.1); Carbon Dioxide 29.4 meq/L (21.0-32.0); Potassium 3.6 meq/L (3.5-5.1)
[2017-09-24] MEDS ORDERED: Famotidine 20 MG Tablet PO SCH (09:00)
[2017-09-24 09:57] VITALS: TEMP 98.3
[2017-09-24 12:46] VITALS: BP 120/84; PULSE 100; RESP 26
[2017-09-25] MEDS ORDERED: Midazolam Inj 5 MG/ML 1 ML Vial ONE (09:06)
--- NOTE | 2017-10-02 07:59 | MH ---
cc: Magen Cárdenas MD DATE OF ADMISSION: 09/21/2017 ADMITTING DIAGNOSES: Dehydration. Ileus, status post abdominal surgery. HISTORY OF PRESENT ILLNESS: Ms. Silva is a 62-year-old female who had a history of significant diverticulitis. Most recently, she had a reversal of her colostomy about 2 weeks prior to admission. The patient had been doing well at home until the day prior to admission when she began to have cramps and abdominal distention. This progressed to nausea and some emesis. She waited at home for about 12-14 hours, but the emesis continued and she was not able to take any oral intake. The patient presented to the emergency room for additional evaluation. She has been having some gas cramps. No real abdominal distention. Denies any rectal bleeding. Has been passing gas. No diarrhea, no rectal bleeding. Denies any fever. The patient was seen in the emergency room and found to have a generalized ileus on evaluation and was admitted for IV fluids and additional bowel rest. PAST MEDICAL/SURGICAL HISTORY: Please see previous admission for past medical and surgical histories. PHYSICAL EXAMINATION: GENERAL: Very peasant well-developed female in no acute distress. HEENT: Remarkable for dry, but pink membranes. Nonicteric sclerae. NECK: Supple without gross adenopathy. LUNGS: Relatively clear, symmetrically expanding, decreased in the bases. HEART: Regular rhythm. ABDOMEN: Soft. Incision is healing well. Bowel sounds are normal. No rebound or guarding. Slight tympany. No drainage or induration. RECTAL: Anal inspection revealed benign canal. Digital exam revealed good tone. No masses or tenderness. No blood on the finger. EXTREMITIES: No cyanosis or clubbing and minimal trace pedal edema. DIAGNOSTIC DATA: White count was 8.7, hemoglobin 13.0, platelet count was 426,000. BUN was 13, creatinine of 7.76. Liver function tests were all normal. CT scan did show some dilated loops of bowel with no specific transition zone. There was air in the colon. ASSESSMENT AND PLAN: A 62-year-old female status post closure of her colostomy for diverticular disease. She appears to be fairly comfortable and may be able to avoid a nasogastric tube. We will give her IV fluids, some Zofran and Reglan, perhaps Entereg as well since she has been taking narcotics. We will see how she does over the next 12-24 hours; and if she does continue to vomit, will need a nasogastric tube for decompression of the stomach. Hopefully, she will resolve this within the next 2-3 days without any other major interventions. MD EDUARDA Navarrete/mars , 07:29 AM , 07:37 AM
--- NOTE | 2017-10-23 06:11 | MD ---
cc: Magen Cárdenas MD DATE OF DISCHARGE: 09/24/2017 REASON FOR ADMISSION: Dehydration, postoperative ileus, status post closure of colostomy. PROCEDURE: No procedures. DISCHARGE DIAGNOSIS: Dehydration, postoperative ileus, status post closure of colostomy. HISTORY OF PRESENT ILLNESS: Ms. Silva is a 62-year-old female who had a history of perforated diverticulitis. Most recently, she had reversal of her colostomy 2 weeks prior to this admission. She was doing well at home until the day prior to admission when she began to have cramps and abdominal distention. This progressed to nausea and some emesis. She waited at home for 12-14 hours, but the emesis continued and she was unable to take any oral fluids. The patient presented to Emergency Room for additional evaluation. She was found to be dehydrated and x-rays showed distended loops of small bowel consistent with a postop ileus. She was admitted for IV fluids and bowel rest. Please see the admitting history and physicals and prior history and physicals for more complete past medical and surgical history. PERTINENT PHYSICAL: GENERAL: Very pleasant, well-developed female in no acute distress. ABDOMEN: Abdomen was soft. Incision was healing well. Bowel sounds are normal. No rebound or guarding. Slight tympany. No masses palpable. RECTAL: Anal inspection revealed benign canal. Digital exam revealed good tone. No masses or pelvic tenderness. HOSPITAL COURSE: After admission, the patient was hydrated vigorously with IV fluids. She had her pain controlled with IV pain medication. Antiemetics were provided and her vomiting seemed to stop. Her bowel function resumed and she was able to have a progressive diet. Her IV fluids were tapered and she was doing well enough to be considered for discharge home on 09/24/2017. DISCHARGE INSTRUCTIONS: The patient was discharged eating a regular diet. She was encouraged to ambulate daily, avoiding any heavy lifting or straining. Phenergan was provided for her postop nausea. The patient will be seen in the office in 1 week's time for routine followup. Any problems prior to the scheduled office visit, she will call the office for more urgent attention. Magen Cárdenas MD [facility]/sv , 10:29 PM , 10:38 PM
== END 2017-09-24 14:41 | disposition home or self-care (01) ==
LOC: NEPE 20:37 → NEDA 23:41 → N07 09-22 01:28
PROVIDERS: ADMIT Colon & Rectal Surgery; ATTEND Colon & Rectal Surgery